=== PATIENT | female | born 1945 | race African-American/Black ===

== ENCOUNTER 2016-04-30 19:03 | Inpatient (IN) | payer OTHER ==
[~2016-04-30] VITALS: Ht 160 cm; Wt 42.4 kg
[~2016-04-30 19:03] MED LIST: AMOX1TAB10 PO; ASCO500T3 PO; ASPI81TA9 PO; CHOL10002 PO; CLIN300C86 PO; INSU100I13 SQ; INSU100I17 SQ; INSU100I27 SQ; INSU100V13 SQ; INSU300I SQ; LISI-338 PO; MULT1TAB90 PO; POTA20TA82 PO; ZINC50TA29 PO
--- NOTE | 2016-04-30 19:50 | PHYS DOC ---
Past Medical History Past Medical History: Diabetes-Type I Additional Past Medical Histor: MRSA Past Surgical History: Other Additional Past Surgical Histo: Unknown/Note scar on abd. Alcohol Use: None Drug Use: None Adult General Chief Complaint Chief Complaint: BLOOD SUGAR PROBLEM HPI HPI Patient is a 70 year old female who presents with hyperglycemia. Patient reports her glucometer was reading high today. She says that she has been compliant with her insulin. Has c/o nausea at this time. Of note, patient with multiple prior admissions over past year for DKA. Review of Systems Review of Systems Constitutional: Denies fever or chills Eyes: Denies change in visual acuity or eye pain HENT: Denies nasal congestion or sore throat Respiratory: Denies cough or shortness of breath Cardiovascular: Denies chest pain GI: Nausea. Denies abdominal pain, vomiting, bloody stools or diarrhea : Denies dysuria or hematuria Musculoskeletal: Denies back pain or joint pain Integument: Denies rash or skin lesions Neurologic: Denies headache, focal weakness or sensory changes Current Medications Current Medications Current Medications Medications (Trade) Dose Ordered Sig/Amalia Start Time Stop Time Status Last Admin Dose Admin Acetaminophen (Tylenol) 650 mg PRN Q4HRS PRN 04/30/16 21:30 05/01/16 21:29 Insulin Human Regular 150 unit/ Sodium Chloride 151.5 ml @ 0 mls/hr CONT PRN PRN 04/30/16 21:15 04/30/16 21:23 12.7 MLS/HR Ondansetron HCl (Zofran) 4 mg PRN Q8HRS PRN 04/30/16 21:30 05/01/16 21:29 Potassium Chloride (KCl Premix 10meq) 100 ml @ 100 mls/hr PRN Q1HR PRN 04/30/16 21:15 Sodium Chloride 1,000 ml @ 1,000 mls/hr Q1H 04/30/16 21:30 04/30/16 21:31 DC 04/30/16 21:47 1,000 MLS/HR Allergies Allergies Allergies Coded Allergies Type Severity Reaction Last Updated Verified I S O L A T I O N *CONTACT* Allergy Unknown 02/21/16 Yes No Known Medication Allergies Allergy Unknown 12/16/15 Yes Physical Exam Physical Exam Constitutional: Well developed, well nourished, no acute distress, non-toxic appearance HENT: Normocephalic, atraumatic, bilateral external ears normal Eyes: EOMI, conjunctiva normal, no discharge Neck: Normal range of motion, no stridor Cardiovascular: Tachycardic, regular rhythm, no murmur Lungs & Thorax: Mild scattered expiratory wheezing, Kussmaul breathing Abdomen: Bowel sounds normal, soft, non-distended, no TTP Skin: Warm, dry, no erythema, no rash Extremities: No obvious deformity, no edema Neurologic: Somnolent but arousable, MONTES to command, sensation to light touch intact throughout Current Patient Data Vital Signs Vital Signs Date Time Temp Pulse Resp B/P Pulse Ox O2 Delivery O2 Flow Rate FiO2 04/30/16 21:30 132 28 182/79 99 Room Air 04/30/16 19:33 96.9 96.9 Lab Values Laboratory Tests Test 04/30/16 19:24 04/30/16 20:30 Urine Collection Type Unknown Urine Color Yellow Urine Clarity Clear Urine pH 5.5 Urine Specific [place] 1.020 Urine Protein Negativemg/dL (NEG-TRACE) Urine Glucose (UA) >=1000mg/dL (NEG) Urine Ketones (Stick) >=80mg/dL (NEG) Urine Blood Trace (NEG) Urine Nitrite Negative (NEG) Urine Bilirubin Negative (NEG) Urine Urobilinogen Dipstick 0.2mg/dL (0.2 mg/dL) Urine Leukocyte Esterase Negative (NEG) Urine RBC Occ/HPF (0-2) Urine WBC 1-4/HPF (0-4) Urine Squamous Epithelial Cells Few/LPF Urine Bacteria 0/HPF (0-FEW) Urine Mucus Slight/LPF White Blood Count 16.2x10^3/uL (4.0-11.0) H Red Blood Count 3.91x10^6/uL (3.50-5.40) Hemoglobin 11.4g/dL (12.0-15.5) L Hematocrit 40.3% (36.0-47.0) Mean Corpuscular Volume 103fL (79-100) H Mean Corpuscular Hemoglobin 29pg (25-35) Mean Corpuscular Hemoglobin Concent 28g/dL (31-37) L Red Cell Distribution Width 17.5% (11.5-14.5) H Platelet Count 447x10^3/uL (140-400) H Neutrophils (%) (Auto) 87% (31-73) H Lymphocytes (%) (Auto) 8% (24-48) L Monocytes (%) (Auto) 4% (0-9) Eosinophils (%) (Auto) 0% (0-3) Basophils (%) (Auto) 1% (0-3) Neutrophils # (Auto) 14.1x10^3uL (1.8-7.7) H Lymphocytes # (Auto) 1.2x10^3/uL (1.0-4.8) Monocytes # (Auto) 0.7x10^3/uL (0.0-1.1) Eosinophils # (Auto) 0.0x10^3/uL (0.0-0.7) Basophils # (Auto) 0.2x10^3/uL (0.0-0.2) Segmented Neutrophils % 76% (35-66) H Band Neutrophils % 13% (0-9) H Lymphocytes % 7% (24-48) L Monocytes % 4% (0-10) Platelet Estimate Increased (ADEQUATE) Polychromasia Slight Anisocytosis Slight Valentina Cells Occ Sodium Level 138mmol/L (136-145) Potassium Level 4.8mmol/L (3.5-5.1) Chloride Level 98mmol/L (98-107) Carbon Dioxide Level < 5mmol/L (21-32) *L Anion Gap 35 (6-14) H Blood Urea Nitrogen 18mg/dL (7-20) Creatinine 1.2mg/dL (0.6-1.0) H Estimated GFR (Cockcroft-Gault) 54.1 BUN/Creatinine Ratio 15 (6-20) Glucose Level 695mg/dL (70-99) *H Calcium Level 9.2mg/dL (8.5-10.1) Magnesium Level 2.2mg/dL (1.8-2.4) Total Bilirubin 0.6mg/dL (0.2-1.0) Aspartate Amino Transferase (AST) 22U/L (15-37) Alanine Aminotransferase (ALT) 52U/L (14-59) Alkaline Phosphatase 260U/L (46-116) H Total Protein 8.3g/dL (6.4-8.2) H Albumin 3.7g/dL (3.4-5.0) Albumin/Globulin Ratio 0.8 (1.0-1.7) L Laboratory Tests 04/30/16 20:30 Laboratory Tests 04/30/16 20:30 EKG EKG EKG (my read): sinus tachycardia, rate 132, normal axis, no acute ischemic changes Radiology/Procedures Radiology/Procedures CXR (my read): Few circular opacities in R lower lung field, L lateral lung field Course & Med Decision Making Course & Med Decision Making Pertinent Labs and Imaging studies reviewed. (See chart for details) Patient is 70 year old female who presents with hyperglycemia. Concern for DKA, especially given h/o multiple prior episodes. Will check labs, EKG, CXR, UA. IV fluid bolus ordered. EKG and CXR findings as above. Labs notable for glucose 695 , bicarb <5, anion gap 35. Also has leukocytosis, although she frequently has this per chart review. Discussed results with patient. Additional fluid bolus ordered as well as maintenance rate. Insulin gtt started. Discussed with Dr. Conde , will admit to ICU under her care for further evaluation and treatment. Critical care time: I spent 35 minutes critical care time with this patient. This does not include any time spent on procedures. Dragon Disclaimer Dragon Disclaimer This electronic medical record was generated, in whole or in part, using a voice recognition dictation system. Departure Departure Impression: Primary Impression: Diabetic ketoacidosis Disposition: ADMITTED INPATIENT Admitting Physician: Rachell Conde Condition: GUARDED Referrals: NO PCP (PCP) PANCHO GARRETT MD Apr 30, 2016 19:50
[2016-04-30 19:59] LABS: BILIRUBIN,URINE NEGATIVE (NEG); GLUCOSE,URINE >=1000 mg/dL (NEG); NITRITE,URINE NEGATIVE (NEG); PH,URINE 5.5; UROBILINOGEN,URINE 0.2 mg/dL (0.2 mg/dL)
[2016-04-30 20:13] LABS: BACTERIA,URINE 0 /HPF (0-FEW); PROTEIN,URINE NEGATIVE (NEG-TRACE); RBC,URINE OCC /HPF (0-2)
[2016-04-30 20:14] LABS: SQUAMOUS EPITHELIAL CELL,UR FEW /LPF
[2016-04-30] MEDS ORDERED: IV NORMAL SALINE 1000ML BAG 1,000 ML IV SCH ×2 (20:30→21:30)
[2016-04-30 20:41] LABS: BASO # 0.2 x10^3/uL (0.0-0.2); BASO % 1 % (0-3); EOS % 0 % (0-3); HEMATOCRIT 40.3 % (36.0-47.0); HEMOGLOBIN 11.4 g/dL (12.0-15.5); LYMPH # 1.2 x10^3/uL (1.0-4.8); LYMPH % 8 % (24-48); MEAN CORPUSCULAR HEMOGLOBIN 29 pg (25-35); MEAN CORPUSCULAR HGB CONC 28 g/dL (31-37); MEAN CORPUSCULAR VOLUME 103 fL (79-100); MONO % 4 % (0-9); NEUT % 87 % (31-73); PLATELET COUNT 447 x10^3/uL (140-400); RED BLOOD COUNT 3.91 x10^6/uL (3.50-5.40); RED CELL DISTRIBUTION WIDTH 17.5 % (11.5-14.5); WHITE BLOOD COUNT 16.2 x10^3/uL (4.0-11.0)
[2016-04-30 21:03] LABS: ALBUMIN 3.7 g/dL (3.4-5.0); ALBUMIN/GLOBULIN RATIO 0.8 (1.0-1.7); ALK PHOS 260 U/L (46-116); ALT (SGPT) 52 U/L (14-59); AST (SGOT) 22 U/L (15-37); BLOOD UREA NITROGEN 18 mg/dL (7-20); BUN/CREATININE RATIO 15 (6-20); CALCIUM 9.2 mg/dL (8.5-10.1); CHLORIDE 98 mmol/L (98-107); CREATININE 1.2 mg/dL (0.6-1.0); GFR 54.1; POTASSIUM 4.8 mmol/L (3.5-5.1); SODIUM 138 mmol/L (136-145); TOTAL BILIRUBIN 0.6 mg/dL (0.2-1.0); TOTAL PROTEIN 8.3 g/dL (6.4-8.2)
[2016-04-30 21:08] LABS: GLUCOSE 695 mg/dL (70-99)
[2016-04-30 21:09] LABS: ANION GAP 35 (6-14); CARBON DIOXIDE < 5 mmol/L (21-32)
[2016-04-30] MEDS ORDERED: POTASSIUM CHLORIDE 10MEQ 100 ML IV PRN ×3 (21:15)
[2016-04-30] MEDS ORDERED: INSULIN REGULAR VIAL 150 UNIT in 0.9 % SODIUM CHLORIDE 150ML 150 ML IV PRN (21:15)
[2016-04-30 21:20] LABS: ANISOCYTOSIS SLIGHT; BURR CELLS OCC; PLT ESTIMATE INCREASED (ADEQUATE); POLYCHROMASIA SLIGHT
[2016-04-30] MEDS ORDERED: ONDANSETRON PF 4 MG/2 ML VIAL. IV PRN (21:30)
[2016-04-30] MEDS ORDERED: POTASSIUM CL 40MEQ IN 0.9%NACL 1,000 ML IV ONE (22:00)
[2016-04-30] MEDS ORDERED: hydrALAZINE 20 MG/ML VIAL. IVP ONE (22:00)
[2016-04-30 23:15] VITALS: BP 121/54
[2016-04-30 23:30] VITALS: BP 149/59
[2016-04-30 23:45] VITALS: BP 106/61
[2016-05-01] VITALS (26 sets, daily range): BP systolic 59–155; BP diastolic 31–67
[2016-05-01 00:26] LABS: PH COOX 7.05 (7.35-7.45)
[2016-05-01 00:27] LABS: BASE EXCESS COOX -25 mmol/L (-3-3); FIO2 COOX 21; HCO3 COOX 4 mmol/L (21-28); PCO2 COOX 15 mmHg (35-46); PO2 COOX 127 mmHg (65-108); SAT O2 COOX 97 % (92-99)
[2016-05-01 00:55] LABS: BLOOD UREA NITROGEN 18 mg/dL (7-20); CALCIUM 8.4 mg/dL (8.5-10.1); CHLORIDE 105 mmol/L (98-107); CREATININE 1.3 mg/dL (0.6-1.0); GFR 49.3; GLUCOSE 481 mg/dL (70-99); PHOSPHORUS 4.7 mg/dL (2.6-4.7); POTASSIUM 3.9 mmol/L (3.5-5.1); SODIUM 142 mmol/L (136-145)
[2016-05-01 00:57] LABS: ALBUMIN 3.5 g/dL (3.4-5.0); DIRECT BILIRUBIN 0.1 mg/dL (0.0-0.2); TOTAL BILIRUBIN 0.4 mg/dL (0.2-1.0); TOTAL PROTEIN 7.4 g/dL (6.4-8.2)
[2016-05-01 00:58] LABS: ANION GAP 32 (6-14)
[2016-05-01 01:03] LABS: CARBON DIOXIDE < 5 mmol/L (21-32)
[2016-05-01] MEDS ORDERED: SODIUM BICARBONATE VIAL 150 MEQ in IV STERILE WATER 1,000 ML IV ONE (01:30)
[2016-05-01] MEDS: POTASSIUM CHLORIDE 10MEQ 100 ML IV SCH ×4 (02:48→05:48)
--- NOTE | 2016-05-01 06:11 | RAD ---
PROCEDURE AP portable chest x-ray HISTORY Shortness of breath COMPARISON Chest x-ray April 30, 2016 FINDINGS Symmetric nipple shadow densities lung bases. There is increased size of the density at the right lung base which also has less distinct margins since the prior exam. Heart size normal. Calcified plaque thoracic aortic arch. Left mid lung calcified granuloma. No pneumothorax. No pleural effusions. Thoracic spine scoliosis. Bones are unremarkable. IMPRESSION Worsening with enlargement of the right lung base pulmonary opacity. Electronically signed by: Eduardo Escobedo MD (May 01, 2016 06:10:02)
--- NOTE | 2016-05-01 06:29 | EKG ---
[facility] [address] [place] [address] Test Date: 2016-04-30 Test Time: 19:25:20 Pat Name: DALTON MCLEAN Department: Room: 114 1 Gender: F [employer] Operator: : [id number] Requested By: PANCHO GARRETT Order Number: [id number] Reading MD: Cheli Pisano Measurements Intervals [place] Rate: 132 P: 80 VT: 118 QRS: 58 QRSD: 66 T: 81 QT: 282 QTc: 421 Interpretive Statements SINUS TACHYCARDIA LEFT ATRIAL ABNORMALITY RI6.01 Unconfirmed report No previous ECG available for comparison Electronically Signed On 05-05-2016 10:02:52 TILE LAYER SUPERVISOR by Cheli Pisano
[2016-05-01] MEDS: IV DEXTROSE 5 %-0.45 % NACL 1,000 ML IV SCH ×2 (07:45→18:02)
[2016-05-01] MEDS ORDERED: DEXTROSE 50% 25 GM / 50ML DISP.SYRIN. IV ONE ×2 (07:48→08:15)
--- NOTE | 2016-05-01 08:19 | RAD ---
Indication hypertension. Hyperglycemia. Protocol study. A single view of the chest was obtained and is compared to an exam 02/19/2016. There is now a well-defined 3.5 cm mass in the right lower lung field not seen previously. There is a possible additional smaller mass immediately adjacent to the larger mass. There is a well-defined 1.5 cm mass in the left hemithorax. This could represent nipple. A parenchymal mass is not excluded. A CT examination of the chest should be considered. (These findings were identified by the emergency room physician at the time of the exam). An acute parenchymal infiltrate is not seen. The pulmonary vasculature is normal. Significant pleural fluid is not present. There is no pneumothorax. IMPRESSION: Parenchymal opacities suggesting parenchymal masses, new relative to a study previously. CT examination should be considered. A definite acute finding in the chest is not seen
[2016-05-01 08:23] LABS: CALCIUM 8.9 mg/dL (8.5-10.1); CREATININE 1.2 mg/dL (0.6-1.0); GFR 54.1; MAGNESIUM 1.6 mg/dL (1.8-2.4); PHOSPHORUS 1.9 mg/dL (2.6-4.7)
[2016-05-01] MEDS: ACETAMINOPHEN 325 MG TABLET. PO PRN ×2 (08:44→18:00)
[2016-05-01] MEDS ORDERED: PIP/TAZO PER PHARMACY MC PRN (09:45)
[2016-05-01] MEDS ORDERED: VANCOMYCIN PER PHARMACY MC PRN (09:45)
[2016-05-01 09:46] LABS: BASO % 0 % (0-3); EOS % 0 % (0-3); HEMATOCRIT 28.7 % (36.0-47.0); HEMOGLOBIN 9.5 g/dL (12.0-15.5); LYMPH # 0.4 x10^3/uL (1.0-4.8); LYMPH % 17 % (24-48); MEAN CORPUSCULAR HEMOGLOBIN 29 pg (25-35); MEAN CORPUSCULAR HGB CONC 33 g/dL (31-37); MEAN CORPUSCULAR VOLUME 89 fL (79-100); MONO % 15 % (0-9); NEUT % 68 % (31-73); PLATELET COUNT 295 x10^3/uL (140-400); RED BLOOD COUNT 3.23 x10^6/uL (3.50-5.40); RED CELL DISTRIBUTION WIDTH 15.1 % (11.5-14.5); WHITE BLOOD COUNT 2.4 x10^3/uL (4.0-11.0)
[2016-05-01] MEDS ORDERED: VANCOMYCIN 1 GM in IV NORMAL SALINE 250ML 250 ML IV ONE ×2 (10:00→13:30)
[2016-05-01] MEDS ORDERED: MAGNESIUM SULFATE 2GM 50 ML IV ONE (10:00)
[2016-05-01] MEDS ORDERED: SODIUM PHOSPHATE 20 MMOL in IV DEXTROSE 5% 250 ML IV ONE (10:00)
--- NOTE | 2016-05-01 11:00 | PDOC ---
Provider Note Provider Note dictated see orders FRANCISCO ZULUAGA MD May 01, 2016 11:00
[2016-05-01] MEDS ORDERED: SODIUM BICARB ADULT 8.4% 50 MEQ/50 ML DISP.SYRIN. IV ONE (11:30)
[2016-05-01] MEDS ORDERED: CONTRAST GIVEN MC PRN (11:45)
--- NOTE | 2016-05-01 11:48 | CONS ---
DATE OF CONSULTATION: 05/01/2016 ATTENDING PHYSICIAN: Dr. Conde. REASON FOR CONSULTATION: Encephalopathy, pneumonia, altered mental status and DKA. HISTORY OF PRESENT ILLNESS: The patient is a 70-year-old female who has history of type 1 diabetes and has multiple hospitalizations on a regular basis for diabetic ketoacidosis. She was brought in to the hospital with hyperglycemia. Her glucometer was reading high. She was seen in the ER where her blood sugars were noted to be 695. The patient's bicarbonate was less than 5. She had a BUN of 18 and creatinine of 1.2. Her chest x-ray also showed a new opacity in the right lower lobe consistent with pneumonia. The patient's previous chest x-ray in March has shown no infiltrates involving the right lower lobe. Upon further questioning from the family, she has been coughing and had a fever at home. She was also noted to have a fever of 99.6 while in the hospital. The patient has been seen by Infectious Disease and CT scan of the chest and abdomen has been ordered and she is being placed on broad-spectrum antibiotic, vancomycin and Zosyn. She appears to be alert but somewhat lethargic, but she is oriented to place and person. PAST MEDICAL HISTORY: Significant for history of type 1 diabetes, history of prior respiratory failure, history of multiple admissions of diabetic ketoacidosis, and history of MRSA infection. PAST SURGICAL HISTORY: No recent surgeries. ALLERGIES: None to any medications. MEDICATIONS: Reviewed including broad-spectrum antibiotics. REVIEW OF SYSTEMS: Limited, but at least 10-point system was obtained. Pertinent positives discussed in my history of present illness. SOCIAL HISTORY: Nonsmoker. PHYSICAL EXAMINATION: VITAL SIGNS: T-max of 99, blood pressure 117/54, pulse is in the 130s. Pulse ox is 97% on 4-6 liters. HEENT: Sclerae nonicteric. NECK: Supple. LUNGS: Diminished breath sounds. CARDIOVASCULAR: Regular rate and tachycardia. ABDOMEN: Soft. EXTREMITIES: No pitting edema. LABORATORY DATA: Latest labs are reviewed. BUN 14, creatinine 1.2. Sugars are now in the 115 range. Her urine has a few WBCs. ABGs with a pH of 7.05, pCO2 of 15 and a pO2 of 127 with a bicarbonate of 4. IMPRESSION: 1. Acute encephalopathy secondary to diabetic ketoacidosis. 2. Right lower lobe pneumonia. The patient presented with a new infiltrate, fever and cough at home. 3. Severe metabolic acidosis secondary to diabetic ketoacidosis. 4. No significant history of tobacco use. 5. Mild renal insufficiency, improving with IV fluids. 6. Acute hypoxic respiratory failure secondary to pneumonia. RECOMMENDATIONS: 1. Continue with present oxygen with gradual wean keeping sats 92-94%. 2. Broad spectrum antibiotics as initiated by Infectious Disease. 3. CT chest and abdomen has been ordered by Dr. Austin. We will follow and reviewed the images once available. 4. Management of DKA per PCP. 5. P.r.n. bicarbonate. 6. Replace magnesium and phosphorus. 7. IV hydration. 8. Discussed with the patient's family, RN and RT. We will follow along with you. We will keep the patient in ICU. Critical care time 39 minutes. FRANCISCO ZULUAGA MD DR: PALAK/carmelo JOB#: [id number] / [id number]
[2016-05-01] MEDS ORDERED: PIPERACILLIN/TAZOBACTAM 2.25 GM in IV NORMAL SALINE 50ML 50 ML IV SCH (12:00)
--- NOTE | 2016-05-01 12:00 | PDOC1 ---
History and Physical Date of Admission Date of Admission 05/01/16 Identification/Chief Complaint Chief Complaint hyperglycemia Problems: Source Source: Chart review History of Present Illness History of Present Illness 70yo F, dm1, on insulin, comes here every month for hyperglycemia. pt was found DKA again this time. pt is very lethargic now, not talks to me or follow any commands. in ICU overnight with DKA protocol, bicarb drip, has fever, + 1/2 bcx. and + lung mass, likely HCAP now. Past Medical History Cardiovascular: No pertinent hx, HTN Pulmonary: No pertinent hx Hepatobiliary: No pertinent hx Psych: No pertinent hx Rheumatologic: No pertinent hx Infectious disease: No pertinent hx Renal/: No pertinent hx Endocrine: Diabetes Past Surgical History Past Surgical History: Hysterectomy Family History Family History: Hypertension Social History Smoke: No ALCOHOL: none Drugs: None Current Problem List Problem List Problems Medical Problems: (1) Diabetic ketoacidosis Status: Acute (2) DKA (diabetic ketoacidoses) Status: Acute Current Medications Current Medications Current Medications Medications (Trade) Dose Ordered Sig/Amalia Start Time Stop Time Status Last Admin Dose Admin Acetaminophen 650 mg 650 mg PRN Q4HRS PRN 04/30/16 21:30 05/01/16 21:29 05/01/16 08:44 650 MG Dextrose 25 gm STK-MED ONCE 05/01/16 07:48 05/01/16 07:49 DC Dextrose 25 gm 25 gm 1X ONCE 05/01/16 08:15 05/01/16 08:16 DC 05/01/16 07:45 25 GM Dextrose/Sodium Chloride (Iv D5% - 1/2 NS) 1,000 ml @ 100 mls/hr Q10H 05/01/16 08:23 05/01/16 07:45 250 MLS/HR Hydralazine HCl 10 mg 10 mg 1X ONCE 04/30/16 22:00 04/30/16 22:01 DC 04/30/16 22:10 10 MG Info (Do NOT chart on this entry -- for MONITORING) 1 each PRN DAILY PRN 05/01/16 11:45 05/03/16 11:44 Insulin Human Regular/Sodium Chloride (Novolin R Vial/ Iv Normal Saline 150ml) 151.5 ml @ 0 mls/hr CONT PRN PRN 04/30/16 21:15 04/30/16 21:23 12.7 MLS/HR Iohexol (Omnipaque 300 Mg/ml) 60 ml 1X ONCE 05/01/16 12:15 05/01/16 12:16 Magnesium Sulfate/ Dextrose (Magnesium Sulfate PREMIX 4GM) 100 ml @ 25 mls/hr PRN DAILY PRN 05/02/16 09:00 Ondansetron HCl (Zofran) 4 mg PRN Q8HRS PRN 04/30/16 21:30 05/01/16 21:29 05/01/16 04:57 4 MG Piperacillin Sod/ Tazobactam Sod 2.25 gm/Sodium Chloride 50 ml @ 100 mls/hr Q6HRS 05/01/16 12:00 Piperacillin Sod/ Tazobactam Sod 1 each 1 each PRN DAILY PRN 05/01/16 09:45 Potassium Chloride/Sodium Chloride (KCl 40 Meq-NS 1,000 ml Iv Soln) 1,000 ml @ 150 mls/hr 1X ONCE 04/30/16 22:00 05/01/16 04:39 DC 04/30/16 21:48 150 MLS/HR Potassium Chloride (KCl Premix 10meq) 100 ml @ 100 mls/hr Q1H 05/01/16 03:00 05/01/16 06:59 DC 05/01/16 05:48 100 MLS/HR Sodium Bicarbonate 150 meq/Sterile Water 1,150 ml @ 125 mls/hr 1X ONCE 05/01/16 01:30 05/01/16 10:41 DC 05/01/16 01:30 125 MLS/HR Sodium Bicarbonate 50 meq 1X ONCE 05/01/16 11:30 05/01/16 11:31 DC Sodium Chloride 1,000 ml @ 1,000 mls/hr Q1H 04/30/16 21:30 04/30/16 21:31 DC 04/30/16 21:47 1,000 MLS/HR Sodium Phosphate 20 mmol/Dextrose 256.6667 ml @ 64.167 m... 1X ONCE 05/01/16 10:00 05/01/16 13:59 Vancomycin HCl (Vanco Per Pharmacy) 1 each PRN DAILY PRN 05/01/16 09:45 Vancomycin HCl 1 gm/Sodium Chloride 250 ml @ 250 mls/hr 1X ONCE 05/01/16 10:00 05/01/16 10:59 DC Allergies Allergies Allergies Coded Allergies Type Severity Reaction Last Updated Verified I S O L A T I O N *CONTACT* Allergy Unknown 02/21/16 Yes No Known Medication Allergies Allergy Unknown 12/16/15 Yes ROS Review of System CONSTITUTIONAL: No fever or chills EYES: No recent changes SKIN: No rash or itching CARDIOVASCULAR: No chest pain, syncope, palpitations, or edema RESPIRATORY: No SOB or cough GASTROINTESTINAL: No nausea, vomiting or abdominal pain NEUROLOGICAL: No headaches or weakness ENDOCRINE: No cold or heat intolerance GENITOURINARY: No urgency or frequency of urination MUSCULOSKELETAL: No back pain or joint pain LYMPHATICS: No enlarged lymph nodes PSYCHIATRIC: No anxiety or depression Physical Exam Physical Exam GEN.: lethargic, not talk or follow commands HEENT: Head is normocephalic, atraumatic NECK: Supple. LUNGS: right lower mild crackles HEART: RRR, S1, S2 present. Peripheral pulses intact ABDOMEN: Soft, nontender. Positive bowel sounds. EXTREMITIES: Without any cyanosis. NEUROLOGIC: Normal speech, normal tone PSYCHIATRIC: Normal affect, normal mood. SKIN: No ulcerations Vitals Vitals Vital Signs Date Time Temp Pulse Resp B/P Pulse Ox O2 Delivery O2 Flow Rate FiO2 05/01/16 06:00 140 26 117/54 97 Simple Mask 6.0 05/01/16 04:00 99.6 99.6 Labs Labs Laboratory Tests Test 04/30/16 19:24 04/30/16 20:30 04/30/16 22:54 04/30/16 23:30 Urine Collection Type Unknown Urine Color Yellow Urine Clarity Clear Urine pH 5.5 Urine Specific [place] 1.020 Urine Protein Negativemg/dL (NEG-TRACE) Urine Glucose (UA) >=1000mg/dL (NEG) Urine Ketones (Stick) >=80mg/dL (NEG) Urine Blood Trace (NEG) Urine Nitrite Negative (NEG) Urine Bilirubin Negative (NEG) Urine Urobilinogen Dipstick 0.2mg/dL (0.2 mg/dL) Urine Leukocyte Esterase Negative (NEG) Urine RBC Occ/HPF (0-2) Urine WBC 1-4/HPF (0-4) Urine Squamous Epithelial Cells Few/LPF Urine Bacteria 0/HPF (0-FEW) Urine Mucus Slight/LPF White Blood Count 16.2x10^3/uL (4.0-11.0) Red Blood Count 3.91x10^6/uL (3.50-5.40) Hemoglobin 11.4g/dL (12.0-15.5) Hematocrit 40.3% (36.0-47.0) Mean Corpuscular Volume 103fL (79-100) Mean Corpuscular Hemoglobin 29pg (25-35) Mean Corpuscular Hemoglobin Concent 28g/dL (31-37) Red Cell Distribution Width 17.5% (11.5-14.5) Platelet Count 447x10^3/uL (140-400) Neutrophils (%) (Auto) 87% (31-73) Lymphocytes (%) (Auto) 8% (24-48) Monocytes (%) (Auto) 4% (0-9) Eosinophils (%) (Auto) 0% (0-3) Basophils (%) (Auto) 1% (0-3) Neutrophils # (Auto) 14.1x10^3uL (1.8-7.7) Lymphocytes # (Auto) 1.2x10^3/uL (1.0-4.8) Monocytes # (Auto) 0.7x10^3/uL (0.0-1.1) Eosinophils # (Auto) 0.0x10^3/uL (0.0-0.7) Basophils # (Auto) 0.2x10^3/uL (0.0-0.2) Segmented Neutrophils % 76% (35-66) Band Neutrophils % 13% (0-9) Lymphocytes % 7% (24-48) Monocytes % 4% (0-10) Platelet Estimate Increased (ADEQUATE) Polychromasia Slight Anisocytosis Slight [place] Cells Occ Sodium Level 138mmol/L (136-145) Potassium Level 4.8mmol/L (3.5-5.1) Chloride Level 98mmol/L (98-107) Carbon Dioxide Level < 5mmol/L (21-32) Anion Gap 35 (6-14) Blood Urea Nitrogen 18mg/dL (7-20) Creatinine 1.2mg/dL (0.6-1.0) Estimated GFR (Cockcroft-Gault) 54.1 BUN/Creatinine Ratio 15 (6-20) Glucose Level 695mg/dL (70-99) Calcium Level 9.2mg/dL (8.5-10.1) Magnesium Level 2.2mg/dL (1.8-2.4) Total Bilirubin 0.6mg/dL (0.2-1.0) Aspartate Amino Transf (AST/SGOT) 22U/L (15-37) Alanine Aminotransferase (ALT/SGPT) 52U/L (14-59) Alkaline Phosphatase 260U/L (46-116) Total Protein 8.3g/dL (6.4-8.2) Albumin 3.7g/dL (3.4-5.0) Albumin/Globulin Ratio 0.8 (1.0-1.7) Glucose (Fingerstick) 553mg/dL (70-99) 456mg/dL (70-99) Test 05/01/16 00:18 05/01/16 00:28 05/01/16 00:41 05/01/16 01:38 O2 Saturation 97% (92-99) Arterial Blood pH 7.05 (7.35-7.45) Arterial Blood pCO2 at Patient Temp 15mmHg (35-46) Arterial Blood pO2 at Patient Temp 127mmHg (65-108) Arterial Blood HCO3 4mmol/L (21-28) Arterial Blood Base Excess -25mmol/L (-3-3) FiO2 21 Sodium Level 142mmol/L (136-145) Potassium Level 3.9mmol/L (3.5-5.1) Chloride Level 105mmol/L (98-107) Carbon Dioxide Level < 5mmol/L (21-32) Anion Gap 32 (6-14) Blood Urea Nitrogen 18mg/dL (7-20) Creatinine 1.3mg/dL (0.6-1.0) Estimated GFR (Cockcroft-Gault) 49.3 Glucose Level 481mg/dL (70-99) Calcium Level 8.4mg/dL (8.5-10.1) Phosphorus Level 4.7mg/dL (2.6-4.7) Magnesium Level 2.0mg/dL (1.8-2.4) Total Bilirubin 0.4mg/dL (0.2-1.0) Direct Bilirubin 0.1mg/dL (0.0-0.2) Aspartate Amino Transf (AST/SGOT) 19U/L (15-37) Alanine Aminotransferase (ALT/SGPT) 47U/L (14-59) Alkaline Phosphatase 239U/L (46-116) Total Protein 7.4g/dL (6.4-8.2) Albumin 3.5g/dL (3.4-5.0) Lipase 342U/L (73-393) Glucose (Fingerstick) 372mg/dL (70-99) 354mg/dL (70-99) Test 05/01/16 02:46 05/01/16 03:47 05/01/16 04:51 05/01/16 05:47 Glucose (Fingerstick) 268mg/dL (70-99) 194mg/dL (70-99) 146mg/dL (70-99) 139mg/dL (70-99) Test 05/01/16 06:43 05/01/16 07:30 05/01/16 07:45 05/01/16 08:11 Glucose (Fingerstick) 100mg/dL (70-99) 59mg/dL (70-99) 105mg/dL (70-99) Sodium Level 136mmol/L (136-145) Potassium Level 4.0mmol/L (3.5-5.1) Chloride Level 108mmol/L (98-107) Carbon Dioxide Level 14mmol/L (21-32) Anion Gap 14 (6-14) Blood Urea Nitrogen 14mg/dL (7-20) Creatinine 1.2mg/dL (0.6-1.0) Estimated GFR (Cockcroft-Gault) 54.1 Glucose Level 90mg/dL (70-99) Calcium Level 8.9mg/dL (8.5-10.1) Phosphorus Level 1.9mg/dL (2.6-4.7) Magnesium Level 1.6mg/dL (1.8-2.4) Test 05/01/16 09:20 05/01/16 09:30 05/01/16 10:35 05/01/16 11:43 Glucose (Fingerstick) 92mg/dL (70-99) 115mg/dL (70-99) 85mg/dL (70-99) White Blood Count 2.4x10^3/uL (4.0-11.0) Red Blood Count 3.23x10^6/uL (3.50-5.40) Hemoglobin 9.5g/dL (12.0-15.5) Hematocrit 28.7% (36.0-47.0) Mean Corpuscular Volume 89fL (79-100) Mean Corpuscular Hemoglobin 29pg (25-35) Mean Corpuscular Hemoglobin Concent 33g/dL (31-37) Red Cell Distribution Width 15.1% (11.5-14.5) Platelet Count 295x10^3/uL (140-400) Neutrophils (%) (Auto) 68% (31-73) Lymphocytes (%) (Auto) 17% (24-48) Monocytes (%) (Auto) 15% (0-9) Eosinophils (%) (Auto) 0% (0-3) Basophils (%) (Auto) 0% (0-3) Neutrophils # (Auto) 1.6x10^3uL (1.8-7.7) Lymphocytes # (Auto) 0.4x10^3/uL (1.0-4.8) Monocytes # (Auto) 0.4x10^3/uL (0.0-1.1) Eosinophils # (Auto) 0.0x10^3/uL (0.0-0.7) Basophils # (Auto) 0.0x10^3/uL (0.0-0.2) Laboratory Tests Test 04/30/16 19:24 04/30/16 20:30 04/30/16 22:54 04/30/16 23:30 Urine Collection Type Unknown Urine Color Yellow Urine Clarity Clear Urine pH 5.5 Urine Specific [place] 1.020 Urine Protein Negativemg/dL (NEG-TRACE) Urine Glucose (UA) >=1000mg/dL (NEG) Urine Ketones (Stick) >=80mg/dL (NEG) Urine Blood Trace (NEG) Urine Nitrite Negative (NEG) Urine Bilirubin Negative (NEG) Urine Urobilinogen Dipstick 0.2mg/dL (0.2 mg/dL) Urine Leukocyte Esterase Negative (NEG) Urine RBC Occ/HPF (0-2) Urine WBC 1-4/HPF (0-4) Urine Squamous Epithelial Cells Few/LPF Urine Bacteria 0/HPF (0-FEW) Urine Mucus Slight/LPF White Blood Count 16.2x10^3/uL (4.0-11.0) Red Blood Count 3.91x10^6/uL (3.50-5.40) Hemoglobin 11.4g/dL (12.0-15.5) Hematocrit 40.3% (36.0-47.0) Mean Corpuscular Volume 103fL (79-100) Mean Corpuscular Hemoglobin 29pg (25-35) Mean Corpuscular Hemoglobin Concent 28g/dL (31-37) Red Cell Distribution Width 17.5% (11.5-14.5) Platelet Count 447x10^3/uL (140-400) Neutrophils (%) (Auto) 87% (31-73) Lymphocytes (%) (Auto) 8% (24-48) Monocytes (%) (Auto) 4% (0-9) Eosinophils (%) (Auto) 0% (0-3) Basophils (%) (Auto) 1% (0-3) Neutrophils # (Auto) 14.1x10^3uL (1.8-7.7) Lymphocytes # (Auto) 1.2x10^3/uL (1.0-4.8) Monocytes # (Auto) 0.7x10^3/uL (0.0-1.1) Eosinophils # (Auto) 0.0x10^3/uL (0.0-0.7) Basophils # (Auto) 0.2x10^3/uL (0.0-0.2) Segmented Neutrophils % 76% (35-66) Band Neutrophils % 13% (0-9) Lymphocytes % 7% (24-48) Monocytes % 4% (0-10) Platelet Estimate Increased (ADEQUATE) Polychromasia Slight Anisocytosis Slight [place] Cells Occ Sodium Level 138mmol/L (136-145) Potassium Level 4.8mmol/L (3.5-5.1) Chloride Level 98mmol/L (98-107) Carbon Dioxide Level < 5mmol/L (21-32) Anion Gap 35 (6-14) Blood Urea Nitrogen 18mg/dL (7-20) Creatinine 1.2mg/dL (0.6-1.0) Estimated GFR (Cockcroft-Gault) 54.1 BUN/Creatinine Ratio 15 (6-20) Glucose Level 695mg/dL (70-99) Calcium Level 9.2mg/dL (8.5-10.1) Magnesium Level 2.2mg/dL (1.8-2.4) Total Bilirubin 0.6mg/dL (0.2-1.0) Aspartate Amino Transf (AST/SGOT) 22U/L (15-37) Alanine Aminotransferase (ALT/SGPT) 52U/L (14-59) Alkaline Phosphatase 260U/L (46-116) Total Protein 8.3g/dL (6.4-8.2) Albumin 3.7g/dL (3.4-5.0) Albumin/Globulin Ratio 0.8 (1.0-1.7) Glucose (Fingerstick) 553mg/dL (70-99) 456mg/dL (70-99) Test 05/01/16 00:18 05/01/16 00:28 05/01/16 00:41 05/01/16 01:38 O2 Saturation 97% (92-99) Arterial Blood pH 7.05 (7.35-7.45) Arterial Blood pCO2 at Patient Temp 15mmHg (35-46) Arterial Blood pO2 at Patient Temp 127mmHg (65-108) Arterial Blood HCO3 4mmol/L (21-28) Arterial Blood Base Excess -25mmol/L (-3-3) FiO2 21 Sodium Level 142mmol/L (136-145) Potassium Level 3.9mmol/L (3.5-5.1) Chloride Level 105mmol/L (98-107) Carbon Dioxide Level < 5mmol/L (21-32) Anion Gap 32 (6-14) Blood Urea Nitrogen 18mg/dL (7-20) Creatinine 1.3mg/dL (0.6-1.0) Estimated GFR (Cockcroft-Gault) 49.3 Glucose Level 481mg/dL (70-99) Calcium Level 8.4mg/dL (8.5-10.1) Phosphorus Level 4.7mg/dL (2.6-4.7) Magnesium Level 2.0mg/dL (1.8-2.4) Total Bilirubin 0.4mg/dL (0.2-1.0) Direct Bilirubin 0.1mg/dL (0.0-0.2) Aspartate Amino Transf (AST/SGOT) 19U/L (15-37) Alanine Aminotransferase (ALT/SGPT) 47U/L (14-59) Alkaline Phosphatase 239U/L (46-116) Total Protein 7.4g/dL (6.4-8.2) Albumin 3.5g/dL (3.4-5.0) Lipase 342U/L (73-393) Glucose (Fingerstick) 372mg/dL (70-99) 354mg/dL (70-99) Test 05/01/16 02:46 05/01/16 03:47 05/01/16 04:51 05/01/16 05:47 Glucose (Fingerstick) 268mg/dL (70-99) 194mg/dL (70-99) 146mg/dL (70-99) 139mg/dL (70-99) Test 05/01/16 06:43 05/01/16 07:30 05/01/16 07:45 05/01/16 08:11 Glucose (Fingerstick) 100mg/dL (70-99) 59mg/dL (70-99) 105mg/dL (70-99) Sodium Level 136mmol/L (136-145) Potassium Level 4.0mmol/L (3.5-5.1) Chloride Level 108mmol/L (98-107) Carbon Dioxide Level 14mmol/L (21-32) Anion Gap 14 (6-14) Blood Urea Nitrogen 14mg/dL (7-20) Creatinine 1.2mg/dL (0.6-1.0) Estimated GFR (Cockcroft-Gault) 54.1 Glucose Level 90mg/dL (70-99) Calcium Level 8.9mg/dL (8.5-10.1) Phosphorus Level 1.9mg/dL (2.6-4.7) Magnesium Level 1.6mg/dL (1.8-2.4) Test 05/01/16 09:20 05/01/16 09:30 05/01/16 10:35 05/01/16 11:43 Glucose (Fingerstick) 92mg/dL (70-99) 115mg/dL (70-99) 85mg/dL (70-99) White Blood Count 2.4x10^3/uL (4.0-11.0) Red Blood Count 3.23x10^6/uL (3.50-5.40) Hemoglobin 9.5g/dL (12.0-15.5) Hematocrit 28.7% (36.0-47.0) Mean Corpuscular Volume 89fL (79-100) Mean Corpuscular Hemoglobin 29pg (25-35) Mean Corpuscular Hemoglobin Concent 33g/dL (31-37) Red Cell Distribution Width 15.1% (11.5-14.5) Platelet Count 295x10^3/uL (140-400) Neutrophils (%) (Auto) 68% (31-73) Lymphocytes (%) (Auto) 17% (24-48) Monocytes (%) (Auto) 15% (0-9) Eosinophils (%) (Auto) 0% (0-3) Basophils (%) (Auto) 0% (0-3) Neutrophils # (Auto) 1.6x10^3uL (1.8-7.7) Lymphocytes # (Auto) 0.4x10^3/uL (1.0-4.8) Monocytes # (Auto) 0.4x10^3/uL (0.0-1.1) Eosinophils # (Auto) 0.0x10^3/uL (0.0-0.7) Basophils # (Auto) 0.0x10^3/uL (0.0-0.2) VTE Prophylaxis Ordered VTE Prophylaxis Devices: Yes VTE Pharmacological Prophylaxi: Yes Assessment/Plan Assessment/Plan 1. uncontrolled DM2 ON insulin/possible DKA 2. AMSm Metabolic encephalopathy 2/2 1 3. metabolic acidosis 4. normocytic anemia 2/2 chronic dz likely 5. hypophosphatemia 5. hypomagnesemia 6. Pseudohyponatremia 7. mild dementia 8. FRANK, vasomotor 9. HTN 10. HCAP 11 1/2 + bacteremia 12. bl ureteral stents plan: 1. get pulm, ID consult 2. fu bcx, ucx 3. ADD chest CT w constrast 4. on d5 100cc/h, cont insulin drip now replete K, crow 5. hold bicarb for now dvt ppx npo check sputum GARRETT BURGOS MD May 01, 2016 12:00
[2016-05-01] MEDS ORDERED: ALBUTEROL SULFATE 2.5 MG/3 ML NEBU. NEB PRN (12:15)
[2016-05-01] MEDS ORDERED: IOHEXOL 300 MG/ML 75 ML VIAL IV ONE (12:15)
[2016-05-01] MEDS ORDERED: ONDANSETRON PF 4 MG/2 ML VIAL. IV PRN (12:15)
--- NOTE | 2016-05-01 12:35 | PDOC ---
Infectious Disease Note ROS ROS GEN: Denies fevers, chills, sweats HEENT: Denies blurred vision, sore throat CV: Denies chest pain RESP: Denies shortness of air, cough GI: Denies n/v/d NEURO: Denies confusion, dizziness MSK: Denies weakness, joint pain/swelling Vital Sign Vital Signs Vital Signs Date Time Temp Pulse Resp B/P Pulse Ox O2 Delivery O2 Flow Rate FiO2 05/01/16 06:00 140 26 117/54 97 Simple Mask 6.0 05/01/16 04:00 99.6 99.6 Physical Exam PHYSICAL EXAM GENERAL: NAD, Alert HEENT: PERRL, OC/OP NECK: Supple, no JVD, no LN LUNGS: Clear HEART: S1S2, no gallop, no murmur ABD: Soft, NT, no organomegaly, no rebound EXT: No edema, no cyanosis 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, 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, no focal neurologic deficit SKIN: No rash IV: ok Labs Lab Laboratory Tests Test 04/30/16 19:24 04/30/16 20:30 04/30/16 22:54 04/30/16 23:30 Urine Collection Type Unknown Urine Color Yellow Urine Clarity Clear Urine pH 5.5 Urine Specific [place] 1.020 Urine Protein Negativemg/dL (NEG-TRACE) Urine Glucose (UA) >=1000mg/dL (NEG) Urine Ketones (Stick) >=80mg/dL (NEG) Urine Blood Trace (NEG) Urine Nitrite Negative (NEG) Urine Bilirubin Negative (NEG) Urine Urobilinogen Dipstick 0.2mg/dL (0.2 mg/dL) Urine Leukocyte Esterase Negative (NEG) Urine RBC Occ/HPF (0-2) Urine WBC 1-4/HPF (0-4) Urine Squamous Epithelial Cells Few/LPF Urine Bacteria 0/HPF (0-FEW) Urine Mucus Slight/LPF White Blood Count 16.2x10^3/uL (4.0-11.0) Red Blood Count 3.91x10^6/uL (3.50-5.40) Hemoglobin 11.4g/dL (12.0-15.5) Hematocrit 40.3% (36.0-47.0) Mean Corpuscular Volume 103fL (79-100) Mean Corpuscular Hemoglobin 29pg (25-35) Mean Corpuscular Hemoglobin Concent 28g/dL (31-37) Red Cell Distribution Width 17.5% (11.5-14.5) Platelet Count 447x10^3/uL (140-400) Neutrophils (%) (Auto) 87% (31-73) Lymphocytes (%) (Auto) 8% (24-48) Monocytes (%) (Auto) 4% (0-9) Eosinophils (%) (Auto) 0% (0-3) Basophils (%) (Auto) 1% (0-3) Neutrophils # (Auto) 14.1x10^3uL (1.8-7.7) Lymphocytes # (Auto) 1.2x10^3/uL (1.0-4.8) Monocytes # (Auto) 0.7x10^3/uL (0.0-1.1) Eosinophils # (Auto) 0.0x10^3/uL (0.0-0.7) Basophils # (Auto) 0.2x10^3/uL (0.0-0.2) Segmented Neutrophils % 76% (35-66) Band Neutrophils % 13% (0-9) Lymphocytes % 7% (24-48) Monocytes % 4% (0-10) Platelet Estimate Increased (ADEQUATE) Polychromasia Slight Anisocytosis Slight [place] Cells Occ Sodium Level 138mmol/L (136-145) Potassium Level 4.8mmol/L (3.5-5.1) Chloride Level 98mmol/L (98-107) Carbon Dioxide Level < 5mmol/L (21-32) Anion Gap 35 (6-14) Blood Urea Nitrogen 18mg/dL (7-20) Creatinine 1.2mg/dL (0.6-1.0) Estimated GFR (Cockcroft-Gault) 54.1 BUN/Creatinine Ratio 15 (6-20) Glucose Level 695mg/dL (70-99) Calcium Level 9.2mg/dL (8.5-10.1) Magnesium Level 2.2mg/dL (1.8-2.4) Total Bilirubin 0.6mg/dL (0.2-1.0) Aspartate Amino Transf (AST/SGOT) 22U/L (15-37) Alanine Aminotransferase (ALT/SGPT) 52U/L (14-59) Alkaline Phosphatase 260U/L (46-116) Total Protein 8.3g/dL (6.4-8.2) Albumin 3.7g/dL (3.4-5.0) Albumin/Globulin Ratio 0.8 (1.0-1.7) Glucose (Fingerstick) 553mg/dL (70-99) 456mg/dL (70-99) Test 05/01/16 00:18 05/01/16 00:28 05/01/16 00:41 05/01/16 01:38 O2 Saturation 97% (92-99) Arterial Blood pH 7.05 (7.35-7.45) Arterial Blood pCO2 at Patient Temp 15mmHg (35-46) Arterial Blood pO2 at Patient Temp 127mmHg (65-108) Arterial Blood HCO3 4mmol/L (21-28) Arterial Blood Base Excess -25mmol/L (-3-3) FiO2 21 Sodium Level 142mmol/L (136-145) Potassium Level 3.9mmol/L (3.5-5.1) Chloride Level 105mmol/L (98-107) Carbon Dioxide Level < 5mmol/L (21-32) Anion Gap 32 (6-14) Blood Urea Nitrogen 18mg/dL (7-20) Creatinine 1.3mg/dL (0.6-1.0) Estimated GFR (Cockcroft-Gault) 49.3 Glucose Level 481mg/dL (70-99) Calcium Level 8.4mg/dL (8.5-10.1) Phosphorus Level 4.7mg/dL (2.6-4.7) Magnesium Level 2.0mg/dL (1.8-2.4) Total Bilirubin 0.4mg/dL (0.2-1.0) Direct Bilirubin 0.1mg/dL (0.0-0.2) Aspartate Amino Transf (AST/SGOT) 19U/L (15-37) Alanine Aminotransferase (ALT/SGPT) 47U/L (14-59) Alkaline Phosphatase 239U/L (46-116) Total Protein 7.4g/dL (6.4-8.2) Albumin 3.5g/dL (3.4-5.0) Lipase 342U/L (73-393) Glucose (Fingerstick) 372mg/dL (70-99) 354mg/dL (70-99) Test 05/01/16 02:46 05/01/16 03:47 05/01/16 04:51 05/01/16 05:47 Glucose (Fingerstick) 268mg/dL (70-99) 194mg/dL (70-99) 146mg/dL (70-99) 139mg/dL (70-99) Test 05/01/16 06:43 05/01/16 07:30 05/01/16 07:45 05/01/16 08:11 Glucose (Fingerstick) 100mg/dL (70-99) 59mg/dL (70-99) 105mg/dL (70-99) Sodium Level 136mmol/L (136-145) Potassium Level 4.0mmol/L (3.5-5.1) Chloride Level 108mmol/L (98-107) Carbon Dioxide Level 14mmol/L (21-32) Anion Gap 14 (6-14) Blood Urea Nitrogen 14mg/dL (7-20) Creatinine 1.2mg/dL (0.6-1.0) Estimated GFR (Cockcroft-Gault) 54.1 Glucose Level 90mg/dL (70-99) Calcium Level 8.9mg/dL (8.5-10.1) Phosphorus Level 1.9mg/dL (2.6-4.7) Magnesium Level 1.6mg/dL (1.8-2.4) Test 05/01/16 09:20 05/01/16 09:30 05/01/16 10:35 05/01/16 11:43 Glucose (Fingerstick) 92mg/dL (70-99) 115mg/dL (70-99) 85mg/dL (70-99) White Blood Count 2.4x10^3/uL (4.0-11.0) Red Blood Count 3.23x10^6/uL (3.50-5.40) Hemoglobin 9.5g/dL (12.0-15.5) Hematocrit 28.7% (36.0-47.0) Mean Corpuscular Volume 89fL (79-100) Mean Corpuscular Hemoglobin 29pg (25-35) Mean Corpuscular Hemoglobin Concent 33g/dL (31-37) Red Cell Distribution Width 15.1% (11.5-14.5) Platelet Count 295x10^3/uL (140-400) Neutrophils (%) (Auto) 68% (31-73) Lymphocytes (%) (Auto) 17% (24-48) Monocytes (%) (Auto) 15% (0-9) Eosinophils (%) (Auto) 0% (0-3) Basophils (%) (Auto) 0% (0-3) Neutrophils # (Auto) 1.6x10^3uL (1.8-7.7) Lymphocytes # (Auto) 0.4x10^3/uL (1.0-4.8) Monocytes # (Auto) 0.4x10^3/uL (0.0-1.1) Eosinophils # (Auto) 0.0x10^3/uL (0.0-0.7) Basophils # (Auto) 0.0x10^3/uL (0.0-0.2) Objective Assessment Strep sepsis - POA DKA - POA Pneumonia ? 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
[2016-05-01 14:00] LABS: OBC FLU VALID
[2016-05-01] MEDS: HEPARIN PF for SUB-Q USE 5,000 UNIT/0.5 ML VIAL. SQ SCH ×2 (14:00→21:48)
[2016-05-01] MEDS ORDERED: LIDOCAINE 1% / SOD BICARB 8.4% 20 ML VIAL. IJ ONE ×2 (14:00→15:30)
--- NOTE | 2016-05-01 14:57 | RAD ---
Indication right lung mass. Contrast imaging through the chest abdomen and pelvis was performed. IV contrast was administered. Oral contrast was not. No prior CT imaging of the chest abdomen or pelvis is available. Note is made of plain film examinations of the chest 04/30/2016 and 05/01/2016) approximately 8 hours prior to the CT examination) CT chest: Findings. The thoracic aorta appears unremarkable. Significant mediastinal or hilar adenopathy is not seen. There is a moderate right pleural effusion. There is volume loss in the right lower lobe most compatible with pneumonia. (The infiltrate appears to be considerably worse than on the plain film chest examination 04/30/2016 and marginally worse than on the study 05/01/2016). There are patchy infiltrates, also likely inflammatory in nature, in the right middle and upper lobes with additional minimal patchy infiltrate in the left lower lobe CT abdomen and pelvis: Findings. There is some diffuse soft tissue swelling suggesting a systemic process such as anasarca. The liver and spleen appear unremarkable. The gallbladder is minimally distended but otherwise unremarkable. No definite pancreatic pathology is seen. No adrenal or renal pathology is seen. An acute finding in the abdomen is not seen. There is slight dilatation of small bowel loops in the abdomen. The findings are nonspecific and may reflect mild ileus or partial mechanical small bowel obstruction. High-grade mechanical small bowel obstruction is not suggested on this exam. There is a considerable amount of stool in the rectosigmoid. Fecal impaction is not excluded. Salter catheter is noted in the urinary bladder. An acute finding in the abdomen or pelvis is not seen. Degenerative changes are noted in the lumbar spine. IMPRESSION: Findings in the chest suggest an inflammatory process such as pneumonia. These findings are most pronounced in the right lower lobe. Small to moderate right pleural effusion. Suspect anasarca. Mild dilatation of small bowel loops is nonspecific. Ileus or partial mechanical small bowel obstruction is not excluded. Rectosigmoid impaction is not excluded. PQRS Compliance Statement: One or more of the following individualized dose reduction techniques were utilized for this examination: 1. Automated exposure control 2. Adjustment of the mA and/or kV according to patient size 3. Use of iterative reconstruction technique
[2016-05-01] MEDS: PIPERACILLIN/TAZOBACTAM 3.375 GM in IV NORMAL SALINE 50ML 50 ML IV SCH ×3 (16:09→23:34)
[2016-05-01 16:41] LABS: CALCIUM 7.8 mg/dL (8.5-10.1); CREATININE 0.9 mg/dL (0.6-1.0); GFR 75.3; POTASSIUM 3.7 mmol/L (3.5-5.1)
[2016-05-01] MEDS: IPRATRPIUM/ALBUTEROL 0.5/2.5MG 3 ML NEBU. NEB SCH ×2 (17:01→19:59)
[2016-05-01] MEDS ORDERED: NOREPINEPHRINE VIAL 8 MG in IV NORMAL SALINE 250ML 250 ML IV PRN (18:15)
[2016-05-01] MEDS ORDERED: FUROSEMIDE 20 MG/2 ML VIAL IVP ONE (19:15)
[2016-05-01 20:08] LABS: HCO3 ABG 14 mmol/L (21-28); PCO2 ABG 22 mmHg (35-46); PO2 ABG 57 mmHg (65-108); SAT O2 ABG 90 % (92-99)
[2016-05-01 20:09] LABS: FIO2 ABG 50
[2016-05-01] MEDS: POTASSIUM CHLORIDE 20MEQ 50 ML IV SCH ×2 (20:29→21:30)
[2016-05-01 21:04] LABS: CALCIUM 7.9 mg/dL (8.5-10.1); CREATININE 1.4 mg/dL (0.6-1.0); GFR 45.2; POTASSIUM 3.4 mmol/L (3.5-5.1)
--- NOTE | 2016-05-01 22:20 | ACF ---
Admission Forms Criteria GENERAL ADMISSION CRITERIA (Place 'X' for any and all applicable criteria): Admission is indicated for ANY ONE of the following: [ ]I. Hemodynamic instability as indicated by ANY ONE of the following(1)(2) (3)(4)(5): [ ]a) Vital sign abnormality not readily corrected by appropriate treatment within 12 to 24 hours indicated by ANY ONE of the following: [ ]i) Hypotension [ ]ii) Symptomatic Tachycardia unresponsive to treatment (eg , analgesia, fluids, sedation as indicated) [ ]iii) Orthostatic vital sign changes unresponsive to treatment (eg, fluids) [ ]b) Vital sign abnormality that is severe indicated by ANY ONE of the following: [ ]i) Inadequate perfusion indicated by ANY ONE of the following: [ ]1) Lactic acidosis (greater than 2 mmol/L) [ ]2) New abnormal capillary refill (greater than 3 seconds) [ ]3) Other metabolic acidosis (arterial pH less than 7.35) not otherwise explained [ ]4) Reduced urine output [ ]5) Altered mental status [ ]6) Myocardial Ischemia [ ]v) Mean arterial pressure[A] less than 60 mm Hg [ ]vi) Mean arterial pressure[A] less than 70 mm Hg after 30 minutes of appropriate treatment (eg, fluid resuscitation) [ ]vii) IV inotropic or vasopressor medication required to maintain adequate blood pressure or perfusion [ ]viii) Sustained heart rate greater than 120 beats per minute in adult or child 6 years or older[B]] [ ]II. Hypertension requiring inpatient treatment as indicated by ANY ONE of the following(6)(7)(8): [ ]a) SBP greater than 220 mm Hg or DBP greater than 120 mm Hg despite treatment [ ]b) SBP greater than 140 mm Hg or DBP greater than 100 mm Hg with evidence of acute end organ damage as indicated by ANY ONE of the following: [ ]i) Encephalopathy [ ]ii) Acute renal failure as indicated by new onset of ANY ONE of the following(9)(10)(11)(12)(13): [ ]1) A 3-fold rise in serum creatinine from baseline [ ]2) Serum creatinine greater than 4 mg/dL ( 354 micromoles/L) with acute rise greater than 0.5 mg/dL (44.2 micromoles/L) [ ]3) Reduction of more than 75% in estimated glomerular filtration rate from baseline [ ]4) Estimated glomerular filtration rate less than 35 mL/min/1.73m2 (0.59 mL/sec/1.73m2) in child up to 18 years of age [ ]5) Cessation of urine output indicated by ALL of the following: [ ]A. Adequate volume status [ ]B. Inadequate urine output as indicated by ANY ONE of the following: [ ]a. Urine output less than 0.3 mL/kg/hr for 24 hours [ ]b. Anuria (urine output less than 0.1 mL/kg/hr) for 12 hours [ ]iii) Aortic dissection [ ]iv) Myocardial ischemia [ ]v) Left ventricular heart failure [ ]vi) Retinal hemorrhage [ ]vii) Other significant finding [ ]c) Hypertension in child requiring inpatient treatment as indicated by ALL of the following(14)(15)(16): [ ]i) Outpatient treatment not effective, not available, or not appropriate [ ]ii) SBP or DBP greater than 95th percentile for age [ ]iii) Evidence of acute end organ damage as indicated by ANY ONE of the following: [ ]1) Altered mental status [ ]2) Acute renal failure as indicated by new onset of ANY ONE of the following(9)(10)(11)(12)(13): [ ]A. A 3-fold rise in serum creatinine from baseline [ ]B. Serum creatinine greater than 4 mg/dL (354 micromoles/L) with acute rise greater than 0.5 mg/dL (44.2 micromoles/L) [ ]C. Reduction of more than 75% in estimated glomerular filtration rate from baseline [ ]D. Estimated glomerular filtration rate less than 35 mL/min/1.73m2 (0.59 mL/sec/1.73m2)in child up to 18 years of age [ ]E. Cessation of urine output indicated by ALL of the following: [ ]a. Adequate volume status [ ]b. Inadequate urine output as indicated by ANY ONE of the following: [ ]1) Urine output less than 0.3 mL/kg/hr for 24 hours [ ]2) Anuria (urine output less than 0.1 mL/kg/hr) for 12 hours [ ]3) Severe headache [ ]4) Visual disturbance [ ]5) Retinal hemorrhage [ ]6) Other significant finding [ ]III. Acute cardiac or peripheral ischemia as indicated by ANY ONE of the following: [ ]a) Acute coronary syndrome(17)(18) [ ]b) Acute peripheral ischemia (eg, pulseless, cool, mottled, or cyanotic extremity)(19) [ ]IV. Cardiac arrhythmias or findings of immediate concern indicated by ANY ONE of the following(20)(21): [ ]a) Heart rhythms that are inherently dangerous or unstable indicated by ANY ONE of the following(22)(23)(24): [ ]i) Resuscitated ventricular fibrillation or cardiac arrest [ ]ii) Ventricular escape rhythm [ ]iii) Sustained ventricular tachycardia (30 seconds or more of ventricular rhythm at greater than 100 beats per minute) [ ]iv) Nonsustained ventricular tachycardia and ANY ONE of the following: [ ]1) Suspected cardiac ischemia as cause or consequence of ventricular tachycardia [ ]2) In setting of acute myocarditis [ ]b) Unstable cardiac conduction defects indicated by ANY ONE of the following(24)(25)(26): [ ]i) Type II second-degree atrioventricular block [ ]ii) Third-degree atrioventricular block [ ]iii) New-onset left bundle branch block with suspected myocardial ischemia [ ]c) Any heart rhythm and ANY ONE of the following(22)(23)(27)(28)( 29): [ ] i) Continuous long-term ECG monitoring needed (eg, initiation of drug requiring monitoring for more than 24 hours) [ ] ii) Patient has automatic implanted cardioverter defibrillator that is repeatedly firing, malfunctioning, or in need of immediate adjustment of settings beyond the scope of ambulatory or observation care. [ ]d) Heart rhythms of concern due to ANY ONE of the following: [ ]i) Hypotension [ ]ii) Respiratory distress [ ]iii) Association with other significant symptoms (eg, bradycardia with syncope or ongoing dizziness, supraventricular tachycardia with chest pain) (27)(28) (30) [ ] V. Severe heart failure as indicated by ANY ONE of the following ( 31)(32): [ ]a) Respiratory distress [ ]b) Hypotension [ ]c) Anasarca (refractory to outpatient therapy) [ ]d) Cardiac arrhythmias of immediate concern [ ]e) Myocardial ischemia [ ]. Respiratory abnormalities, including ANY ONE of the following(33)(34) (35)(36): [ ]a) Respiratory rate greater than 30 breaths per minute unresponsive to treatment [A] [ ]b) New saturation of arterial oxygen less than 90% [ ]c) New partial pressure of carbon dioxide greater than 44 mm Hg ( 5.9 kPa) [ ]d) Supplemental oxygen or respiratory treatments needed that are new or not performable at other levels of care [ ]e) New-onset cyanosis [ ]f) Inability to protect airway [ ]g) Chronic lung disease with severe deterioration (not responsive to emergency and observation care treatment as appropriate) as indicated by ANY ONE of the following(34)(36 ): [ ]i) SaO2 5% below baseline in patient with chronic hypoxemia [ ]ii) New requirement for supplemental oxygen to keep SaO2 at baseline or acceptable level [ ]iii) Required supplemental oxygen performable only in acute inpatient setting [ ]iv) Severe airflow or ventilation abnormalities [ ]v) Previously mobile patient unable to walk between rooms [ ]vi Inability to eat or sleep due to dyspnea [ ]vii) Rapid rate of exacerbation onset [ ]viii) Altered mental status ]VII. Severe airflow or ventilation abnormalities (not responsive to emergency and observation care treatment as appropriate) as indicated by ANY ONE of the following(33)(34)(35)(37): [ ]a) PCO2 greater than 42 mm Hg (5.6 kPa) and pH less than 7.35 (new ) [ ]b) Documented PCO2 increased more than 5 mm Hg (0.7 kPa) from disease baseline [ ]c) Airflow measurements [B] less than 60% of previous best or predicted (eg, peak expiratory flow rate less than 300 L/minute) despite intensive emergent treatment [C] [ ]d) Required respiratory treatments that are performable only in acute inpatient setting [ ]VIII. Impending or actual respiratory arrest ( Also use Respiratory Failure GRG for severe respiratory disease and long-term mechanical ventilation patients) [ ]IX. Neurologic abnormalities, including ANY ONE of the following: [ ]a) New findings that suggest ANY ONE of the following: [ ]i) MUSIC ASSISTANT infection(38) [ ]ii) Cerebral bleeding, ischemia, or vasospasm(39)(40) [ ]iii) Increased intracranial pressure, hydrocephalus, or cerebral edema(41)(42)(43) [ ]iv) Spinal cord injury(44) [ ]b) Uncontrolled seizures(45) [ ]c) New-onset coma (eg, Андрей coma scale score less than 9) or unexplained abnormal mental status (eg, Андрей coma scale score less than 14) [D](41)(46)(47) [ ]X. New-onset severe neurologic findings requiring inpatient care; examples include(42)(48)(49): [ ]a) Papilledema [ ]b) Cerebral edema [ ]c) Mass effect on CT scan [ ]XI. Suspected acute intra-abdominal process with peritoneal signs, abdominal mass, or similar findings (50)(51)(52) [X]XII. Severe physiologic disorder remaining after emergency or observation level care (as appropriate) as indicated by ANY ONE of the following (53): [ ]a) Significant dehydration [X]b) Diabetic ketoacidosis [ ]c) Hyperglycemic hyperosmolar state (eg, osmolality greater than 320 mOsm/kg (mmol/kg) [ ]d) Hypoglycemia [ ]e) Other (new) acid-base disorder with pH less than 7.35 or greater than 7.5(54) [ ]f) Thyroid storm (55) [ ]g) Myxedema coma (55) [ ]XIII. Abdominal abnormalities with ANY ONE of the following(56)(57): [ ]a) Absent bowel sounds with complete ileus [ ]b) Signs of intestinal obstruction or peritonitis [E] [ ]c) Nausea and vomiting that cannot be controlled with outpatient or observation care [ ]XIV. Acute renal failure as indicated by new onset of ANY ONE of the following(9)(10)(11)(12)(13): [ ]a) A 3-fold rise in serum creatinine from baseline [ ]b) Serum creatinine greater than 4 mg/dL (354 micromoles/L) with acute rise greater than 0.5 mg/dL (44.2 micromoles/L) [ ]c) Reduction of more than 75% in estimated glomerular filtration rate from baseline [ ]d) Estimated glomerular filtration rate less than 35 mL/min/ 1.73m2 (0.59 mL/sec/1.73m2) in child up to 18 years of age [ ]e) Cessation of urine output indicated by ALL of the following: [ ]i) Adequate volume status [ ]ii) Inadequate urine output as indicated by ANY ONE of the following: [ ]1) Urine output less than 0.3 mL/kg/hr for 24 hours [ ]2) Anuria (urine output less than 0.1 mL/kg/hr) for 12 hours [ ]XV. Significant uremic complications as indicated by ANY ONE of the following(58)(59)(60): [ ]a) Outpatient therapy is ineffective or not feasible for ANY ONE of the following: [ ]i) Severe heart failure [ ]ii) Severehypertension [ ]iii) Pleural effusion [ ]iv) Pericarditis or pericardial effusion [ ]b) Cardiac arrhythmias of immediate concern [ ]c) Intractable nausea or vomiting [ ]d) Recurrent seizures [ ]e) Encephalopathy [ ]f) Bleeding abnormalities (eg, platelet dysfunction) with active (eg, gastrointestinal) bleeding [ ]g) Dialysis indicated before long-term access or ambulatory arrangements can be made [ ]h) Significant metabolic or electrolyte abnormalities (eg, severe acidosis or hyperkalemia) [ ]XVI. High fever or other high-risk infection situation as indicated by ANY ONE of the following(61)(62)(63)(64): [ ]a) Outpatient and observation care antimicrobial treatment unavailable, not effective, or not appropriate [ ]b) Documented bacteremia [ ]c) Temperature greater than 40.5 degrees C (104.9 degrees F) ( oral) [ ]d) Temperature greater than 39.5 degrees C (103.1 degrees F) ( oral) or less than 36 degrees C (96.8 degrees F) (rectal) that does not respond to e treatment and observation care [ ] XVII. Temperature less than 95 degrees F (35 degrees C)(rectal)(65) [ ] XVIII. Severe nutritional abnormalities as indicated by ALL of the following (66)(67): [ ]a) Inability to tolerate or establish sufficient oral or other enteral nutrition in outpatient setting [ ]b) Parenteral nutrition regimen need that must be implemented on inpatient basis [ ] XIX. Severe electrolyte abnormalities indicated by ALL of the following(68) (69)(70): [ ]a) Electrolytes and associated findings are not as expected for patient baseline or acceptable treatment effects. [ ]b) Severe abnormalities indicated by ANY ONE of the following: [ ]i) Sodium less than 130 mEq/L (mmol/L) (new) [ ]ii)Sodium less than 135 mEq/L (mmol/L) with ANY ONE of the following: [ ]1) Uncorrectable (to near normal or chronic baseline) after trial of outpatient and emergency treatment [ ]2) Altered mental status [ ]3) Seizures [ ]4) Severe medical etiology requiring inpatient management (eg, heart failure, hypovolemia) [ ]iii) Sodium greater than 155 mEq/L (mmol/L) [ ]iv) Sodium greater than 150 mEq/L (mmol/L) with ANY ONE of the following: [ ]1) Uncorrectable (to near normal or chronic baseline) with outpatient and emergency treatment [ ]2) Altered mental status [ ]3) Seizures [ ]4) Severe medical etiology (eg, hypovolemia, diabetes insipidus) [ ]v) Potassium less than 2.5 mEq/L (mmol/L) despite outpatient and emergency treatment [ ]vi) Potassium less than 3 mEq/L (mmol/L) with ANY ONE of the following: [ ]1) Weakness [ ]2) Cardiac abnormality (eg, arrhythmia, conduction disturbance) [ ]3) Cardiac ischemia [ ]4) Ileus [ ]5) Ongoing medical cause requiring inpatient management (eg, acute renal wasting or SIADH) [ ]6) Other severe symptoms [ ]vii) Potassium greater than 6.5 mEq/L (mmol/L) [ ]viii) Potassium greater than 5 mEq/L (mmol/L) with ANY ONE of the following: [ ]1) Uncorrectable (to near normal or chronic baseline) with outpatient and emergency treatment [ ]2) Severe ECG findings [F] [ ]3) Acute worsening of renal failure (creatinine greater than 2.5 mg/dL (221 micromoles/L) or significant elevation for age and size) [ ]4) Severe weakness [ ]5) Severe medical etiology (eg, hemolysis, infection, drug overdose) [ ]ix) Calcium less than 7 mg/dL (1.75 mmol/L) despite outpatient and emergency treatment (72) [ ]x) Calcium less than 8 mg/dL (2 mmol/L) with significant symptoms or findings; examples include(72): [ ]1) Altered mental status [ ]2) Muscle spasms [ ]3) Seizures [ ]4) Breathing difficulty [ ]5) Cardiac abnormality (eg, arrhythmia or conduction disturbance) [ ]xi) Calcium greater than 14 mg/dL (3.5 mmol/L)(72) [ ]xii) Calcium greater than 12 mg/dL (3 mmol/L) with ANY ONE of the following(72): [ ]1) Uncorrectable (to near normal or chronic baseline) with outpatient and emergency treatment [ ]2) Significant dehydration or hypovolemia as indicated by ALL of the following(70)(73)(74): [ ]A. Not resolved with initial treatments [ ]B. Clinically significant dehydration as indicated by ANY ONE of the following: [ ]a. Vomiting refractory to outpatient treatment (ie, precluding oral rehydration) [ ]b. Inability to drink [ ]c. Hypernatremia or other electrolyte abnormality unable to be corrected with outpatient and emergency treatment [ ]d. Failure to remain hydrated with outpatient therapy [ ]e. Reduced urine output [ ]f. Hypotension [ ]g. Serious cause for dehydration requiring acute hospitalization (eg, bowel obstruction, increased intracranial pressure, infectious cause) [ ]h. Child with ANY ONE of the following(75): [ ]1) Severe abdominal tenderness [ ]2) Adequate care not available at home [ ]3) Severe dehydration ( greater than 9% loss of body weight) [ ]4) Significant symptoms or findings; examples include: [ ]A. Altered mental status [ ]B. Cardiac abnormality (eg, arrhythmia, conduction disturbance) [ ]C. Malignant etiology requiring inpatient treatment [ ]xiii) Phosphorus less than 1 mg/dL (0.32 mmol/L) [ ]xiv) Phosphorus less than 1.5 mg/dL (0.48 mmol/L) with ANY ONE of the following: [ ]1) Patient unresponsive to outpatient and emergency treatment [ ]2) Significant symptoms or findings; examples include: [ ]A. Weakness [ ]B. Altered mental status [ ]C. Breathing difficulty [ ]D. Seizures [ ]E. Rhabdomyolysis [ ]xv) Phosphorus greater than 10 mg/dL (3.2 mmol/L) [ ]xvi) Phosphorus greater than 4.5 mg/dL (1.45 mmol/L) (new) with ANY ONE of the following: [ ]1) Severe medical etiology (eg, crush injury, acute renal failure) [ ]2) Associated hypocalcemia with significant findings; examples include: [ ]A. Neurologic symptoms [ ]B. Altered mental status [ ]C. Muscle spasms [ ]D. Seizures [ ]E. Breathing difficulty [ ]F. Cardiac abnormality (eg, arrhythmia, conduction disturbance) [ ]xvii) Magnesium less than 1 mg/dL (0.41 mmol/L) [ ]xviii) Magnesium less than 1.5 mg/dL (0.62 mmol/L) with ANY ONE of the following: [ ]1) Patient unresponsive to outpatient and emergency treatment [ ]2) Associated hypocalcemia with significant findings; examples include: [ ]A. Altered mental status [ ]B. Muscle spasms [ ]C. Seizures [ ]D. Breathing difficulty [ ]E. Cardiac abnormality (eg, arrhythmia , conduction disturbance) [ ]3) Associated hypokalemia (potassium less than 3 mEq/L (mmol/L)) with risk of arrhythmia [ ]xix) Magnesium greater than 4 mEq/L (2 mmol/L) [ ]xx) Magnesium greater than 2.5 mEq/L (1.25 mmol/L) with significant symptoms or findings; examples include: [ ]1) Weakness [ ]2) Altered mental status [ ]3) Cardiac abnormality (eg, arrhythmia, conduction disturbance) [ ]4) Breathing difficulty [ ]5) Severe medical etiology (eg, renal failure, hypovolemia) [ ]xxi) Uric acid greater than 20 mg/dL (1190 micromoles/L)(76) [ ]xxii) Uric acid greater than 8 mg/dL (476 micromoles/L) with significant symptoms or findings of tumor lysis syndrome; examples include(76): [ ]1) Creatinine greater than 1.5 times upper limit of normal [ ]2) Cardiac abnormality (eg, arrhythmia, conduction disturbance) [ ]3) Seizure [ ]XX. Acute blood loss causing significant abnormality as indicated by ANY ONE of the following(77)(78): [ ]a) Hemoglobin less than 10 g/dL (100 g/L) (not baseline) [ ]b) Hematocrit less than 30% (0.30) (not baseline) [ ]c) Repeat hematocrit decreased more than 2% (0.02) [ ]d) Uncontrolled bleeding [ ]XXI. Severe anemia indicated by ANY ONE of the following(78)(79): [ ]a) Altered mental status [ ]b) Chest pain [ ]c) Exertional dyspnea [ ]d) Syncope [ ]e) Other findings suggesting inadequate perfusion [ ]f) Treatment with transfusion or volume replacement is ineffective at resolving ANY ONE of the following [G]: [ ]i) Tachycardia for age [ ]ii) Orthostatic vital sign changes as indicated by ANY ONE of the following(80): [ ]1) Fall in SBP of 20 mm Hg or more 1 to 3 minutes after patient sits or stands from recumbent position [ ]2) Fall in DBP of 10 mm Hg or more 1 to 3 minutes after patient sits or stands from recumbent position [ ]XXII. High-risk low platelet count as indicated by ANY ONE of the following( 81)(82): [ ]a) Severe or life-threatening bleeding (eg, intracranial, major gastrointestinal, or extensive mucosal bleeding), with any reduced platelet count [ ]b) Platelet count less than 20,000/mm3 (20 x109/L) with any active bleeding [ ]c) Platelet count less than 10,000/mm3 (10 x109/L) with minor purpura or petechiae [ ]d) Platelet count less than 5000/mm3 (5 x109/L) [ ]e) Low platelet count with hemolytic anemia [ ]XXIII. Disseminated intravascular coagulation(77)(83) [ ]XXIV. Severe adverse drug or systemic toxin reaction requiring inpatient treatment; examples include(84)(85): [ ]a) Serotonin syndrome(86) [ ]b) Neuroleptic malignant syndrome(86) [ ]c) Cholinergic syndrome with severe symptoms (eg, bronchorrhea, weakness, mental status changes, seizures) [ ]d) Sympathetic syndrome with severe symptoms (eg, seizures, mental status changes, cardiac dysrhythmias) [ ]e) Anticholinergic syndrome [ ]XXV. Severe pain requiring acute inpatient management as indicated by ALL of the following (87)(88)(89): [ ]a) Continuous or frequent (eg, every 2 to 4 hours) parenteral analgesics required [H] [ ]b) Rapid improvement expected from treatment or acute intervention (eg, surgery, anesthesia procedure) [ ]XXVI.Severe behavioral health issues judged unmanageable at a lower level of care (eg, residential) in a patient who is ANY ONE of the following(91) [ ]a) Acutely suicidal [ ]b) A danger to self (eg, self-mutilating or suicidal behavior) [ ]c) A danger to others (eg, assaultive or homicidal behavior) [ ]d) Incapacitated because of grave disability (eg, inability to provide for self at lower level of care) (92) [ ]XXVII. Inpatient monitoring needed; examples include(1)(3)(87)(93)(94)(95)(96 ): [ ]a) Vital signs, neurologic signs, or vascular checks more frequently than every 4 hours [ ]b) Cardiac or respiratory monitoring beyond the scope (eg, over 24 hours) of observation care [ ]c) Pulmonary artery catheter monitoring [ ]d) Suspected compartment syndrome(97) (98) [ ]e) Cerebral bleeding, hydrocephalus, or vasospasm monitoring [ ]f) Increased intracranial pressure or cerebral edema monitoring [ ]g) monitoring [ ]XXVIII. Treatment requiring inpatient care; examples include: [ ]a) IV fluid to replace significant ongoing losses (greater than 3 L/m2 per day)(53) [ ]b) High concentration oxygen (greater than 40%)(33)(99)(100) [ ]c) Frequent respiratory therapy (more frequently than every 4 hours) to maintain airflow rates greater than 60% of baseline(33)(99)(100) [ ]d) Epidural analgesia(87) [ ]e) IV anticoagulation, vasoactive, or antiarrhythmic medication(19 )(23) [ ]f) Acute thrombolytics (generally require 24 hours of observation )(101)(102) [ ]XXIX. Emergency procedures needed; examples include: [ ]a) Emergency inpatient surgery [ ]b) Temporary pacemaker placement(103) [ ]c) Chest tube placement with active evacuation (eg, suction, drainage)(104) [ ]d) Emergent cardioversion(105) [ ]e) Emergent cardiac or vascular procedures (eg, cardiac catheterization, angioplasty) (17)(18) [ ]f) Emergent dialysis access placement and institution(10)(106) [ ]g) Emergent pericardiocentesis(107) [ ]h) Emergent plasmapheresis or leukapheresis(83) [ ]i) Emergent tracheostomy The original [employer] content created by [employer] has been revised. The portions of the content which have been revised are identified through the use of italic text or in bold, and [facility] [employer] has neither reviewed nor approved the modified material. All other unmodified content is copyright [employer]. Please see references footnoted in the original [employer] edition 2016 Admission Criteria Met?: Yes AMBIKA HAYES May 01, 2016 22:20
[2016-05-02] VITALS (25 sets, daily range): BP systolic 79–139; BP diastolic 45–69
[2016-05-02 00:33] LABS: CALCIUM 7.8 mg/dL (8.5-10.1); CREATININE 1.2 mg/dL (0.6-1.0); GFR 54.1; POTASSIUM 3.8 mmol/L (3.5-5.1)
[2016-05-02] MEDS: POTASSIUM CHLORIDE 20MEQ 50 ML IV SCH ×4 (01:54→15:58)
[2016-05-02 05:08] LABS: BASO % 0 % (0-3); EOS % 0 % (0-3); LYMPH # 0.5 x10^3/uL (1.0-4.8); LYMPH % 20 % (24-48); MEAN CORPUSCULAR HEMOGLOBIN 30 pg (25-35); MEAN CORPUSCULAR HGB CONC 33 g/dL (31-37); MEAN CORPUSCULAR VOLUME 90 fL (79-100); MONO % 3 % (0-9); NEUT % 77 % (31-73); PLATELET COUNT 284 x10^3/uL (140-400); RED CELL DISTRIBUTION WIDTH 15.5 % (11.5-14.5); WHITE BLOOD COUNT 2.5 x10^3/uL (4.0-11.0)
[2016-05-02] MEDS: PIPERACILLIN/TAZOBACTAM 3.375 GM in IV NORMAL SALINE 50ML 50 ML IV SCH ×4 (05:23→23:43)
[2016-05-02] MEDS: IV DEXTROSE 5 %-0.45 % NACL 1,000 ML IV SCH ×2 (05:28→12:25)
[2016-05-02 05:29] LABS: CALCIUM 7.8 mg/dL (8.5-10.1); CREATININE 1.4 mg/dL (0.6-1.0); GFR 45.2; POTASSIUM 5.1 mmol/L (3.5-5.1)
[2016-05-02 05:32] LABS: MAGNESIUM 1.9 mg/dL (1.8-2.4); PHOSPHORUS 3.6 mg/dL (2.6-4.7)
[2016-05-02] MEDS: HEPARIN PF for SUB-Q USE 5,000 UNIT/0.5 ML VIAL. SQ SCH ×3 (06:19→21:11)
--- NOTE | 2016-05-02 06:48 | CONS ---
DATE OF CONSULTATION: 05/01/2016 The patient was seen in ICU 14. REQUESTING PHYSICIAN: Dr. Conde. REASON FOR CONSULTATION: Fever. HISTORY OF PRESENT ILLNESS: The patient is a 70-year-old, ____ female, with a history of diabetes, who has a known right foot ulcer. Was recently treated at [facility] for sepsis. Apparently, she had been at home getting home health, although [facility]. According to chart on 20 April, had her foot debrided. She presented to [facility] Emergency Room per the chart on the with complaints of nausea and a report that her glucometer reading was too high. On arrival, white count was 16.2. Her glucose was 695, bicarb was less than 5. She was admitted to the Intensive Care Unit for DKA. She had been started on vancomycin and Zosyn. Blood cultures were obtained. Blood cultures now turned positive for Gram-positive cocci in chains and we have been consulted for fever. Currently, the patient is lying in bed. She is somewhat unresponsive, but she did follow simple commands of opening her mouth. Her family members state that she was complaining of headache prior to coming in. Chest x-ray was obtained which showed she had a right lower lobe consistent with pneumonia and a CT scan of the chest has been ordered. Currently, she appears somewhat uncomfortable. PAST MEDICAL HISTORY: Positive for diabetes with multiple episodes of DKA; history of MRSA in the past; history of noncompliance; history of recent respiratory failure. PAST SURGICAL HISTORY: No recent surgeries. ALLERGIES: No known drug allergies. REVIEW OF SYSTEMS: Again limited as she is somewhat lethargic. SOCIAL HISTORY: Negative for any tobacco use. FAMILY HISTORY: Positive for hypertension. CURRENT MEDICATIONS: Include vancomycin, Zosyn, hydralazine, Zofran, insulin, bicarb. Other meds are available and reviewed in the chart. PHYSICAL EXAMINATION: VITAL SIGNS: Current temperature is 99.6 axillary, pulse 140, respirations 26, blood pressure 117/54. She is satting 97% on simple mask, 6 liters oxygen. CONSTITUTIONAL: She is alert. Again, follows some simple commands. HEENT: Pupils are equal and reactive. Normal conjunctivae. Oral cavity: Pharynx is clear. No thrush. NECK: Supple, no JVD. LUNGS: Clear. HEART: Tachy. S1, S2. No gross murmur. ABDOMEN: Soft, nontender, nondistended, with decreased bowel sounds. EXTREMITIES: No clubbing, cyanosis, or gross edema. SKIN: Warm to touch, without signs of rash. PSYCHIATRIC: Affect was flat. NEUROLOGIC: She is somewhat lethargic. LABORATORY VALUES: White count 2.4, hemoglobin 9.5, platelets of 295, 68 segs, 17 lymphs. Creatinine of 1.2, glucose improved to 85 on fingerstick. Urinalysis showed no bacteria. RADIOLOGY: Reviewed in the history of present illness. Chest x-ray from the 6th: Worsening with enlargement of the right lung base pulmonary opacities. IMPRESSION: 1. Strep sepsis present on admission. 2. Diabetic ketoacidosis, present on admission. 3. Pneumonia with questionable mass. 4. History of abdominal mass seen on previous CT. Last CT was done on 11 of April. She has been followed by GI. 5. Fever. 6. Foot wound: Underwent debridement recently as mentioned above. The wound looks very clean. There is no sign of any infection at this time. She also has superficial wounds of her sacral area, did not show any signs of any infection. RECOMMENDATIONS: For now, we will increase her Zosyn to 3/0.375 IV q. 6 h. We will continue the vancomycin. Obtain influenza screen. A CT chest has been ordered, but given her recent abdominal mass, we will add a CT abdomen and pelvis. We will follow up on labs and cultures. This was discussed with the family. I spent 35 minutes of critical care time discussing with the family, reviewing previous records, and discussed with the nursing staff. LYNNE OROPEZA MD DR: JOSE/carmelo JOB#: [id number] / [id number]
[2016-05-02] MEDS: IPRATRPIUM/ALBUTEROL 0.5/2.5MG 3 ML NEBU. NEB SCH ×4 (07:23→19:13)
--- NOTE | 2016-05-02 07:28 | PDOC ---
Infectious Disease Note Subjective Subjective Lethargic but some response - on Bipap ROS ROS GEN: Denies fevers, chills, sweats HEENT: Denies blurred vision, sore throat CV: Denies chest pain RESP: Denies shortness of air, cough GI: Denies n/v/d NEURO: Denies confusion, dizziness MSK: Denies weakness, joint pain/swelling Vital Sign Vital Signs Vital Signs Date Time Temp Pulse Resp B/P Pulse Ox O2 Delivery O2 Flow Rate FiO2 05/02/16 06:00 129 27 94/46 100 BiPAP/CPAP 05/02/16 04:00 100.6 100.6 05/01/16 19:45 15.0 Physical Exam PHYSICAL EXAM GENERAL: NAD, Arousable HEENT: PERRL NECK: Supple, no JVD, no LN LUNGS: Clear HEART: S1S2, no gallop, no murmur ABD: Soft, NT, no organomegaly, no rebound Salter EXT: No edema, no cyanosis TENTMAKER: Alert, moves extremities SKIN: No rash IV: ok Labs Lab Laboratory Tests Test 05/01/16 07:30 05/01/16 07:45 05/01/16 08:11 05/01/16 09:20 Sodium Level 136mmol/L (136-145) Potassium Level 4.0mmol/L (3.5-5.1) Chloride Level 108mmol/L (98-107) Carbon Dioxide Level 14mmol/L (21-32) Anion Gap 14 (6-14) Blood Urea Nitrogen 14mg/dL (7-20) Creatinine 1.2mg/dL (0.6-1.0) Estimated GFR (Cockcroft-Gault) 54.1 Glucose Level 90mg/dL (70-99) Calcium Level 8.9mg/dL (8.5-10.1) Phosphorus Level 1.9mg/dL (2.6-4.7) Magnesium Level 1.6mg/dL (1.8-2.4) Glucose (Fingerstick) 59mg/dL (70-99) 105mg/dL (70-99) 92mg/dL (70-99) Test 05/01/16 09:30 05/01/16 10:35 05/01/16 11:43 05/01/16 12:58 White Blood Count 2.4x10^3/uL (4.0-11.0) Red Blood Count 3.23x10^6/uL (3.50-5.40) Hemoglobin 9.5g/dL (12.0-15.5) Hematocrit 28.7% (36.0-47.0) Mean Corpuscular Volume 89fL (79-100) Mean Corpuscular Hemoglobin 29pg (25-35) Mean Corpuscular Hemoglobin Concent 33g/dL (31-37) Red Cell Distribution Width 15.1% (11.5-14.5) Platelet Count 295x10^3/uL (140-400) Neutrophils (%) (Auto) 68% (31-73) Lymphocytes (%) (Auto) 17% (24-48) Monocytes (%) (Auto) 15% (0-9) Eosinophils (%) (Auto) 0% (0-3) Basophils (%) (Auto) 0% (0-3) Neutrophils # (Auto) 1.6x10^3uL (1.8-7.7) Lymphocytes # (Auto) 0.4x10^3/uL (1.0-4.8) Monocytes # (Auto) 0.4x10^3/uL (0.0-1.1) Eosinophils # (Auto) 0.0x10^3/uL (0.0-0.7) Basophils # (Auto) 0.0x10^3/uL (0.0-0.2) Glucose (Fingerstick) 115mg/dL (70-99) 85mg/dL (70-99) 87mg/dL (70-99) Test 05/01/16 13:20 05/01/16 14:04 05/01/16 15:07 05/01/16 16:05 Influenza Type A Antigen Negative (NEGATIVE) Influenza Type B Antigen Negative (NEGATIVE) Glucose (Fingerstick) 110mg/dL (70-99) 145mg/dL (70-99) Sodium Level 143mmol/L (136-145) Potassium Level 3.7mmol/L (3.5-5.1) Chloride Level 110mmol/L (98-107) Carbon Dioxide Level 18mmol/L (21-32) Anion Gap 15 (6-14) Blood Urea Nitrogen 13mg/dL (7-20) Creatinine 0.9mg/dL (0.6-1.0) Estimated GFR (Cockcroft-Gault) 75.3 Glucose Level 226mg/dL (70-99) Calcium Level 7.8mg/dL (8.5-10.1) Test 05/01/16 16:16 05/01/16 17:20 05/01/16 18:27 05/01/16 19:32 Glucose (Fingerstick) 191mg/dL (70-99) 192mg/dL (70-99) 77mg/dL (70-99) 164mg/dL (70-99) Test 05/01/16 19:46 05/01/16 20:15 05/01/16 20:19 05/01/16 21:26 O2 Saturation 90% (92-99) Arterial Blood pH 7.40 (7.35-7.45) Arterial Blood pCO2 at Patient Temp 22mmHg (35-46) Arterial Blood pO2 at Patient Temp 57mmHg (65-108) Arterial Blood HCO3 14mmol/L (21-28) Arterial Blood Base Excess -10mmol/L (-3-3) FiO2 50 Sodium Level 144mmol/L (136-145) Potassium Level 3.4mmol/L (3.5-5.1) Chloride Level 109mmol/L (98-107) Carbon Dioxide Level 16mmol/L (21-32) Anion Gap 19 (6-14) Blood Urea Nitrogen 14mg/dL (7-20) Creatinine 1.4mg/dL (0.6-1.0) Estimated GFR (Cockcroft-Gault) 45.2 Glucose Level 183mg/dL (70-99) Calcium Level 7.9mg/dL (8.5-10.1) Glucose (Fingerstick) 170mg/dL (70-99) 144mg/dL (70-99) Test 05/01/16 22:28 05/01/16 23:30 05/01/16 23:32 05/02/16 00:30 Glucose (Fingerstick) 117mg/dL (70-99) 116mg/dL (70-99) 81mg/dL (70-99) Sodium Level 145mmol/L (136-145) Potassium Level 3.8mmol/L (3.5-5.1) Chloride Level 111mmol/L (98-107) Carbon Dioxide Level 18mmol/L (21-32) Anion Gap 16 (6-14) Blood Urea Nitrogen 15mg/dL (7-20) Creatinine 1.2mg/dL (0.6-1.0) Estimated GFR (Cockcroft-Gault) 54.1 Glucose Level 116mg/dL (70-99) Calcium Level 7.8mg/dL (8.5-10.1) Test 05/02/16 01:37 05/02/16 02:33 05/02/16 03:37 05/02/16 04:40 Glucose (Fingerstick) 133mg/dL (70-99) 157mg/dL (70-99) 220mg/dL (70-99) White Blood Count 2.5x10^3/uL (4.0-11.0) Red Blood Count 3.00x10^6/uL (3.50-5.40) Hemoglobin 9.0g/dL (12.0-15.5) Hematocrit 27.0% (36.0-47.0) Mean Corpuscular Volume 90fL (79-100) Mean Corpuscular Hemoglobin 30pg (25-35) Mean Corpuscular Hemoglobin Concent 33g/dL (31-37) Red Cell Distribution Width 15.5% (11.5-14.5) Platelet Count 284x10^3/uL (140-400) Neutrophils (%) (Auto) 77% (31-73) Lymphocytes (%) (Auto) 20% (24-48) Monocytes (%) (Auto) 3% (0-9) Eosinophils (%) (Auto) 0% (0-3) Basophils (%) (Auto) 0% (0-3) Neutrophils # (Auto) 1.9x10^3uL (1.8-7.7) Lymphocytes # (Auto) 0.5x10^3/uL (1.0-4.8) Monocytes # (Auto) 0.1x10^3/uL (0.0-1.1) Eosinophils # (Auto) 0.0x10^3/uL (0.0-0.7) Basophils # (Auto) 0.0x10^3/uL (0.0-0.2) Sodium Level 141mmol/L (136-145) Potassium Level 5.1mmol/L (3.5-5.1) Chloride Level 111mmol/L (98-107) Carbon Dioxide Level 14mmol/L (21-32) Anion Gap 16 (6-14) Blood Urea Nitrogen 18mg/dL (7-20) Creatinine 1.4mg/dL (0.6-1.0) Estimated GFR (Cockcroft-Gault) 45.2 Glucose Level 248mg/dL (70-99) Calcium Level 7.8mg/dL (8.5-10.1) Phosphorus Level 3.6mg/dL (2.6-4.7) Magnesium Level 1.9mg/dL (1.8-2.4) Test 05/02/16 04:44 05/02/16 05:47 05/02/16 07:09 Glucose (Fingerstick) 223mg/dL (70-99) 175mg/dL (70-99) 132mg/dL (70-99) Objective Assessment Strep sepsis - POA. No on Levophed at 6. Maybe lung or bowel source given Fecal impaction on CT Resp failure on Bipap Leukopenia - ? sepsis related Fecal impaction - nursing reports + BMs overnight with strong odor DKA - POA Pneumonia right - XRAY today reviewed still some effusion. No mass on CT. Influenza - neg. H/o Abd mass - followed by GI - CT w/o contrast 05/01 - no evidence of mass Fever - persist Foot wound - clean Sacral superficial wounds MRSA + screen Plan Plan of Care Cont Zosyn D/cont Vanc given on going fever and begin Zyvox in case res Enterococcus F/u labs and cults Critically ill LYNNE OROPEZA MD May 02, 2016 07:28
[2016-05-02 08:29] LABS: HCO3 ABG 16 mmol/L (21-28); PCO2 ABG 26 mmHg (35-46); PH ABG 7.39 (7.35-7.45); PO2 ABG 70 mmHg (65-108); SAT O2 ABG 93 % (92-99)
--- NOTE | 2016-05-02 08:57 | RAD ---
Procedure: Ultrasound-guided jugular venous access at the bedside, and ultrasound and fluoroscopic guided Central line placement. Clinical Indication: Patient requiring central venous access Sedation: Local anesthesia only Antibiotics: None Fluoro Time: 0.1 minutes. Images: 1 Contrast: None Sterility: All elements of maximal sterile barrier technique including the use of a cap, mask, sterile gown, sterile gloves, large sterile sheet, appropriate hand hygiene, and 2% chlorhexidine for cutaneous antisepsis (or acceptable alternative antiseptic per current guidelines) were followed for this procedure. Consent: The procedure was explained in its entirety to the patient or the patients designated motor vehicle representative by a member of the treatment team, including a discussion of the risks, benefits and commonly accepted alternatives to the procedure, as well as the expected consequences of no therapy whatsoever. Discussion of the risks included, but was not limited to, those that are most frequent and those that are rare but possibly severe or life-threatening, as well as the possibility of unforeseen complications. Technique and Findings: Following informed consent, the patient was prepped and draped at the bedside in the ICU in usual sterile fashion. Ultrasound interrogation of the right neck revealed patency and compressibility of the targeted jugular vein. A hard copy ultrasound image was recorded as a 21-gauge micro puncture needle was used to gain access to this vein with a single stick. Attempts to advance a wire were met with resistance in the expected location of the superior vena cava despite multiple maneuvers. Consequently, low right jugular venous or brachycephalic venous obstruction was suspected. The access was abandoned and hemostasis was achieved with manual compression. The patient was then transferred to the fluoroscopy suite and was once again prepped and draped in usual sterile fashion. Ultrasound interrogation of the left neck revealed patency and compressibility of the left internal jugular vein. A Hardcopy ultrasound image was recorded as a 21-gauge micropuncture needle was used to gain access to this vein. Under fluoroscopic guidance, a wire was successfully ago she did through the heart into the IVC. The needle was exchanged for a dilator followed by a triple lumen central line which was positioned with the distal tip in the mid right atrium. All 3 lumens flushed and aspirated with ease and the catheter was sutured to the skin. Complications: No immediate Impression: 1. Failed ultrasound-guided central line placement at the bedside in the ICU via the right internal jugular vein. Low right jugular venous or brachycephalic venous stenosis or tortuosity is suspected. 2. Successful fluoroscopic and ultrasound-guided left internal jugular venous Central line placement as described
[2016-05-02] MEDS ORDERED: MAGNESIUM SULFATE 4GM 100 ML IV PRN (09:00)
[2016-05-02 09:04] LABS: BASO % 0 % (0-3); EOS % 0 % (0-3); HEMATOCRIT 27.5 % (36.0-47.0); HEMOGLOBIN 9.2 g/dL (12.0-15.5); LYMPH # 0.6 x10^3/uL (1.0-4.8); LYMPH % 16 % (24-48); MEAN CORPUSCULAR HEMOGLOBIN 30 pg (25-35); MEAN CORPUSCULAR HGB CONC 33 g/dL (31-37); MEAN CORPUSCULAR VOLUME 89 fL (79-100); MONO % 2 % (0-9); NEUT % 82 % (31-73); PLATELET COUNT 280 x10^3/uL (140-400); RED CELL DISTRIBUTION WIDTH 15.4 % (11.5-14.5); WHITE BLOOD COUNT 3.7 x10^3/uL (4.0-11.0)
[2016-05-02 09:18] LABS: ALBUMIN/GLOBULIN RATIO 0.7 (1.0-1.7); CALCIUM 7.7 mg/dL (8.5-10.1); CREATININE 1.2 mg/dL (0.6-1.0); GFR 54.1; MAGNESIUM 1.9 mg/dL (1.8-2.4); PHOSPHORUS 3.6 mg/dL (2.6-4.7); POTASSIUM 4.5 mmol/L (3.5-5.1); TOTAL BILIRUBIN 0.3 mg/dL (0.2-1.0)
--- NOTE | 2016-05-02 09:32 | RAD ---
Indication pneumonia. Follow-up. A single view of the chest was obtained and is compared to an examination one day earlier. Note is made of the CT examination one day earlier. Right pleural effusion is present somewhat larger than previously. A definite focal process in the left lung is not seen. Volume loss and parenchymal opacities in the right mid and lower lung field appear slightly worse. Heart and pulmonary vessels are normal. A left IJ catheter is noted. There is no evidence of pneumothorax. IMPRESSION: Right pleural effusion, larger. Pulmonary opacities and volume loss in the right mid and lower lung field compatible with pneumonia consistent with the CT findings yesterday. Left lung is clear
[2016-05-02 10:04] LABS: FIO2 ABG 30
[2016-05-02] MEDS ORDERED: ALBUMIN HUMAN 5% 250 ML IV ONE ×2 (10:45→13:45)
[2016-05-02] MEDS ORDERED: IV NORMAL SALINE 1000ML BAG 1,000 ML IV ONE (10:45)
--- NOTE | 2016-05-02 10:49 | PDOC ---
PULMONARY PROGRESS NOTES Subjective developed hypoxia last eventing treated with BIPAP ct with large consolidation RLLL Vitals Vital Signs Date Time Temp Pulse Resp B/P Pulse Ox O2 Delivery O2 Flow Rate FiO2 05/02/16 10:00 127 22 117/59 100 Venturi Mask 05/02/16 08:00 100.0 100.0 05/01/16 19:45 15.0 General: Alert, No acute distress Lungs: Other (coarse RLLL) Cardiovascular: S1 Abdomen: Soft, Non-tender Neuro Exam: Alert Extremities: No Edema Labs Laboratory Tests Test 04/30/16 19:24 04/30/16 20:30 04/30/16 22:54 04/30/16 23:30 Urine Collection Type Unknown Urine Color Yellow Urine Clarity Clear Urine pH 5.5 Urine Specific [place] 1.020 Urine Protein Negativemg/dL (NEG-TRACE) Urine Glucose (UA) >=1000mg/dL (NEG) Urine Ketones (Stick) >=80mg/dL (NEG) Urine Blood Trace (NEG) Urine Nitrite Negative (NEG) Urine Bilirubin Negative (NEG) Urine Urobilinogen Dipstick 0.2mg/dL (0.2 mg/dL) Urine Leukocyte Esterase Negative (NEG) Urine RBC Occ/HPF (0-2) Urine WBC 1-4/HPF (0-4) Urine Squamous Epithelial Cells Few/LPF Urine Bacteria 0/HPF (0-FEW) Urine Mucus Slight/LPF White Blood Count 16.2x10^3/uL (4.0-11.0) Red Blood Count 3.91x10^6/uL (3.50-5.40) Hemoglobin 11.4g/dL (12.0-15.5) Hematocrit 40.3% (36.0-47.0) Mean Corpuscular Volume 103fL (79-100) Mean Corpuscular Hemoglobin 29pg (25-35) Mean Corpuscular Hemoglobin Concent 28g/dL (31-37) Red Cell Distribution Width 17.5% (11.5-14.5) Platelet Count 447x10^3/uL (140-400) Neutrophils (%) (Auto) 87% (31-73) Lymphocytes (%) (Auto) 8% (24-48) Monocytes (%) (Auto) 4% (0-9) Eosinophils (%) (Auto) 0% (0-3) Basophils (%) (Auto) 1% (0-3) Neutrophils # (Auto) 14.1x10^3uL (1.8-7.7) Lymphocytes # (Auto) 1.2x10^3/uL (1.0-4.8) Monocytes # (Auto) 0.7x10^3/uL (0.0-1.1) Eosinophils # (Auto) 0.0x10^3/uL (0.0-0.7) Basophils # (Auto) 0.2x10^3/uL (0.0-0.2) Segmented Neutrophils % 76% (35-66) Band Neutrophils % 13% (0-9) Lymphocytes % 7% (24-48) Monocytes % 4% (0-10) Platelet Estimate Increased (ADEQUATE) Polychromasia Slight Anisocytosis Slight [place] Cells Occ Sodium Level 138mmol/L (136-145) Potassium Level 4.8mmol/L (3.5-5.1) Chloride Level 98mmol/L (98-107) Carbon Dioxide Level < 5mmol/L (21-32) Anion Gap 35 (6-14) Blood Urea Nitrogen 18mg/dL (7-20) Creatinine 1.2mg/dL (0.6-1.0) Estimated GFR (Cockcroft-Gault) 54.1 BUN/Creatinine Ratio 15 (6-20) Glucose Level 695mg/dL (70-99) Calcium Level 9.2mg/dL (8.5-10.1) Magnesium Level 2.2mg/dL (1.8-2.4) Total Bilirubin 0.6mg/dL (0.2-1.0) Aspartate Amino Transf (AST/SGOT) 22U/L (15-37) Alanine Aminotransferase (ALT/SGPT) 52U/L (14-59) Alkaline Phosphatase 260U/L (46-116) Total Protein 8.3g/dL (6.4-8.2) Albumin 3.7g/dL (3.4-5.0) Albumin/Globulin Ratio 0.8 (1.0-1.7) Glucose (Fingerstick) 553mg/dL (70-99) 456mg/dL (70-99) Nasal Screen MRSA (PCR) Positive (Negative) Test 05/01/16 00:18 05/01/16 00:28 05/01/16 00:41 05/01/16 01:38 O2 Saturation 97% (92-99) Arterial Blood pH 7.05 (7.35-7.45) Arterial Blood pCO2 at Patient Temp 15mmHg (35-46) Arterial Blood pO2 at Patient Temp 127mmHg (65-108) Arterial Blood HCO3 4mmol/L (21-28) Arterial Blood Base Excess -25mmol/L (-3-3) FiO2 21 Sodium Level 142mmol/L (136-145) Potassium Level 3.9mmol/L (3.5-5.1) Chloride Level 105mmol/L (98-107) Carbon Dioxide Level < 5mmol/L (21-32) Anion Gap 32 (6-14) Blood Urea Nitrogen 18mg/dL (7-20) Creatinine 1.3mg/dL (0.6-1.0) Estimated GFR (Cockcroft-Gault) 49.3 Glucose Level 481mg/dL (70-99) Hemoglobin A1c 8.8% (4.8-5.6) Calcium Level 8.4mg/dL (8.5-10.1) Phosphorus Level 4.7mg/dL (2.6-4.7) Magnesium Level 2.0mg/dL (1.8-2.4) Total Bilirubin 0.4mg/dL (0.2-1.0) Direct Bilirubin 0.1mg/dL (0.0-0.2) Aspartate Amino Transf (AST/SGOT) 19U/L (15-37) Alanine Aminotransferase (ALT/SGPT) 47U/L (14-59) Alkaline Phosphatase 239U/L (46-116) Total Protein 7.4g/dL (6.4-8.2) Albumin 3.5g/dL (3.4-5.0) Lipase 342U/L (73-393) Glucose (Fingerstick) 372mg/dL (70-99) 354mg/dL (70-99) Test 05/01/16 02:46 05/01/16 03:47 05/01/16 04:51 05/01/16 05:47 Glucose (Fingerstick) 268mg/dL (70-99) 194mg/dL (70-99) 146mg/dL (70-99) 139mg/dL (70-99) Test 05/01/16 06:43 05/01/16 07:30 05/01/16 07:45 05/01/16 08:11 Glucose (Fingerstick) 100mg/dL (70-99) 59mg/dL (70-99) 105mg/dL (70-99) Sodium Level 136mmol/L (136-145) Potassium Level 4.0mmol/L (3.5-5.1) Chloride Level 108mmol/L (98-107) Carbon Dioxide Level 14mmol/L (21-32) Anion Gap 14 (6-14) Blood Urea Nitrogen 14mg/dL (7-20) Creatinine 1.2mg/dL (0.6-1.0) Estimated GFR (Cockcroft-Gault) 54.1 Glucose Level 90mg/dL (70-99) Calcium Level 8.9mg/dL (8.5-10.1) Phosphorus Level 1.9mg/dL (2.6-4.7) Magnesium Level 1.6mg/dL (1.8-2.4) Test 05/01/16 09:20 05/01/16 09:30 05/01/16 10:35 05/01/16 11:43 Glucose (Fingerstick) 92mg/dL (70-99) 115mg/dL (70-99) 85mg/dL (70-99) White Blood Count 2.4x10^3/uL (4.0-11.0) Red Blood Count 3.23x10^6/uL (3.50-5.40) Hemoglobin 9.5g/dL (12.0-15.5) Hematocrit 28.7% (36.0-47.0) Mean Corpuscular Volume 89fL (79-100) Mean Corpuscular Hemoglobin 29pg (25-35) Mean Corpuscular Hemoglobin Concent 33g/dL (31-37) Red Cell Distribution Width 15.1% (11.5-14.5) Platelet Count 295x10^3/uL (140-400) Neutrophils (%) (Auto) 68% (31-73) Lymphocytes (%) (Auto) 17% (24-48) Monocytes (%) (Auto) 15% (0-9) Eosinophils (%) (Auto) 0% (0-3) Basophils (%) (Auto) 0% (0-3) Neutrophils # (Auto) 1.6x10^3uL (1.8-7.7) Lymphocytes # (Auto) 0.4x10^3/uL (1.0-4.8) Monocytes # (Auto) 0.4x10^3/uL (0.0-1.1) Eosinophils # (Auto) 0.0x10^3/uL (0.0-0.7) Basophils # (Auto) 0.0x10^3/uL (0.0-0.2) Test 05/01/16 12:58 05/01/16 13:20 05/01/16 14:04 05/01/16 15:07 Glucose (Fingerstick) 87mg/dL (70-99) 110mg/dL (70-99) 145mg/dL (70-99) Influenza Type A Antigen Negative (NEGATIVE) Influenza Type B Antigen Negative (NEGATIVE) Test 05/01/16 16:05 05/01/16 16:16 05/01/16 17:20 05/01/16 18:27 Sodium Level 143mmol/L (136-145) Potassium Level 3.7mmol/L (3.5-5.1) Chloride Level 110mmol/L (98-107) Carbon Dioxide Level 18mmol/L (21-32) Anion Gap 15 (6-14) Blood Urea Nitrogen 13mg/dL (7-20) Creatinine 0.9mg/dL (0.6-1.0) Estimated GFR (Cockcroft-Gault) 75.3 Glucose Level 226mg/dL (70-99) Calcium Level 7.8mg/dL (8.5-10.1) Glucose (Fingerstick) 191mg/dL (70-99) 192mg/dL (70-99) 77mg/dL (70-99) Test 05/01/16 19:32 05/01/16 19:46 05/01/16 20:15 05/01/16 20:19 Glucose (Fingerstick) 164mg/dL (70-99) 170mg/dL (70-99) O2 Saturation 90% (92-99) Arterial Blood pH 7.40 (7.35-7.45) Arterial Blood pCO2 at Patient Temp 22mmHg (35-46) Arterial Blood pO2 at Patient Temp 57mmHg (65-108) Arterial Blood HCO3 14mmol/L (21-28) Arterial Blood Base Excess -10mmol/L (-3-3) FiO2 50 Sodium Level 144mmol/L (136-145) Potassium Level 3.4mmol/L (3.5-5.1) Chloride Level 109mmol/L (98-107) Carbon Dioxide Level 16mmol/L (21-32) Anion Gap 19 (6-14) Blood Urea Nitrogen 14mg/dL (7-20) Creatinine 1.4mg/dL (0.6-1.0) Estimated GFR (Cockcroft-Gault) 45.2 Glucose Level 183mg/dL (70-99) Calcium Level 7.9mg/dL (8.5-10.1) Test 05/01/16 21:26 05/01/16 22:28 05/01/16 23:30 05/01/16 23:32 Glucose (Fingerstick) 144mg/dL (70-99) 117mg/dL (70-99) 116mg/dL (70-99) Sodium Level 145mmol/L (136-145) Potassium Level 3.8mmol/L (3.5-5.1) Chloride Level 111mmol/L (98-107) Carbon Dioxide Level 18mmol/L (21-32) Anion Gap 16 (6-14) Blood Urea Nitrogen 15mg/dL (7-20) Creatinine 1.2mg/dL (0.6-1.0) Estimated GFR (Cockcroft-Gault) 54.1 Glucose Level 116mg/dL (70-99) Calcium Level 7.8mg/dL (8.5-10.1) Test 05/02/16 00:30 05/02/16 01:37 05/02/16 02:33 05/02/16 03:37 Glucose (Fingerstick) 81mg/dL (70-99) 133mg/dL (70-99) 157mg/dL (70-99) 220mg/dL (70-99) Test 05/02/16 04:40 05/02/16 04:44 05/02/16 05:47 05/02/16 07:09 White Blood Count 2.5x10^3/uL (4.0-11.0) Red Blood Count 3.00x10^6/uL (3.50-5.40) Hemoglobin 9.0g/dL (12.0-15.5) Hematocrit 27.0% (36.0-47.0) Mean Corpuscular Volume 90fL (79-100) Mean Corpuscular Hemoglobin 30pg (25-35) Mean Corpuscular Hemoglobin Concent 33g/dL (31-37) Red Cell Distribution Width 15.5% (11.5-14.5) Platelet Count 284x10^3/uL (140-400) Neutrophils (%) (Auto) 77% (31-73) Lymphocytes (%) (Auto) 20% (24-48) Monocytes (%) (Auto) 3% (0-9) Eosinophils (%) (Auto) 0% (0-3) Basophils (%) (Auto) 0% (0-3) Neutrophils # (Auto) 1.9x10^3uL (1.8-7.7) Lymphocytes # (Auto) 0.5x10^3/uL (1.0-4.8) Monocytes # (Auto) 0.1x10^3/uL (0.0-1.1) Eosinophils # (Auto) 0.0x10^3/uL (0.0-0.7) Basophils # (Auto) 0.0x10^3/uL (0.0-0.2) Sodium Level 141mmol/L (136-145) Potassium Level 5.1mmol/L (3.5-5.1) Chloride Level 111mmol/L (98-107) Carbon Dioxide Level 14mmol/L (21-32) Anion Gap 16 (6-14) Blood Urea Nitrogen 18mg/dL (7-20) Creatinine 1.4mg/dL (0.6-1.0) Estimated GFR (Cockcroft-Gault) 45.2 Glucose Level 248mg/dL (70-99) Calcium Level 7.8mg/dL (8.5-10.1) Phosphorus Level 3.6mg/dL (2.6-4.7) Magnesium Level 1.9mg/dL (1.8-2.4) Glucose (Fingerstick) 223mg/dL (70-99) 175mg/dL (70-99) 132mg/dL (70-99) Test 05/02/16 07:45 05/02/16 08:25 05/02/16 09:25 05/02/16 10:28 White Blood Count 3.7x10^3/uL (4.0-11.0) Red Blood Count 3.10x10^6/uL (3.50-5.40) Hemoglobin 9.2g/dL (12.0-15.5) Hematocrit 27.5% (36.0-47.0) Mean Corpuscular Volume 89fL (79-100) Mean Corpuscular Hemoglobin 30pg (25-35) Mean Corpuscular Hemoglobin Concent 33g/dL (31-37) Red Cell Distribution Width 15.4% (11.5-14.5) Platelet Count 280x10^3/uL (140-400) Neutrophils (%) (Auto) 82% (31-73) Lymphocytes (%) (Auto) 16% (24-48) Monocytes (%) (Auto) 2% (0-9) Eosinophils (%) (Auto) 0% (0-3) Basophils (%) (Auto) 0% (0-3) Neutrophils # (Auto) 3.0x10^3uL (1.8-7.7) Lymphocytes # (Auto) 0.6x10^3/uL (1.0-4.8) Monocytes # (Auto) 0.1x10^3/uL (0.0-1.1) Eosinophils # (Auto) 0.0x10^3/uL (0.0-0.7) Basophils # (Auto) 0.0x10^3/uL (0.0-0.2) Sodium Level 145mmol/L (136-145) Potassium Level 4.5mmol/L (3.5-5.1) Chloride Level 112mmol/L (98-107) Carbon Dioxide Level 17mmol/L (21-32) Anion Gap 16 (6-14) Blood Urea Nitrogen 17mg/dL (7-20) Creatinine 1.2mg/dL (0.6-1.0) Estimated GFR (Cockcroft-Gault) 54.1 BUN/Creatinine Ratio 14 (6-20) Glucose Level 118mg/dL (70-99) Calcium Level 7.7mg/dL (8.5-10.1) Phosphorus Level 3.6mg/dL (2.6-4.7) Magnesium Level 1.9mg/dL (1.8-2.4) Total Bilirubin 0.3mg/dL (0.2-1.0) Aspartate Amino Transf (AST/SGOT) 40U/L (15-37) Alanine Aminotransferase (ALT/SGPT) 34U/L (14-59) Alkaline Phosphatase 140U/L (46-116) Total Protein 5.0g/dL (6.4-8.2) Albumin 2.0g/dL (3.4-5.0) Albumin/Globulin Ratio 0.7 (1.0-1.7) O2 Saturation 93% (92-99) Arterial Blood pH 7.39 (7.35-7.45) Arterial Blood pCO2 at Patient Temp 26mmHg (35-46) Arterial Blood pO2 at Patient Temp 70mmHg (65-108) Arterial Blood HCO3 16mmol/L (21-28) Arterial Blood Base Excess -8mmol/L (-3-3) FiO2 30 Glucose (Fingerstick) 101mg/dL (70-99) 86mg/dL (70-99) 120mg/dL (70-99) Laboratory Tests Test 05/01/16 11:43 05/01/16 12:58 05/01/16 13:20 05/01/16 14:04 Glucose (Fingerstick) 85mg/dL (70-99) 87mg/dL (70-99) 110mg/dL (70-99) Influenza Type A Antigen Negative (NEGATIVE) Influenza Type B Antigen Negative (NEGATIVE) Test 05/01/16 15:07 05/01/16 16:05 05/01/16 16:16 05/01/16 17:20 Glucose (Fingerstick) 145mg/dL (70-99) 191mg/dL (70-99) 192mg/dL (70-99) Sodium Level 143mmol/L (136-145) Potassium Level 3.7mmol/L (3.5-5.1) Chloride Level 110mmol/L (98-107) Carbon Dioxide Level 18mmol/L (21-32) Anion Gap 15 (6-14) Blood Urea Nitrogen 13mg/dL (7-20) Creatinine 0.9mg/dL (0.6-1.0) Estimated GFR (Cockcroft-Gault) 75.3 Glucose Level 226mg/dL (70-99) Calcium Level 7.8mg/dL (8.5-10.1) Test 05/01/16 18:27 05/01/16 19:32 05/01/16 19:46 05/01/16 20:15 Glucose (Fingerstick) 77mg/dL (70-99) 164mg/dL (70-99) O2 Saturation 90% (92-99) Arterial Blood pH 7.40 (7.35-7.45) Arterial Blood pCO2 at Patient Temp 22mmHg (35-46) Arterial Blood pO2 at Patient Temp 57mmHg (65-108) Arterial Blood HCO3 14mmol/L (21-28) Arterial Blood Base Excess -10mmol/L (-3-3) FiO2 50 Sodium Level 144mmol/L (136-145) Potassium Level 3.4mmol/L (3.5-5.1) Chloride Level 109mmol/L (98-107) Carbon Dioxide Level 16mmol/L (21-32) Anion Gap 19 (6-14) Blood Urea Nitrogen 14mg/dL (7-20) Creatinine 1.4mg/dL (0.6-1.0) Estimated GFR (Cockcroft-Gault) 45.2 Glucose Level 183mg/dL (70-99) Calcium Level 7.9mg/dL (8.5-10.1) Test 05/01/16 20:19 05/01/16 21:26 05/01/16 22:28 05/01/16 23:30 Glucose (Fingerstick) 170mg/dL (70-99) 144mg/dL (70-99) 117mg/dL (70-99) Sodium Level 145mmol/L (136-145) Potassium Level 3.8mmol/L (3.5-5.1) Chloride Level 111mmol/L (98-107) Carbon Dioxide Level 18mmol/L (21-32) Anion Gap 16 (6-14) Blood Urea Nitrogen 15mg/dL (7-20) Creatinine 1.2mg/dL (0.6-1.0) Estimated GFR (Cockcroft-Gault) 54.1 Glucose Level 116mg/dL (70-99) Calcium Level 7.8mg/dL (8.5-10.1) Test 05/01/16 23:32 05/02/16 00:30 05/02/16 01:37 05/02/16 02:33 Glucose (Fingerstick) 116mg/dL (70-99) 81mg/dL (70-99) 133mg/dL (70-99) 157mg/dL (70-99) Test 05/02/16 03:37 05/02/16 04:40 05/02/16 04:44 05/02/16 05:47 Glucose (Fingerstick) 220mg/dL (70-99) 223mg/dL (70-99) 175mg/dL (70-99) White Blood Count 2.5x10^3/uL (4.0-11.0) Red Blood Count 3.00x10^6/uL (3.50-5.40) Hemoglobin 9.0g/dL (12.0-15.5) Hematocrit 27.0% (36.0-47.0) Mean Corpuscular Volume 90fL (79-100) Mean Corpuscular Hemoglobin 30pg (25-35) Mean Corpuscular Hemoglobin Concent 33g/dL (31-37) Red Cell Distribution Width 15.5% (11.5-14.5) Platelet Count 284x10^3/uL (140-400) Neutrophils (%) (Auto) 77% (31-73) Lymphocytes (%) (Auto) 20% (24-48) Monocytes (%) (Auto) 3% (0-9) Eosinophils (%) (Auto) 0% (0-3) Basophils (%) (Auto) 0% (0-3) Neutrophils # (Auto) 1.9x10^3uL (1.8-7.7) Lymphocytes # (Auto) 0.5x10^3/uL (1.0-4.8) Monocytes # (Auto) 0.1x10^3/uL (0.0-1.1) Eosinophils # (Auto) 0.0x10^3/uL (0.0-0.7) Basophils # (Auto) 0.0x10^3/uL (0.0-0.2) Sodium Level 141mmol/L (136-145) Potassium Level 5.1mmol/L (3.5-5.1) Chloride Level 111mmol/L (98-107) Carbon Dioxide Level 14mmol/L (21-32) Anion Gap 16 (6-14) Blood Urea Nitrogen 18mg/dL (7-20) Creatinine 1.4mg/dL (0.6-1.0) Estimated GFR (Cockcroft-Gault) 45.2 Glucose Level 248mg/dL (70-99) Calcium Level 7.8mg/dL (8.5-10.1) Phosphorus Level 3.6mg/dL (2.6-4.7) Magnesium Level 1.9mg/dL (1.8-2.4) Test 05/02/16 07:09 05/02/16 07:45 05/02/16 08:25 05/02/16 09:25 Glucose (Fingerstick) 132mg/dL (70-99) 101mg/dL (70-99) 86mg/dL (70-99) White Blood Count 3.7x10^3/uL (4.0-11.0) Red Blood Count 3.10x10^6/uL (3.50-5.40) Hemoglobin 9.2g/dL (12.0-15.5) Hematocrit 27.5% (36.0-47.0) Mean Corpuscular Volume 89fL (79-100) Mean Corpuscular Hemoglobin 30pg (25-35) Mean Corpuscular Hemoglobin Concent 33g/dL (31-37) Red Cell Distribution Width 15.4% (11.5-14.5) Platelet Count 280x10^3/uL (140-400) Neutrophils (%) (Auto) 82% (31-73) Lymphocytes (%) (Auto) 16% (24-48) Monocytes (%) (Auto) 2% (0-9) Eosinophils (%) (Auto) 0% (0-3) Basophils (%) (Auto) 0% (0-3) Neutrophils # (Auto) 3.0x10^3uL (1.8-7.7) Lymphocytes # (Auto) 0.6x10^3/uL (1.0-4.8) Monocytes # (Auto) 0.1x10^3/uL (0.0-1.1) Eosinophils # (Auto) 0.0x10^3/uL (0.0-0.7) Basophils # (Auto) 0.0x10^3/uL (0.0-0.2) Sodium Level 145mmol/L (136-145) Potassium Level 4.5mmol/L (3.5-5.1) Chloride Level 112mmol/L (98-107) Carbon Dioxide Level 17mmol/L (21-32) Anion Gap 16 (6-14) Blood Urea Nitrogen 17mg/dL (7-20) Creatinine 1.2mg/dL (0.6-1.0) Estimated GFR (Cockcroft-Gault) 54.1 BUN/Creatinine Ratio 14 (6-20) Glucose Level 118mg/dL (70-99) Calcium Level 7.7mg/dL (8.5-10.1) Phosphorus Level 3.6mg/dL (2.6-4.7) Magnesium Level 1.9mg/dL (1.8-2.4) Total Bilirubin 0.3mg/dL (0.2-1.0) Aspartate Amino Transf (AST/SGOT) 40U/L (15-37) Alanine Aminotransferase (ALT/SGPT) 34U/L (14-59) Alkaline Phosphatase 140U/L (46-116) Total Protein 5.0g/dL (6.4-8.2) Albumin 2.0g/dL (3.4-5.0) Albumin/Globulin Ratio 0.7 (1.0-1.7) O2 Saturation 93% (92-99) Arterial Blood pH 7.39 (7.35-7.45) Arterial Blood pCO2 at Patient Temp 26mmHg (35-46) Arterial Blood pO2 at Patient Temp 70mmHg (65-108) Arterial Blood HCO3 16mmol/L (21-28) Arterial Blood Base Excess -8mmol/L (-3-3) FiO2 30 Test 05/02/16 10:28 Glucose (Fingerstick) 120mg/dL (70-99) Medications Active Scripts Medications Dose Route/Sig Days Date Category Potassium Chloride 20 Meq Tablet.er 40 Meq PO DAILY 7 02/22/16 Reported Amox Tr-K Clv 500-125 Mg Tab (Amoxicillin/Potassium Clav) 1 Each Tablet 1 Tab PO BID 02/11/16 Reported Zinc 50 Mg Tablet 220 Mg PO DAILY 01/31/16 Reported Ascorbic Acid 500 Mg Tablet 500 Mg PO DAILY 01/31/16 Reported Aspirin Ec (Aspirin) 81 Mg Tablet.dr 1 Tab PO DAILY 01/31/16 Reported Levemir (Insulin Detemir) 100 Unit/1 Ml Vial 8 Unit SQ HS 01/31/16 Reported Novolog Flexpen (Insulin Aspart) 100 Unit/1 Ml Insuln.pen 5 Unit SQ TIDAC 10/25/15 Reported Lisinopril 5 Mg Tablet 1 Tab PO DAILY 01/22/15 Rx Novolog Flexpen (Insulin Aspart) 100 Unit/1 Ml Insuln.pen 0 Units SQ QIDACHS 04/11/16 Rx Thera-M Tablet (Multivits,Ca,Minerals/Iron/Fa) 1 Each Tablet 1 Tab PO DAILY 04/11/16 Rx Levemir Flextouch (Insulin Detemir) 100 Unit/1 Ml Insuln.pen 10 Units SQ DAILY 04/11/16 Rx Impression . 1. Acute encephalopathy secondary to diabetic ketoacidosis. resolved 2. Right lower lobe pneumonia. ct chest with large consolidation RLL 3. Severe metabolic acidosis secondary to diabetic ketoacidosis. 4. No significant history of tobacco use. 5. Mild renal insufficiency, improving with IV fluids. 6. Acute hypoxic respiratory failure secondary to pneumonia. 7. Hypotension, sepsis, on levo Plan . 1. Continue with present oxygen with gradual wean keeping sats 92-94%. 2. Broad spectrum antibiotics as initiated by Infectious Disease. 3. CT chest reviewed 4. Management of DKA per PCP. 5. P.r.n. bicarbonate. 6. Replace magnesium and phosphorus. 7. IV hydration. 8. Discussed with RN and RT. 9. try off BIPAP, on VM 10.wean off levophed Critical care time 25 minutes. FRANCISCO ZLUUAGA MD May 02, 2016 10:49
[2016-05-02] MEDS: MULTIVITAMIN with MINERAL TABLET. PO SCH (11:00)
[2016-05-02] MEDS: ASCORBIC ACID 500 MG TABLET PO SCH (11:00)
--- NOTE | 2016-05-02 11:17 | PDOC ---
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 FECAL IMPACTION RT FOOT WOUND CHORIONIC PLAN ON ZOSYN AND ZYVOX, ID FOLLOWING DKA PROTOCOL GAP NOT CLOSED THIS AM OFF VASOPRESSORS IV HYDRATION CT CHEST REVIEWED SUPPLEMENTAL OXYGEN FOLLOW BLOOD CX ID AND PULMONOLOGY RECOMMENDATIONS. SYMPTOMATIC TREATMENT FOR CONSTIPATION REPEATED ADMISSIONS, PROGNOSIS GUARDED. , History of Present Illness History of Present Illness family at bedside weak alert no chest pain Vitals Vitals Vital Signs Date Time Temp Pulse Resp B/P Pulse Ox O2 Delivery O2 Flow Rate FiO2 05/02/16 10:00 127 22 117/59 100 Venturi Mask 05/02/16 08:00 100.0 100.0 05/01/16 19:45 15.0 Physical Exam General: Alert Heart: Normal S1, Normal S2 Lungs: Other (coarse RLLL) Abdomen: Normal bowel sounds, Soft Extremities: No clubbing Skin: Other (R HEEL WOUND) Labs LABS Laboratory Tests Test 05/01/16 11:43 05/01/16 12:58 05/01/16 13:20 05/01/16 14:04 Glucose (Fingerstick) 85mg/dL (70-99) 87mg/dL (70-99) 110mg/dL (70-99) Influenza Type A Antigen Negative (NEGATIVE) Influenza Type B Antigen Negative (NEGATIVE) Test 05/01/16 15:07 05/01/16 16:05 05/01/16 16:16 05/01/16 17:20 Glucose (Fingerstick) 145mg/dL (70-99) 191mg/dL (70-99) 192mg/dL (70-99) Sodium Level 143mmol/L (136-145) Potassium Level 3.7mmol/L (3.5-5.1) Chloride Level 110mmol/L (98-107) Carbon Dioxide Level 18mmol/L (21-32) Anion Gap 15 (6-14) Blood Urea Nitrogen 13mg/dL (7-20) Creatinine 0.9mg/dL (0.6-1.0) Estimated GFR (Cockcroft-Gault) 75.3 Glucose Level 226mg/dL (70-99) Calcium Level 7.8mg/dL (8.5-10.1) Test 05/01/16 18:27 05/01/16 19:32 05/01/16 19:46 05/01/16 20:15 Glucose (Fingerstick) 77mg/dL (70-99) 164mg/dL (70-99) O2 Saturation 90% (92-99) Arterial Blood pH 7.40 (7.35-7.45) Arterial Blood pCO2 at Patient Temp 22mmHg (35-46) Arterial Blood pO2 at Patient Temp 57mmHg (65-108) Arterial Blood HCO3 14mmol/L (21-28) Arterial Blood Base Excess -10mmol/L (-3-3) FiO2 50 Sodium Level 144mmol/L (136-145) Potassium Level 3.4mmol/L (3.5-5.1) Chloride Level 109mmol/L (98-107) Carbon Dioxide Level 16mmol/L (21-32) Anion Gap 19 (6-14) Blood Urea Nitrogen 14mg/dL (7-20) Creatinine 1.4mg/dL (0.6-1.0) Estimated GFR (Cockcroft-Gault) 45.2 Glucose Level 183mg/dL (70-99) Calcium Level 7.9mg/dL (8.5-10.1) Test 05/01/16 20:19 05/01/16 21:26 05/01/16 22:28 05/01/16 23:30 Glucose (Fingerstick) 170mg/dL (70-99) 144mg/dL (70-99) 117mg/dL (70-99) Sodium Level 145mmol/L (136-145) Potassium Level 3.8mmol/L (3.5-5.1) Chloride Level 111mmol/L (98-107) Carbon Dioxide Level 18mmol/L (21-32) Anion Gap 16 (6-14) Blood Urea Nitrogen 15mg/dL (7-20) Creatinine 1.2mg/dL (0.6-1.0) Estimated GFR (Cockcroft-Gault) 54.1 Glucose Level 116mg/dL (70-99) Calcium Level 7.8mg/dL (8.5-10.1) Test 05/01/16 23:32 05/02/16 00:30 05/02/16 01:37 05/02/16 02:33 Glucose (Fingerstick) 116mg/dL (70-99) 81mg/dL (70-99) 133mg/dL (70-99) 157mg/dL (70-99) Test 05/02/16 03:37 05/02/16 04:40 05/02/16 04:44 05/02/16 05:47 Glucose (Fingerstick) 220mg/dL (70-99) 223mg/dL (70-99) 175mg/dL (70-99) White Blood Count 2.5x10^3/uL (4.0-11.0) Red Blood Count 3.00x10^6/uL (3.50-5.40) Hemoglobin 9.0g/dL (12.0-15.5) Hematocrit 27.0% (36.0-47.0) Mean Corpuscular Volume 90fL (79-100) Mean Corpuscular Hemoglobin 30pg (25-35) Mean Corpuscular Hemoglobin Concent 33g/dL (31-37) Red Cell Distribution Width 15.5% (11.5-14.5) Platelet Count 284x10^3/uL (140-400) Neutrophils (%) (Auto) 77% (31-73) Lymphocytes (%) (Auto) 20% (24-48) Monocytes (%) (Auto) 3% (0-9) Eosinophils (%) (Auto) 0% (0-3) Basophils (%) (Auto) 0% (0-3) Neutrophils # (Auto) 1.9x10^3uL (1.8-7.7) Lymphocytes # (Auto) 0.5x10^3/uL (1.0-4.8) Monocytes # (Auto) 0.1x10^3/uL (0.0-1.1) Eosinophils # (Auto) 0.0x10^3/uL (0.0-0.7) Basophils # (Auto) 0.0x10^3/uL (0.0-0.2) Sodium Level 141mmol/L (136-145) Potassium Level 5.1mmol/L (3.5-5.1) Chloride Level 111mmol/L (98-107) Carbon Dioxide Level 14mmol/L (21-32) Anion Gap 16 (6-14) Blood Urea Nitrogen 18mg/dL (7-20) Creatinine 1.4mg/dL (0.6-1.0) Estimated GFR (Cockcroft-Gault) 45.2 Glucose Level 248mg/dL (70-99) Calcium Level 7.8mg/dL (8.5-10.1) Phosphorus Level 3.6mg/dL (2.6-4.7) Magnesium Level 1.9mg/dL (1.8-2.4) Test 05/02/16 07:09 05/02/16 07:45 05/02/16 08:25 05/02/16 09:25 Glucose (Fingerstick) 132mg/dL (70-99) 101mg/dL (70-99) 86mg/dL (70-99) White Blood Count 3.7x10^3/uL (4.0-11.0) Red Blood Count 3.10x10^6/uL (3.50-5.40) Hemoglobin 9.2g/dL (12.0-15.5) Hematocrit 27.5% (36.0-47.0) Mean Corpuscular Volume 89fL (79-100) Mean Corpuscular Hemoglobin 30pg (25-35) Mean Corpuscular Hemoglobin Concent 33g/dL (31-37) Red Cell Distribution Width 15.4% (11.5-14.5) Platelet Count 280x10^3/uL (140-400) Neutrophils (%) (Auto) 82% (31-73) Lymphocytes (%) (Auto) 16% (24-48) Monocytes (%) (Auto) 2% (0-9) Eosinophils (%) (Auto) 0% (0-3) Basophils (%) (Auto) 0% (0-3) Neutrophils # (Auto) 3.0x10^3uL (1.8-7.7) Lymphocytes # (Auto) 0.6x10^3/uL (1.0-4.8) Monocytes # (Auto) 0.1x10^3/uL (0.0-1.1) Eosinophils # (Auto) 0.0x10^3/uL (0.0-0.7) Basophils # (Auto) 0.0x10^3/uL (0.0-0.2) Sodium Level 145mmol/L (136-145) Potassium Level 4.5mmol/L (3.5-5.1) Chloride Level 112mmol/L (98-107) Carbon Dioxide Level 17mmol/L (21-32) Anion Gap 16 (6-14) Blood Urea Nitrogen 17mg/dL (7-20) Creatinine 1.2mg/dL (0.6-1.0) Estimated GFR (Cockcroft-Gault) 54.1 BUN/Creatinine Ratio 14 (6-20) Glucose Level 118mg/dL (70-99) Calcium Level 7.7mg/dL (8.5-10.1) Phosphorus Level 3.6mg/dL (2.6-4.7) Magnesium Level 1.9mg/dL (1.8-2.4) Total Bilirubin 0.3mg/dL (0.2-1.0) Aspartate Amino Transf (AST/SGOT) 40U/L (15-37) Alanine Aminotransferase (ALT/SGPT) 34U/L (14-59) Alkaline Phosphatase 140U/L (46-116) Total Protein 5.0g/dL (6.4-8.2) Albumin 2.0g/dL (3.4-5.0) Albumin/Globulin Ratio 0.7 (1.0-1.7) O2 Saturation 93% (92-99) Arterial Blood pH 7.39 (7.35-7.45) Arterial Blood pCO2 at Patient Temp 26mmHg (35-46) Arterial Blood pO2 at Patient Temp 70mmHg (65-108) Arterial Blood HCO3 16mmol/L (21-28) Arterial Blood Base Excess -8mmol/L (-3-3) FiO2 30 Test 05/02/16 10:28 Glucose (Fingerstick) 120mg/dL (70-99) Assessment and Plan Assessmemt and Plan Problems Medical Problems: (1) Diabetic ketoacidosis Status: Acute (2) DKA (diabetic ketoacidoses) Status: Acute Problems: Comment Review of Relevant I have reviewed the following items varun (where applicable) has been applied. Labs Laboratory Tests Test 04/30/16 19:24 04/30/16 20:30 04/30/16 22:54 04/30/16 23:30 Urine Collection Type Unknown Urine Color Yellow Urine Clarity Clear Urine pH 5.5 Urine Specific [place] 1.020 Urine Protein Negativemg/dL (NEG-TRACE) Urine Glucose (UA) >=1000mg/dL (NEG) Urine Ketones (Stick) >=80mg/dL (NEG) Urine Blood Trace (NEG) Urine Nitrite Negative (NEG) Urine Bilirubin Negative (NEG) Urine Urobilinogen Dipstick 0.2mg/dL (0.2 mg/dL) Urine Leukocyte Esterase Negative (NEG) Urine RBC Occ/HPF (0-2) Urine WBC 1-4/HPF (0-4) Urine Squamous Epithelial Cells Few/LPF Urine Bacteria 0/HPF (0-FEW) Urine Mucus Slight/LPF White Blood Count 16.2x10^3/uL (4.0-11.0) Red Blood Count 3.91x10^6/uL (3.50-5.40) Hemoglobin 11.4g/dL (12.0-15.5) Hematocrit 40.3% (36.0-47.0) Mean Corpuscular Volume 103fL (79-100) Mean Corpuscular Hemoglobin 29pg (25-35) Mean Corpuscular Hemoglobin Concent 28g/dL (31-37) Red Cell Distribution Width 17.5% (11.5-14.5) Platelet Count 447x10^3/uL (140-400) Neutrophils (%) (Auto) 87% (31-73) Lymphocytes (%) (Auto) 8% (24-48) Monocytes (%) (Auto) 4% (0-9) Eosinophils (%) (Auto) 0% (0-3) Basophils (%) (Auto) 1% (0-3) Neutrophils # (Auto) 14.1x10^3uL (1.8-7.7) Lymphocytes # (Auto) 1.2x10^3/uL (1.0-4.8) Monocytes # (Auto) 0.7x10^3/uL (0.0-1.1) Eosinophils # (Auto) 0.0x10^3/uL (0.0-0.7) Basophils # (Auto) 0.2x10^3/uL (0.0-0.2) Segmented Neutrophils % 76% (35-66) Band Neutrophils % 13% (0-9) Lymphocytes % 7% (24-48) Monocytes % 4% (0-10) Platelet Estimate Increased (ADEQUATE) Polychromasia Slight Anisocytosis Slight [place] Cells Occ Sodium Level 138mmol/L (136-145) Potassium Level 4.8mmol/L (3.5-5.1) Chloride Level 98mmol/L (98-107) Carbon Dioxide Level < 5mmol/L (21-32) Anion Gap 35 (6-14) Blood Urea Nitrogen 18mg/dL (7-20) Creatinine 1.2mg/dL (0.6-1.0) Estimated GFR (Cockcroft-Gault) 54.1 BUN/Creatinine Ratio 15 (6-20) Glucose Level 695mg/dL (70-99) Calcium Level 9.2mg/dL (8.5-10.1) Magnesium Level 2.2mg/dL (1.8-2.4) Total Bilirubin 0.6mg/dL (0.2-1.0) Aspartate Amino Transf (AST/SGOT) 22U/L (15-37) Alanine Aminotransferase (ALT/SGPT) 52U/L (14-59) Alkaline Phosphatase 260U/L (46-116) Total Protein 8.3g/dL (6.4-8.2) Albumin 3.7g/dL (3.4-5.0) Albumin/Globulin Ratio 0.8 (1.0-1.7) Glucose (Fingerstick) 553mg/dL (70-99) 456mg/dL (70-99) Nasal Screen MRSA (PCR) Positive (Negative) Test 05/01/16 00:18 05/01/16 00:28 05/01/16 00:41 05/01/16 01:38 O2 Saturation 97% (92-99) Arterial Blood pH 7.05 (7.35-7.45) Arterial Blood pCO2 at Patient Temp 15mmHg (35-46) Arterial Blood pO2 at Patient Temp 127mmHg (65-108) Arterial Blood HCO3 4mmol/L (21-28) Arterial Blood Base Excess -25mmol/L (-3-3) FiO2 21 Sodium Level 142mmol/L (136-145) Potassium Level 3.9mmol/L (3.5-5.1) Chloride Level 105mmol/L (98-107) Carbon Dioxide Level < 5mmol/L (21-32) Anion Gap 32 (6-14) Blood Urea Nitrogen 18mg/dL (7-20) Creatinine 1.3mg/dL (0.6-1.0) Estimated GFR (Cockcroft-Gault) 49.3 Glucose Level 481mg/dL (70-99) Hemoglobin A1c 8.8% (4.8-5.6) Calcium Level 8.4mg/dL (8.5-10.1) Phosphorus Level 4.7mg/dL (2.6-4.7) Magnesium Level 2.0mg/dL (1.8-2.4) Total Bilirubin 0.4mg/dL (0.2-1.0) Direct Bilirubin 0.1mg/dL (0.0-0.2) Aspartate Amino Transf (AST/SGOT) 19U/L (15-37) Alanine Aminotransferase (ALT/SGPT) 47U/L (14-59) Alkaline Phosphatase 239U/L (46-116) Total Protein 7.4g/dL (6.4-8.2) Albumin 3.5g/dL (3.4-5.0) Lipase 342U/L (73-393) Glucose (Fingerstick) 372mg/dL (70-99) 354mg/dL (70-99) Test 05/01/16 02:46 05/01/16 03:47 05/01/16 04:51 05/01/16 05:47 Glucose (Fingerstick) 268mg/dL (70-99) 194mg/dL (70-99) 146mg/dL (70-99) 139mg/dL (70-99) Test 05/01/16 06:43 05/01/16 07:30 05/01/16 07:45 05/01/16 08:11 Glucose (Fingerstick) 100mg/dL (70-99) 59mg/dL (70-99) 105mg/dL (70-99) Sodium Level 136mmol/L (136-145) Potassium Level 4.0mmol/L (3.5-5.1) Chloride Level 108mmol/L (98-107) Carbon Dioxide Level 14mmol/L (21-32) Anion Gap 14 (6-14) Blood Urea Nitrogen 14mg/dL (7-20) Creatinine 1.2mg/dL (0.6-1.0) Estimated GFR (Cockcroft-Gault) 54.1 Glucose Level 90mg/dL (70-99) Calcium Level 8.9mg/dL (8.5-10.1) Phosphorus Level 1.9mg/dL (2.6-4.7) Magnesium Level 1.6mg/dL (1.8-2.4) Test 05/01/16 09:20 05/01/16 09:30 05/01/16 10:35 05/01/16 11:43 Glucose (Fingerstick) 92mg/dL (70-99) 115mg/dL (70-99) 85mg/dL (70-99) White Blood Count 2.4x10^3/uL (4.0-11.0) Red Blood Count 3.23x10^6/uL (3.50-5.40) Hemoglobin 9.5g/dL (12.0-15.5) Hematocrit 28.7% (36.0-47.0) Mean Corpuscular Volume 89fL (79-100) Mean Corpuscular Hemoglobin 29pg (25-35) Mean Corpuscular Hemoglobin Concent 33g/dL (31-37) Red Cell Distribution Width 15.1% (11.5-14.5) Platelet Count 295x10^3/uL (140-400) Neutrophils (%) (Auto) 68% (31-73) Lymphocytes (%) (Auto) 17% (24-48) Monocytes (%) (Auto) 15% (0-9) Eosinophils (%) (Auto) 0% (0-3) Basophils (%) (Auto) 0% (0-3) Neutrophils # (Auto) 1.6x10^3uL (1.8-7.7) Lymphocytes # (Auto) 0.4x10^3/uL (1.0-4.8) Monocytes # (Auto) 0.4x10^3/uL (0.0-1.1) Eosinophils # (Auto) 0.0x10^3/uL (0.0-0.7) Basophils # (Auto) 0.0x10^3/uL (0.0-0.2) Test 05/01/16 12:58 05/01/16 13:20 05/01/16 14:04 05/01/16 15:07 Glucose (Fingerstick) 87mg/dL (70-99) 110mg/dL (70-99) 145mg/dL (70-99) Influenza Type A Antigen Negative (NEGATIVE) Influenza Type B Antigen Negative (NEGATIVE) Test 05/01/16 16:05 05/01/16 16:16 05/01/16 17:20 05/01/16 18:27 Sodium Level 143mmol/L (136-145) Potassium Level 3.7mmol/L (3.5-5.1) Chloride Level 110mmol/L (98-107) Carbon Dioxide Level 18mmol/L (21-32) Anion Gap 15 (6-14) Blood Urea Nitrogen 13mg/dL (7-20) Creatinine 0.9mg/dL (0.6-1.0) Estimated GFR (Cockcroft-Gault) 75.3 Glucose Level 226mg/dL (70-99) Calcium Level 7.8mg/dL (8.5-10.1) Glucose (Fingerstick) 191mg/dL (70-99) 192mg/dL (70-99) 77mg/dL (70-99) Test 05/01/16 19:32 05/01/16 19:46 05/01/16 20:15 05/01/16 20:19 Glucose (Fingerstick) 164mg/dL (70-99) 170mg/dL (70-99) O2 Saturation 90% (92-99) Arterial Blood pH 7.40 (7.35-7.45) Arterial Blood pCO2 at Patient Temp 22mmHg (35-46) Arterial Blood pO2 at Patient Temp 57mmHg (65-108) Arterial Blood HCO3 14mmol/L (21-28) Arterial Blood Base Excess -10mmol/L (-3-3) FiO2 50 Sodium Level 144mmol/L (136-145) Potassium Level 3.4mmol/L (3.5-5.1) Chloride Level 109mmol/L (98-107) Carbon Dioxide Level 16mmol/L (21-32) Anion Gap 19 (6-14) Blood Urea Nitrogen 14mg/dL (7-20) Creatinine 1.4mg/dL (0.6-1.0) Estimated GFR (Cockcroft-Gault) 45.2 Glucose Level 183mg/dL (70-99) Calcium Level 7.9mg/dL (8.5-10.1) Test 05/01/16 21:26 05/01/16 22:28 05/01/16 23:30 05/01/16 23:32 Glucose (Fingerstick) 144mg/dL (70-99) 117mg/dL (70-99) 116mg/dL (70-99) Sodium Level 145mmol/L (136-145) Potassium Level 3.8mmol/L (3.5-5.1) Chloride Level 111mmol/L (98-107) Carbon Dioxide Level 18mmol/L (21-32) Anion Gap 16 (6-14) Blood Urea Nitrogen 15mg/dL (7-20) Creatinine 1.2mg/dL (0.6-1.0) Estimated GFR (Cockcroft-Gault) 54.1 Glucose Level 116mg/dL (70-99) Calcium Level 7.8mg/dL (8.5-10.1) Test 05/02/16 00:30 05/02/16 01:37 05/02/16 02:33 05/02/16 03:37 Glucose (Fingerstick) 81mg/dL (70-99) 133mg/dL (70-99) 157mg/dL (70-99) 220mg/dL (70-99) Test 05/02/16 04:40 05/02/16 04:44 05/02/16 05:47 05/02/16 07:09 White Blood Count 2.5x10^3/uL (4.0-11.0) Red Blood Count 3.00x10^6/uL (3.50-5.40) Hemoglobin 9.0g/dL (12.0-15.5) Hematocrit 27.0% (36.0-47.0) Mean Corpuscular Volume 90fL (79-100) Mean Corpuscular Hemoglobin 30pg (25-35) Mean Corpuscular Hemoglobin Concent 33g/dL (31-37) Red Cell Distribution Width 15.5% (11.5-14.5) Platelet Count 284x10^3/uL (140-400) Neutrophils (%) (Auto) 77% (31-73) Lymphocytes (%) (Auto) 20% (24-48) Monocytes (%) (Auto) 3% (0-9) Eosinophils (%) (Auto) 0% (0-3) Basophils (%) (Auto) 0% (0-3) Neutrophils # (Auto) 1.9x10^3uL (1.8-7.7) Lymphocytes # (Auto) 0.5x10^3/uL (1.0-4.8) Monocytes # (Auto) 0.1x10^3/uL (0.0-1.1) Eosinophils # (Auto) 0.0x10^3/uL (0.0-0.7) Basophils # (Auto) 0.0x10^3/uL (0.0-0.2) Sodium Level 141mmol/L (136-145) Potassium Level 5.1mmol/L (3.5-5.1) Chloride Level 111mmol/L (98-107) Carbon Dioxide Level 14mmol/L (21-32) Anion Gap 16 (6-14) Blood Urea Nitrogen 18mg/dL (7-20) Creatinine 1.4mg/dL (0.6-1.0) Estimated GFR (Cockcroft-Gault) 45.2 Glucose Level 248mg/dL (70-99) Calcium Level 7.8mg/dL (8.5-10.1) Phosphorus Level 3.6mg/dL (2.6-4.7) Magnesium Level 1.9mg/dL (1.8-2.4) Glucose (Fingerstick) 223mg/dL (70-99) 175mg/dL (70-99) 132mg/dL (70-99) Test 05/02/16 07:45 05/02/16 08:25 05/02/16 09:25 05/02/16 10:28 White Blood Count 3.7x10^3/uL (4.0-11.0) Red Blood Count 3.10x10^6/uL (3.50-5.40) Hemoglobin 9.2g/dL (12.0-15.5) Hematocrit 27.5% (36.0-47.0) Mean Corpuscular Volume 89fL (79-100) Mean Corpuscular Hemoglobin 30pg (25-35) Mean Corpuscular Hemoglobin Concent 33g/dL (31-37) Red Cell Distribution Width 15.4% (11.5-14.5) Platelet Count 280x10^3/uL (140-400) Neutrophils (%) (Auto) 82% (31-73) Lymphocytes (%) (Auto) 16% (24-48) Monocytes (%) (Auto) 2% (0-9) Eosinophils (%) (Auto) 0% (0-3) Basophils (%) (Auto) 0% (0-3) Neutrophils # (Auto) 3.0x10^3uL (1.8-7.7) Lymphocytes # (Auto) 0.6x10^3/uL (1.0-4.8) Monocytes # (Auto) 0.1x10^3/uL (0.0-1.1) Eosinophils # (Auto) 0.0x10^3/uL (0.0-0.7) Basophils # (Auto) 0.0x10^3/uL (0.0-0.2) Sodium Level 145mmol/L (136-145) Potassium Level 4.5mmol/L (3.5-5.1) Chloride Level 112mmol/L (98-107) Carbon Dioxide Level 17mmol/L (21-32) Anion Gap 16 (6-14) Blood Urea Nitrogen 17mg/dL (7-20) Creatinine 1.2mg/dL (0.6-1.0) Estimated GFR (Cockcroft-Gault) 54.1 BUN/Creatinine Ratio 14 (6-20) Glucose Level 118mg/dL (70-99) Calcium Level 7.7mg/dL (8.5-10.1) Phosphorus Level 3.6mg/dL (2.6-4.7) Magnesium Level 1.9mg/dL (1.8-2.4) Total Bilirubin 0.3mg/dL (0.2-1.0) Aspartate Amino Transf (AST/SGOT) 40U/L (15-37) Alanine Aminotransferase (ALT/SGPT) 34U/L (14-59) Alkaline Phosphatase 140U/L (46-116) Total Protein 5.0g/dL (6.4-8.2) Albumin 2.0g/dL (3.4-5.0) Albumin/Globulin Ratio 0.7 (1.0-1.7) O2 Saturation 93% (92-99) Arterial Blood pH 7.39 (7.35-7.45) Arterial Blood pCO2 at Patient Temp 26mmHg (35-46) Arterial Blood pO2 at Patient Temp 70mmHg (65-108) Arterial Blood HCO3 16mmol/L (21-28) Arterial Blood Base Excess -8mmol/L (-3-3) FiO2 30 Glucose (Fingerstick) 101mg/dL (70-99) 86mg/dL (70-99) 120mg/dL (70-99) Laboratory Tests Test 05/01/16 11:43 05/01/16 12:58 05/01/16 13:20 05/01/16 14:04 Glucose (Fingerstick) 85mg/dL (70-99) 87mg/dL (70-99) 110mg/dL (70-99) Influenza Type A Antigen Negative (NEGATIVE) Influenza Type B Antigen Negative (NEGATIVE) Test 05/01/16 15:07 05/01/16 16:05 05/01/16 16:16 05/01/16 17:20 Glucose (Fingerstick) 145mg/dL (70-99) 191mg/dL (70-99) 192mg/dL (70-99) Sodium Level 143mmol/L (136-145) Potassium Level 3.7mmol/L (3.5-5.1) Chloride Level 110mmol/L (98-107) Carbon Dioxide Level 18mmol/L (21-32) Anion Gap 15 (6-14) Blood Urea Nitrogen 13mg/dL (7-20) Creatinine 0.9mg/dL (0.6-1.0) Estimated GFR (Cockcroft-Gault) 75.3 Glucose Level 226mg/dL (70-99) Calcium Level 7.8mg/dL (8.5-10.1) Test 05/01/16 18:27 05/01/16 19:32 05/01/16 19:46 05/01/16 20:15 Glucose (Fingerstick) 77mg/dL (70-99) 164mg/dL (70-99) O2 Saturation 90% (92-99) Arterial Blood pH 7.40 (7.35-7.45) Arterial Blood pCO2 at Patient Temp 22mmHg (35-46) Arterial Blood pO2 at Patient Temp 57mmHg (65-108) Arterial Blood HCO3 14mmol/L (21-28) Arterial Blood Base Excess -10mmol/L (-3-3) FiO2 50 Sodium Level 144mmol/L (136-145) Potassium Level 3.4mmol/L (3.5-5.1) Chloride Level 109mmol/L (98-107) Carbon Dioxide Level 16mmol/L (21-32) Anion Gap 19 (6-14) Blood Urea Nitrogen 14mg/dL (7-20) Creatinine 1.4mg/dL (0.6-1.0) Estimated GFR (Cockcroft-Gault) 45.2 Glucose Level 183mg/dL (70-99) Calcium Level 7.9mg/dL (8.5-10.1) Test 05/01/16 20:19 05/01/16 21:26 05/01/16 22:28 05/01/16 23:30 Glucose (Fingerstick) 170mg/dL (70-99) 144mg/dL (70-99) 117mg/dL (70-99) Sodium Level 145mmol/L (136-145) Potassium Level 3.8mmol/L (3.5-5.1) Chloride Level 111mmol/L (98-107) Carbon Dioxide Level 18mmol/L (21-32) Anion Gap 16 (6-14) Blood Urea Nitrogen 15mg/dL (7-20) Creatinine 1.2mg/dL (0.6-1.0) Estimated GFR (Cockcroft-Gault) 54.1 Glucose Level 116mg/dL (70-99) Calcium Level 7.8mg/dL (8.5-10.1) Test 05/01/16 23:32 05/02/16 00:30 05/02/16 01:37 05/02/16 02:33 Glucose (Fingerstick) 116mg/dL (70-99) 81mg/dL (70-99) 133mg/dL (70-99) 157mg/dL (70-99) Test 05/02/16 03:37 05/02/16 04:40 05/02/16 04:44 05/02/16 05:47 Glucose (Fingerstick) 220mg/dL (70-99) 223mg/dL (70-99) 175mg/dL (70-99) White Blood Count 2.5x10^3/uL (4.0-11.0) Red Blood Count 3.00x10^6/uL (3.50-5.40) Hemoglobin 9.0g/dL (12.0-15.5) Hematocrit 27.0% (36.0-47.0) Mean Corpuscular Volume 90fL (79-100) Mean Corpuscular Hemoglobin 30pg (25-35) Mean Corpuscular Hemoglobin Concent 33g/dL (31-37) Red Cell Distribution Width 15.5% (11.5-14.5) Platelet Count 284x10^3/uL (140-400) Neutrophils (%) (Auto) 77% (31-73) Lymphocytes (%) (Auto) 20% (24-48) Monocytes (%) (Auto) 3% (0-9) Eosinophils (%) (Auto) 0% (0-3) Basophils (%) (Auto) 0% (0-3) Neutrophils # (Auto) 1.9x10^3uL (1.8-7.7) Lymphocytes # (Auto) 0.5x10^3/uL (1.0-4.8) Monocytes # (Auto) 0.1x10^3/uL (0.0-1.1) Eosinophils # (Auto) 0.0x10^3/uL (0.0-0.7) Basophils # (Auto) 0.0x10^3/uL (0.0-0.2) Sodium Level 141mmol/L (136-145) Potassium Level 5.1mmol/L (3.5-5.1) Chloride Level 111mmol/L (98-107) Carbon Dioxide Level 14mmol/L (21-32) Anion Gap 16 (6-14) Blood Urea Nitrogen 18mg/dL (7-20) Creatinine 1.4mg/dL (0.6-1.0) Estimated GFR (Cockcroft-Gault) 45.2 Glucose Level 248mg/dL (70-99) Calcium Level 7.8mg/dL (8.5-10.1) Phosphorus Level 3.6mg/dL (2.6-4.7) Magnesium Level 1.9mg/dL (1.8-2.4) Test 05/02/16 07:09 05/02/16 07:45 05/02/16 08:25 05/02/16 09:25 Glucose (Fingerstick) 132mg/dL (70-99) 101mg/dL (70-99) 86mg/dL (70-99) White Blood Count 3.7x10^3/uL (4.0-11.0) Red Blood Count 3.10x10^6/uL (3.50-5.40) Hemoglobin 9.2g/dL (12.0-15.5) Hematocrit 27.5% (36.0-47.0) Mean Corpuscular Volume 89fL (79-100) Mean Corpuscular Hemoglobin 30pg (25-35) Mean Corpuscular Hemoglobin Concent 33g/dL (31-37) Red Cell Distribution Width 15.4% (11.5-14.5) Platelet Count 280x10^3/uL (140-400) Neutrophils (%) (Auto) 82% (31-73) Lymphocytes (%) (Auto) 16% (24-48) Monocytes (%) (Auto) 2% (0-9) Eosinophils (%) (Auto) 0% (0-3) Basophils (%) (Auto) 0% (0-3) Neutrophils # (Auto) 3.0x10^3uL (1.8-7.7) Lymphocytes # (Auto) 0.6x10^3/uL (1.0-4.8) Monocytes # (Auto) 0.1x10^3/uL (0.0-1.1) Eosinophils # (Auto) 0.0x10^3/uL (0.0-0.7) Basophils # (Auto) 0.0x10^3/uL (0.0-0.2) Sodium Level 145mmol/L (136-145) Potassium Level 4.5mmol/L (3.5-5.1) Chloride Level 112mmol/L (98-107) Carbon Dioxide Level 17mmol/L (21-32) Anion Gap 16 (6-14) Blood Urea Nitrogen 17mg/dL (7-20) Creatinine 1.2mg/dL (0.6-1.0) Estimated GFR (Cockcroft-Gault) 54.1 BUN/Creatinine Ratio 14 (6-20) Glucose Level 118mg/dL (70-99) Calcium Level 7.7mg/dL (8.5-10.1) Phosphorus Level 3.6mg/dL (2.6-4.7) Magnesium Level 1.9mg/dL (1.8-2.4) Total Bilirubin 0.3mg/dL (0.2-1.0) Aspartate Amino Transf (AST/SGOT) 40U/L (15-37) Alanine Aminotransferase (ALT/SGPT) 34U/L (14-59) Alkaline Phosphatase 140U/L (46-116) Total Protein 5.0g/dL (6.4-8.2) Albumin 2.0g/dL (3.4-5.0) Albumin/Globulin Ratio 0.7 (1.0-1.7) O2 Saturation 93% (92-99) Arterial Blood pH 7.39 (7.35-7.45) Arterial Blood pCO2 at Patient Temp 26mmHg (35-46) Arterial Blood pO2 at Patient Temp 70mmHg (65-108) Arterial Blood HCO3 16mmol/L (21-28) Arterial Blood Base Excess -8mmol/L (-3-3) FiO2 30 Test 05/02/16 10:28 Glucose (Fingerstick) 120mg/dL (70-99) Microbiology 05/01/16 Blood Culture - Preliminary, Resulted 05/01/16 Blood Culture Result 1 ([facility]) - Preliminary, Resulted Medications Current Medications Sodium Chloride 1,000 ml @ 1,000 mls/hr Q1H IV Last administered on 04/30/16 20:30; Start 04/30/16 at 20:30; Stop 04/30/16 at 21:29; Status DC Sodium Chloride 1,000 ml @ 1,000 mls/hr Q1H IV Last administered on 04/30/16 21:47; Start 04/30/16 at 21:30; Stop 04/30/16 at 21:31; Status DC Insulin Human Regular 150 unit/ Sodium Chloride 151.5 ml @ 0 mls/hr CONT PRN PRN IV PER PROTOCOL Last administered on 04/30/16 21:23; Start 04/30/16 at 21:15 Potassium Chloride 100 ml @ 100 mls/hr PRN Q1HR PRN IV SEE COMMENTS; Start 04/30/16 at 21:15 Potassium Chloride 100 ml @ 100 mls/hr PRN Q1HR PRN IV SEE COMMENTS; Start 04/30/16 at 21:15 Potassium Chloride (KCl Premix 10meq) 100 ml @ 100 mls/hr PRN Q1HR PRN IV SEE COMMENTS; Start 04/30/16 at 21:15 Ondansetron HCl (Zofran) 4 mg PRN Q8HRS PRN IV NAUSEA/VOMITING Last administered on 05/01/16 04:57; Start 04/30/16 at 21:30; Stop 05/01/16 at 21:29; Status DC Acetaminophen 650 mg 650 mg PRN Q4HRS PRN PO FEVER Last administered on 18:00; Start 04/30/16 at 21:30; Stop 05/01/16 at 21:29; Status DC Potassium Chloride/Sodium Chloride (KCl 40 Meq-NS 1,000 ml Iv Soln) 1,000 ml @ 150 mls/hr 1X ONCE IV Last administered on 04/30/16 21:48; Start 04/30/16 at 22 :00; Stop 05/01/16 at 04:39; Status DC Hydralazine HCl 10 mg 10 mg 1X ONCE IVP Last administered on 04/30/16 22:10; Start 04/30/16 at 22:00; Stop 04/30/16 at 22:01; Status DC Sodium Bicarbonate 150 meq/Sterile Water 1,150 ml @ 125 mls/hr 1X ONCE IV Last administered on 05/01/16 01:30; Start 05/01/16 at 01:30; Stop 05/01/16 at 10: 41; Status DC Potassium Chloride (KCl Premix 10meq) 100 ml @ 100 mls/hr Q1H IV Last administered on 05/01/16 05:48; Start 05/01/16 at 03:00; Stop 05/01/16 at 06:59; Status DC Dextrose 25 gm STK-MED ONCE IV ; Start 05/01/16 at 07:48; Stop 05/01/16 at 07:49; Status DC Dextrose 25 gm 25 gm 1X ONCE IV Last administered on 05/01/16 07:45; Start 05/01/16 at 08:15; Stop 05/01/16 at 08:16; Status DC Dextrose/Sodium Chloride (Iv D5% - 1/2 NS) 1,000 ml @ 100 mls/hr Q10H IV Last administered on 05/02/16 05:28; Start 05/01/16 at 08:23 Vancomycin HCl (Vanco Per Pharmacy) 1 each PRN DAILY PRN MC SEE COMMENTS Last administered on 05/01/16 16:21; Start 05/01/16 at 09:45; Stop 05/02/16 at 07:27; Status DC Piperacillin Sod/ Tazobactam Sod 1 each 1 each PRN DAILY PRN MC SEE COMMENTS; Start 05/01/16 at 09:45; Stop 05/01/16 at 12:21; Status DC Vancomycin HCl 1 gm/Sodium Chloride 250 ml @ 250 mls/hr 1X ONCE IV ; Start 05/01/16 at 10:00; Stop 05/01/16 at 10:59; Status DC Piperacillin Sod/ Tazobactam Sod 2.25 gm/Sodium Chloride 50 ml @ 100 mls/hr Q6HRS IV ; Start 05/01/16 at 12:00; Stop 05/01/16 at 12:21; Status DC Sodium Phosphate 20 mmol/Dextrose 256.6667 ml @ 64.167 m... 1X ONCE IV Last administered on 05/01/16 16:09; Start 05/01/16 at 10:00; Stop 05/01/16 at 13:59; Status DC Magnesium Sulfate/ Dextrose 50 ml @ 25 mls/hr 1X ONCE IV Last administered on 05/01/16 13:09; Start 05/01/16 at 10:00; Stop 05/01/16 at 11:59; Status DC Magnesium Sulfate/ Dextrose (Magnesium Sulfate PREMIX 4GM) 100 ml @ 25 mls/hr PRN DAILY PRN IV Mag level <1.9 and UO>30ml/hr; Start 05/02/16 at 09:00 Sodium Bicarbonate 50 meq 1X ONCE IV Last administered on 05/01/16 13:07; Start 05/01/16 at 11:30; Stop 05/01/16 at 11:31; Status DC Iohexol (Omnipaque 300 Mg/ml) 60 ml 1X ONCE IV Last administered on 05/01/16 12:15; Start 05/01/16 at 12:15; Stop 05/01/16 at 12:16; Status DC Info (Do NOT chart on this entry -- for MONITORING) 1 each PRN DAILY PRN MC SEE COMMENTS; Start 05/01/16 at 11:45; Stop 05/03/16 at 11:44 Acetaminophen (Tylenol) 650 mg PRN Q6HRS PRN PO MILD PAIN / TEMP; Start at 12:15 Ondansetron HCl (Zofran) 4 mg PRN Q6HRS PRN IV NAUSEA/VOMITING; Start 05/01/16 at 12:15 Albuterol/ Ipratropium (Duoneb) 3 ml RTQID NEB Last administered on 05/02/16 07 :23; Start 05/01/16 at 16:00 Albuterol Sulfate (Ventolin Neb Soln) 2.5 mg PRN Q4HRS PRN NEB SHORTNESS OF BREATH; Start 05/01/16 at 12:15 Heparin Sodium (Porcine) 5000 unit 5,000 unit Q8HRS SQ Last administered on 05/02 06:19; Start 05/01/16 at 14:00 Piperacillin Sod/ Tazobactam Sod 3.375 gm/Sodium Chloride 50 ml @ 100 mls/hr Q6HRS IV Last administered on 05/02/16 05:23; Start 05/01/16 at 12:00 Vancomycin HCl 1 gm/Sodium Chloride 250 ml @ 250 mls/hr 1X ONCE IV Last administered on 05/01/16 16:09; Start 05/01/16 at 13:30; Stop 05/01/16 at 14:29; Status DC Heparin Sodium/ Sodium Chloride 500 ml @ As Directed STK-MED ONCE .ROUTE ; Start 05/01/16 at 13:09; Stop 05/01/16 at 13:10; Status DC Lidocaine/Sodium Bicarbonate (Buffered Lidocaine 1%) 3 ml 1X ONCE IJ Last administered on 05/01/16 14:00; Start 05/01/16 at 14:00; Stop 05/01/16 at 14:01; Status DC Heparin Sodium/ Sodium Chloride 60 unit 1X ONCE IV Last administered on 14:00; Start 05/01/16 at 14:00; Stop 05/01/16 at 14:01; Status DC Lidocaine/Sodium Bicarbonate (Buffered Lidocaine 1%) 20 ml 1X ONCE IJ Last administered on 05/01/16 15:30; Start 05/01/16 at 15:30; Stop 05/01/16 at 15:31; Status DC Heparin Sodium/ Sodium Chloride 1000 unit 1,000 unit 1X ONCE IART Last administered on 05/01/16 15:30; Start 05/01/16 at 15:30; Stop 05/01/16 at 15:31; Status DC Vancomycin HCl/ Sodium Chloride (Iv Sodium Chloride 0.9% 250ml) 250 ml @ 250 mls/hr Q24H IV ; Start 05/02/16 at 17:00; Stop 05/02/16 at 17:00; Status DC Vancomycin HCl 1 each 1 each 1X ONCE MC ; Start 05/03/16 at 16:30; Stop 05/03/16 at 16:31; Status Cancel Norepinephrine Bitartrate/Sodium Chloride (Levophed Vial/ Iv Sodium Chloride 0.9 % 250ml) 258 ml @ 0 mls/hr CONT PRN IV SEE I/O RECORD Last administered on 23:19; Start 05/01/16 at 18:15 Furosemide 20 mg 20 mg 1X ONCE IVP Last administered on 05/01/16 18:47; Start 05/01/16 at 19:15; Stop 05/01/16 at 19:16; Status DC Potassium Chloride 50 ml @ 50 mls/hr Q1H IV Last administered on 05/01/16 21:30 ; Start 05/01/16 at 21:00; Stop 05/01/16 at 22:59; Status DC Potassium Chloride 50 ml @ 50 mls/hr Q1H IV Last administered on 05/02/16 02:56 ; Start 05/02/16 at 02:00; Stop 05/02/16 at 03:59; Status DC Linezolid (Zyvox Premix) 300 ml @ 300 mls/hr Q12HR IV Last administered on 05/02 09:14; Start 05/02/16 at 09:00 Multivitamins/ Calcium (Thera M Plus) 1 tab DAILY PO ; Start 05/02/16 at 11:00 Ascorbic Acid 500 mg 500 mg DAILY PO ; Start 05/02/16 at 11:00 Albumin Human 250 ml @ 62.5 mls/hr 1X ONCE IV Last administered on 05/02/16 11:07; Start 05/02/16 at 10:45; Stop 05/02/16 at 14:44 Albumin Human 250 ml @ 62.5 mls/hr 1X ONCE IV ; Start 05/02/16 at 13:45; Stop 05/02/16 at 17:44 Sodium Chloride (Iv Sodium Chloride 0.9% 1000ml Bag) 1,000 ml @ 999 mls/hr 1X ONCE IV Last administered on 05/02/16 11:01; Start 05/02/16 at 10:45; Stop at 11:45 Active Scripts Active Lisinopril 5 Mg Tablet 1 Tab PO DAILY Novolog Flexpen (Insulin Aspart) 100 Unit/1 Ml Insuln.pen 0 Units SQ QIDACHS Thera-M Tablet (Multivits,Ca,Minerals/Iron/Fa) 1 Each Tablet 1 Tab PO DAILY Levemir Flextouch (Insulin Detemir) 100 Unit/1 Ml Insuln.pen 10 Units SQ DAILY Reported Potassium Chloride 20 Meq Tablet.er 40 Meq PO DAILY 7 Days Amox Tr-K Clv 500-125 Mg Tab (Amoxicillin/Potassium Clav) 1 Each Tablet 1 Tab PO BID Zinc 50 Mg Tablet 220 Mg PO DAILY Ascorbic Acid 500 Mg Tablet 500 Mg PO DAILY Aspirin Ec (Aspirin) 81 Mg Tablet.dr 1 Tab PO DAILY Levemir (Insulin Detemir) 100 Unit/1 Ml Vial 8 Unit SQ HS Novolog Flexpen (Insulin Aspart) 100 Unit/1 Ml Insuln.pen 5 Unit SQ TIDAC Vitals/I & O Vital Sign - Last 24 Hours 05/01/16 05/01/16 05/01/16 05/01/16 12:00 12:00 12:30 13:00 Temp 98.5 98.5 Pulse 128 120 Resp 26 25 B/P 129/51 106/51 Pulse Ox 99 99 O2 Delivery Nasal Cannula Nasal Cannula Nasal Cannula O2 Flow Rate 2.0 2.0 2.0 05/01/16 05/01/16 05/01/16 05/01/16 14:00 15:00 16:00 16:00 Temp 99.2 99.2 Pulse 124 126 128 Resp 25 30 32 B/P 107/49 110/46 106/48 Pulse Ox 95 93 91 O2 Delivery Nasal Cannula Nasal Cannula Nasal Cannula Nasal Cannula O2 Flow Rate 2.0 2.0 2.0 2.0 05/01/16 05/01/16 05/01/16 05/01/16 16:52 17:00 18:00 18:30 Temp 99.8 99.8 Pulse 128 128 130 Resp 33 33 33 B/P 109/46 59/31 115/54 Pulse Ox 94 93 95 88 O2 Delivery Nasal Cannula Nasal Cannula Venturi Mask Venturi Mask O2 Flow Rate 4.0 6.0 05/01/16 05/01/16 05/01/16 05/01/16 19:30 19:45 20:00 20:00 Temp 100.1 100.1 Pulse 136 Resp 33 B/P 107/54 Pulse Ox 99 99 100 O2 Delivery Venturi Mask Venturi Mask BiPAP/CPAP O2 Flow Rate 15.0 15.0 05/01/16 05/01/16 05/01/16 05/01/16 21:00 21:45 22:00 23:00 Pulse 136 138 136 Resp 33 36 33 B/P 95/47 110/49 84/50 Pulse Ox 96 100 99 98 O2 Delivery BiPAP/CPAP BiPAP/CPAP BiPAP/CPAP 05/01/16 05/01/16 05/01/16 05/02/16 23:20 23:35 23:52 00:02 Temp 100.1 100.1 Pulse 135 137 Resp 33 32 B/P 98/50 90/49 Pulse Ox 98 100 93 O2 Delivery BiPAP/CPAP Bi-pap BiPAP/CPAP 05/02/16 05/02/16 05/02/16 05/02/16 01:00 01:20 01:40 01:40 Pulse 134 132 130 Resp 30 34 32 B/P 79/45 81/45 90/47 Pulse Ox 94 93 97 92 O2 Delivery BiPAP/CPAP BiPAP/CPAP BiPAP/CPAP 05/02/16 05/02/16 05/02/16 05/02/16 03:00 04:00 04:00 04:39 Temp 100.6 100.6 Pulse 135 132 Resp 38 26 B/P 99/45 116/51 Pulse Ox 97 99 100 O2 Delivery BiPAP/CPAP BiPAP/CPAP Bi-pap 05/02/16 05/02/16 05/02/16 2/7/17 05:14 06:00 07:00 07:23 Pulse 127 129 101 Resp 24 27 25 B/P 91/49 94/46 104/55 Pulse Ox 100 100 100 98 O2 Delivery BiPAP/CPAP BiPAP/CPAP BiPAP/CPAP BiPAP/CPAP 05/02/16 05/02/16 05/02/16 05/02/16 08:00 08:00 09:00 09:32 Temp 100.0 100.0 Pulse 133 124 Resp 25 20 B/P 124/54 101/56 Pulse Ox 100 100 100 O2 Delivery BiPAP/CPAP Bi-pap BiPAP/CPAP Venturi Mask 05/02/16 10:00 Pulse 127 Resp 22 B/P 117/59 Pulse Ox 100 O2 Delivery Venturi Mask Intake and Output 05/01/16 05/01/16 05/02/16 15:00 23:00 07:00 Intake Total 60 ml 200 ml 2492 ml Output Total 650 ml 1150 ml 315 ml Balance -590 ml -950 ml 2177 ml CARO VILLAFANA MD May 02, 2016 11:17
[2016-05-02 13:02] LABS: BASO % 0 % (0-3); EOS % 0 % (0-3); HEMATOCRIT 26.6 % (36.0-47.0); HEMOGLOBIN 8.6 g/dL (12.0-15.5); LYMPH # 0.6 x10^3/uL (1.0-4.8); LYMPH % 11 % (24-48); MEAN CORPUSCULAR HEMOGLOBIN 29 pg (25-35); MEAN CORPUSCULAR HGB CONC 33 g/dL (31-37); MEAN CORPUSCULAR VOLUME 89 fL (79-100); MONO % 1 % (0-9); NEUT % 87 % (31-73); PLATELET COUNT 246 x10^3/uL (140-400); RED BLOOD COUNT 2.97 x10^6/uL (3.50-5.40); RED CELL DISTRIBUTION WIDTH 15.7 % (11.5-14.5); WHITE BLOOD COUNT 5.9 x10^3/uL (4.0-11.0)
[2016-05-02 13:20] LABS: ALBUMIN/GLOBULIN RATIO 0.8 (1.0-1.7); CALCIUM 7.4 mg/dL (8.5-10.1); CREATININE 0.8 mg/dL (0.6-1.0); GFR 86.3; MAGNESIUM 1.8 mg/dL (1.8-2.4); PHOSPHORUS 3.5 mg/dL (2.6-4.7); POTASSIUM 4.2 mmol/L (3.5-5.1); TOTAL BILIRUBIN 0.3 mg/dL (0.2-1.0); TOTAL PROTEIN 4.6 g/dL (6.4-8.2)
[2016-05-02] MEDS ORDERED: MAGNESIUM SULFATE 4GM 100 ML IV ONE (13:45)
[2016-05-02] MEDS: LISINOPRIL 5 MG TABLET. PO SCH (15:00)
[2016-05-02] MEDS: ASPIRIN ENTERIC COATED 81 MG TABLET.DR. PO SCH (15:17)
[2016-05-02] MEDS ORDERED: INSULIN ASPART 300 UNITS/3 ML INSULN.PEN SQ SCH (16:30)
[2016-05-02] MEDS: INSULIN ASPART 300 UNITS/3 ML INSULN.PEN SQ SCH ×2 (16:41)
[2016-05-02] MEDS ORDERED: VANCOMYCIN 750 MG in IV NORMAL SALINE 250ML 250 ML IV SCH (17:00)
[2016-05-02] MEDS: IV NORMAL SALINE 1000ML BAG 1,000 ML IV SCH (18:13)
[2016-05-02 18:19] LABS: ANISOCYTOSIS SLIGHT; HYPOCHROMIA SLIGHT; NUCLEATED RBC 1; PLT ESTIMATE ADEQUATE (ADEQUATE); POLYCHROMASIA SLIGHT; TEAR DROP CELLS OCC; TOXIC GRANULATION SLIGHT; TOXIC VACUOLATION SLIGHT
[2016-05-02] MEDS: INSULIN DETEMIR 300 UNITS/3 ML INSULN.PEN. SQ SCH (21:12)
[2016-05-03] VITALS (18 sets, daily range): BP systolic 98–128; BP diastolic 46–87
[2016-05-03] MEDS: IV NORMAL SALINE 1000ML BAG 1,000 ML IV SCH ×3 (05:31→18:39)
[2016-05-03] MEDS: PIPERACILLIN/TAZOBACTAM 3.375 GM in IV NORMAL SALINE 50ML 50 ML IV SCH ×4 (05:31→23:03)
[2016-05-03] MEDS: HEPARIN PF for SUB-Q USE 5,000 UNIT/0.5 ML VIAL. SQ SCH ×3 (05:33→21:10)
[2016-05-03 05:55] LABS: BASO % 0 % (0-3); EOS % 0 % (0-3); HEMATOCRIT 25.1 % (36.0-47.0); HEMOGLOBIN 8.2 g/dL (12.0-15.5); LYMPH # 0.6 x10^3/uL (1.0-4.8); LYMPH % 5 % (24-48); MEAN CORPUSCULAR HEMOGLOBIN 29 pg (25-35); MEAN CORPUSCULAR HGB CONC 33 g/dL (31-37); MEAN CORPUSCULAR VOLUME 89 fL (79-100); MONO % 1 % (0-9); NEUT % 94 % (31-73); PLATELET COUNT 228 x10^3/uL (140-400); RED BLOOD COUNT 2.82 x10^6/uL (3.50-5.40); RED CELL DISTRIBUTION WIDTH 15.9 % (11.5-14.5)
[2016-05-03 06:14] LABS: CALCIUM 8.2 mg/dL (8.5-10.1); CREATININE 0.8 mg/dL (0.6-1.0); GFR 86.3; POTASSIUM 3.8 mmol/L (3.5-5.1)
[2016-05-03] MEDS: DEXTROSE 50% 25 GM / 50ML DISP.SYRIN. IV PRN ×2 (06:23→13:17)
--- NOTE | 2016-05-03 07:18 | PDOC ---
Infectious Disease Note Subjective Subjective Some better. Less lethargic ROS ROS States ok but not answering any other questions Vital Sign Vital Signs Vital Signs Date Time Temp Pulse Resp B/P Pulse Ox O2 Delivery O2 Flow Rate FiO2 05/03/16 06:00 128 18 105/54 99 Room Air 05/03/16 04:00 98.6 98.6 05/02/16 15:00 2.0 Physical Exam PHYSICAL EXAM GENERAL: NAD, Arousable HEENT: PERRL NECK: Supple, no JVD, no LN LUNGS: Clear HEART: S1S2, no gallop, no murmur ABD: Soft, NT, no organomegaly, no rebound Salter EXT: No edema, no cyanosis WELD FITTER: Alert, moves extremities SKIN: No rash IV: ok Labs Lab Laboratory Tests Test 05/02/16 07:45 05/02/16 08:25 05/02/16 09:25 05/02/16 10:28 White Blood Count 3.7x10^3/uL (4.0-11.0) Red Blood Count 3.10x10^6/uL (3.50-5.40) Hemoglobin 9.2g/dL (12.0-15.5) Hematocrit 27.5% (36.0-47.0) Mean Corpuscular Volume 89fL (79-100) Mean Corpuscular Hemoglobin 30pg (25-35) Mean Corpuscular Hemoglobin Concent 33g/dL (31-37) Red Cell Distribution Width 15.4% (11.5-14.5) Platelet Count 280x10^3/uL (140-400) Neutrophils (%) (Auto) 82% (31-73) Lymphocytes (%) (Auto) 16% (24-48) Monocytes (%) (Auto) 2% (0-9) Eosinophils (%) (Auto) 0% (0-3) Basophils (%) (Auto) 0% (0-3) Neutrophils # (Auto) 3.0x10^3uL (1.8-7.7) Lymphocytes # (Auto) 0.6x10^3/uL (1.0-4.8) Monocytes # (Auto) 0.1x10^3/uL (0.0-1.1) Eosinophils # (Auto) 0.0x10^3/uL (0.0-0.7) Basophils # (Auto) 0.0x10^3/uL (0.0-0.2) Sodium Level 145mmol/L (136-145) Potassium Level 4.5mmol/L (3.5-5.1) Chloride Level 112mmol/L (98-107) Carbon Dioxide Level 17mmol/L (21-32) Anion Gap 16 (6-14) Blood Urea Nitrogen 17mg/dL (7-20) Creatinine 1.2mg/dL (0.6-1.0) Estimated GFR (Cockcroft-Gault) 54.1 BUN/Creatinine Ratio 14 (6-20) Glucose Level 118mg/dL (70-99) Calcium Level 7.7mg/dL (8.5-10.1) Phosphorus Level 3.6mg/dL (2.6-4.7) Magnesium Level 1.9mg/dL (1.8-2.4) Total Bilirubin 0.3mg/dL (0.2-1.0) Aspartate Amino Transf (AST/SGOT) 40U/L (15-37) Alanine Aminotransferase (ALT/SGPT) 34U/L (14-59) Alkaline Phosphatase 140U/L (46-116) Total Protein 5.0g/dL (6.4-8.2) Albumin 2.0g/dL (3.4-5.0) Albumin/Globulin Ratio 0.7 (1.0-1.7) O2 Saturation 93% (92-99) Arterial Blood pH 7.39 (7.35-7.45) Arterial Blood pCO2 at Patient Temp 26mmHg (35-46) Arterial Blood pO2 at Patient Temp 70mmHg (65-108) Arterial Blood HCO3 16mmol/L (21-28) Arterial Blood Base Excess -8mmol/L (-3-3) FiO2 30 Glucose (Fingerstick) 101mg/dL (70-99) 86mg/dL (70-99) 120mg/dL (70-99) Test 05/02/16 11:28 05/02/16 12:19 05/02/16 12:30 05/02/16 13:31 Glucose (Fingerstick) 122mg/dL (70-99) 169mg/dL (70-99) 115mg/dL (70-99) White Blood Count 5.9x10^3/uL (4.0-11.0) Red Blood Count 2.97x10^6/uL (3.50-5.40) Hemoglobin 8.6g/dL (12.0-15.5) Hematocrit 26.6% (36.0-47.0) Mean Corpuscular Volume 89fL (79-100) Mean Corpuscular Hemoglobin 29pg (25-35) Mean Corpuscular Hemoglobin Concent 33g/dL (31-37) Red Cell Distribution Width 15.7% (11.5-14.5) Platelet Count 246x10^3/uL (140-400) Neutrophils (%) (Auto) 87% (31-73) Lymphocytes (%) (Auto) 11% (24-48) Monocytes (%) (Auto) 1% (0-9) Eosinophils (%) (Auto) 0% (0-3) Basophils (%) (Auto) 0% (0-3) Neutrophils # (Auto) 5.2x10^3uL (1.8-7.7) Lymphocytes # (Auto) 0.6x10^3/uL (1.0-4.8) Monocytes # (Auto) 0.1x10^3/uL (0.0-1.1) Eosinophils # (Auto) 0.0x10^3/uL (0.0-0.7) Basophils # (Auto) 0.0x10^3/uL (0.0-0.2) Segmented Neutrophils % 39% (35-66) Band Neutrophils % 41% (0-9) Lymphocytes % 10% (24-48) Metamyelocytes % 7% (0-0) Myelocytes % 3% (0-0) Nucleated Red Blood Cells 1 Toxic Granulation Slight Toxic Vacuolation Slight Platelet Estimate Adequate (ADEQUATE) Polychromasia Slight Hypochromasia Slight Anisocytosis Slight Tear Drop Cells Occ Sodium Level 142mmol/L (136-145) Potassium Level 4.2mmol/L (3.5-5.1) Chloride Level 113mmol/L (98-107) Carbon Dioxide Level 20mmol/L (21-32) Anion Gap 9 (6-14) Blood Urea Nitrogen 16mg/dL (7-20) Creatinine 0.8mg/dL (0.6-1.0) Estimated GFR (Cockcroft-Gault) 86.3 BUN/Creatinine Ratio 20 (6-20) Glucose Level 182mg/dL (70-99) Calcium Level 7.4mg/dL (8.5-10.1) Phosphorus Level 3.5mg/dL (2.6-4.7) Magnesium Level 1.8mg/dL (1.8-2.4) Total Bilirubin 0.3mg/dL (0.2-1.0) Aspartate Amino Transf (AST/SGOT) 42U/L (15-37) Alanine Aminotransferase (ALT/SGPT) 28U/L (14-59) Alkaline Phosphatase 127U/L (46-116) Total Protein 4.6g/dL (6.4-8.2) Albumin 2.0g/dL (3.4-5.0) Albumin/Globulin Ratio 0.8 (1.0-1.7) Test 05/02/16 14:50 05/02/16 16:39 05/02/16 21:07 05/03/16 05:40 Glucose (Fingerstick) 166mg/dL (70-99) 121mg/dL (70-99) 232mg/dL (70-99) White Blood Count 12.0x10^3/uL (4.0-11.0) Red Blood Count 2.82x10^6/uL (3.50-5.40) Hemoglobin 8.2g/dL (12.0-15.5) Hematocrit 25.1% (36.0-47.0) Mean Corpuscular Volume 89fL (79-100) Mean Corpuscular Hemoglobin 29pg (25-35) Mean Corpuscular Hemoglobin Concent 33g/dL (31-37) Red Cell Distribution Width 15.9% (11.5-14.5) Platelet Count 228x10^3/uL (140-400) Neutrophils (%) (Auto) 94% (31-73) Lymphocytes (%) (Auto) 5% (24-48) Monocytes (%) (Auto) 1% (0-9) Eosinophils (%) (Auto) 0% (0-3) Basophils (%) (Auto) 0% (0-3) Neutrophils # (Auto) 11.3x10^3uL (1.8-7.7) Lymphocytes # (Auto) 0.6x10^3/uL (1.0-4.8) Monocytes # (Auto) 0.1x10^3/uL (0.0-1.1) Eosinophils # (Auto) 0.0x10^3/uL (0.0-0.7) Basophils # (Auto) 0.0x10^3/uL (0.0-0.2) Sodium Level 145mmol/L (136-145) Potassium Level 3.8mmol/L (3.5-5.1) Chloride Level 115mmol/L (98-107) Carbon Dioxide Level 22mmol/L (21-32) Anion Gap 8 (6-14) Blood Urea Nitrogen 12mg/dL (7-20) Creatinine 0.8mg/dL (0.6-1.0) Estimated GFR (Cockcroft-Gault) 86.3 Glucose Level 45mg/dL (70-99) Calcium Level 8.2mg/dL (8.5-10.1) Test 05/03/16 06:30 Glucose (Fingerstick) 95mg/dL (70-99) Objective Assessment Strep pneumonia sepsis - POA. Now off Levophed Resp failure - better Leukocytosis - likely leukomoid reaction from sepsis Fecal impaction - improving DKA - POA Pneumonia right - XRAY today reviewed still some effusion. No mass on CT. Influenza - neg. H/o Abd mass - followed by GI - CT w/o contrast 05/01 - no evidence of mass Fever - persist Foot wound - clean Sacral superficial wounds MRSA + screen Plan Plan of Care Cont Zosyn - narrow therapy soon Cont Zyvox for now and f/u sensitivities F/u labs and cults Critically ill LYNNE OROPEZA MD May 03, 2016 07:18
[2016-05-03] MEDS: INSULIN ASPART 300 UNITS/3 ML INSULN.PEN SQ SCH ×6 (07:30→16:56)
[2016-05-03] MEDS: LISINOPRIL 5 MG TABLET. PO SCH (07:52)
[2016-05-03] MEDS: INSULIN DETEMIR 300 UNITS/3 ML INSULN.PEN. SQ SCH ×2 (07:52→21:09)
[2016-05-03] MEDS: ASCORBIC ACID 500 MG TABLET PO SCH (08:02)
[2016-05-03] MEDS: ASPIRIN ENTERIC COATED 81 MG TABLET.DR. PO SCH (08:02)
[2016-05-03] MEDS: MULTIVITAMIN with MINERAL TABLET. PO SCH (08:02)
[2016-05-03] MEDS: POTASSIUM CHLORIDE 20 MEQ TABLET.ER. PO SCH (08:02)
[2016-05-03 08:04] LABS: PLT ESTIMATE ADEQUATE (ADEQUATE)
[2016-05-03] MEDS: IPRATRPIUM/ALBUTEROL 0.5/2.5MG 3 ML NEBU. NEB SCH ×4 (08:18→20:00)
--- NOTE | 2016-05-03 11:07 | PDOC ---
PULMONARY PROGRESS NOTES Subjective much better on RA Vitals Vital Signs Date Time Temp Pulse Resp B/P Pulse Ox O2 Delivery O2 Flow Rate FiO2 05/03/16 10:00 115 15 102/52 100 Room Air 05/03/16 07:00 100.3 100.3 05/02/16 15:00 2.0 General: Alert, No acute distress Lungs: Other (improved RLL) Cardiovascular: S1 Abdomen: Soft, Non-tender Neuro Exam: Alert Extremities: No Edema Labs Laboratory Tests Test 05/01/16 11:43 05/01/16 12:58 05/01/16 13:20 05/01/16 14:04 Glucose (Fingerstick) 85mg/dL (70-99) 87mg/dL (70-99) 110mg/dL (70-99) Influenza Type A Antigen Negative (NEGATIVE) Influenza Type B Antigen Negative (NEGATIVE) Test 05/01/16 15:07 05/01/16 16:05 05/01/16 16:16 05/01/16 17:20 Glucose (Fingerstick) 145mg/dL (70-99) 191mg/dL (70-99) 192mg/dL (70-99) Sodium Level 143mmol/L (136-145) Potassium Level 3.7mmol/L (3.5-5.1) Chloride Level 110mmol/L (98-107) Carbon Dioxide Level 18mmol/L (21-32) Anion Gap 15 (6-14) Blood Urea Nitrogen 13mg/dL (7-20) Creatinine 0.9mg/dL (0.6-1.0) Estimated GFR (Cockcroft-Gault) 75.3 Glucose Level 226mg/dL (70-99) Calcium Level 7.8mg/dL (8.5-10.1) Test 05/01/16 18:27 05/01/16 19:32 05/01/16 19:46 05/01/16 20:15 Glucose (Fingerstick) 77mg/dL (70-99) 164mg/dL (70-99) O2 Saturation 90% (92-99) Arterial Blood pH 7.40 (7.35-7.45) Arterial Blood pCO2 at Patient Temp 22mmHg (35-46) Arterial Blood pO2 at Patient Temp 57mmHg (65-108) Arterial Blood HCO3 14mmol/L (21-28) Arterial Blood Base Excess -10mmol/L (-3-3) FiO2 50 Sodium Level 144mmol/L (136-145) Potassium Level 3.4mmol/L (3.5-5.1) Chloride Level 109mmol/L (98-107) Carbon Dioxide Level 16mmol/L (21-32) Anion Gap 19 (6-14) Blood Urea Nitrogen 14mg/dL (7-20) Creatinine 1.4mg/dL (0.6-1.0) Estimated GFR (Cockcroft-Gault) 45.2 Glucose Level 183mg/dL (70-99) Calcium Level 7.9mg/dL (8.5-10.1) Test 05/01/16 20:19 05/01/16 21:26 05/01/16 22:28 05/01/16 23:30 Glucose (Fingerstick) 170mg/dL (70-99) 144mg/dL (70-99) 117mg/dL (70-99) Sodium Level 145mmol/L (136-145) Potassium Level 3.8mmol/L (3.5-5.1) Chloride Level 111mmol/L (98-107) Carbon Dioxide Level 18mmol/L (21-32) Anion Gap 16 (6-14) Blood Urea Nitrogen 15mg/dL (7-20) Creatinine 1.2mg/dL (0.6-1.0) Estimated GFR (Cockcroft-Gault) 54.1 Glucose Level 116mg/dL (70-99) Calcium Level 7.8mg/dL (8.5-10.1) Test 05/01/16 23:32 05/02/16 00:30 05/02/16 01:37 05/02/16 02:33 Glucose (Fingerstick) 116mg/dL (70-99) 81mg/dL (70-99) 133mg/dL (70-99) 157mg/dL (70-99) Test 05/02/16 03:37 05/02/16 04:40 05/02/16 04:44 05/02/16 05:47 Glucose (Fingerstick) 220mg/dL (70-99) 223mg/dL (70-99) 175mg/dL (70-99) White Blood Count 2.5x10^3/uL (4.0-11.0) Red Blood Count 3.00x10^6/uL (3.50-5.40) Hemoglobin 9.0g/dL (12.0-15.5) Hematocrit 27.0% (36.0-47.0) Mean Corpuscular Volume 90fL (79-100) Mean Corpuscular Hemoglobin 30pg (25-35) Mean Corpuscular Hemoglobin Concent 33g/dL (31-37) Red Cell Distribution Width 15.5% (11.5-14.5) Platelet Count 284x10^3/uL (140-400) Neutrophils (%) (Auto) 77% (31-73) Lymphocytes (%) (Auto) 20% (24-48) Monocytes (%) (Auto) 3% (0-9) Eosinophils (%) (Auto) 0% (0-3) Basophils (%) (Auto) 0% (0-3) Neutrophils # (Auto) 1.9x10^3uL (1.8-7.7) Lymphocytes # (Auto) 0.5x10^3/uL (1.0-4.8) Monocytes # (Auto) 0.1x10^3/uL (0.0-1.1) Eosinophils # (Auto) 0.0x10^3/uL (0.0-0.7) Basophils # (Auto) 0.0x10^3/uL (0.0-0.2) Sodium Level 141mmol/L (136-145) Potassium Level 5.1mmol/L (3.5-5.1) Chloride Level 111mmol/L (98-107) Carbon Dioxide Level 14mmol/L (21-32) Anion Gap 16 (6-14) Blood Urea Nitrogen 18mg/dL (7-20) Creatinine 1.4mg/dL (0.6-1.0) Estimated GFR (Cockcroft-Gault) 45.2 Glucose Level 248mg/dL (70-99) Calcium Level 7.8mg/dL (8.5-10.1) Phosphorus Level 3.6mg/dL (2.6-4.7) Magnesium Level 1.9mg/dL (1.8-2.4) Test 05/02/16 07:09 05/02/16 07:45 05/02/16 08:25 05/02/16 09:25 Glucose (Fingerstick) 132mg/dL (70-99) 101mg/dL (70-99) 86mg/dL (70-99) White Blood Count 3.7x10^3/uL (4.0-11.0) Red Blood Count 3.10x10^6/uL (3.50-5.40) Hemoglobin 9.2g/dL (12.0-15.5) Hematocrit 27.5% (36.0-47.0) Mean Corpuscular Volume 89fL (79-100) Mean Corpuscular Hemoglobin 30pg (25-35) Mean Corpuscular Hemoglobin Concent 33g/dL (31-37) Red Cell Distribution Width 15.4% (11.5-14.5) Platelet Count 280x10^3/uL (140-400) Neutrophils (%) (Auto) 82% (31-73) Lymphocytes (%) (Auto) 16% (24-48) Monocytes (%) (Auto) 2% (0-9) Eosinophils (%) (Auto) 0% (0-3) Basophils (%) (Auto) 0% (0-3) Neutrophils # (Auto) 3.0x10^3uL (1.8-7.7) Lymphocytes # (Auto) 0.6x10^3/uL (1.0-4.8) Monocytes # (Auto) 0.1x10^3/uL (0.0-1.1) Eosinophils # (Auto) 0.0x10^3/uL (0.0-0.7) Basophils # (Auto) 0.0x10^3/uL (0.0-0.2) Sodium Level 145mmol/L (136-145) Potassium Level 4.5mmol/L (3.5-5.1) Chloride Level 112mmol/L (98-107) Carbon Dioxide Level 17mmol/L (21-32) Anion Gap 16 (6-14) Blood Urea Nitrogen 17mg/dL (7-20) Creatinine 1.2mg/dL (0.6-1.0) Estimated GFR (Cockcroft-Gault) 54.1 BUN/Creatinine Ratio 14 (6-20) Glucose Level 118mg/dL (70-99) Calcium Level 7.7mg/dL (8.5-10.1) Phosphorus Level 3.6mg/dL (2.6-4.7) Magnesium Level 1.9mg/dL (1.8-2.4) Total Bilirubin 0.3mg/dL (0.2-1.0) Aspartate Amino Transf (AST/SGOT) 40U/L (15-37) Alanine Aminotransferase (ALT/SGPT) 34U/L (14-59) Alkaline Phosphatase 140U/L (46-116) Total Protein 5.0g/dL (6.4-8.2) Albumin 2.0g/dL (3.4-5.0) Albumin/Globulin Ratio 0.7 (1.0-1.7) O2 Saturation 93% (92-99) Arterial Blood pH 7.39 (7.35-7.45) Arterial Blood pCO2 at Patient Temp 26mmHg (35-46) Arterial Blood pO2 at Patient Temp 70mmHg (65-108) Arterial Blood HCO3 16mmol/L (21-28) Arterial Blood Base Excess -8mmol/L (-3-3) FiO2 30 Test 05/02/16 10:28 05/02/16 11:28 05/02/16 12:19 05/02/16 12:30 Glucose (Fingerstick) 120mg/dL (70-99) 122mg/dL (70-99) 169mg/dL (70-99) White Blood Count 5.9x10^3/uL (4.0-11.0) Red Blood Count 2.97x10^6/uL (3.50-5.40) Hemoglobin 8.6g/dL (12.0-15.5) Hematocrit 26.6% (36.0-47.0) Mean Corpuscular Volume 89fL (79-100) Mean Corpuscular Hemoglobin 29pg (25-35) Mean Corpuscular Hemoglobin Concent 33g/dL (31-37) Red Cell Distribution Width 15.7% (11.5-14.5) Platelet Count 246x10^3/uL (140-400) Neutrophils (%) (Auto) 87% (31-73) Lymphocytes (%) (Auto) 11% (24-48) Monocytes (%) (Auto) 1% (0-9) Eosinophils (%) (Auto) 0% (0-3) Basophils (%) (Auto) 0% (0-3) Neutrophils # (Auto) 5.2x10^3uL (1.8-7.7) Lymphocytes # (Auto) 0.6x10^3/uL (1.0-4.8) Monocytes # (Auto) 0.1x10^3/uL (0.0-1.1) Eosinophils # (Auto) 0.0x10^3/uL (0.0-0.7) Basophils # (Auto) 0.0x10^3/uL (0.0-0.2) Segmented Neutrophils % 39% (35-66) Band Neutrophils % 41% (0-9) Lymphocytes % 10% (24-48) Metamyelocytes % 7% (0-0) Myelocytes % 3% (0-0) Nucleated Red Blood Cells 1 Toxic Granulation Slight Toxic Vacuolation Slight Platelet Estimate Adequate (ADEQUATE) Polychromasia Slight Hypochromasia Slight Anisocytosis Slight Tear Drop Cells Occ Sodium Level 142mmol/L (136-145) Potassium Level 4.2mmol/L (3.5-5.1) Chloride Level 113mmol/L (98-107) Carbon Dioxide Level 20mmol/L (21-32) Anion Gap 9 (6-14) Blood Urea Nitrogen 16mg/dL (7-20) Creatinine 0.8mg/dL (0.6-1.0) Estimated GFR (Cockcroft-Gault) 86.3 BUN/Creatinine Ratio 20 (6-20) Glucose Level 182mg/dL (70-99) Calcium Level 7.4mg/dL (8.5-10.1) Phosphorus Level 3.5mg/dL (2.6-4.7) Magnesium Level 1.8mg/dL (1.8-2.4) Total Bilirubin 0.3mg/dL (0.2-1.0) Aspartate Amino Transf (AST/SGOT) 42U/L (15-37) Alanine Aminotransferase (ALT/SGPT) 28U/L (14-59) Alkaline Phosphatase 127U/L (46-116) Total Protein 4.6g/dL (6.4-8.2) Albumin 2.0g/dL (3.4-5.0) Albumin/Globulin Ratio 0.8 (1.0-1.7) Test 05/02/16 13:31 05/02/16 14:50 05/02/16 16:39 05/02/16 21:07 Glucose (Fingerstick) 115mg/dL (70-99) 166mg/dL (70-99) 121mg/dL (70-99) 232mg/dL (70-99) Test 05/03/16 05:40 05/03/16 06:30 05/03/16 07:24 05/03/16 09:55 White Blood Count 12.0x10^3/uL (4.0-11.0) Red Blood Count 2.82x10^6/uL (3.50-5.40) Hemoglobin 8.2g/dL (12.0-15.5) Hematocrit 25.1% (36.0-47.0) Mean Corpuscular Volume 89fL (79-100) Mean Corpuscular Hemoglobin 29pg (25-35) Mean Corpuscular Hemoglobin Concent 33g/dL (31-37) Red Cell Distribution Width 15.9% (11.5-14.5) Platelet Count 228x10^3/uL (140-400) Neutrophils (%) (Auto) 94% (31-73) Lymphocytes (%) (Auto) 5% (24-48) Monocytes (%) (Auto) 1% (0-9) Eosinophils (%) (Auto) 0% (0-3) Basophils (%) (Auto) 0% (0-3) Neutrophils # (Auto) 11.3x10^3uL (1.8-7.7) Lymphocytes # (Auto) 0.6x10^3/uL (1.0-4.8) Monocytes # (Auto) 0.1x10^3/uL (0.0-1.1) Eosinophils # (Auto) 0.0x10^3/uL (0.0-0.7) Basophils # (Auto) 0.0x10^3/uL (0.0-0.2) Segmented Neutrophils % 66% (35-66) Band Neutrophils % 15% (0-9) Lymphocytes % 12% (24-48) Monocytes % 7% (0-10) Platelet Estimate Adequate (ADEQUATE) Sodium Level 145mmol/L (136-145) Potassium Level 3.8mmol/L (3.5-5.1) Chloride Level 115mmol/L (98-107) Carbon Dioxide Level 22mmol/L (21-32) Anion Gap 8 (6-14) Blood Urea Nitrogen 12mg/dL (7-20) Creatinine 0.8mg/dL (0.6-1.0) Estimated GFR (Cockcroft-Gault) 86.3 Glucose Level 45mg/dL (70-99) Calcium Level 8.2mg/dL (8.5-10.1) Glucose (Fingerstick) 95mg/dL (70-99) 71mg/dL (70-99) 88mg/dL (70-99) Laboratory Tests Test 05/02/16 11:28 05/02/16 12:19 05/02/16 12:30 05/02/16 13:31 Glucose (Fingerstick) 122mg/dL (70-99) 169mg/dL (70-99) 115mg/dL (70-99) White Blood Count 5.9x10^3/uL (4.0-11.0) Red Blood Count 2.97x10^6/uL (3.50-5.40) Hemoglobin 8.6g/dL (12.0-15.5) Hematocrit 26.6% (36.0-47.0) Mean Corpuscular Volume 89fL (79-100) Mean Corpuscular Hemoglobin 29pg (25-35) Mean Corpuscular Hemoglobin Concent 33g/dL (31-37) Red Cell Distribution Width 15.7% (11.5-14.5) Platelet Count 246x10^3/uL (140-400) Neutrophils (%) (Auto) 87% (31-73) Lymphocytes (%) (Auto) 11% (24-48) Monocytes (%) (Auto) 1% (0-9) Eosinophils (%) (Auto) 0% (0-3) Basophils (%) (Auto) 0% (0-3) Neutrophils # (Auto) 5.2x10^3uL (1.8-7.7) Lymphocytes # (Auto) 0.6x10^3/uL (1.0-4.8) Monocytes # (Auto) 0.1x10^3/uL (0.0-1.1) Eosinophils # (Auto) 0.0x10^3/uL (0.0-0.7) Basophils # (Auto) 0.0x10^3/uL (0.0-0.2) Segmented Neutrophils % 39% (35-66) Band Neutrophils % 41% (0-9) Lymphocytes % 10% (24-48) Metamyelocytes % 7% (0-0) Myelocytes % 3% (0-0) Nucleated Red Blood Cells 1 Toxic Granulation Slight Toxic Vacuolation Slight Platelet Estimate Adequate (ADEQUATE) Polychromasia Slight Hypochromasia Slight Anisocytosis Slight Tear Drop Cells Occ Sodium Level 142mmol/L (136-145) Potassium Level 4.2mmol/L (3.5-5.1) Chloride Level 113mmol/L (98-107) Carbon Dioxide Level 20mmol/L (21-32) Anion Gap 9 (6-14) Blood Urea Nitrogen 16mg/dL (7-20) Creatinine 0.8mg/dL (0.6-1.0) Estimated GFR (Cockcroft-Gault) 86.3 BUN/Creatinine Ratio 20 (6-20) Glucose Level 182mg/dL (70-99) Calcium Level 7.4mg/dL (8.5-10.1) Phosphorus Level 3.5mg/dL (2.6-4.7) Magnesium Level 1.8mg/dL (1.8-2.4) Total Bilirubin 0.3mg/dL (0.2-1.0) Aspartate Amino Transf (AST/SGOT) 42U/L (15-37) Alanine Aminotransferase (ALT/SGPT) 28U/L (14-59) Alkaline Phosphatase 127U/L (46-116) Total Protein 4.6g/dL (6.4-8.2) Albumin 2.0g/dL (3.4-5.0) Albumin/Globulin Ratio 0.8 (1.0-1.7) Test 05/02/16 14:50 05/02/16 16:39 05/02/16 21:07 05/03/16 05:40 Glucose (Fingerstick) 166mg/dL (70-99) 121mg/dL (70-99) 232mg/dL (70-99) White Blood Count 12.0x10^3/uL (4.0-11.0) Red Blood Count 2.82x10^6/uL (3.50-5.40) Hemoglobin 8.2g/dL (12.0-15.5) Hematocrit 25.1% (36.0-47.0) Mean Corpuscular Volume 89fL (79-100) Mean Corpuscular Hemoglobin 29pg (25-35) Mean Corpuscular Hemoglobin Concent 33g/dL (31-37) Red Cell Distribution Width 15.9% (11.5-14.5) Platelet Count 228x10^3/uL (140-400) Neutrophils (%) (Auto) 94% (31-73) Lymphocytes (%) (Auto) 5% (24-48) Monocytes (%) (Auto) 1% (0-9) Eosinophils (%) (Auto) 0% (0-3) Basophils (%) (Auto) 0% (0-3) Neutrophils # (Auto) 11.3x10^3uL (1.8-7.7) Lymphocytes # (Auto) 0.6x10^3/uL (1.0-4.8) Monocytes # (Auto) 0.1x10^3/uL (0.0-1.1) Eosinophils # (Auto) 0.0x10^3/uL (0.0-0.7) Basophils # (Auto) 0.0x10^3/uL (0.0-0.2) Segmented Neutrophils % 66% (35-66) Band Neutrophils % 15% (0-9) Lymphocytes % 12% (24-48) Monocytes % 7% (0-10) Platelet Estimate Adequate (ADEQUATE) Sodium Level 145mmol/L (136-145) Potassium Level 3.8mmol/L (3.5-5.1) Chloride Level 115mmol/L (98-107) Carbon Dioxide Level 22mmol/L (21-32) Anion Gap 8 (6-14) Blood Urea Nitrogen 12mg/dL (7-20) Creatinine 0.8mg/dL (0.6-1.0) Estimated GFR (Cockcroft-Gault) 86.3 Glucose Level 45mg/dL (70-99) Calcium Level 8.2mg/dL (8.5-10.1) Test 05/03/16 06:30 05/03/16 07:24 05/03/16 09:55 Glucose (Fingerstick) 95mg/dL (70-99) 71mg/dL (70-99) 88mg/dL (70-99) Medications Active Scripts Medications Dose Route/Sig Days Date Category Potassium Chloride 20 Meq Tablet.er 40 Meq PO DAILY 7 02/22/16 Reported Amox Tr-K Clv 500-125 Mg Tab (Amoxicillin/Potassium Clav) 1 Each Tablet 1 Tab PO BID 02/11/16 Reported Zinc 50 Mg Tablet 220 Mg PO DAILY 01/31/16 Reported Ascorbic Acid 500 Mg Tablet 500 Mg PO DAILY 01/31/16 Reported Aspirin Ec (Aspirin) 81 Mg Tablet.dr 1 Tab PO DAILY 01/31/16 Reported Levemir (Insulin Detemir) 100 Unit/1 Ml Vial 8 Unit SQ HS 01/31/16 Reported Novolog Flexpen (Insulin Aspart) 100 Unit/1 Ml Insuln.pen 5 Unit SQ TIDAC 10/25/15 Reported Lisinopril 5 Mg Tablet 1 Tab PO DAILY 01/22/15 Rx Novolog Flexpen (Insulin Aspart) 100 Unit/1 Ml Insuln.pen 0 Units SQ QIDACHS 04/11/16 Rx Thera-M Tablet (Multivits,Ca,Minerals/Iron/Fa) 1 Each Tablet 1 Tab PO DAILY 04/11/16 Rx Levemir Flextouch (Insulin Detemir) 100 Unit/1 Ml Insuln.pen 10 Units SQ DAILY 04/11/16 Rx Impression . 1. Acute encephalopathy secondary to diabetic ketoacidosis. resolved 2. Right lower lobe pneumonia. ct chest with large consolidation RLL 3. Severe metabolic acidosis secondary to diabetic ketoacidosis. 4. No significant history of tobacco use. 5. Mild renal insufficiency, improving with IV fluids. 6. Acute hypoxic respiratory failure secondary to pneumonia. 7. Hypotension, sepsis, improved Plan . 1. prn oxygen ,keeping sats 92-94%. 2. Broad spectrum antibiotics as initiated by Infectious Disease. 3. CT chest reviewed 4. Management of DKA per PCP. 5. P.r.n. bicarbonate. 6. Replace magnesium and phosphorus.as needed 8. Discussed with RN and RT. ok with transfer to [facility] FRANCISCO ZULUAGA MD May 03, 2016 11:06
--- NOTE | 2016-05-03 12:03 | PDOC ---
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 FECAL IMPACTION RT FOOT WOUND CHORIONIC PLAN ON ZOSYN AND ZYVOX, ID FOLLOWING DKA PROTOCOL DECREASE INSULIN DOSE OFF VASOPRESSORS IV HYDRATION SUPPLEMENTAL OXYGEN FOLLOW BLOOD CX ID AND PULMONOLOGY RECOMMENDATIONS. ENCOURAGE ORAL INTAKE SYMPTOMATIC TREATMENT FOR CONSTIPATION REPEATED ADMISSIONS, PROGNOSIS GUARDED. , History of Present Illness History of Present Illness No fever no chills no chest pain getting better. Vitals Vitals Vital Signs Date Time Temp Pulse Resp B/P Pulse Ox O2 Delivery O2 Flow Rate FiO2 05/03/16 10:00 115 15 102/52 100 Room Air 05/03/16 07:00 100.3 100.3 05/02/16 15:00 2.0 Physical Exam General: Alert Heart: Normal S1, Normal S2 Lungs: Other (improved RLL) Abdomen: Normal bowel sounds, Soft Extremities: No clubbing Skin: Other (R HEEL WOUND) Labs LABS Laboratory Tests Test 05/02/16 12:19 05/02/16 12:30 05/02/16 13:31 05/02/16 14:50 Glucose (Fingerstick) 169mg/dL (70-99) 115mg/dL (70-99) 166mg/dL (70-99) White Blood Count 5.9x10^3/uL (4.0-11.0) Red Blood Count 2.97x10^6/uL (3.50-5.40) Hemoglobin 8.6g/dL (12.0-15.5) Hematocrit 26.6% (36.0-47.0) Mean Corpuscular Volume 89fL (79-100) Mean Corpuscular Hemoglobin 29pg (25-35) Mean Corpuscular Hemoglobin Concent 33g/dL (31-37) Red Cell Distribution Width 15.7% (11.5-14.5) Platelet Count 246x10^3/uL (140-400) Neutrophils (%) (Auto) 87% (31-73) Lymphocytes (%) (Auto) 11% (24-48) Monocytes (%) (Auto) 1% (0-9) Eosinophils (%) (Auto) 0% (0-3) Basophils (%) (Auto) 0% (0-3) Neutrophils # (Auto) 5.2x10^3uL (1.8-7.7) Lymphocytes # (Auto) 0.6x10^3/uL (1.0-4.8) Monocytes # (Auto) 0.1x10^3/uL (0.0-1.1) Eosinophils # (Auto) 0.0x10^3/uL (0.0-0.7) Basophils # (Auto) 0.0x10^3/uL (0.0-0.2) Segmented Neutrophils % 39% (35-66) Band Neutrophils % 41% (0-9) Lymphocytes % 10% (24-48) Metamyelocytes % 7% (0-0) Myelocytes % 3% (0-0) Nucleated Red Blood Cells 1 Toxic Granulation Slight Toxic Vacuolation Slight Platelet Estimate Adequate (ADEQUATE) Polychromasia Slight Hypochromasia Slight Anisocytosis Slight Tear Drop Cells Occ Sodium Level 142mmol/L (136-145) Potassium Level 4.2mmol/L (3.5-5.1) Chloride Level 113mmol/L (98-107) Carbon Dioxide Level 20mmol/L (21-32) Anion Gap 9 (6-14) Blood Urea Nitrogen 16mg/dL (7-20) Creatinine 0.8mg/dL (0.6-1.0) Estimated GFR (Cockcroft-Gault) 86.3 BUN/Creatinine Ratio 20 (6-20) Glucose Level 182mg/dL (70-99) Calcium Level 7.4mg/dL (8.5-10.1) Phosphorus Level 3.5mg/dL (2.6-4.7) Magnesium Level 1.8mg/dL (1.8-2.4) Total Bilirubin 0.3mg/dL (0.2-1.0) Aspartate Amino Transf (AST/SGOT) 42U/L (15-37) Alanine Aminotransferase (ALT/SGPT) 28U/L (14-59) Alkaline Phosphatase 127U/L (46-116) Total Protein 4.6g/dL (6.4-8.2) Albumin 2.0g/dL (3.4-5.0) Albumin/Globulin Ratio 0.8 (1.0-1.7) Test 05/02/16 16:39 05/02/16 21:07 2/8/17 05:40 05/03/16 06:30 Glucose (Fingerstick) 121mg/dL (70-99) 232mg/dL (70-99) 95mg/dL (70-99) White Blood Count 12.0x10^3/uL (4.0-11.0) Red Blood Count 2.82x10^6/uL (3.50-5.40) Hemoglobin 8.2g/dL (12.0-15.5) Hematocrit 25.1% (36.0-47.0) Mean Corpuscular Volume 89fL (79-100) Mean Corpuscular Hemoglobin 29pg (25-35) Mean Corpuscular Hemoglobin Concent 33g/dL (31-37) Red Cell Distribution Width 15.9% (11.5-14.5) Platelet Count 228x10^3/uL (140-400) Neutrophils (%) (Auto) 94% (31-73) Lymphocytes (%) (Auto) 5% (24-48) Monocytes (%) (Auto) 1% (0-9) Eosinophils (%) (Auto) 0% (0-3) Basophils (%) (Auto) 0% (0-3) Neutrophils # (Auto) 11.3x10^3uL (1.8-7.7) Lymphocytes # (Auto) 0.6x10^3/uL (1.0-4.8) Monocytes # (Auto) 0.1x10^3/uL (0.0-1.1) Eosinophils # (Auto) 0.0x10^3/uL (0.0-0.7) Basophils # (Auto) 0.0x10^3/uL (0.0-0.2) Segmented Neutrophils % 66% (35-66) Band Neutrophils % 15% (0-9) Lymphocytes % 12% (24-48) Monocytes % 7% (0-10) Platelet Estimate Adequate (ADEQUATE) Sodium Level 145mmol/L (136-145) Potassium Level 3.8mmol/L (3.5-5.1) Chloride Level 115mmol/L (98-107) Carbon Dioxide Level 22mmol/L (21-32) Anion Gap 8 (6-14) Blood Urea Nitrogen 12mg/dL (7-20) Creatinine 0.8mg/dL (0.6-1.0) Estimated GFR (Cockcroft-Gault) 86.3 Glucose Level 45mg/dL (70-99) Calcium Level 8.2mg/dL (8.5-10.1) Test 05/03/16 07:24 05/03/16 09:55 Glucose (Fingerstick) 71mg/dL (70-99) 88mg/dL (70-99) Assessment and Plan Assessmemt and Plan Problems Medical Problems: (1) Diabetic ketoacidosis Status: Acute (2) DKA (diabetic ketoacidoses) Status: Acute Problems: Comment Review of Relevant I have reviewed the following items varun (where applicable) has been applied. Labs Laboratory Tests Test 05/01/16 12:58 05/01/16 13:20 05/01/16 14:04 05/01/16 15:07 Glucose (Fingerstick) 87mg/dL (70-99) 110mg/dL (70-99) 145mg/dL (70-99) Influenza Type A Antigen Negative (NEGATIVE) Influenza Type B Antigen Negative (NEGATIVE) Test 05/01/16 16:05 05/01/16 16:16 05/01/16 17:20 05/01/16 18:27 Sodium Level 143mmol/L (136-145) Potassium Level 3.7mmol/L (3.5-5.1) Chloride Level 110mmol/L (98-107) Carbon Dioxide Level 18mmol/L (21-32) Anion Gap 15 (6-14) Blood Urea Nitrogen 13mg/dL (7-20) Creatinine 0.9mg/dL (0.6-1.0) Estimated GFR (Cockcroft-Gault) 75.3 Glucose Level 226mg/dL (70-99) Calcium Level 7.8mg/dL (8.5-10.1) Glucose (Fingerstick) 191mg/dL (70-99) 192mg/dL (70-99) 77mg/dL (70-99) Test 05/01/16 19:32 05/01/16 19:46 05/01/16 20:15 05/01/16 20:19 Glucose (Fingerstick) 164mg/dL (70-99) 170mg/dL (70-99) O2 Saturation 90% (92-99) Arterial Blood pH 7.40 (7.35-7.45) Arterial Blood pCO2 at Patient Temp 22mmHg (35-46) Arterial Blood pO2 at Patient Temp 57mmHg (65-108) Arterial Blood HCO3 14mmol/L (21-28) Arterial Blood Base Excess -10mmol/L (-3-3) FiO2 50 Sodium Level 144mmol/L (136-145) Potassium Level 3.4mmol/L (3.5-5.1) Chloride Level 109mmol/L (98-107) Carbon Dioxide Level 16mmol/L (21-32) Anion Gap 19 (6-14) Blood Urea Nitrogen 14mg/dL (7-20) Creatinine 1.4mg/dL (0.6-1.0) Estimated GFR (Cockcroft-Gault) 45.2 Glucose Level 183mg/dL (70-99) Calcium Level 7.9mg/dL (8.5-10.1) Test 05/01/16 21:26 05/01/16 22:28 05/01/16 23:30 05/01/16 23:32 Glucose (Fingerstick) 144mg/dL (70-99) 117mg/dL (70-99) 116mg/dL (70-99) Sodium Level 145mmol/L (136-145) Potassium Level 3.8mmol/L (3.5-5.1) Chloride Level 111mmol/L (98-107) Carbon Dioxide Level 18mmol/L (21-32) Anion Gap 16 (6-14) Blood Urea Nitrogen 15mg/dL (7-20) Creatinine 1.2mg/dL (0.6-1.0) Estimated GFR (Cockcroft-Gault) 54.1 Glucose Level 116mg/dL (70-99) Calcium Level 7.8mg/dL (8.5-10.1) Test 05/02/16 00:30 05/02/16 01:37 05/02/16 02:33 05/02/16 03:37 Glucose (Fingerstick) 81mg/dL (70-99) 133mg/dL (70-99) 157mg/dL (70-99) 220mg/dL (70-99) Test 05/02/16 04:40 05/02/16 04:44 05/02/16 05:47 05/02/16 07:09 White Blood Count 2.5x10^3/uL (4.0-11.0) Red Blood Count 3.00x10^6/uL (3.50-5.40) Hemoglobin 9.0g/dL (12.0-15.5) Hematocrit 27.0% (36.0-47.0) Mean Corpuscular Volume 90fL (79-100) Mean Corpuscular Hemoglobin 30pg (25-35) Mean Corpuscular Hemoglobin Concent 33g/dL (31-37) Red Cell Distribution Width 15.5% (11.5-14.5) Platelet Count 284x10^3/uL (140-400) Neutrophils (%) (Auto) 77% (31-73) Lymphocytes (%) (Auto) 20% (24-48) Monocytes (%) (Auto) 3% (0-9) Eosinophils (%) (Auto) 0% (0-3) Basophils (%) (Auto) 0% (0-3) Neutrophils # (Auto) 1.9x10^3uL (1.8-7.7) Lymphocytes # (Auto) 0.5x10^3/uL (1.0-4.8) Monocytes # (Auto) 0.1x10^3/uL (0.0-1.1) Eosinophils # (Auto) 0.0x10^3/uL (0.0-0.7) Basophils # (Auto) 0.0x10^3/uL (0.0-0.2) Sodium Level 141mmol/L (136-145) Potassium Level 5.1mmol/L (3.5-5.1) Chloride Level 111mmol/L (98-107) Carbon Dioxide Level 14mmol/L (21-32) Anion Gap 16 (6-14) Blood Urea Nitrogen 18mg/dL (7-20) Creatinine 1.4mg/dL (0.6-1.0) Estimated GFR (Cockcroft-Gault) 45.2 Glucose Level 248mg/dL (70-99) Calcium Level 7.8mg/dL (8.5-10.1) Phosphorus Level 3.6mg/dL (2.6-4.7) Magnesium Level 1.9mg/dL (1.8-2.4) Glucose (Fingerstick) 223mg/dL (70-99) 175mg/dL (70-99) 132mg/dL (70-99) Test 05/02/16 07:45 05/02/16 08:25 05/02/16 09:25 05/02/16 10:28 White Blood Count 3.7x10^3/uL (4.0-11.0) Red Blood Count 3.10x10^6/uL (3.50-5.40) Hemoglobin 9.2g/dL (12.0-15.5) Hematocrit 27.5% (36.0-47.0) Mean Corpuscular Volume 89fL (79-100) Mean Corpuscular Hemoglobin 30pg (25-35) Mean Corpuscular Hemoglobin Concent 33g/dL (31-37) Red Cell Distribution Width 15.4% (11.5-14.5) Platelet Count 280x10^3/uL (140-400) Neutrophils (%) (Auto) 82% (31-73) Lymphocytes (%) (Auto) 16% (24-48) Monocytes (%) (Auto) 2% (0-9) Eosinophils (%) (Auto) 0% (0-3) Basophils (%) (Auto) 0% (0-3) Neutrophils # (Auto) 3.0x10^3uL (1.8-7.7) Lymphocytes # (Auto) 0.6x10^3/uL (1.0-4.8) Monocytes # (Auto) 0.1x10^3/uL (0.0-1.1) Eosinophils # (Auto) 0.0x10^3/uL (0.0-0.7) Basophils # (Auto) 0.0x10^3/uL (0.0-0.2) Sodium Level 145mmol/L (136-145) Potassium Level 4.5mmol/L (3.5-5.1) Chloride Level 112mmol/L (98-107) Carbon Dioxide Level 17mmol/L (21-32) Anion Gap 16 (6-14) Blood Urea Nitrogen 17mg/dL (7-20) Creatinine 1.2mg/dL (0.6-1.0) Estimated GFR (Cockcroft-Gault) 54.1 BUN/Creatinine Ratio 14 (6-20) Glucose Level 118mg/dL (70-99) Calcium Level 7.7mg/dL (8.5-10.1) Phosphorus Level 3.6mg/dL (2.6-4.7) Magnesium Level 1.9mg/dL (1.8-2.4) Total Bilirubin 0.3mg/dL (0.2-1.0) Aspartate Amino Transf (AST/SGOT) 40U/L (15-37) Alanine Aminotransferase (ALT/SGPT) 34U/L (14-59) Alkaline Phosphatase 140U/L (46-116) Total Protein 5.0g/dL (6.4-8.2) Albumin 2.0g/dL (3.4-5.0) Albumin/Globulin Ratio 0.7 (1.0-1.7) O2 Saturation 93% (92-99) Arterial Blood pH 7.39 (7.35-7.45) Arterial Blood pCO2 at Patient Temp 26mmHg (35-46) Arterial Blood pO2 at Patient Temp 70mmHg (65-108) Arterial Blood HCO3 16mmol/L (21-28) Arterial Blood Base Excess -8mmol/L (-3-3) FiO2 30 Glucose (Fingerstick) 101mg/dL (70-99) 86mg/dL (70-99) 120mg/dL (70-99) Test 05/02/16 11:28 05/02/16 12:19 05/02/16 12:30 05/02/16 13:31 Glucose (Fingerstick) 122mg/dL (70-99) 169mg/dL (70-99) 115mg/dL (70-99) White Blood Count 5.9x10^3/uL (4.0-11.0) Red Blood Count 2.97x10^6/uL (3.50-5.40) Hemoglobin 8.6g/dL (12.0-15.5) Hematocrit 26.6% (36.0-47.0) Mean Corpuscular Volume 89fL (79-100) Mean Corpuscular Hemoglobin 29pg (25-35) Mean Corpuscular Hemoglobin Concent 33g/dL (31-37) Red Cell Distribution Width 15.7% (11.5-14.5) Platelet Count 246x10^3/uL (140-400) Neutrophils (%) (Auto) 87% (31-73) Lymphocytes (%) (Auto) 11% (24-48) Monocytes (%) (Auto) 1% (0-9) Eosinophils (%) (Auto) 0% (0-3) Basophils (%) (Auto) 0% (0-3) Neutrophils # (Auto) 5.2x10^3uL (1.8-7.7) Lymphocytes # (Auto) 0.6x10^3/uL (1.0-4.8) Monocytes # (Auto) 0.1x10^3/uL (0.0-1.1) Eosinophils # (Auto) 0.0x10^3/uL (0.0-0.7) Basophils # (Auto) 0.0x10^3/uL (0.0-0.2) Segmented Neutrophils % 39% (35-66) Band Neutrophils % 41% (0-9) Lymphocytes % 10% (24-48) Metamyelocytes % 7% (0-0) Myelocytes % 3% (0-0) Nucleated Red Blood Cells 1 Toxic Granulation Slight Toxic Vacuolation Slight Platelet Estimate Adequate (ADEQUATE) Polychromasia Slight Hypochromasia Slight Anisocytosis Slight Tear Drop Cells Occ Sodium Level 142mmol/L (136-145) Potassium Level 4.2mmol/L (3.5-5.1) Chloride Level 113mmol/L (98-107) Carbon Dioxide Level 20mmol/L (21-32) Anion Gap 9 (6-14) Blood Urea Nitrogen 16mg/dL (7-20) Creatinine 0.8mg/dL (0.6-1.0) Estimated GFR (Cockcroft-Gault) 86.3 BUN/Creatinine Ratio 20 (6-20) Glucose Level 182mg/dL (70-99) Calcium Level 7.4mg/dL (8.5-10.1) Phosphorus Level 3.5mg/dL (2.6-4.7) Magnesium Level 1.8mg/dL (1.8-2.4) Total Bilirubin 0.3mg/dL (0.2-1.0) Aspartate Amino Transf (AST/SGOT) 42U/L (15-37) Alanine Aminotransferase (ALT/SGPT) 28U/L (14-59) Alkaline Phosphatase 127U/L (46-116) Total Protein 4.6g/dL (6.4-8.2) Albumin 2.0g/dL (3.4-5.0) Albumin/Globulin Ratio 0.8 (1.0-1.7) Test 05/02/16 14:50 05/02/16 16:39 05/02/16 21:07 05/03/16 05:40 Glucose (Fingerstick) 166mg/dL (70-99) 121mg/dL (70-99) 232mg/dL (70-99) White Blood Count 12.0x10^3/uL (4.0-11.0) Red Blood Count 2.82x10^6/uL (3.50-5.40) Hemoglobin 8.2g/dL (12.0-15.5) Hematocrit 25.1% (36.0-47.0) Mean Corpuscular Volume 89fL (79-100) Mean Corpuscular Hemoglobin 29pg (25-35) Mean Corpuscular Hemoglobin Concent 33g/dL (31-37) Red Cell Distribution Width 15.9% (11.5-14.5) Platelet Count 228x10^3/uL (140-400) Neutrophils (%) (Auto) 94% (31-73) Lymphocytes (%) (Auto) 5% (24-48) Monocytes (%) (Auto) 1% (0-9) Eosinophils (%) (Auto) 0% (0-3) Basophils (%) (Auto) 0% (0-3) Neutrophils # (Auto) 11.3x10^3uL (1.8-7.7) Lymphocytes # (Auto) 0.6x10^3/uL (1.0-4.8) Monocytes # (Auto) 0.1x10^3/uL (0.0-1.1) Eosinophils # (Auto) 0.0x10^3/uL (0.0-0.7) Basophils # (Auto) 0.0x10^3/uL (0.0-0.2) Segmented Neutrophils % 66% (35-66) Band Neutrophils % 15% (0-9) Lymphocytes % 12% (24-48) Monocytes % 7% (0-10) Platelet Estimate Adequate (ADEQUATE) Sodium Level 145mmol/L (136-145) Potassium Level 3.8mmol/L (3.5-5.1) Chloride Level 115mmol/L (98-107) Carbon Dioxide Level 22mmol/L (21-32) Anion Gap 8 (6-14) Blood Urea Nitrogen 12mg/dL (7-20) Creatinine 0.8mg/dL (0.6-1.0) Estimated GFR (Cockcroft-Gault) 86.3 Glucose Level 45mg/dL (70-99) Calcium Level 8.2mg/dL (8.5-10.1) Test 05/03/16 06:30 05/03/16 07:24 05/03/16 09:55 Glucose (Fingerstick) 95mg/dL (70-99) 71mg/dL (70-99) 88mg/dL (70-99) Laboratory Tests Test 05/02/16 12:19 05/02/16 12:30 05/02/16 13:31 05/02/16 14:50 Glucose (Fingerstick) 169mg/dL (70-99) 115mg/dL (70-99) 166mg/dL (70-99) White Blood Count 5.9x10^3/uL (4.0-11.0) Red Blood Count 2.97x10^6/uL (3.50-5.40) Hemoglobin 8.6g/dL (12.0-15.5) Hematocrit 26.6% (36.0-47.0) Mean Corpuscular Volume 89fL (79-100) Mean Corpuscular Hemoglobin 29pg (25-35) Mean Corpuscular Hemoglobin Concent 33g/dL (31-37) Red Cell Distribution Width 15.7% (11.5-14.5) Platelet Count 246x10^3/uL (140-400) Neutrophils (%) (Auto) 87% (31-73) Lymphocytes (%) (Auto) 11% (24-48) Monocytes (%) (Auto) 1% (0-9) Eosinophils (%) (Auto) 0% (0-3) Basophils (%) (Auto) 0% (0-3) Neutrophils # (Auto) 5.2x10^3uL (1.8-7.7) Lymphocytes # (Auto) 0.6x10^3/uL (1.0-4.8) Monocytes # (Auto) 0.1x10^3/uL (0.0-1.1) Eosinophils # (Auto) 0.0x10^3/uL (0.0-0.7) Basophils # (Auto) 0.0x10^3/uL (0.0-0.2) Segmented Neutrophils % 39% (35-66) Band Neutrophils % 41% (0-9) Lymphocytes % 10% (24-48) Metamyelocytes % 7% (0-0) Myelocytes % 3% (0-0) Nucleated Red Blood Cells 1 Toxic Granulation Slight Toxic Vacuolation Slight Platelet Estimate Adequate (ADEQUATE) Polychromasia Slight Hypochromasia Slight Anisocytosis Slight Tear Drop Cells Occ Sodium Level 142mmol/L (136-145) Potassium Level 4.2mmol/L (3.5-5.1) Chloride Level 113mmol/L (98-107) Carbon Dioxide Level 20mmol/L (21-32) Anion Gap 9 (6-14) Blood Urea Nitrogen 16mg/dL (7-20) Creatinine 0.8mg/dL (0.6-1.0) Estimated GFR (Cockcroft-Gault) 86.3 BUN/Creatinine Ratio 20 (6-20) Glucose Level 182mg/dL (70-99) Calcium Level 7.4mg/dL (8.5-10.1) Phosphorus Level 3.5mg/dL (2.6-4.7) Magnesium Level 1.8mg/dL (1.8-2.4) Total Bilirubin 0.3mg/dL (0.2-1.0) Aspartate Amino Transf (AST/SGOT) 42U/L (15-37) Alanine Aminotransferase (ALT/SGPT) 28U/L (14-59) Alkaline Phosphatase 127U/L (46-116) Total Protein 4.6g/dL (6.4-8.2) Albumin 2.0g/dL (3.4-5.0) Albumin/Globulin Ratio 0.8 (1.0-1.7) Test 05/02/16 16:39 05/02/16 21:07 05/03/16 05:40 05/03/16 06:30 Glucose (Fingerstick) 121mg/dL (70-99) 232mg/dL (70-99) 95mg/dL (70-99) White Blood Count 12.0x10^3/uL (4.0-11.0) Red Blood Count 2.82x10^6/uL (3.50-5.40) Hemoglobin 8.2g/dL (12.0-15.5) Hematocrit 25.1% (36.0-47.0) Mean Corpuscular Volume 89fL (79-100) Mean Corpuscular Hemoglobin 29pg (25-35) Mean Corpuscular Hemoglobin Concent 33g/dL (31-37) Red Cell Distribution Width 15.9% (11.5-14.5) Platelet Count 228x10^3/uL (140-400) Neutrophils (%) (Auto) 94% (31-73) Lymphocytes (%) (Auto) 5% (24-48) Monocytes (%) (Auto) 1% (0-9) Eosinophils (%) (Auto) 0% (0-3) Basophils (%) (Auto) 0% (0-3) Neutrophils # (Auto) 11.3x10^3uL (1.8-7.7) Lymphocytes # (Auto) 0.6x10^3/uL (1.0-4.8) Monocytes # (Auto) 0.1x10^3/uL (0.0-1.1) Eosinophils # (Auto) 0.0x10^3/uL (0.0-0.7) Basophils # (Auto) 0.0x10^3/uL (0.0-0.2) Segmented Neutrophils % 66% (35-66) Band Neutrophils % 15% (0-9) Lymphocytes % 12% (24-48) Monocytes % 7% (0-10) Platelet Estimate Adequate (ADEQUATE) Sodium Level 145mmol/L (136-145) Potassium Level 3.8mmol/L (3.5-5.1) Chloride Level 115mmol/L (98-107) Carbon Dioxide Level 22mmol/L (21-32) Anion Gap 8 (6-14) Blood Urea Nitrogen 12mg/dL (7-20) Creatinine 0.8mg/dL (0.6-1.0) Estimated GFR (Cockcroft-Gault) 86.3 Glucose Level 45mg/dL (70-99) Calcium Level 8.2mg/dL (8.5-10.1) Test 05/03/16 07:24 05/03/16 09:55 Glucose (Fingerstick) 71mg/dL (70-99) 88mg/dL (70-99) Microbiology 05/01/16 Blood Culture - Final, Complete 05/01/16 Blood Culture Result 1 (CASEY) - Final, Complete 05/01/16 Antimicrobic Susceptibility - Final, Complete 05/01/16 Urine Culture - Preliminary, Resulted 05/01/16 Urine Culture Result 1 (CASEY) - Preliminary, Resulted Medications Current Medications Sodium Chloride 1,000 ml @ 1,000 mls/hr Q1H IV Last administered on 04/30/16 20:30; Start 04/30/16 at 20:30; Stop 04/30/16 at 21:29; Status DC Sodium Chloride 1,000 ml @ 1,000 mls/hr Q1H IV Last administered on 04/30/16 21:47; Start 04/30/16 at 21:30; Stop 04/30/16 at 21:31; Status DC Insulin Human Regular 150 unit/ Sodium Chloride 151.5 ml @ 0 mls/hr CONT PRN PRN IV PER PROTOCOL Last administered on 04/30/16 21:23; Start 04/30/16 at 21:15 Potassium Chloride 100 ml @ 100 mls/hr PRN Q1HR PRN IV SEE COMMENTS; Start 04/30/16 at 21:15 Potassium Chloride 100 ml @ 100 mls/hr PRN Q1HR PRN IV SEE COMMENTS; Start 04/30/16 at 21:15 Potassium Chloride (KCl Premix 10meq) 100 ml @ 100 mls/hr PRN Q1HR PRN IV SEE COMMENTS; Start 04/30/16 at 21:15 Ondansetron HCl (Zofran) 4 mg PRN Q8HRS PRN IV NAUSEA/VOMITING Last administered on 05/01/16 04:57; Start 04/30/16 at 21:30; Stop 05/01/16 at 21:29; Status DC Acetaminophen 650 mg 650 mg PRN Q4HRS PRN PO FEVER Last administered on 18:00; Start 04/30/16 at 21:30; Stop 05/01/16 at 21:29; Status DC Potassium Chloride/Sodium Chloride (KCl 40 Meq-NS 1,000 ml Iv Soln) 1,000 ml @ 150 mls/hr 1X ONCE IV Last administered on 04/30/16 21:48; Start 04/30/16 at 22 :00; Stop 05/01/16 at 04:39; Status DC Hydralazine HCl 10 mg 10 mg 1X ONCE IVP Last administered on 04/30/16 22:10; Start 04/30/16 at 22:00; Stop 04/30/16 at 22:01; Status DC Sodium Bicarbonate 150 meq/Sterile Water 1,150 ml @ 125 mls/hr 1X ONCE IV Last administered on 05/01/16 01:30; Start 05/01/16 at 01:30; Stop 05/01/16 at 10: 41; Status DC Potassium Chloride (KCl Premix 10meq) 100 ml @ 100 mls/hr Q1H IV Last administered on 05/01/16 05:48; Start 05/01/16 at 03:00; Stop 05/01/16 at 06:59; Status DC Dextrose 25 gm STK-MED ONCE IV ; Start 05/01/16 at 07:48; Stop 05/01/16 at 07:49; Status DC Dextrose 25 gm 25 gm 1X ONCE IV Last administered on 05/01/16 07:45; Start 05/01/16 at 08:15; Stop 05/01/16 at 08:16; Status DC Dextrose/Sodium Chloride (Iv D5% - 1/2 NS) 1,000 ml @ 100 mls/hr Q10H IV Last administered on 05/02/16 12:25; Start 05/01/16 at 08:23; Stop 05/02/16 at 18:03; Status DC Vancomycin HCl (Vanco Per Pharmacy) 1 each PRN DAILY PRN MC SEE COMMENTS Last administered on 05/01/16 16:21; Start 05/01/16 at 09:45; Stop 05/02/16 at 07:27; Status DC Piperacillin Sod/ Tazobactam Sod 1 each 1 each PRN DAILY PRN MC SEE COMMENTS; Start 05/01/16 at 09:45; Stop 05/01/16 at 12:21; Status DC Vancomycin HCl 1 gm/Sodium Chloride 250 ml @ 250 mls/hr 1X ONCE IV ; Start 05/01/16 at 10:00; Stop 05/01/16 at 10:59; Status DC Piperacillin Sod/ Tazobactam Sod 2.25 gm/Sodium Chloride 50 ml @ 100 mls/hr Q6HRS IV ; Start 05/01/16 at 12:00; Stop 05/01/16 at 12:21; Status DC Sodium Phosphate 20 mmol/Dextrose 256.6667 ml @ 64.167 m... 1X ONCE IV Last administered on 05/01/16 16:09; Start 05/01/16 at 10:00; Stop 05/01/16 at 13:59; Status DC Magnesium Sulfate/ Dextrose 50 ml @ 25 mls/hr 1X ONCE IV Last administered on 05/01/16 13:09; Start 05/01/16 at 10:00; Stop 05/01/16 at 11:59; Status DC Magnesium Sulfate/ Dextrose (Magnesium Sulfate PREMIX 4GM) 100 ml @ 25 mls/hr PRN DAILY PRN IV Mag level <1.9 and UO>30ml/hr; Start 05/02/16 at 09:00 Sodium Bicarbonate 50 meq 1X ONCE IV Last administered on 05/01/16 13:07; Start 05/01/16 at 11:30; Stop 05/01/16 at 11:31; Status DC Iohexol (Omnipaque 300 Mg/ml) 60 ml 1X ONCE IV Last administered on 05/01/16 12:15; Start 05/01/16 at 12:15; Stop 05/01/16 at 12:16; Status DC Info (Do NOT chart on this entry -- for MONITORING) 1 each PRN DAILY PRN MC SEE COMMENTS; Start 05/01/16 at 11:45; Stop 05/03/16 at 11:44; Status DC Acetaminophen (Tylenol) 650 mg PRN Q6HRS PRN PO MILD PAIN / TEMP; Start at 12:15 Ondansetron HCl (Zofran) 4 mg PRN Q6HRS PRN IV NAUSEA/VOMITING; Start 05/01/16 at 12:15 Albuterol/ Ipratropium (Duoneb) 3 ml RTQID NEB Last administered on 05/03/16 08 :18; Start 05/01/16 at 16:00 Albuterol Sulfate (Ventolin Neb Soln) 2.5 mg PRN Q4HRS PRN NEB SHORTNESS OF BREATH; Start 05/01/16 at 12:15 Heparin Sodium (Porcine) 5000 unit 5,000 unit Q8HRS SQ Last administered on 05/03 05:33; Start 05/01/16 at 14:00 Piperacillin Sod/ Tazobactam Sod 3.375 gm/Sodium Chloride 50 ml @ 100 mls/hr Q6HRS IV Last administered on 05/03/16 05:31; Start 05/01/16 at 12:00 Vancomycin HCl 1 gm/Sodium Chloride 250 ml @ 250 mls/hr 1X ONCE IV Last administered on 05/01/16 16:09; Start 05/01/16 at 13:30; Stop 05/01/16 at 14:29; Status DC Heparin Sodium/ Sodium Chloride 500 ml @ As Directed STK-MED ONCE .ROUTE ; Start 05/01/16 at 13:09; Stop 05/01/16 at 13:10; Status DC Lidocaine/Sodium Bicarbonate (Buffered Lidocaine 1%) 3 ml 1X ONCE IJ Last administered on 05/01/16 14:00; Start 05/01/16 at 14:00; Stop 05/01/16 at 14:01; Status DC Heparin Sodium/ Sodium Chloride 60 unit 1X ONCE IV Last administered on 14:00; Start 05/01/16 at 14:00; Stop 05/01/16 at 14:01; Status DC Lidocaine/Sodium Bicarbonate (Buffered Lidocaine 1%) 20 ml 1X ONCE IJ Last administered on 05/01/16 15:30; Start 05/01/16 at 15:30; Stop 05/01/16 at 15:31; Status DC Heparin Sodium/ Sodium Chloride 1000 unit 1,000 unit 1X ONCE IART Last administered on 05/01/16 15:30; Start 05/01/16 at 15:30; Stop 05/01/16 at 15:31; Status DC Vancomycin HCl/ Sodium Chloride (Iv Sodium Chloride 0.9% 250ml) 250 ml @ 250 mls/hr Q24H IV ; Start 05/02/16 at 17:00; Stop 05/02/16 at 17:00; Status DC Vancomycin HCl 1 each 1 each 1X ONCE MC ; Start 05/03/16 at 16:30; Stop 05/03/16 at 16:31; Status Cancel Norepinephrine Bitartrate/Sodium Chloride (Levophed Vial/ Iv Sodium Chloride 0.9 % 250ml) 258 ml @ 0 mls/hr CONT PRN IV SEE I/O RECORD Last administered on 23:19; Start 05/01/16 at 18:15 Furosemide 20 mg 20 mg 1X ONCE IVP Last administered on 05/01/16 18:47; Start 05/01/16 at 19:15; Stop 05/01/16 at 19:16; Status DC Potassium Chloride 50 ml @ 50 mls/hr Q1H IV Last administered on 05/01/16 21:30 ; Start 05/01/16 at 21:00; Stop 05/01/16 at 22:59; Status DC Potassium Chloride 50 ml @ 50 mls/hr Q1H IV Last administered on 05/02/16 02:56 ; Start 05/02/16 at 02:00; Stop 05/02/16 at 03:59; Status DC Linezolid (Zyvox Premix) 300 ml @ 300 mls/hr Q12HR IV Last administered on 05/03 08:02; Start 05/02/16 at 09:00 Multivitamins/ Calcium (Thera M Plus) 1 tab DAILY PO Last administered on 08:02; Start 05/02/16 at 11:00 Ascorbic Acid 500 mg 500 mg DAILY PO Last administered on 05/03/16 08:02; Start 05/02/16 at 11:00 Albumin Human 250 ml @ 62.5 mls/hr 1X ONCE IV Last administered on 05/02/16 11:07; Start 05/02/16 at 10:45; Stop 05/02/16 at 14:47; Status DC Albumin Human 250 ml @ 62.5 mls/hr 1X ONCE IV Last administered on 05/02/16 13:34; Start 05/02/16 at 13:45; Stop 05/02/16 at 17:44; Status DC Sodium Chloride 1,000 ml @ 999 mls/hr 1X ONCE IV Last administered on 11:01; Start 05/02/16 at 10:45; Stop 05/02/16 at 11:45; Status DC Potassium Chloride 50 ml @ 50 mls/hr Q1H IV Last administered on 05/02/16 15:58 ; Start 05/02/16 at 13:45; Stop 05/02/16 at 15:44; Status DC Magnesium Sulfate/ Dextrose (Magnesium Sulfate PREMIX 4GM) 100 ml @ 25 mls/hr 1X ONCE IV Last administered on 05/02/16 15:15; Start 05/02/16 at 13:45; Stop 05/02/16 at 17:44; Status DC Aspirin (Ecotrin) 81 mg DAILY PO Last administered on 05/03/16 08:02; Start 05/02/16 at 15:00 Insulin Aspart (Novolog) QIDACHS SQ ; Start 05/02/16 at 16:30; Stop 05/02/16 at 16:30; Status DC Insulin Aspart (Novolog) 5 units TIDAC SQ Last administered on 05/02/16 16:41; Start 05/02/16 at 16:30 Insulin Detemir (Levemir) 10 units DAILY SQ ; Start 05/03/16 at 09:00 Lisinopril (Prinivil) 5 mg DAILY PO ; Start 05/02/16 at 15:00 Insulin Detemir (Levemir) 8 units QHS SQ Last administered on 05/02/16 21:12; Start 05/02/16 at 21:00 Potassium Chloride (Klor-Con) 40 meq DAILYWBKFT PO Last administered on 08:02; Start 05/03/16 at 08:00 Insulin Aspart (Novolog) 0-7 UNITS TIDWMEALS SQ ; Start 05/02/16 at 17:00 Dextrose 12.5 gm 12.5 gm PRN Q15MIN PRN IV SEE COMMENTS Last administered on 06:23; Start 05/02/16 at 15:45 Sodium Chloride (Iv Sodium Chloride 0.9% 1000ml Bag) 1,000 ml @ 100 mls/hr Q10H IV Last administered on 05/03/16 05:31; Start 05/02/16 at 18:00 Active Scripts Active Novolog Flexpen (Insulin Aspart) 100 Unit/1 Ml Insuln.pen 0 Units SQ QIDACHS Thera-M Tablet (Multivits,Ca,Minerals/Iron/Fa) 1 Each Tablet 1 Tab PO DAILY Levemir Flextouch (Insulin Detemir) 100 Unit/1 Ml Insuln.pen 10 Units SQ DAILY Lisinopril 5 Mg Tablet 1 Tab PO DAILY Reported Potassium Chloride 20 Meq Tablet.er 40 Meq PO DAILY 7 Days Amox Tr-K Clv 500-125 Mg Tab (Amoxicillin/Potassium Clav) 1 Each Tablet 1 Tab PO BID Zinc 50 Mg Tablet 220 Mg PO DAILY Ascorbic Acid 500 Mg Tablet 500 Mg PO DAILY Aspirin Ec (Aspirin) 81 Mg Tablet.dr 1 Tab PO DAILY Levemir (Insulin Detemir) 100 Unit/1 Ml Vial 8 Unit SQ HS Novolog Flexpen (Insulin Aspart) 100 Unit/1 Ml Insuln.pen 5 Unit SQ TIDAC Vitals/I & O Vital Sign - Last 24 Hours 05/02/16 05/02/16 05/02/16 05/02/16 12:54 13:00 14:00 15:00 Pulse 134 120 120 Resp 33 25 25 B/P 117/64 123/51 136/50 Pulse Ox 100 97 100 100 O2 Delivery Nasal Cannula Room Air Nasal Cannula Nasal Cannula O2 Flow Rate 2.0 2.0 2.0 2.0 05/02/16 05/02/16 05/02/16 05/02/16 16:00 16:00 17:00 18:00 Temp 98.6 98.6 Pulse 122 126 125 Resp 20 25 28 B/P 111/52 120/55 122/69 Pulse Ox 100 100 100 O2 Delivery Room Air Room Air Room Air Nasal Cannula 05/02/16 05/02/16 05/02/16 05/02/16 19:00 19:13 19:54 20:00 Temp 98.4 98.4 Pulse 132 130 Resp 32 25 B/P 107/58 120/47 Pulse Ox 100 96 100 O2 Delivery Room Air Room Air Room Air Room Air 05/02/16 05/02/16 05/02/16 05/02/16 21:00 22:00 23:00 23:53 Pulse 129 130 124 Resp 24 22 22 B/P 114/51 121/55 126/57 Pulse Ox 100 100 100 O2 Delivery Room Air Room Air Room Air Room Air 05/03/16 05/03/16 05/03/16 05/03/16 00:00 01:00 02:00 03:00 Temp 98.5 98.5 Pulse 126 126 124 123 Resp 18 20 21 16 B/P 114/58 123/61 118/58 126/62 Pulse Ox 100 100 100 100 O2 Delivery Room Air Room Air Room Air Room Air 05/03/16 05/03/16 05/03/16 05/03/16 04:00 04:00 05:00 06:00 Temp 98.6 98.6 Pulse 124 124 128 Resp 15 17 18 B/P 118/60 111/54 105/54 Pulse Ox 99 99 99 O2 Delivery Room Air Room Air Room Air Room Air 05/03/16 05/03/16 05/03/16 05/03/16 07:00 08:00 08:00 08:19 Temp 100.3 100.3 Pulse 128 127 Resp 13 21 B/P 127/57 122/53 Pulse Ox 99 99 100 O2 Delivery Room Air Room Air Room Air Room Air 05/03/16 05/03/16 09:00 10:00 Pulse 124 115 Resp 25 15 B/P 125/46 102/52 Pulse Ox 98 100 O2 Delivery Room Air Room Air Intake and Output 05/02/16 05/02/16 05/03/16 15:00 23:00 07:00 Intake Total 100 ml 2934.4 ml 1172 ml Output Total 620 ml 680 ml 570 ml Balance -520 ml 2254.4 ml 602 ml CARO VILLAFANA MD May 03, 2016 12:03
[2016-05-03] MEDS: ACETAMINOPHEN 325 MG TABLET. PO PRN (17:08)
[2016-05-04] MEDS: ACETAMINOPHEN 325 MG TABLET. PO PRN (03:05)
[2016-05-04 03:06] VITALS: BP 158/77
[2016-05-04] MEDS: IV NORMAL SALINE 1000ML BAG 1,000 ML IV SCH ×2 (05:06→17:39)
[2016-05-04] MEDS: PIPERACILLIN/TAZOBACTAM 3.375 GM in IV NORMAL SALINE 50ML 50 ML IV SCH (05:06)
[2016-05-04] MEDS: HEPARIN PF for SUB-Q USE 5,000 UNIT/0.5 ML VIAL. SQ SCH ×3 (05:08→22:38)
[2016-05-04 07:00] VITALS: BP 167/87
[2016-05-04] MEDS: INSULIN ASPART 300 UNITS/3 ML INSULN.PEN SQ SCH ×6 (07:30→17:00)
[2016-05-04] MEDS: ASCORBIC ACID 500 MG TABLET PO SCH (08:42)
[2016-05-04] MEDS: ASPIRIN ENTERIC COATED 81 MG TABLET.DR. PO SCH (08:43)
[2016-05-04] MEDS: MULTIVITAMIN with MINERAL TABLET. PO SCH (08:43)
[2016-05-04] MEDS: POTASSIUM CHLORIDE 20 MEQ TABLET.ER. PO SCH (08:43)
[2016-05-04] MEDS: LISINOPRIL 5 MG TABLET. PO SCH (08:44)
[2016-05-04] MEDS: INSULIN DETEMIR 300 UNITS/3 ML INSULN.PEN. SQ SCH ×2 (08:56→20:25)
[2016-05-04] MEDS: IPRATRPIUM/ALBUTEROL 0.5/2.5MG 3 ML NEBU. NEB SCH ×4 (09:11→20:07)
--- NOTE | 2016-05-04 09:52 | RAD ---
Indication follow-up pneumonia. Single view of the chest was obtained and is compared to a study 2 days previously. Infiltrate in the right midlung and lower lobe, compatible with pneumonia, persists and appears slightly worse. Right pleural effusion is present and is stable to slightly larger. Heart and pulmonary vessels are within normal limits. A focal process in the left lung is not seen. Left IJ catheter is noted. IMPRESSION: Slight interval worsening in the appearance of the chest
--- NOTE | 2016-05-04 09:53 | PDOC ---
PROGRESS NOTES Chief Complaint Chief Complaint cc: DKA DKA POA, Sepsis POA, strep pneumo bacteremia acute hypoxic resp failure is improved, out of ICU to floor metabolic acidosis imroved weakness, acq encephlalopathy, acute RLL PNEUMONIA. constipation RT foot wound , History of Present Illness History of Present Illness multi buttock ulcers, present on admit, 3 stage 2 on zosyn, zyvox dietary consult hypoglycemic yester encourage PO Inake poor PO intake, boost glucose control, underweight no chills no chest pain getting better. Vitals Vitals Vital Signs Date Time Temp Pulse Resp B/P Pulse Ox O2 Delivery O2 Flow Rate FiO2 05/04/16 09:12 100 Room Air 05/04/16 08:44 167/87 05/04/16 07:00 98.2 110 22 98.2 Physical Exam General: Alert Heart: Normal S1, Normal S2 Lungs: Other (improved RLL) Abdomen: Normal bowel sounds, Soft Extremities: No clubbing Skin: Other (R HEEL WOUND) Labs LABS Laboratory Tests Test 05/03/16 09:55 05/03/16 13:07 05/03/16 13:08 05/03/16 14:00 Glucose (Fingerstick) 88mg/dL (70-99) 31mg/dL (70-99) 26mg/dL (70-99) Glucose Level 129mg/dL (70-99) Test 05/03/16 16:50 05/03/16 18:24 05/03/16 20:15 05/04/16 07:37 Glucose (Fingerstick) 73mg/dL (70-99) 69mg/dL (70-99) 119mg/dL (70-99) 246mg/dL (70-99) Assessment and Plan Assessmemt and Plan Problems Medical Problems: (1) Diabetic ketoacidosis Status: Acute (2) DKA (diabetic ketoacidoses) Status: Acute Problems: Comment Review of Relevant I have reviewed the following items varun (where applicable) has been applied. Labs Laboratory Tests Test 05/02/16 10:28 05/02/16 11:28 05/02/16 12:19 05/02/16 12:30 Glucose (Fingerstick) 120mg/dL (70-99) 122mg/dL (70-99) 169mg/dL (70-99) White Blood Count 5.9x10^3/uL (4.0-11.0) Red Blood Count 2.97x10^6/uL (3.50-5.40) Hemoglobin 8.6g/dL (12.0-15.5) Hematocrit 26.6% (36.0-47.0) Mean Corpuscular Volume 89fL (79-100) Mean Corpuscular Hemoglobin 29pg (25-35) Mean Corpuscular Hemoglobin Concent 33g/dL (31-37) Red Cell Distribution Width 15.7% (11.5-14.5) Platelet Count 246x10^3/uL (140-400) Neutrophils (%) (Auto) 87% (31-73) Lymphocytes (%) (Auto) 11% (24-48) Monocytes (%) (Auto) 1% (0-9) Eosinophils (%) (Auto) 0% (0-3) Basophils (%) (Auto) 0% (0-3) Neutrophils # (Auto) 5.2x10^3uL (1.8-7.7) Lymphocytes # (Auto) 0.6x10^3/uL (1.0-4.8) Monocytes # (Auto) 0.1x10^3/uL (0.0-1.1) Eosinophils # (Auto) 0.0x10^3/uL (0.0-0.7) Basophils # (Auto) 0.0x10^3/uL (0.0-0.2) Segmented Neutrophils % 39% (35-66) Band Neutrophils % 41% (0-9) Lymphocytes % 10% (24-48) Metamyelocytes % 7% (0-0) Myelocytes % 3% (0-0) Nucleated Red Blood Cells 1 Toxic Granulation Slight Toxic Vacuolation Slight Platelet Estimate Adequate (ADEQUATE) Polychromasia Slight Hypochromasia Slight Anisocytosis Slight Tear Drop Cells Occ Sodium Level 142mmol/L (136-145) Potassium Level 4.2mmol/L (3.5-5.1) Chloride Level 113mmol/L (98-107) Carbon Dioxide Level 20mmol/L (21-32) Anion Gap 9 (6-14) Blood Urea Nitrogen 16mg/dL (7-20) Creatinine 0.8mg/dL (0.6-1.0) Estimated GFR (Cockcroft-Gault) 86.3 BUN/Creatinine Ratio 20 (6-20) Glucose Level 182mg/dL (70-99) Calcium Level 7.4mg/dL (8.5-10.1) Phosphorus Level 3.5mg/dL (2.6-4.7) Magnesium Level 1.8mg/dL (1.8-2.4) Total Bilirubin 0.3mg/dL (0.2-1.0) Aspartate Amino Transf (AST/SGOT) 42U/L (15-37) Alanine Aminotransferase (ALT/SGPT) 28U/L (14-59) Alkaline Phosphatase 127U/L (46-116) Total Protein 4.6g/dL (6.4-8.2) Albumin 2.0g/dL (3.4-5.0) Albumin/Globulin Ratio 0.8 (1.0-1.7) Test 05/02/16 13:31 05/02/16 14:50 05/02/16 16:39 05/02/16 21:07 Glucose (Fingerstick) 115mg/dL (70-99) 166mg/dL (70-99) 121mg/dL (70-99) 232mg/dL (70-99) Test 05/03/16 05:40 05/03/16 06:30 05/03/16 07:24 05/03/16 09:55 White Blood Count 12.0x10^3/uL (4.0-11.0) Red Blood Count 2.82x10^6/uL (3.50-5.40) Hemoglobin 8.2g/dL (12.0-15.5) Hematocrit 25.1% (36.0-47.0) Mean Corpuscular Volume 89fL (79-100) Mean Corpuscular Hemoglobin 29pg (25-35) Mean Corpuscular Hemoglobin Concent 33g/dL (31-37) Red Cell Distribution Width 15.9% (11.5-14.5) Platelet Count 228x10^3/uL (140-400) Neutrophils (%) (Auto) 94% (31-73) Lymphocytes (%) (Auto) 5% (24-48) Monocytes (%) (Auto) 1% (0-9) Eosinophils (%) (Auto) 0% (0-3) Basophils (%) (Auto) 0% (0-3) Neutrophils # (Auto) 11.3x10^3uL (1.8-7.7) Lymphocytes # (Auto) 0.6x10^3/uL (1.0-4.8) Monocytes # (Auto) 0.1x10^3/uL (0.0-1.1) Eosinophils # (Auto) 0.0x10^3/uL (0.0-0.7) Basophils # (Auto) 0.0x10^3/uL (0.0-0.2) Segmented Neutrophils % 66% (35-66) Band Neutrophils % 15% (0-9) Lymphocytes % 12% (24-48) Monocytes % 7% (0-10) Platelet Estimate Adequate (ADEQUATE) Sodium Level 145mmol/L (136-145) Potassium Level 3.8mmol/L (3.5-5.1) Chloride Level 115mmol/L (98-107) Carbon Dioxide Level 22mmol/L (21-32) Anion Gap 8 (6-14) Blood Urea Nitrogen 12mg/dL (7-20) Creatinine 0.8mg/dL (0.6-1.0) Estimated GFR (Cockcroft-Gault) 86.3 Glucose Level 45mg/dL (70-99) Calcium Level 8.2mg/dL (8.5-10.1) Glucose (Fingerstick) 95mg/dL (70-99) 71mg/dL (70-99) 88mg/dL (70-99) Test 05/03/16 13:07 05/03/16 13:08 05/03/16 14:00 05/03/16 16:50 Glucose (Fingerstick) 31mg/dL (70-99) 26mg/dL (70-99) 73mg/dL (70-99) Glucose Level 129mg/dL (70-99) Test 05/03/16 18:24 05/03/16 20:15 05/04/16 07:37 Glucose (Fingerstick) 69mg/dL (70-99) 119mg/dL (70-99) 246mg/dL (70-99) Laboratory Tests Test 05/03/16 09:55 05/03/16 13:07 05/03/16 13:08 05/03/16 14:00 Glucose (Fingerstick) 88mg/dL (70-99) 31mg/dL (70-99) 26mg/dL (70-99) Glucose Level 129mg/dL (70-99) Test 05/03/16 16:50 05/03/16 18:24 05/03/16 20:15 05/04/16 07:37 Glucose (Fingerstick) 73mg/dL (70-99) 69mg/dL (70-99) 119mg/dL (70-99) 246mg/dL (70-99) Microbiology 05/01/16 Blood Culture - Final, Complete 05/01/16 Blood Culture Result 1 (CASEY) - Final, Complete 05/01/16 Antimicrobic Susceptibility - Final, Complete 05/01/16 Urine Culture - Final, Complete 05/01/16 Urine Culture Result 1 (CASEY) - Final, Complete Medications Current Medications Sodium Chloride 1,000 ml @ 1,000 mls/hr Q1H IV Last administered on 04/30/16 20:30; Start 04/30/16 at 20:30; Stop 04/30/16 at 21:29; Status DC Sodium Chloride 1,000 ml @ 1,000 mls/hr Q1H IV Last administered on 04/30/16 21:47; Start 04/30/16 at 21:30; Stop 04/30/16 at 21:31; Status DC Insulin Human Regular 150 unit/ Sodium Chloride 151.5 ml @ 0 mls/hr CONT PRN PRN IV PER PROTOCOL Last administered on 04/30/16 21:23; Start 04/30/16 at 21:15 Potassium Chloride 100 ml @ 100 mls/hr PRN Q1HR PRN IV SEE COMMENTS; Start 04/30/16 at 21:15 Potassium Chloride 100 ml @ 100 mls/hr PRN Q1HR PRN IV SEE COMMENTS; Start 04/30/16 at 21:15 Potassium Chloride (KCl Premix 10meq) 100 ml @ 100 mls/hr PRN Q1HR PRN IV SEE COMMENTS; Start 04/30/16 at 21:15 Ondansetron HCl (Zofran) 4 mg PRN Q8HRS PRN IV NAUSEA/VOMITING Last administered on 05/01/16 04:57; Start 04/30/16 at 21:30; Stop 05/01/16 at 21:29; Status DC Acetaminophen 650 mg 650 mg PRN Q4HRS PRN PO FEVER Last administered on 18:00; Start 04/30/16 at 21:30; Stop 05/01/16 at 21:29; Status DC Potassium Chloride/Sodium Chloride (KCl 40 Meq-NS 1,000 ml Iv Soln) 1,000 ml @ 150 mls/hr 1X ONCE IV Last administered on 04/30/16 21:48; Start 04/30/16 at 22 :00; Stop 05/01/16 at 04:39; Status DC Hydralazine HCl 10 mg 10 mg 1X ONCE IVP Last administered on 04/30/16 22:10; Start 04/30/16 at 22:00; Stop 04/30/16 at 22:01; Status DC Sodium Bicarbonate 150 meq/Sterile Water 1,150 ml @ 125 mls/hr 1X ONCE IV Last administered on 05/01/16 01:30; Start 05/01/16 at 01:30; Stop 05/01/16 at 10: 41; Status DC Potassium Chloride (KCl Premix 10meq) 100 ml @ 100 mls/hr Q1H IV Last administered on 05/01/16 05:48; Start 05/01/16 at 03:00; Stop 05/01/16 at 06:59; Status DC Dextrose 25 gm STK-MED ONCE IV ; Start 05/01/16 at 07:48; Stop 05/01/16 at 07:49; Status DC Dextrose 25 gm 25 gm 1X ONCE IV Last administered on 05/01/16 07:45; Start 05/01/16 at 08:15; Stop 05/01/16 at 08:16; Status DC Dextrose/Sodium Chloride (Iv D5% - 1/2 NS) 1,000 ml @ 100 mls/hr Q10H IV Last administered on 05/02/16 12:25; Start 05/01/16 at 08:23; Stop 05/02/16 at 18:03; Status DC Vancomycin HCl (Vanco Per Pharmacy) 1 each PRN DAILY PRN MC SEE COMMENTS Last administered on 05/01/16 16:21; Start 05/01/16 at 09:45; Stop 05/02/16 at 07:27; Status DC Piperacillin Sod/ Tazobactam Sod 1 each 1 each PRN DAILY PRN MC SEE COMMENTS; Start 05/01/16 at 09:45; Stop 05/01/16 at 12:21; Status DC Vancomycin HCl 1 gm/Sodium Chloride 250 ml @ 250 mls/hr 1X ONCE IV ; Start 05/01/16 at 10:00; Stop 05/01/16 at 10:59; Status DC Piperacillin Sod/ Tazobactam Sod 2.25 gm/Sodium Chloride 50 ml @ 100 mls/hr Q6HRS IV ; Start 05/01/16 at 12:00; Stop 05/01/16 at 12:21; Status DC Sodium Phosphate 20 mmol/Dextrose 256.6667 ml @ 64.167 m... 1X ONCE IV Last administered on 05/01/16 16:09; Start 05/01/16 at 10:00; Stop 05/01/16 at 13:59; Status DC Magnesium Sulfate/ Dextrose 50 ml @ 25 mls/hr 1X ONCE IV Last administered on 05/01/16 13:09; Start 05/01/16 at 10:00; Stop 05/01/16 at 11:59; Status DC Magnesium Sulfate/ Dextrose (Magnesium Sulfate PREMIX 4GM) 100 ml @ 25 mls/hr PRN DAILY PRN IV Mag level <1.9 and UO>30ml/hr; Start 05/02/16 at 09:00 Sodium Bicarbonate 50 meq 1X ONCE IV Last administered on 05/01/16 13:07; Start 05/01/16 at 11:30; Stop 05/01/16 at 11:31; Status DC Iohexol (Omnipaque 300 Mg/ml) 60 ml 1X ONCE IV Last administered on 05/01/16 12:15; Start 05/01/16 at 12:15; Stop 05/01/16 at 12:16; Status DC Info (Do NOT chart on this entry -- for MONITORING) 1 each PRN DAILY PRN MC SEE COMMENTS; Start 05/01/16 at 11:45; Stop 05/03/16 at 11:44; Status DC Acetaminophen (Tylenol) 650 mg PRN Q6HRS PRN PO MILD PAIN / TEMP Last administered on 05/04/16 03:05; Start 05/01/16 at 12:15 Ondansetron HCl (Zofran) 4 mg PRN Q6HRS PRN IV NAUSEA/VOMITING; Start 05/01/16 at 12:15 Albuterol/ Ipratropium (Duoneb) 3 ml RTQID NEB Last administered on 05/04/16 09 :11; Start 05/01/16 at 16:00 Albuterol Sulfate (Ventolin Neb Soln) 2.5 mg PRN Q4HRS PRN NEB SHORTNESS OF BREATH; Start 05/01/16 at 12:15 Heparin Sodium (Porcine) 5000 unit 5,000 unit Q8HRS SQ Last administered on 05/04 05:08; Start 05/01/16 at 14:00 Piperacillin Sod/ Tazobactam Sod 3.375 gm/Sodium Chloride 50 ml @ 100 mls/hr Q6HRS IV Last administered on 05/04/16 05:06; Start 05/01/16 at 12:00 Vancomycin HCl 1 gm/Sodium Chloride 250 ml @ 250 mls/hr 1X ONCE IV Last administered on 05/01/16 16:09; Start 05/01/16 at 13:30; Stop 05/01/16 at 14:29; Status DC Heparin Sodium/ Sodium Chloride 500 ml @ As Directed STK-MED ONCE .ROUTE ; Start 05/01/16 at 13:09; Stop 05/01/16 at 13:10; Status DC Lidocaine/Sodium Bicarbonate (Buffered Lidocaine 1%) 3 ml 1X ONCE IJ Last administered on 05/01/16 14:00; Start 05/01/16 at 14:00; Stop 05/01/16 at 14:01; Status DC Heparin Sodium/ Sodium Chloride 60 unit 1X ONCE IV Last administered on 14:00; Start 05/01/16 at 14:00; Stop 05/01/16 at 14:01; Status DC Lidocaine/Sodium Bicarbonate (Buffered Lidocaine 1%) 20 ml 1X ONCE IJ Last administered on 05/01/16 15:30; Start 05/01/16 at 15:30; Stop 05/01/16 at 15:31; Status DC Heparin Sodium/ Sodium Chloride 1000 unit 1,000 unit 1X ONCE IART Last administered on 05/01/16 15:30; Start 05/01/16 at 15:30; Stop 05/01/16 at 15:31; Status DC Vancomycin HCl/ Sodium Chloride (Iv Sodium Chloride 0.9% 250ml) 250 ml @ 250 mls/hr Q24H IV ; Start 05/02/16 at 17:00; Stop 05/02/16 at 17:00; Status DC Vancomycin HCl 1 each 1 each 1X ONCE MC ; Start 05/03/16 at 16:30; Stop 05/03/16 at 16:31; Status Cancel Norepinephrine Bitartrate/Sodium Chloride (Levophed Vial/ Iv Sodium Chloride 0.9 % 250ml) 258 ml @ 0 mls/hr CONT PRN IV SEE I/O RECORD Last administered on 23:19; Start 05/01/16 at 18:15 Furosemide 20 mg 20 mg 1X ONCE IVP Last administered on 05/01/16 18:47; Start 05/01/16 at 19:15; Stop 05/01/16 at 19:16; Status DC Potassium Chloride 50 ml @ 50 mls/hr Q1H IV Last administered on 05/01/16 21:30 ; Start 05/01/16 at 21:00; Stop 05/01/16 at 22:59; Status DC Potassium Chloride 50 ml @ 50 mls/hr Q1H IV Last administered on 05/02/16 02:56 ; Start 05/02/16 at 02:00; Stop 05/02/16 at 03:59; Status DC Linezolid (Zyvox Premix) 300 ml @ 300 mls/hr Q12HR IV Last administered on 05/04 08:43; Start 05/02/16 at 09:00 Multivitamins/ Calcium (Thera M Plus) 1 tab DAILY PO Last administered on 08:43; Start 05/02/16 at 11:00 Ascorbic Acid 500 mg 500 mg DAILY PO Last administered on 05/04/16 08:42; Start 05/02/16 at 11:00 Albumin Human 250 ml @ 62.5 mls/hr 1X ONCE IV Last administered on 05/02/16 11:07; Start 05/02/16 at 10:45; Stop 05/02/16 at 14:47; Status DC Albumin Human 250 ml @ 62.5 mls/hr 1X ONCE IV Last administered on 05/02/16 13:34; Start 05/02/16 at 13:45; Stop 05/02/16 at 17:44; Status DC Sodium Chloride 1,000 ml @ 999 mls/hr 1X ONCE IV Last administered on 11:01; Start 05/02/16 at 10:45; Stop 05/02/16 at 11:45; Status DC Potassium Chloride 50 ml @ 50 mls/hr Q1H IV Last administered on 05/02/16 15:58 ; Start 05/02/16 at 13:45; Stop 05/02/16 at 15:44; Status DC Magnesium Sulfate/ Dextrose (Magnesium Sulfate PREMIX 4GM) 100 ml @ 25 mls/hr 1X ONCE IV Last administered on 05/02/16 15:15; Start 05/02/16 at 13:45; Stop 05/02/16 at 17:44; Status DC Aspirin (Ecotrin) 81 mg DAILY PO Last administered on 05/04/16 08:43; Start 05/02/16 at 15:00 Insulin Aspart (Novolog) QIDACHS SQ ; Start 05/02/16 at 16:30; Stop 05/02/16 at 16:30; Status DC Insulin Aspart (Novolog) 5 units TIDAC SQ Last administered on 05/02/16 16:41; Start 05/02/16 at 16:30 Insulin Detemir (Levemir) 10 units DAILY SQ Last administered on 05/04/16 08:56 ; Start 05/03/16 at 09:00 Lisinopril (Prinivil) 5 mg DAILY PO Last administered on 05/04/16 08:44; Start 05/02/16 at 15:00 Insulin Detemir (Levemir) 8 units QHS SQ Last administered on 05/03/16 21:09; Start 05/02/16 at 21:00 Potassium Chloride (Klor-Con) 40 meq DAILYWBKFT PO Last administered on 08:43; Start 05/03/16 at 08:00 Insulin Aspart (Novolog) 0-7 UNITS TIDWMEALS SQ Last administered on 05/04/16 08:56; Start 05/02/16 at 17:00 Dextrose 12.5 gm 12.5 gm PRN Q15MIN PRN IV SEE COMMENTS Last administered on 13:17; Start 05/02/16 at 15:45 Sodium Chloride (Iv Sodium Chloride 0.9% 1000ml Bag) 1,000 ml @ 100 mls/hr Q10H IV Last administered on 05/04/16 05:06; Start 05/02/16 at 18:00 Active Scripts Active Novolog Flexpen (Insulin Aspart) 100 Unit/1 Ml Insuln.pen 0 Units SQ QIDACHS Thera-M Tablet (Multivits,Ca,Minerals/Iron/Fa) 1 Each Tablet 1 Tab PO DAILY Levemir Flextouch (Insulin Detemir) 100 Unit/1 Ml Insuln.pen 10 Units SQ DAILY Lisinopril 5 Mg Tablet 1 Tab PO DAILY Reported Potassium Chloride 20 Meq Tablet.er 40 Meq PO DAILY 7 Days Amox Tr-K Clv 500-125 Mg Tab (Amoxicillin/Potassium Clav) 1 Each Tablet 1 Tab PO BID Zinc 50 Mg Tablet 220 Mg PO DAILY Ascorbic Acid 500 Mg Tablet 500 Mg PO DAILY Aspirin Ec (Aspirin) 81 Mg Tablet.dr 1 Tab PO DAILY Levemir (Insulin Detemir) 100 Unit/1 Ml Vial 8 Unit SQ HS Novolog Flexpen (Insulin Aspart) 100 Unit/1 Ml Insuln.pen 5 Unit SQ TIDAC Vitals/I & O Vital Sign - Last 24 Hours 05/03/16 05/03/16 05/03/16 05/03/16 10:00 11:00 12:00 12:00 Temp 98.6 98.6 Pulse 115 110 108 Resp 15 17 14 B/P 102/52 112/58 110/49 Pulse Ox 100 100 100 O2 Delivery Room Air Room Air Room Air Room Air 05/03/16 05/03/16 05/03/16 05/03/16 12:33 13:00 14:00 15:00 Pulse 115 111 112 Resp 23 20 18 B/P 115/59 118/87 98/62 Pulse Ox 94 98 100 O2 Delivery Room Air Room Air Room Air Room Air 05/03/16 05/03/16 05/03/16 05/03/16 15:58 16:00 16:48 19:00 O2 Delivery Room Air Room Air Room Air Room Air 05/03/16 05/03/16 05/03/16 05/04/16 19:00 20:34 23:00 03:06 Temp 98.1 98.8 100.8 98.1 98.8 100.8 Pulse 107 106 112 Resp 18 18 18 B/P 99/55 128/66 158/77 Pulse Ox 98 99 97 O2 Delivery Room Air Room Air Room Air Room Air 05/04/16 05/04/16 05/04/16 07:00 08:44 09:12 Temp 98.2 98.2 Pulse 110 Resp 22 B/P 167/87 167/87 Pulse Ox 95 100 O2 Delivery Room Air Room Air Intake and Output 05/03/16 05/03/16 05/04/16 15:00 23:00 07:00 Intake Total 200 ml 300 ml 1270 ml Output Total 400 ml 300 ml 450 ml Balance -200 ml 0 ml 820 ml NIRAV DIAZ MD May 04, 2016 09:53
[2016-05-04 11:00] VITALS: BP 119/69
--- NOTE | 2016-05-04 11:11 | PDOC ---
PULMONARY PROGRESS NOTES Subjective much better on RA Vitals Vital Signs Date Time Temp Pulse Resp B/P Pulse Ox O2 Delivery O2 Flow Rate FiO2 05/04/16 09:12 100 Room Air 05/04/16 08:44 167/87 05/04/16 07:00 98.2 110 22 98.2 General: Alert, No acute distress Lungs: Other (improved RLL) Cardiovascular: S1 Abdomen: Soft, Non-tender Neuro Exam: Alert Extremities: No Edema Labs Laboratory Tests Test 05/02/16 11:28 05/02/16 12:19 05/02/16 12:30 05/02/16 13:31 Glucose (Fingerstick) 122mg/dL (70-99) 169mg/dL (70-99) 115mg/dL (70-99) White Blood Count 5.9x10^3/uL (4.0-11.0) Red Blood Count 2.97x10^6/uL (3.50-5.40) Hemoglobin 8.6g/dL (12.0-15.5) Hematocrit 26.6% (36.0-47.0) Mean Corpuscular Volume 89fL (79-100) Mean Corpuscular Hemoglobin 29pg (25-35) Mean Corpuscular Hemoglobin Concent 33g/dL (31-37) Red Cell Distribution Width 15.7% (11.5-14.5) Platelet Count 246x10^3/uL (140-400) Neutrophils (%) (Auto) 87% (31-73) Lymphocytes (%) (Auto) 11% (24-48) Monocytes (%) (Auto) 1% (0-9) Eosinophils (%) (Auto) 0% (0-3) Basophils (%) (Auto) 0% (0-3) Neutrophils # (Auto) 5.2x10^3uL (1.8-7.7) Lymphocytes # (Auto) 0.6x10^3/uL (1.0-4.8) Monocytes # (Auto) 0.1x10^3/uL (0.0-1.1) Eosinophils # (Auto) 0.0x10^3/uL (0.0-0.7) Basophils # (Auto) 0.0x10^3/uL (0.0-0.2) Segmented Neutrophils % 39% (35-66) Band Neutrophils % 41% (0-9) Lymphocytes % 10% (24-48) Metamyelocytes % 7% (0-0) Myelocytes % 3% (0-0) Nucleated Red Blood Cells 1 Toxic Granulation Slight Toxic Vacuolation Slight Platelet Estimate Adequate (ADEQUATE) Polychromasia Slight Hypochromasia Slight Anisocytosis Slight Tear Drop Cells Occ Sodium Level 142mmol/L (136-145) Potassium Level 4.2mmol/L (3.5-5.1) Chloride Level 113mmol/L (98-107) Carbon Dioxide Level 20mmol/L (21-32) Anion Gap 9 (6-14) Blood Urea Nitrogen 16mg/dL (7-20) Creatinine 0.8mg/dL (0.6-1.0) Estimated GFR (Cockcroft-Gault) 86.3 BUN/Creatinine Ratio 20 (6-20) Glucose Level 182mg/dL (70-99) Calcium Level 7.4mg/dL (8.5-10.1) Phosphorus Level 3.5mg/dL (2.6-4.7) Magnesium Level 1.8mg/dL (1.8-2.4) Total Bilirubin 0.3mg/dL (0.2-1.0) Aspartate Amino Transf (AST/SGOT) 42U/L (15-37) Alanine Aminotransferase (ALT/SGPT) 28U/L (14-59) Alkaline Phosphatase 127U/L (46-116) Total Protein 4.6g/dL (6.4-8.2) Albumin 2.0g/dL (3.4-5.0) Albumin/Globulin Ratio 0.8 (1.0-1.7) Test 05/02/16 14:50 05/02/16 16:39 05/02/16 21:07 05/03/16 05:40 Glucose (Fingerstick) 166mg/dL (70-99) 121mg/dL (70-99) 232mg/dL (70-99) White Blood Count 12.0x10^3/uL (4.0-11.0) Red Blood Count 2.82x10^6/uL (3.50-5.40) Hemoglobin 8.2g/dL (12.0-15.5) Hematocrit 25.1% (36.0-47.0) Mean Corpuscular Volume 89fL (79-100) Mean Corpuscular Hemoglobin 29pg (25-35) Mean Corpuscular Hemoglobin Concent 33g/dL (31-37) Red Cell Distribution Width 15.9% (11.5-14.5) Platelet Count 228x10^3/uL (140-400) Neutrophils (%) (Auto) 94% (31-73) Lymphocytes (%) (Auto) 5% (24-48) Monocytes (%) (Auto) 1% (0-9) Eosinophils (%) (Auto) 0% (0-3) Basophils (%) (Auto) 0% (0-3) Neutrophils # (Auto) 11.3x10^3uL (1.8-7.7) Lymphocytes # (Auto) 0.6x10^3/uL (1.0-4.8) Monocytes # (Auto) 0.1x10^3/uL (0.0-1.1) Eosinophils # (Auto) 0.0x10^3/uL (0.0-0.7) Basophils # (Auto) 0.0x10^3/uL (0.0-0.2) Segmented Neutrophils % 66% (35-66) Band Neutrophils % 15% (0-9) Lymphocytes % 12% (24-48) Monocytes % 7% (0-10) Platelet Estimate Adequate (ADEQUATE) Sodium Level 145mmol/L (136-145) Potassium Level 3.8mmol/L (3.5-5.1) Chloride Level 115mmol/L (98-107) Carbon Dioxide Level 22mmol/L (21-32) Anion Gap 8 (6-14) Blood Urea Nitrogen 12mg/dL (7-20) Creatinine 0.8mg/dL (0.6-1.0) Estimated GFR (Cockcroft-Gault) 86.3 Glucose Level 45mg/dL (70-99) Calcium Level 8.2mg/dL (8.5-10.1) Test 05/03/16 06:30 05/03/16 07:24 05/03/16 09:55 05/03/16 13:07 Glucose (Fingerstick) 95mg/dL (70-99) 71mg/dL (70-99) 88mg/dL (70-99) 31mg/dL (70-99) Test 05/03/16 13:08 05/03/16 14:00 05/03/16 16:50 05/03/16 18:24 Glucose (Fingerstick) 26mg/dL (70-99) 73mg/dL (70-99) 69mg/dL (70-99) Glucose Level 129mg/dL (70-99) Test 05/03/16 20:15 05/04/16 07:37 Glucose (Fingerstick) 119mg/dL (70-99) 246mg/dL (70-99) Laboratory Tests Test 05/03/16 13:07 05/03/16 13:08 05/03/16 14:00 05/03/16 16:50 Glucose (Fingerstick) 31mg/dL (70-99) 26mg/dL (70-99) 73mg/dL (70-99) Glucose Level 129mg/dL (70-99) Test 05/03/16 18:24 05/03/16 20:15 05/04/16 07:37 Glucose (Fingerstick) 69mg/dL (70-99) 119mg/dL (70-99) 246mg/dL (70-99) Medications Active Scripts Medications Dose Route/Sig Days Date Category Potassium Chloride 20 Meq Tablet.er 40 Meq PO DAILY 7 02/22/16 Reported Amox Tr-K Clv 500-125 Mg Tab (Amoxicillin/Potassium Clav) 1 Each Tablet 1 Tab PO BID 02/11/16 Reported Zinc 50 Mg Tablet 220 Mg PO DAILY 01/31/16 Reported Ascorbic Acid 500 Mg Tablet 500 Mg PO DAILY 01/31/16 Reported Aspirin Ec (Aspirin) 81 Mg Tablet.dr 1 Tab PO DAILY 01/31/16 Reported Levemir (Insulin Detemir) 100 Unit/1 Ml Vial 8 Unit SQ HS 01/31/16 Reported Novolog Flexpen (Insulin Aspart) 100 Unit/1 Ml Insuln.pen 5 Unit SQ TIDAC 10/25/15 Reported Lisinopril 5 Mg Tablet 1 Tab PO DAILY 01/22/15 Rx Novolog Flexpen (Insulin Aspart) 100 Unit/1 Ml Insuln.pen 0 Units SQ QIDACHS 04/11/16 Rx Thera-M Tablet (Multivits,Ca,Minerals/Iron/Fa) 1 Each Tablet 1 Tab PO DAILY 04/11/16 Rx Levemir Flextouch (Insulin Detemir) 100 Unit/1 Ml Insuln.pen 10 Units SQ DAILY 04/11/16 Rx Impression . 1. Acute encephalopathy secondary to diabetic ketoacidosis. resolved 2. Right lower lobe pneumonia. ct chest with large consolidation RLL 3. Severe metabolic acidosis secondary to diabetic ketoacidosis. 4. No significant history of tobacco use. 5. Mild renal insufficiency, improving with IV fluids. 6. Acute hypoxic respiratory failure secondary to pneumonia. 7. Hypotension, sepsis, improved Plan . 1. prn oxygen ,keeping sats 92-94%. 2. Broad spectrum antibiotics as initiated by Infectious Disease. 3. CT chest reviewed 4. Management of DKA per PCP. 5. P.r.n. bicarbonate. 6. Replace magnesium and phosphorus.as needed 8. Discussed with RN 9. repeat cxr today FRANCISCO ZULUAGA MD May 04, 2016 11:11
--- NOTE | 2016-05-04 11:55 | PDOC ---
Infectious Disease Note Subjective Subjective Better. Ambulated earlier and ate some ROS ROS GEN: Denies fevers, chills, sweats HEENT: Denies blurred vision, sore throat CV: Denies chest pain RESP: Denies shortness of air, cough GI: Denies n/v/d NEURO: Denies confusion, dizziness MSK: Denies weakness, joint pain/swelling Vital Sign Vital Signs Vital Signs Date Time Temp Pulse Resp B/P Pulse Ox O2 Delivery O2 Flow Rate FiO2 05/04/16 11:00 98.5 101 22 119/69 99 Room Air 98.5 Physical Exam PHYSICAL EXAM GENERAL: NAD, Alert. In chair HEENT: PERRL, OC/OP -clear NECK: Supple, no JVD, no LN LUNGS: Clear HEART: S1S2, no gallop, no murmur ABD: Soft, NT, no organomegaly, no rebound EXT: No edema, no cyanosis [employer]: Alert, 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, no focal neurologic deficit SKIN: No rash IV: ok Labs Lab Laboratory Tests Test 05/03/16 13:07 05/03/16 13:08 05/03/16 14:00 05/03/16 16:50 Glucose (Fingerstick) 31mg/dL (70-99) 26mg/dL (70-99) 73mg/dL (70-99) Glucose Level 129mg/dL (70-99) Test 05/03/16 18:24 05/03/16 20:15 05/04/16 07:37 05/04/16 11:19 Glucose (Fingerstick) 69mg/dL (70-99) 119mg/dL (70-99) 246mg/dL (70-99) 225mg/dL (70-99) Objective Assessment Strep pneumonia sepsis - POA. 05/01 Resp failure - better Leukocytosis - likely leukomoid reaction from sepsis Fecal impaction - improving DKA - POA Pneumonia right - XRAY today reviewed still some effusion. No mass on CT. Influenza - neg. H/o Abd mass - followed by GI - CT w/o contrast 05/01 - no evidence of mass Fever - persist Foot wound - clean Sacral superficial wounds MRSA + screen Plan Plan of Care D/cont Zosyn - Discont Zyvox for now and f/u sensitivities Begin Rocephin F/u labs and cults LYNNE OROPEZA MD May 04, 2016 11:55
[2016-05-04] MEDS: CEFTRIAXONE SODIUM 1 GM in IV NORMAL SALINE 50ML 50 ML IV SCH (12:06)
[2016-05-04] MEDS: DEXTROSE 50% 25 GM / 50ML DISP.SYRIN. IV PRN ×5 (17:01→22:41)
[2016-05-04 19:00] VITALS: BP 118/65
[2016-05-04 23:00] VITALS: BP 137/55
[2016-05-05 03:00] VITALS: BP 149/75
[2016-05-05] MEDS: IV NORMAL SALINE 1000ML BAG 1,000 ML IV SCH ×2 (03:33→14:03)
[2016-05-05] MEDS: HEPARIN PF for SUB-Q USE 5,000 UNIT/0.5 ML VIAL. SQ SCH ×3 (06:16→21:34)
[2016-05-05] MEDS: INSULIN ASPART 300 UNITS/3 ML INSULN.PEN SQ SCH ×7 (07:30→17:31)
[2016-05-05 08:05] VITALS: BP 145/72
[2016-05-05] MEDS: POTASSIUM CHLORIDE 20 MEQ TABLET.ER. PO SCH (08:29)
[2016-05-05] MEDS: ASPIRIN ENTERIC COATED 81 MG TABLET.DR. PO SCH (08:30)
[2016-05-05] MEDS: LISINOPRIL 5 MG TABLET. PO SCH (08:33)
[2016-05-05] MEDS: MULTIVITAMIN with MINERAL TABLET. PO SCH (08:34)
[2016-05-05] MEDS: ASCORBIC ACID 500 MG TABLET PO SCH (08:34)
[2016-05-05] MEDS: INSULIN DETEMIR 300 UNITS/3 ML INSULN.PEN. SQ SCH ×2 (08:35→21:37)
[2016-05-05 08:44] LABS: BASO # 0.1 x10^3/uL (0.0-0.2); BASO % 0 % (0-3); EOS % 0 % (0-3); HEMATOCRIT 32.2 % (36.0-47.0); LYMPH # 1.2 x10^3/uL (1.0-4.8); LYMPH % 7 % (24-48); MEAN CORPUSCULAR HEMOGLOBIN 29 pg (25-35); MEAN CORPUSCULAR HGB CONC 31 g/dL (31-37); MEAN CORPUSCULAR VOLUME 92 fL (79-100); MONO % 2 % (0-9); NEUT % 91 % (31-73); PLATELET COUNT 169 x10^3/uL (140-400); RED BLOOD COUNT 3.49 x10^6/uL (3.50-5.40); RED CELL DISTRIBUTION WIDTH 16.6 % (11.5-14.5); WHITE BLOOD COUNT 18.7 x10^3/uL (4.0-11.0)
[2016-05-05] MEDS: IPRATRPIUM/ALBUTEROL 0.5/2.5MG 3 ML NEBU. NEB SCH ×4 (09:28→20:39)
--- NOTE | 2016-05-05 10:56 | PDOC ---
PROGRESS NOTES Chief Complaint Chief Complaint cc: DKA DKA POA, now brittle DM1 control Sepsis POA, strep pneumo bacteremia acute hypoxic resp failure is improved, out of ICU to floor metabolic acidosis imroved weakness, acq encephlalopathy, acute RLL PNEUMONIA. constipation RT foot wound , History of Present Illness History of Present Illness HYPOglycemia again last night, LEVEMIR held this AM, sugars now better range multi buttock ulcers, present on admit, stage 2 on rocephin encourage PO Inake poor PO intake, boost glucose control, underweight no chills no chest pain getting better. Vitals Vitals Vital Signs Date Time Temp Pulse Resp B/P Pulse Ox O2 Delivery O2 Flow Rate FiO2 05/05/16 09:28 98 Room Air 05/05/16 08:33 101 145/72 05/05/16 08:05 97.7 22 97.7 Physical Exam General: Alert, Oriented X3, Cooperative, No acute distress Heart: Normal S1, Normal S2, No murmurs Lungs: Clear, Other (improved RLL) Abdomen: Normal bowel sounds, Soft Extremities: No clubbing, No edema Skin: Other (R HEEL WOUND) Labs LABS Laboratory Tests Test 05/04/16 11:19 05/04/16 16:54 05/04/16 17:18 05/04/16 19:24 Glucose (Fingerstick) 225mg/dL (70-99) 25mg/dL (70-99) 86mg/dL (70-99) 29mg/dL (70-99) Test 05/04/16 19:52 05/04/16 22:26 05/04/16 22:59 05/04/16 23:57 Glucose (Fingerstick) 102mg/dL (70-99) 27mg/dL (70-99) 100mg/dL (70-99) 79mg/dL (70-99) Test 05/05/16 01:52 05/05/16 02:00 05/05/16 04:24 05/05/16 07:43 Glucose (Fingerstick) 114mg/dL (70-99) 123mg/dL (70-99) 129mg/dL (70-99) 185mg/dL (70-99) Test 05/05/16 08:25 White Blood Count 18.7x10^3/uL (4.0-11.0) Red Blood Count 3.49x10^6/uL (3.50-5.40) Hemoglobin 10.0g/dL (12.0-15.5) Hematocrit 32.2% (36.0-47.0) Mean Corpuscular Volume 92fL (79-100) Mean Corpuscular Hemoglobin 29pg (25-35) Mean Corpuscular Hemoglobin Concent 31g/dL (31-37) Red Cell Distribution Width 16.6% (11.5-14.5) Platelet Count 169x10^3/uL (140-400) Neutrophils (%) (Auto) 91% (31-73) Lymphocytes (%) (Auto) 7% (24-48) Monocytes (%) (Auto) 2% (0-9) Eosinophils (%) (Auto) 0% (0-3) Basophils (%) (Auto) 0% (0-3) Neutrophils # (Auto) 17.0x10^3uL (1.8-7.7) Lymphocytes # (Auto) 1.2x10^3/uL (1.0-4.8) Monocytes # (Auto) 0.3x10^3/uL (0.0-1.1) Eosinophils # (Auto) 0.1x10^3/uL (0.0-0.7) Basophils # (Auto) 0.1x10^3/uL (0.0-0.2) Review of Systems Review of Systems more energy today but still lethargic weakness no n.v.d Assessment and Plan Assessmemt and Plan Problems Medical Problems: (1) Diabetic ketoacidosis Status: Acute (2) DKA (diabetic ketoacidoses) Status: Acute Problems: Comment Review of Relevant I have reviewed the following items varun (where applicable) has been applied. Labs Laboratory Tests Test 05/03/16 13:07 05/03/16 13:08 05/03/16 14:00 05/03/16 16:50 Glucose (Fingerstick) 31mg/dL (70-99) 26mg/dL (70-99) 73mg/dL (70-99) Glucose Level 129mg/dL (70-99) Test 05/03/16 18:24 05/03/16 20:15 05/04/16 07:37 05/04/16 11:19 Glucose (Fingerstick) 69mg/dL (70-99) 119mg/dL (70-99) 246mg/dL (70-99) 225mg/dL (70-99) Test 05/04/16 16:54 05/04/16 17:18 05/04/16 19:24 05/04/16 19:52 Glucose (Fingerstick) 25mg/dL (70-99) 86mg/dL (70-99) 29mg/dL (70-99) 102mg/dL (70-99) Test 05/04/16 22:26 05/04/16 22:59 05/04/16 23:57 05/05/16 01:52 Glucose (Fingerstick) 27mg/dL (70-99) 100mg/dL (70-99) 79mg/dL (70-99) 114mg/dL (70-99) Test 05/05/16 02:00 05/05/16 04:24 05/05/16 07:43 05/05/16 08:25 Glucose (Fingerstick) 123mg/dL (70-99) 129mg/dL (70-99) 185mg/dL (70-99) White Blood Count 18.7x10^3/uL (4.0-11.0) Red Blood Count 3.49x10^6/uL (3.50-5.40) Hemoglobin 10.0g/dL (12.0-15.5) Hematocrit 32.2% (36.0-47.0) Mean Corpuscular Volume 92fL (79-100) Mean Corpuscular Hemoglobin 29pg (25-35) Mean Corpuscular Hemoglobin Concent 31g/dL (31-37) Red Cell Distribution Width 16.6% (11.5-14.5) Platelet Count 169x10^3/uL (140-400) Neutrophils (%) (Auto) 91% (31-73) Lymphocytes (%) (Auto) 7% (24-48) Monocytes (%) (Auto) 2% (0-9) Eosinophils (%) (Auto) 0% (0-3) Basophils (%) (Auto) 0% (0-3) Neutrophils # (Auto) 17.0x10^3uL (1.8-7.7) Lymphocytes # (Auto) 1.2x10^3/uL (1.0-4.8) Monocytes # (Auto) 0.3x10^3/uL (0.0-1.1) Eosinophils # (Auto) 0.1x10^3/uL (0.0-0.7) Basophils # (Auto) 0.1x10^3/uL (0.0-0.2) Laboratory Tests Test 05/04/16 11:19 05/04/16 16:54 05/04/16 17:18 05/04/16 19:24 Glucose (Fingerstick) 225mg/dL (70-99) 25mg/dL (70-99) 86mg/dL (70-99) 29mg/dL (70-99) Test 05/04/16 19:52 05/04/16 22:26 05/04/16 22:59 05/04/16 23:57 Glucose (Fingerstick) 102mg/dL (70-99) 27mg/dL (70-99) 100mg/dL (70-99) 79mg/dL (70-99) Test 05/05/16 01:52 05/05/16 02:00 05/05/16 04:24 05/05/16 07:43 Glucose (Fingerstick) 114mg/dL (70-99) 123mg/dL (70-99) 129mg/dL (70-99) 185mg/dL (70-99) Test 05/05/16 08:25 White Blood Count 18.7x10^3/uL (4.0-11.0) Red Blood Count 3.49x10^6/uL (3.50-5.40) Hemoglobin 10.0g/dL (12.0-15.5) Hematocrit 32.2% (36.0-47.0) Mean Corpuscular Volume 92fL (79-100) Mean Corpuscular Hemoglobin 29pg (25-35) Mean Corpuscular Hemoglobin Concent 31g/dL (31-37) Red Cell Distribution Width 16.6% (11.5-14.5) Platelet Count 169x10^3/uL (140-400) Neutrophils (%) (Auto) 91% (31-73) Lymphocytes (%) (Auto) 7% (24-48) Monocytes (%) (Auto) 2% (0-9) Eosinophils (%) (Auto) 0% (0-3) Basophils (%) (Auto) 0% (0-3) Neutrophils # (Auto) 17.0x10^3uL (1.8-7.7) Lymphocytes # (Auto) 1.2x10^3/uL (1.0-4.8) Monocytes # (Auto) 0.3x10^3/uL (0.0-1.1) Eosinophils # (Auto) 0.1x10^3/uL (0.0-0.7) Basophils # (Auto) 0.1x10^3/uL (0.0-0.2) Microbiology 05/01/16 Blood Culture - Final, Complete 05/01/16 Blood Culture Result 1 (CASEY) - Final, Complete 05/01/16 Antimicrobic Susceptibility - Final, Complete 05/01/16 Urine Culture - Final, Complete 05/01/16 Urine Culture Result 1 (CASEY) - Final, Complete Medications Current Medications Sodium Chloride 1,000 ml @ 1,000 mls/hr Q1H IV Last administered on 04/30/16 20:30; Start 04/30/16 at 20:30; Stop 04/30/16 at 21:29; Status DC Sodium Chloride 1,000 ml @ 1,000 mls/hr Q1H IV Last administered on 04/30/16 21:47; Start 04/30/16 at 21:30; Stop 04/30/16 at 21:31; Status DC Insulin Human Regular 150 unit/ Sodium Chloride 151.5 ml @ 0 mls/hr CONT PRN PRN IV PER PROTOCOL Last administered on 04/30/16 21:23; Start 04/30/16 at 21:15 ; Stop 05/04/16 at 13:41; Status DC Potassium Chloride 100 ml @ 100 mls/hr PRN Q1HR PRN IV SEE COMMENTS; Start 04/30/16 at 21:15 Potassium Chloride 100 ml @ 100 mls/hr PRN Q1HR PRN IV SEE COMMENTS; Start 04/30/16 at 21:15 Potassium Chloride (KCl Premix 10meq) 100 ml @ 100 mls/hr PRN Q1HR PRN IV SEE COMMENTS; Start 04/30/16 at 21:15 Ondansetron HCl (Zofran) 4 mg PRN Q8HRS PRN IV NAUSEA/VOMITING Last administered on 05/01/16 04:57; Start 04/30/16 at 21:30; Stop 05/01/16 at 21:29; Status DC Acetaminophen 650 mg 650 mg PRN Q4HRS PRN PO FEVER Last administered on 18:00; Start 04/30/16 at 21:30; Stop 05/01/16 at 21:29; Status DC Potassium Chloride/Sodium Chloride (KCl 40 Meq-NS 1,000 ml Iv Soln) 1,000 ml @ 150 mls/hr 1X ONCE IV Last administered on 04/30/16 21:48; Start 04/30/16 at 22 :00; Stop 05/01/16 at 04:39; Status DC Hydralazine HCl 10 mg 10 mg 1X ONCE IVP Last administered on 04/30/16 22:10; Start 04/30/16 at 22:00; Stop 04/30/16 at 22:01; Status DC Sodium Bicarbonate 150 meq/Sterile Water 1,150 ml @ 125 mls/hr 1X ONCE IV Last administered on 05/01/16 01:30; Start 05/01/16 at 01:30; Stop 05/01/16 at 10: 41; Status DC Potassium Chloride (KCl Premix 10meq) 100 ml @ 100 mls/hr Q1H IV Last administered on 05/01/16 05:48; Start 05/01/16 at 03:00; Stop 05/01/16 at 06:59; Status DC Dextrose 25 gm STK-MED ONCE IV ; Start 05/01/16 at 07:48; Stop 05/01/16 at 07:49; Status DC Dextrose 25 gm 25 gm 1X ONCE IV Last administered on 05/01/16 07:45; Start 05/01/16 at 08:15; Stop 05/01/16 at 08:16; Status DC Dextrose/Sodium Chloride (Iv D5% - 1/2 NS) 1,000 ml @ 100 mls/hr Q10H IV Last administered on 05/02/16 12:25; Start 05/01/16 at 08:23; Stop 05/02/16 at 18:03; Status DC Vancomycin HCl (Vanco Per Pharmacy) 1 each PRN DAILY PRN MC SEE COMMENTS Last administered on 05/01/16 16:21; Start 05/01/16 at 09:45; Stop 05/02/16 at 07:27; Status DC Piperacillin Sod/ Tazobactam Sod 1 each 1 each PRN DAILY PRN MC SEE COMMENTS; Start 05/01/16 at 09:45; Stop 05/01/16 at 12:21; Status DC Vancomycin HCl 1 gm/Sodium Chloride 250 ml @ 250 mls/hr 1X ONCE IV ; Start 05/01/16 at 10:00; Stop 05/01/16 at 10:59; Status DC Piperacillin Sod/ Tazobactam Sod 2.25 gm/Sodium Chloride 50 ml @ 100 mls/hr Q6HRS IV ; Start 05/01/16 at 12:00; Stop 05/01/16 at 12:21; Status DC Sodium Phosphate 20 mmol/Dextrose 256.6667 ml @ 64.167 m... 1X ONCE IV Last administered on 05/01/16 16:09; Start 05/01/16 at 10:00; Stop 05/01/16 at 13:59; Status DC Magnesium Sulfate/ Dextrose 50 ml @ 25 mls/hr 1X ONCE IV Last administered on 05/01/16 13:09; Start 05/01/16 at 10:00; Stop 05/01/16 at 11:59; Status DC Magnesium Sulfate/ Dextrose (Magnesium Sulfate PREMIX 4GM) 100 ml @ 25 mls/hr PRN DAILY PRN IV Mag level <1.9 and UO>30ml/hr; Start 05/02/16 at 09:00 Sodium Bicarbonate 50 meq 1X ONCE IV Last administered on 05/01/16 13:07; Start 05/01/16 at 11:30; Stop 05/01/16 at 11:31; Status DC Iohexol (Omnipaque 300 Mg/ml) 60 ml 1X ONCE IV Last administered on 05/01/16 12:15; Start 05/01/16 at 12:15; Stop 05/01/16 at 12:16; Status DC Info (Do NOT chart on this entry -- for MONITORING) 1 each PRN DAILY PRN MC SEE COMMENTS; Start 05/01/16 at 11:45; Stop 05/03/16 at 11:44; Status DC Acetaminophen (Tylenol) 650 mg PRN Q6HRS PRN PO MILD PAIN / TEMP Last administered on 05/04/16 03:05; Start 05/01/16 at 12:15 Ondansetron HCl (Zofran) 4 mg PRN Q6HRS PRN IV NAUSEA/VOMITING; Start 05/01/16 at 12:15 Albuterol/ Ipratropium (Duoneb) 3 ml RTQID NEB Last administered on 05/05/16 09:28; Start 05/01/16 at 16:00 Albuterol Sulfate (Ventolin Neb Soln) 2.5 mg PRN Q4HRS PRN NEB SHORTNESS OF BREATH; Start 05/01/16 at 12:15 Heparin Sodium (Porcine) 5000 unit 5,000 unit Q8HRS SQ Last administered on 06:16; Start 05/01/16 at 14:00 Piperacillin Sod/ Tazobactam Sod 3.375 gm/Sodium Chloride 50 ml @ 100 mls/hr Q6HRS IV Last administered on 05/04/16 05:06; Start 05/01/16 at 12:00; Stop 05/04 at 11:55; Status DC Vancomycin HCl 1 gm/Sodium Chloride 250 ml @ 250 mls/hr 1X ONCE IV Last administered on 05/01/16 16:09; Start 05/01/16 at 13:30; Stop 05/01/16 at 14:29; Status DC Heparin Sodium/ Sodium Chloride 500 ml @ As Directed STK-MED ONCE .ROUTE ; Start 05/01/16 at 13:09; Stop 05/01/16 at 13:10; Status DC Lidocaine/Sodium Bicarbonate (Buffered Lidocaine 1%) 3 ml 1X ONCE IJ Last administered on 05/01/16 14:00; Start 05/01/16 at 14:00; Stop 05/01/16 at 14:01; Status DC Heparin Sodium/ Sodium Chloride 60 unit 1X ONCE IV Last administered on 14:00; Start 05/01/16 at 14:00; Stop 05/01/16 at 14:01; Status DC Lidocaine/Sodium Bicarbonate (Buffered Lidocaine 1%) 20 ml 1X ONCE IJ Last administered on 05/01/16 15:30; Start 05/01/16 at 15:30; Stop 05/01/16 at 15:31; Status DC Heparin Sodium/ Sodium Chloride 1000 unit 1,000 unit 1X ONCE IART Last administered on 05/01/16 15:30; Start 05/01/16 at 15:30; Stop 05/01/16 at 15:31; Status DC Vancomycin HCl/ Sodium Chloride (Iv Sodium Chloride 0.9% 250ml) 250 ml @ 250 mls/hr Q24H IV ; Start 05/02/16 at 17:00; Stop 05/02/16 at 17:00; Status DC Vancomycin HCl 1 each 1 each 1X ONCE MC ; Start 05/03/16 at 16:30; Stop 05/03/16 at 16:31; Status Cancel Norepinephrine Bitartrate/Sodium Chloride (Levophed Vial/ Iv Sodium Chloride 0.9 % 250ml) 258 ml @ 0 mls/hr CONT PRN IV SEE I/O RECORD Last administered on 23:19; Start 05/01/16 at 18:15; Stop 05/04/16 at 13:41; Status DC Furosemide 20 mg 20 mg 1X ONCE IVP Last administered on 05/01/16 18:47; Start 05/01/16 at 19:15; Stop 05/01/16 at 19:16; Status DC Potassium Chloride 50 ml @ 50 mls/hr Q1H IV Last administered on 05/01/16 21:30 ; Start 05/01/16 at 21:00; Stop 05/01/16 at 22:59; Status DC Potassium Chloride 50 ml @ 50 mls/hr Q1H IV Last administered on 05/02/16 02:56 ; Start 05/02/16 at 02:00; Stop 05/02/16 at 03:59; Status DC Linezolid (Zyvox Premix) 300 ml @ 300 mls/hr Q12HR IV Last administered on 05/04 08:43; Start 05/02/16 at 09:00; Stop 05/04/16 at 11:55; Status DC Multivitamins/ Calcium (Thera M Plus) 1 tab DAILY PO Last administered on 08:34; Start 05/02/16 at 11:00 Ascorbic Acid 500 mg 500 mg DAILY PO Last administered on 05/05/16 08:34; Start 05/02/16 at 11:00 Albumin Human 250 ml @ 62.5 mls/hr 1X ONCE IV Last administered on 05/02/16 11:07; Start 05/02/16 at 10:45; Stop 05/02/16 at 14:47; Status DC Albumin Human 250 ml @ 62.5 mls/hr 1X ONCE IV Last administered on 05/02/16 13:34; Start 05/02/16 at 13:45; Stop 05/02/16 at 17:44; Status DC Sodium Chloride 1,000 ml @ 999 mls/hr 1X ONCE IV Last administered on 11:01; Start 05/02/16 at 10:45; Stop 05/02/16 at 11:45; Status DC Potassium Chloride 50 ml @ 50 mls/hr Q1H IV Last administered on 05/02/16 15:58 ; Start 05/02/16 at 13:45; Stop 05/02/16 at 15:44; Status DC Magnesium Sulfate/ Dextrose (Magnesium Sulfate PREMIX 4GM) 100 ml @ 25 mls/hr 1X ONCE IV Last administered on 05/02/16 15:15; Start 05/02/16 at 13:45; Stop 05/02/16 at 17:44; Status DC Aspirin (Ecotrin) 81 mg DAILY PO Last administered on 05/05/16 08:30; Start at 15:00 Insulin Aspart (Novolog) QIDACHS SQ ; Start 05/02/16 at 16:30; Stop 05/02/16 at 16:30; Status DC Insulin Aspart (Novolog) 5 units TIDAC SQ Last administered on 05/04/16 12:11; Start 05/02/16 at 16:30 Insulin Detemir (Levemir) 10 units DAILY SQ Last administered on 05/04/16 08:56 ; Start 05/03/16 at 09:00 Lisinopril (Prinivil) 5 mg DAILY PO Last administered on 05/05/16 08:33; Start 05/02/16 at 15:00 Insulin Detemir (Levemir) 8 units QHS SQ Last administered on 05/03/16 21:09; Start 05/02/16 at 21:00 Potassium Chloride (Klor-Con) 40 meq [id number] PO Last administered on 08:29; Start 05/03/16 at 08:00 Insulin Aspart (Novolog) 0-7 UNITS TIDWMEALS SQ Last administered on 05/04/16 12:12; Start 05/02/16 at 17:00 Dextrose 12.5 gm 12.5 gm PRN Q15MIN PRN IV SEE COMMENTS Last administered on 22:41; Start 05/02/16 at 15:45 Sodium Chloride 1,000 ml @ 100 mls/hr Q10H IV Last administered on 05/05/16 03:33; Start 05/02/16 at 18:00 Ceftriaxone Sodium/Sodium Chloride (Rocephin/Iv Sodium Chloride 0.9% 50ml) 50 ml @ 100 mls/hr Q24H IV Last administered on 05/04/16 12:06; Start 05/04/16 at 13:00 Active Scripts Active Novolog Flexpen (Insulin Aspart) 100 Unit/1 Ml Insuln.pen 0 Units SQ QIDACHS Thera-M Tablet (Multivits,Ca,Minerals/Iron/Fa) 1 Each Tablet 1 Tab PO DAILY Levemir Flextouch (Insulin Detemir) 100 Unit/1 Ml Insuln.pen 10 Units SQ DAILY Lisinopril 5 Mg Tablet 1 Tab PO DAILY Reported Potassium Chloride 20 Meq Tablet.er 40 Meq PO DAILY 7 Days Amox Tr-K Clv 500-125 Mg Tab (Amoxicillin/Potassium Clav) 1 Each Tablet 1 Tab PO BID Zinc 50 Mg Tablet 220 Mg PO DAILY Ascorbic Acid 500 Mg Tablet 500 Mg PO DAILY Aspirin Ec (Aspirin) 81 Mg Tablet. 1 Tab PO DAILY Levemir (Insulin Detemir) 100 Unit/1 Ml Vial 8 Unit SQ HS Novolog Flexpen (Insulin Aspart) 100 Unit/1 Ml Insuln.pen 5 Unit SQ TIDAC Vitals/I & O Vital Sign - Last 24 Hours 05/04/16 05/04/16 05/04/16 05/04/16 11:00 12:18 16:37 19:00 Temp 98.5 98.1 98.5 98.1 Pulse 101 101 Resp 22 17 B/P 119/69 118/65 Pulse Ox 99 100 98 O2 Delivery Room Air Room Air Room Air Room Air 05/04/16 05/04/16 05/04/16 05/05/16 20:00 20:09 23:00 03:00 Temp 97.3 97.5 97.3 97.5 Pulse 111 110 Resp 21 19 B/P 137/55 149/75 Pulse Ox 99 99 100 O2 Delivery Room Air Room Air Room Air Room Air 05/05/16 05/05/16 05/05/16 05/05/16 08:05 08:30 08:33 09:28 Temp 97.7 97.7 Pulse 101 101 Resp 22 B/P 145/72 145/72 Pulse Ox 100 98 O2 Delivery Room Air Room Air Room Air Intake and Output 05/04/16 05/04/16 05/05/16 15:00 23:00 07:00 Intake Total 350 ml 380 ml 1120 ml Output Total 1050 ml 950 ml Balance 350 ml -670 ml 170 ml NIRAV DIAZ MD May 05, 2016 10:56
[2016-05-05 11:12] VITALS: BP 130/68
[2016-05-05 11:15] LABS: ALBUMIN/GLOBULIN RATIO 0.6 (1.0-1.7); CALCIUM 8.3 mg/dL (8.5-10.1); CREATININE 0.7 mg/dL (0.6-1.0); GFR 100.7; POTASSIUM 4.7 mmol/L (3.5-5.1); TOTAL BILIRUBIN 0.5 mg/dL (0.2-1.0); TOTAL PROTEIN 5.3 g/dL (6.4-8.2)
--- NOTE | 2016-05-05 12:35 | PDOC ---
Infectious Disease Note Subjective Subjective Better. Ambulated earlier and ate some but not much per nursing ROS ROS GEN: Denies fevers, chills, sweats HEENT: Denies blurred vision, sore throat CV: Denies chest pain RESP: Denies shortness of air, cough GI: Denies n/v/d NEURO: Denies confusion, dizziness MSK: Denies weakness, joint pain/swelling Vital Sign Vital Signs Vital Signs Date Time Temp Pulse Resp B/P Pulse Ox O2 Delivery O2 Flow Rate FiO2 05/05/16 11:12 99.3 108 20 130/68 97 Room Air 99.3 Physical Exam PHYSICAL EXAM GENERAL: NAD, Alert, coop HEENT: PERRL, OC/OP -clear NECK: Supple, no JVD, no LN LUNGS: Clear HEART: S1S2, no gallop, no murmur ABD: Soft, NT, no organomegaly, no rebound EXT: trace edema, no cyanosis SITE SPECIALIST: Alert, 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, no focal neurologic deficit SKIN: No rash IV: Left IJ clean Labs Lab Laboratory Tests Test 05/04/16 16:54 05/04/16 17:18 05/04/16 19:24 05/04/16 19:52 Glucose (Fingerstick) 25mg/dL (70-99) 86mg/dL (70-99) 29mg/dL (70-99) 102mg/dL (70-99) Test 05/04/16 22:26 05/04/16 22:59 05/04/16 23:57 05/05/16 01:52 Glucose (Fingerstick) 27mg/dL (70-99) 100mg/dL (70-99) 79mg/dL (70-99) 114mg/dL (70-99) Test 05/05/16 02:00 05/05/16 04:24 05/05/16 07:43 05/05/16 08:25 Glucose (Fingerstick) 123mg/dL (70-99) 129mg/dL (70-99) 185mg/dL (70-99) White Blood Count 18.7x10^3/uL (4.0-11.0) Red Blood Count 3.49x10^6/uL (3.50-5.40) Hemoglobin 10.0g/dL (12.0-15.5) Hematocrit 32.2% (36.0-47.0) Mean Corpuscular Volume 92fL (79-100) Mean Corpuscular Hemoglobin 29pg (25-35) Mean Corpuscular Hemoglobin Concent 31g/dL (31-37) Red Cell Distribution Width 16.6% (11.5-14.5) Platelet Count 169x10^3/uL (140-400) Neutrophils (%) (Auto) 91% (31-73) Lymphocytes (%) (Auto) 7% (24-48) Monocytes (%) (Auto) 2% (0-9) Eosinophils (%) (Auto) 0% (0-3) Basophils (%) (Auto) 0% (0-3) Neutrophils # (Auto) 17.0x10^3uL (1.8-7.7) Lymphocytes # (Auto) 1.2x10^3/uL (1.0-4.8) Monocytes # (Auto) 0.3x10^3/uL (0.0-1.1) Eosinophils # (Auto) 0.1x10^3/uL (0.0-0.7) Basophils # (Auto) 0.1x10^3/uL (0.0-0.2) Test 05/05/16 10:00 05/05/16 10:54 Sodium Level 140mmol/L (136-145) Potassium Level 4.7mmol/L (3.5-5.1) Chloride Level 110mmol/L (98-107) Carbon Dioxide Level 19mmol/L (21-32) Anion Gap 11 (6-14) Blood Urea Nitrogen 6mg/dL (7-20) Creatinine 0.7mg/dL (0.6-1.0) Estimated GFR (Cockcroft-Gault) 100.7 BUN/Creatinine Ratio 9 (6-20) Glucose Level 317mg/dL (70-99) Calcium Level 8.3mg/dL (8.5-10.1) Total Bilirubin 0.5mg/dL (0.2-1.0) Aspartate Amino Transf (AST/SGOT) 135U/L (15-37) Alanine Aminotransferase (ALT/SGPT) 94U/L (14-59) Alkaline Phosphatase 244U/L (46-116) Total Protein 5.3g/dL (6.4-8.2) Albumin 2.0g/dL (3.4-5.0) Albumin/Globulin Ratio 0.6 (1.0-1.7) Glucose (Fingerstick) 279mg/dL (70-99) Objective Assessment Strep pneumonia sepsis - POA. 2/6 Resp failure - better Leukocytosis - likely leukomoid reaction from sepsis but still increasing Fecal impaction - improving DKA - POA Pneumonia right - No mass on CT. Influenza - neg. H/o Abd mass - followed by GI - CT w/o contrast /6 - no evidence of mass Fever - persist Foot wound - clean Sacral superficial wounds MRSA + screen Plan Plan of Care Chest XRAy Cont Rocephin F/u labs and cults D/w LYNNE Leo MD May 05, 2016 12:35
--- NOTE | 2016-05-05 13:53 | RAD ---
Indication effusion. PA and lateral views of the chest were obtained and are compared to an examination one day earlier. Pulmonary infiltrates persist but are clearly improved. Some right pleural fluid persists but also is improved. Left IJ catheter is noted. A new finding is not seen. IMPRESSION: Interval improvement in the appearance of the chest
[2016-05-05] MEDS: CEFTRIAXONE SODIUM 1 GM in IV NORMAL SALINE 50ML 50 ML IV SCH (14:02)
[2016-05-05 14:56] VITALS: BP 135/68
--- NOTE | 2016-05-05 15:23 | PDOC ---
PULMONARY PROGRESS NOTES Subjective much better on RA Vitals Vital Signs Date Time Temp Pulse Resp B/P Pulse Ox O2 Delivery O2 Flow Rate FiO2 05/05/16 14:56 99.9 107 20 135/68 98 Room Air 99.9 General: Alert, No acute distress Lungs: Clear, Other (improved RLL) Cardiovascular: S1 Abdomen: Soft, Non-tender Neuro Exam: Alert Extremities: No Edema Labs Laboratory Tests Test 05/03/16 16:50 05/03/16 18:24 05/03/16 20:15 05/04/16 07:37 Glucose (Fingerstick) 73mg/dL (70-99) 69mg/dL (70-99) 119mg/dL (70-99) 246mg/dL (70-99) Test 05/04/16 11:19 05/04/16 16:54 05/04/16 17:18 05/04/16 19:24 Glucose (Fingerstick) 225mg/dL (70-99) 25mg/dL (70-99) 86mg/dL (70-99) 29mg/dL (70-99) Test 05/04/16 19:52 05/04/16 22:26 05/04/16 22:59 05/04/16 23:57 Glucose (Fingerstick) 102mg/dL (70-99) 27mg/dL (70-99) 100mg/dL (70-99) 79mg/dL (70-99) Test 05/05/16 01:52 05/05/16 02:00 05/05/16 04:24 05/05/16 07:43 Glucose (Fingerstick) 114mg/dL (70-99) 123mg/dL (70-99) 129mg/dL (70-99) 185mg/dL (70-99) Test 05/05/16 08:25 05/05/16 10:00 05/05/16 10:54 05/05/16 14:59 White Blood Count 18.7x10^3/uL (4.0-11.0) Red Blood Count 3.49x10^6/uL (3.50-5.40) Hemoglobin 10.0g/dL (12.0-15.5) Hematocrit 32.2% (36.0-47.0) Mean Corpuscular Volume 92fL (79-100) Mean Corpuscular Hemoglobin 29pg (25-35) Mean Corpuscular Hemoglobin Concent 31g/dL (31-37) Red Cell Distribution Width 16.6% (11.5-14.5) Platelet Count 169x10^3/uL (140-400) Neutrophils (%) (Auto) 91% (31-73) Lymphocytes (%) (Auto) 7% (24-48) Monocytes (%) (Auto) 2% (0-9) Eosinophils (%) (Auto) 0% (0-3) Basophils (%) (Auto) 0% (0-3) Neutrophils # (Auto) 17.0x10^3uL (1.8-7.7) Lymphocytes # (Auto) 1.2x10^3/uL (1.0-4.8) Monocytes # (Auto) 0.3x10^3/uL (0.0-1.1) Eosinophils # (Auto) 0.1x10^3/uL (0.0-0.7) Basophils # (Auto) 0.1x10^3/uL (0.0-0.2) Sodium Level 140mmol/L (136-145) Potassium Level 4.7mmol/L (3.5-5.1) Chloride Level 110mmol/L (98-107) Carbon Dioxide Level 19mmol/L (21-32) Anion Gap 11 (6-14) Blood Urea Nitrogen 6mg/dL (7-20) Creatinine 0.7mg/dL (0.6-1.0) Estimated GFR (Cockcroft-Gault) 100.7 BUN/Creatinine Ratio 9 (6-20) Glucose Level 317mg/dL (70-99) Calcium Level 8.3mg/dL (8.5-10.1) Total Bilirubin 0.5mg/dL (0.2-1.0) Aspartate Amino Transf (AST/SGOT) 135U/L (15-37) Alanine Aminotransferase (ALT/SGPT) 94U/L (14-59) Alkaline Phosphatase 244U/L (46-116) Total Protein 5.3g/dL (6.4-8.2) Albumin 2.0g/dL (3.4-5.0) Albumin/Globulin Ratio 0.6 (1.0-1.7) Glucose (Fingerstick) 279mg/dL (70-99) 301mg/dL (70-99) Laboratory Tests Test 05/04/16 16:54 05/04/16 17:18 05/04/16 19:24 05/04/16 19:52 Glucose (Fingerstick) 25mg/dL (70-99) 86mg/dL (70-99) 29mg/dL (70-99) 102mg/dL (70-99) Test 05/04/16 22:26 05/04/16 22:59 05/04/16 23:57 05/05/16 01:52 Glucose (Fingerstick) 27mg/dL (70-99) 100mg/dL (70-99) 79mg/dL (70-99) 114mg/dL (70-99) Test 05/05/16 02:00 05/05/16 04:24 05/05/16 07:43 05/05/16 08:25 Glucose (Fingerstick) 123mg/dL (70-99) 129mg/dL (70-99) 185mg/dL (70-99) White Blood Count 18.7x10^3/uL (4.0-11.0) Red Blood Count 3.49x10^6/uL (3.50-5.40) Hemoglobin 10.0g/dL (12.0-15.5) Hematocrit 32.2% (36.0-47.0) Mean Corpuscular Volume 92fL (79-100) Mean Corpuscular Hemoglobin 29pg (25-35) Mean Corpuscular Hemoglobin Concent 31g/dL (31-37) Red Cell Distribution Width 16.6% (11.5-14.5) Platelet Count 169x10^3/uL (140-400) Neutrophils (%) (Auto) 91% (31-73) Lymphocytes (%) (Auto) 7% (24-48) Monocytes (%) (Auto) 2% (0-9) Eosinophils (%) (Auto) 0% (0-3) Basophils (%) (Auto) 0% (0-3) Neutrophils # (Auto) 17.0x10^3uL (1.8-7.7) Lymphocytes # (Auto) 1.2x10^3/uL (1.0-4.8) Monocytes # (Auto) 0.3x10^3/uL (0.0-1.1) Eosinophils # (Auto) 0.1x10^3/uL (0.0-0.7) Basophils # (Auto) 0.1x10^3/uL (0.0-0.2) Test 05/05/16 10:00 05/05/16 10:54 05/05/16 14:59 Sodium Level 140mmol/L (136-145) Potassium Level 4.7mmol/L (3.5-5.1) Chloride Level 110mmol/L (98-107) Carbon Dioxide Level 19mmol/L (21-32) Anion Gap 11 (6-14) Blood Urea Nitrogen 6mg/dL (7-20) Creatinine 0.7mg/dL (0.6-1.0) Estimated GFR (Cockcroft-Gault) 100.7 BUN/Creatinine Ratio 9 (6-20) Glucose Level 317mg/dL (70-99) Calcium Level 8.3mg/dL (8.5-10.1) Total Bilirubin 0.5mg/dL (0.2-1.0) Aspartate Amino Transf (AST/SGOT) 135U/L (15-37) Alanine Aminotransferase (ALT/SGPT) 94U/L (14-59) Alkaline Phosphatase 244U/L (46-116) Total Protein 5.3g/dL (6.4-8.2) Albumin 2.0g/dL (3.4-5.0) Albumin/Globulin Ratio 0.6 (1.0-1.7) Glucose (Fingerstick) 279mg/dL (70-99) 301mg/dL (70-99) Medications Active Scripts Medications Dose Route/Sig Days Date Category Potassium Chloride 20 Meq Tablet.er 40 Meq PO DAILY 7 02/22/16 Reported Amox Tr-K Clv 500-125 Mg Tab (Amoxicillin/Potassium Clav) 1 Each Tablet 1 Tab PO BID 02/11/16 Reported Zinc 50 Mg Tablet 220 Mg PO DAILY 01/31/16 Reported Ascorbic Acid 500 Mg Tablet 500 Mg PO DAILY 01/31/16 Reported Aspirin Ec (Aspirin) 81 Mg Tablet.dr 1 Tab PO DAILY 01/31/16 Reported Levemir (Insulin Detemir) 100 Unit/1 Ml Vial 8 Unit SQ HS 01/31/16 Reported Novolog Flexpen (Insulin Aspart) 100 Unit/1 Ml Insuln.pen 5 Unit SQ TIDAC 10/25/15 Reported Lisinopril 5 Mg Tablet 1 Tab PO DAILY 01/22/15 Rx Novolog Flexpen (Insulin Aspart) 100 Unit/1 Ml Insuln.pen 0 Units SQ QIDACHS 04/11/16 Rx Thera-M Tablet (Multivits,Ca,Minerals/Iron/Fa) 1 Each Tablet 1 Tab PO DAILY 04/11/16 Rx Levemir Flextouch (Insulin Detemir) 100 Unit/1 Ml Insuln.pen 10 Units SQ DAILY 04/11/16 Rx Impression . 1. Acute encephalopathy secondary to diabetic ketoacidosis. resolved 2. Right lower lobe pneumonia. ct chest with large consolidation RLL/ cxr 05/05 improving 3. Severe metabolic acidosis secondary to diabetic ketoacidosis. 4. No significant history of tobacco use. 5. Mild renal insufficiency, improving with IV fluids. 6. Acute hypoxic respiratory failure secondary to pneumonia. 7. Hypotension, sepsis, resolved Plan . 1. prn oxygen ,keeping sats 92-94%. 2. antibiotics per Infectious Disease. 3. CT chest reviewed 4. Management of DKA/ DM per PCP. 5.. repeat cxr with improving infiltrates RLL 6. D/C PLANS PER PCP FRANCISCO ZULUAGA MD May 05, 2016 15:23
[2016-05-05 19:00] VITALS: BP 136/61
[2016-05-05 23:00] VITALS: BP 136/68
[2016-05-06] VITALS (7 sets, daily range): BP systolic 101–140; BP diastolic 50–62
[2016-05-06] MEDS: IV NORMAL SALINE 1000ML BAG 1,000 ML IV SCH ×3 (00:44→23:30)
[2016-05-06] MEDS: DEXTROSE 50% 25 GM / 50ML DISP.SYRIN. IV PRN ×2 (04:30→06:15)
[2016-05-06] MEDS: HEPARIN PF for SUB-Q USE 5,000 UNIT/0.5 ML VIAL. SQ SCH ×3 (06:19→22:38)
[2016-05-06] MEDS: INSULIN ASPART 300 UNITS/3 ML INSULN.PEN SQ SCH ×7 (07:30→22:37)
[2016-05-06] MEDS: IPRATRPIUM/ALBUTEROL 0.5/2.5MG 3 ML NEBU. NEB SCH ×4 (08:12→19:44)
[2016-05-06] MEDS: POTASSIUM CHLORIDE 20 MEQ TABLET.ER. PO SCH (08:16)
[2016-05-06] MEDS: ASPIRIN ENTERIC COATED 81 MG TABLET.DR. PO SCH (08:18)
[2016-05-06] MEDS: LISINOPRIL 5 MG TABLET. PO SCH (08:19)
[2016-05-06] MEDS: ASCORBIC ACID 500 MG TABLET PO SCH (08:20)
[2016-05-06] MEDS: MULTIVITAMIN with MINERAL TABLET. PO SCH (08:20)
--- NOTE | 2016-05-06 08:51 | PDOC ---
PULMONARY PROGRESS NOTES Subjective much better, no sob, cough on RA Vitals Vital Signs Date Time Temp Pulse Resp B/P Pulse Ox O2 Delivery O2 Flow Rate FiO2 05/06/16 08:19 91 121/72 05/06/16 08:13 Room Air 05/06/16 03:00 98.8 16 100 98.8 05/05/16 20:00 2.0 Comments ros as mentioned as above other sys otherwise neg General: Alert, No acute distress Lungs: Other (improved RLL) Cardiovascular: S1, S2 Abdomen: Soft, Non-tender Neuro Exam: Alert, Oriented Extremities: No Edema Skin: Dry Labs Laboratory Tests Test 05/04/16 11:19 05/04/16 16:54 05/04/16 17:18 05/04/16 19:24 Glucose (Fingerstick) 225mg/dL (70-99) 25mg/dL (70-99) 86mg/dL (70-99) 29mg/dL (70-99) Test 05/04/16 19:52 05/04/16 22:26 05/04/16 22:59 05/04/16 23:57 Glucose (Fingerstick) 102mg/dL (70-99) 27mg/dL (70-99) 100mg/dL (70-99) 79mg/dL (70-99) Test 05/05/16 01:52 05/05/16 02:00 05/05/16 04:24 05/05/16 07:43 Glucose (Fingerstick) 114mg/dL (70-99) 123mg/dL (70-99) 129mg/dL (70-99) 185mg/dL (70-99) Test 05/05/16 08:25 05/05/16 10:00 05/05/16 10:54 05/05/16 14:59 White Blood Count 18.7x10^3/uL (4.0-11.0) Red Blood Count 3.49x10^6/uL (3.50-5.40) Hemoglobin 10.0g/dL (12.0-15.5) Hematocrit 32.2% (36.0-47.0) Mean Corpuscular Volume 92fL (79-100) Mean Corpuscular Hemoglobin 29pg (25-35) Mean Corpuscular Hemoglobin Concent 31g/dL (31-37) Red Cell Distribution Width 16.6% (11.5-14.5) Platelet Count 169x10^3/uL (140-400) Neutrophils (%) (Auto) 91% (31-73) Lymphocytes (%) (Auto) 7% (24-48) Monocytes (%) (Auto) 2% (0-9) Eosinophils (%) (Auto) 0% (0-3) Basophils (%) (Auto) 0% (0-3) Neutrophils # (Auto) 17.0x10^3uL (1.8-7.7) Lymphocytes # (Auto) 1.2x10^3/uL (1.0-4.8) Monocytes # (Auto) 0.3x10^3/uL (0.0-1.1) Eosinophils # (Auto) 0.1x10^3/uL (0.0-0.7) Basophils # (Auto) 0.1x10^3/uL (0.0-0.2) Sodium Level 140mmol/L (136-145) Potassium Level 4.7mmol/L (3.5-5.1) Chloride Level 110mmol/L (98-107) Carbon Dioxide Level 19mmol/L (21-32) Anion Gap 11 (6-14) Blood Urea Nitrogen 6mg/dL (7-20) Creatinine 0.7mg/dL (0.6-1.0) Estimated GFR (Cockcroft-Gault) 100.7 BUN/Creatinine Ratio 9 (6-20) Glucose Level 317mg/dL (70-99) Calcium Level 8.3mg/dL (8.5-10.1) Total Bilirubin 0.5mg/dL (0.2-1.0) Aspartate Amino Transf (AST/SGOT) 135U/L (15-37) Alanine Aminotransferase (ALT/SGPT) 94U/L (14-59) Alkaline Phosphatase 244U/L (46-116) Total Protein 5.3g/dL (6.4-8.2) Albumin 2.0g/dL (3.4-5.0) Albumin/Globulin Ratio 0.6 (1.0-1.7) Glucose (Fingerstick) 279mg/dL (70-99) 301mg/dL (70-99) Test 05/05/16 16:41 05/05/16 20:23 05/06/16 00:51 05/06/16 04:28 Glucose (Fingerstick) 295mg/dL (70-99) 256mg/dL (70-99) 85mg/dL (70-99) 140mg/dL (70-99) Test 05/06/16 05:22 05/06/16 06:10 05/06/16 06:32 05/06/16 07:58 Glucose (Fingerstick) 62mg/dL (70-99) 58mg/dL (70-99) 103mg/dL (70-99) 87mg/dL (70-99) Laboratory Tests Test 05/05/16 10:00 05/05/16 10:54 05/05/16 14:59 05/05/16 16:41 Sodium Level 140mmol/L (136-145) Potassium Level 4.7mmol/L (3.5-5.1) Chloride Level 110mmol/L (98-107) Carbon Dioxide Level 19mmol/L (21-32) Anion Gap 11 (6-14) Blood Urea Nitrogen 6mg/dL (7-20) Creatinine 0.7mg/dL (0.6-1.0) Estimated GFR (Cockcroft-Gault) 100.7 BUN/Creatinine Ratio 9 (6-20) Glucose Level 317mg/dL (70-99) Calcium Level 8.3mg/dL (8.5-10.1) Total Bilirubin 0.5mg/dL (0.2-1.0) Aspartate Amino Transf (AST/SGOT) 135U/L (15-37) Alanine Aminotransferase (ALT/SGPT) 94U/L (14-59) Alkaline Phosphatase 244U/L (46-116) Total Protein 5.3g/dL (6.4-8.2) Albumin 2.0g/dL (3.4-5.0) Albumin/Globulin Ratio 0.6 (1.0-1.7) Glucose (Fingerstick) 279mg/dL (70-99) 301mg/dL (70-99) 295mg/dL (70-99) Test 05/05/16 20:23 05/06/16 00:51 05/06/16 04:28 05/06/16 05:22 Glucose (Fingerstick) 256mg/dL (70-99) 85mg/dL (70-99) 140mg/dL (70-99) 62mg/dL (70-99) Test 05/06/16 06:10 05/06/16 06:32 05/06/16 07:58 Glucose (Fingerstick) 58mg/dL (70-99) 103mg/dL (70-99) 87mg/dL (70-99) Medications Active Scripts Medications Dose Route/Sig Days Date Category Potassium Chloride 20 Meq Tablet.er 40 Meq PO DAILY 7 02/22/16 Reported Amox Tr-K Clv 500-125 Mg Tab (Amoxicillin/Potassium Clav) 1 Each Tablet 1 Tab PO BID 02/11/16 Reported Zinc 50 Mg Tablet 220 Mg PO DAILY 01/31/16 Reported Ascorbic Acid 500 Mg Tablet 500 Mg PO DAILY 01/31/16 Reported Aspirin Ec (Aspirin) 81 Mg Tablet.dr 1 Tab PO DAILY 01/31/16 Reported Levemir (Insulin Detemir) 100 Unit/1 Ml Vial 8 Unit SQ HS 01/31/16 Reported Novolog Flexpen (Insulin Aspart) 100 Unit/1 Ml Insuln.pen 5 Unit SQ TIDAC 10/25/15 Reported Lisinopril 5 Mg Tablet 1 Tab PO DAILY 01/22/15 Rx Novolog Flexpen (Insulin Aspart) 100 Unit/1 Ml Insuln.pen 0 Units SQ QIDACHS 04/11/16 Rx Thera-M Tablet (Multivits,Ca,Minerals/Iron/Fa) 1 Each Tablet 1 Tab PO DAILY 04/11/16 Rx Levemir Flextouch (Insulin Detemir) 100 Unit/1 Ml Insuln.pen 10 Units SQ DAILY 04/11/16 Rx Comments Interval improvement in the appearance of the chest Impression . 1. Acute encephalopathy secondary to diabetic ketoacidosis. resolved 2. Right lower lobe pneumonia. ct chest with large consolidation RLL/ cxr 05/05 improving 3. Severe metabolic acidosis secondary to diabetic ketoacidosis. 4. No significant history of tobacco use. 5. Mild renal insufficiency, improving with IV fluids. 6. Acute hypoxic respiratory failure secondary to pneumonia. 7. Hypotension, sepsis, resolved Plan . 1. 02 titration, keeping sats 92-94%. 2. antibiotics per Infectious Disease. 3. CT chest reviewed 4. Management of DKA/ DM per PCP. 5.. repeat cxr with improving infiltrates RLL 6. will sign off but available for any help MERON GOODWIN MD May 06, 2016 08:51
[2016-05-06 09:00] LABS: BASO % 0 % (0-3); EOS % 0 % (0-3); HEMATOCRIT 28.9 % (36.0-47.0); HEMOGLOBIN 9.4 g/dL (12.0-15.5); LYMPH # 1.6 x10^3/uL (1.0-4.8); LYMPH % 7 % (24-48); MEAN CORPUSCULAR HEMOGLOBIN 29 pg (25-35); MEAN CORPUSCULAR HGB CONC 32 g/dL (31-37); MEAN CORPUSCULAR VOLUME 88 fL (79-100); MONO % 5 % (0-9); NEUT % 88 % (31-73); PLATELET COUNT 173 x10^3/uL (140-400); RED BLOOD COUNT 3.28 x10^6/uL (3.50-5.40); RED CELL DISTRIBUTION WIDTH 16.1 % (11.5-14.5); WHITE BLOOD COUNT 24.2 x10^3/uL (4.0-11.0)
[2016-05-06 10:31] LABS: NEG OBC FOB NEG; POS OBC FOB POS
--- NOTE | 2016-05-06 11:44 | PDOC ---
PROGRESS NOTES Chief Complaint Chief Complaint 1. DKA POA, now brittle DM1 control 2. Sepsis POA, strep pneumo bacteremia 3. Acute hypoxic resp failure is improved, out of ICU to floor 4. Metabolic acidosis imroved 5. Weakness, acq 6. encephlalopathy, acute 7. RLL PNEUMONIA. 8. Constipation 9. RT foot wound , History of Present Illness History of Present Illness Pt resting laying down in bed when seen this AM. Pt still having difficulty glycemic control. Pt has complaint cough and overall generalized weakness and fatigue. Pt still having poor PO intake. No chills or chest pain. Pt was noted by RN to have bloody stool this AM. All questions and concerns addressed and answered. Vitals Vitals Vital Signs Date Time Temp Pulse Resp B/P Pulse Ox O2 Delivery O2 Flow Rate FiO2 05/06/16 08:19 91 121/72 05/06/16 08:13 Room Air 05/06/16 03:00 98.8 16 100 98.8 05/05/16 20:00 2.0 Physical Exam General: Alert, Oriented X3, Cooperative, No acute distress Heart: Regular rate, Normal S1, Normal S2, No murmurs Lungs: Clear, Other (improved RLL) Abdomen: Normal bowel sounds, Soft Extremities: No clubbing, No cyanosis, No edema Skin: No rashes, No breakdown, Other (R HEEL WOUND) Labs LABS Laboratory Tests Test 05/05/16 14:59 05/05/16 16:41 05/05/16 20:23 05/06/16 00:51 Glucose (Fingerstick) 301mg/dL (70-99) 295mg/dL (70-99) 256mg/dL (70-99) 85mg/dL (70-99) Test 05/06/16 04:28 05/06/16 05:22 05/06/16 06:10 05/06/16 06:32 Glucose (Fingerstick) 140mg/dL (70-99) 62mg/dL (70-99) 58mg/dL (70-99) 103mg/dL (70-99) Test 05/06/16 07:58 05/06/16 08:40 05/06/16 09:08 05/06/16 09:29 Glucose (Fingerstick) 87mg/dL (70-99) 116mg/dL (70-99) White Blood Count 24.2x10^3/uL (4.0-11.0) Red Blood Count 3.28x10^6/uL (3.50-5.40) Hemoglobin 9.4g/dL (12.0-15.5) Hematocrit 28.9% (36.0-47.0) Mean Corpuscular Volume 88fL (79-100) Mean Corpuscular Hemoglobin 29pg (25-35) Mean Corpuscular Hemoglobin Concent 32g/dL (31-37) Red Cell Distribution Width 16.1% (11.5-14.5) Platelet Count 173x10^3/uL (140-400) Neutrophils (%) (Auto) 88% (31-73) Lymphocytes (%) (Auto) 7% (24-48) Monocytes (%) (Auto) 5% (0-9) Eosinophils (%) (Auto) 0% (0-3) Basophils (%) (Auto) 0% (0-3) Neutrophils # (Auto) 21.2x10^3uL (1.8-7.7) Lymphocytes # (Auto) 1.6x10^3/uL (1.0-4.8) Monocytes # (Auto) 1.3x10^3/uL (0.0-1.1) Eosinophils # (Auto) 0.0x10^3/uL (0.0-0.7) Basophils # (Auto) 0.0x10^3/uL (0.0-0.2) Stool Occult Blood Negative (NEG) Review of Systems Review of Systems Patient complaint of fatigue Patient complaint of hunger Assessment and Plan Assessmemt and Plan Problems Medical Problems: (1) Diabetic ketoacidosis Status: Acute (2) DKA (diabetic ketoacidoses) Status: Acute Assessment: 1. DKA POA, now brittle DM1 control 2. Sepsis POA, strep pneumo bacteremia 3. Acute hypoxic resp failure is improved, out of ICU to floor 4. Metabolic acidosis imroved 5. Weakness, acq 6. encephlalopathy, acute 7. RLL PNEUMONIA. 8. Constipation 9. RT foot wound Plan: Continue to monitor the patient per floor protocol Stool sent for analysis Daily labs, PTOT Daily glucose Continue current medical management Appreciate all subspecialty input and evaluation BISI RN Problems: Comment Review of Relevant I have reviewed the following items varun (where applicable) has been applied. Labs Laboratory Tests Test 05/04/16 16:54 05/04/16 17:18 05/04/16 19:24 05/04/16 19:52 Glucose (Fingerstick) 25mg/dL (70-99) 86mg/dL (70-99) 29mg/dL (70-99) 102mg/dL (70-99) Test 05/04/16 22:26 05/04/16 22:59 05/04/16 23:57 05/05/16 01:52 Glucose (Fingerstick) 27mg/dL (70-99) 100mg/dL (70-99) 79mg/dL (70-99) 114mg/dL (70-99) Test 05/05/16 02:00 05/05/16 04:24 05/05/16 07:43 05/05/16 08:25 Glucose (Fingerstick) 123mg/dL (70-99) 129mg/dL (70-99) 185mg/dL (70-99) White Blood Count 18.7x10^3/uL (4.0-11.0) Red Blood Count 3.49x10^6/uL (3.50-5.40) Hemoglobin 10.0g/dL (12.0-15.5) Hematocrit 32.2% (36.0-47.0) Mean Corpuscular Volume 92fL (79-100) Mean Corpuscular Hemoglobin 29pg (25-35) Mean Corpuscular Hemoglobin Concent 31g/dL (31-37) Red Cell Distribution Width 16.6% (11.5-14.5) Platelet Count 169x10^3/uL (140-400) Neutrophils (%) (Auto) 91% (31-73) Lymphocytes (%) (Auto) 7% (24-48) Monocytes (%) (Auto) 2% (0-9) Eosinophils (%) (Auto) 0% (0-3) Basophils (%) (Auto) 0% (0-3) Neutrophils # (Auto) 17.0x10^3uL (1.8-7.7) Lymphocytes # (Auto) 1.2x10^3/uL (1.0-4.8) Monocytes # (Auto) 0.3x10^3/uL (0.0-1.1) Eosinophils # (Auto) 0.1x10^3/uL (0.0-0.7) Basophils # (Auto) 0.1x10^3/uL (0.0-0.2) Test 05/05/16 10:00 05/05/16 10:54 05/05/16 14:59 05/05/16 16:41 Sodium Level 140mmol/L (136-145) Potassium Level 4.7mmol/L (3.5-5.1) Chloride Level 110mmol/L (98-107) Carbon Dioxide Level 19mmol/L (21-32) Anion Gap 11 (6-14) Blood Urea Nitrogen 6mg/dL (7-20) Creatinine 0.7mg/dL (0.6-1.0) Estimated GFR (Cockcroft-Gault) 100.7 BUN/Creatinine Ratio 9 (6-20) Glucose Level 317mg/dL (70-99) Calcium Level 8.3mg/dL (8.5-10.1) Total Bilirubin 0.5mg/dL (0.2-1.0) Aspartate Amino Transf (AST/SGOT) 135U/L (15-37) Alanine Aminotransferase (ALT/SGPT) 94U/L (14-59) Alkaline Phosphatase 244U/L (46-116) Total Protein 5.3g/dL (6.4-8.2) Albumin 2.0g/dL (3.4-5.0) Albumin/Globulin Ratio 0.6 (1.0-1.7) Glucose (Fingerstick) 279mg/dL (70-99) 301mg/dL (70-99) 295mg/dL (70-99) Test 05/05/16 20:23 05/06/16 00:51 05/06/16 04:28 05/06/16 05:22 Glucose (Fingerstick) 256mg/dL (70-99) 85mg/dL (70-99) 140mg/dL (70-99) 62mg/dL (70-99) Test 05/06/16 06:10 05/06/16 06:32 05/06/16 07:58 05/06/16 08:40 Glucose (Fingerstick) 58mg/dL (70-99) 103mg/dL (70-99) 87mg/dL (70-99) White Blood Count 24.2x10^3/uL (4.0-11.0) Red Blood Count 3.28x10^6/uL (3.50-5.40) Hemoglobin 9.4g/dL (12.0-15.5) Hematocrit 28.9% (36.0-47.0) Mean Corpuscular Volume 88fL (79-100) Mean Corpuscular Hemoglobin 29pg (25-35) Mean Corpuscular Hemoglobin Concent 32g/dL (31-37) Red Cell Distribution Width 16.1% (11.5-14.5) Platelet Count 173x10^3/uL (140-400) Neutrophils (%) (Auto) 88% (31-73) Lymphocytes (%) (Auto) 7% (24-48) Monocytes (%) (Auto) 5% (0-9) Eosinophils (%) (Auto) 0% (0-3) Basophils (%) (Auto) 0% (0-3) Neutrophils # (Auto) 21.2x10^3uL (1.8-7.7) Lymphocytes # (Auto) 1.6x10^3/uL (1.0-4.8) Monocytes # (Auto) 1.3x10^3/uL (0.0-1.1) Eosinophils # (Auto) 0.0x10^3/uL (0.0-0.7) Basophils # (Auto) 0.0x10^3/uL (0.0-0.2) Test 05/06/16 09:08 05/06/16 09:29 Glucose (Fingerstick) 116mg/dL (70-99) Stool Occult Blood Negative (NEG) Laboratory Tests Test 05/05/16 14:59 05/05/16 16:41 05/05/16 20:23 05/06/16 00:51 Glucose (Fingerstick) 301mg/dL (70-99) 295mg/dL (70-99) 256mg/dL (70-99) 85mg/dL (70-99) Test 05/06/16 04:28 05/06/16 05:22 05/06/16 06:10 05/06/16 06:32 Glucose (Fingerstick) 140mg/dL (70-99) 62mg/dL (70-99) 58mg/dL (70-99) 103mg/dL (70-99) Test 05/06/16 07:58 05/06/16 08:40 05/06/16 09:08 05/06/16 09:29 Glucose (Fingerstick) 87mg/dL (70-99) 116mg/dL (70-99) White Blood Count 24.2x10^3/uL (4.0-11.0) Red Blood Count 3.28x10^6/uL (3.50-5.40) Hemoglobin 9.4g/dL (12.0-15.5) Hematocrit 28.9% (36.0-47.0) Mean Corpuscular Volume 88fL (79-100) Mean Corpuscular Hemoglobin 29pg (25-35) Mean Corpuscular Hemoglobin Concent 32g/dL (31-37) Red Cell Distribution Width 16.1% (11.5-14.5) Platelet Count 173x10^3/uL (140-400) Neutrophils (%) (Auto) 88% (31-73) Lymphocytes (%) (Auto) 7% (24-48) Monocytes (%) (Auto) 5% (0-9) Eosinophils (%) (Auto) 0% (0-3) Basophils (%) (Auto) 0% (0-3) Neutrophils # (Auto) 21.2x10^3uL (1.8-7.7) Lymphocytes # (Auto) 1.6x10^3/uL (1.0-4.8) Monocytes # (Auto) 1.3x10^3/uL (0.0-1.1) Eosinophils # (Auto) 0.0x10^3/uL (0.0-0.7) Basophils # (Auto) 0.0x10^3/uL (0.0-0.2) Stool Occult Blood Negative (NEG) Microbiology 05/01/16 Blood Culture - Final, Complete 05/01/16 Blood Culture Result 1 (CASEY) - Final, Complete 05/01/16 Antimicrobic Susceptibility - Final, Complete 05/01/16 Urine Culture - Final, Complete 05/01/16 Urine Culture Result 1 (CASEY) - Final, Complete Medications Current Medications Sodium Chloride 1,000 ml @ 1,000 mls/hr Q1H IV Last administered on 04/30/16 20:30; Start 04/30/16 at 20:30; Stop 04/30/16 at 21:29; Status DC Sodium Chloride 1,000 ml @ 1,000 mls/hr Q1H IV Last administered on 04/30/16 21:47; Start 04/30/16 at 21:30; Stop 04/30/16 at 21:31; Status DC Insulin Human Regular 150 unit/ Sodium Chloride 151.5 ml @ 0 mls/hr CONT PRN PRN IV PER PROTOCOL Last administered on 04/30/16 21:23; Start 04/30/16 at 21:15 ; Stop 05/04/16 at 13:41; Status DC Potassium Chloride 100 ml @ 100 mls/hr PRN Q1HR PRN IV SEE COMMENTS; Start 04/30/16 at 21:15 Potassium Chloride 100 ml @ 100 mls/hr PRN Q1HR PRN IV SEE COMMENTS; Start 04/30/16 at 21:15 Potassium Chloride (KCl Premix 10meq) 100 ml @ 100 mls/hr PRN Q1HR PRN IV SEE COMMENTS; Start 04/30/16 at 21:15 Ondansetron HCl (Zofran) 4 mg PRN Q8HRS PRN IV NAUSEA/VOMITING Last administered on 05/01/16 04:57; Start 04/30/16 at 21:30; Stop 05/01/16 at 21:29; Status DC Acetaminophen 650 mg 650 mg PRN Q4HRS PRN PO FEVER Last administered on 18:00; Start 04/30/16 at 21:30; Stop 05/01/16 at 21:29; Status DC Potassium Chloride/Sodium Chloride (KCl 40 Meq-NS 1,000 ml Iv Soln) 1,000 ml @ 150 mls/hr 1X ONCE IV Last administered on 04/30/16 21:48; Start 04/30/16 at 22 :00; Stop 05/01/16 at 04:39; Status DC Hydralazine HCl 10 mg 10 mg 1X ONCE IVP Last administered on 04/30/16 22:10; Start 04/30/16 at 22:00; Stop 04/30/16 at 22:01; Status DC Sodium Bicarbonate 150 meq/Sterile Water 1,150 ml @ 125 mls/hr 1X ONCE IV Last administered on 05/01/16 01:30; Start 05/01/16 at 01:30; Stop 05/01/16 at 10: 41; Status DC Potassium Chloride (KCl Premix 10meq) 100 ml @ 100 mls/hr Q1H IV Last administered on 05/01/16 05:48; Start 05/01/16 at 03:00; Stop 05/01/16 at 06:59; Status DC Dextrose 25 gm STK-MED ONCE IV ; Start 05/01/16 at 07:48; Stop 05/01/16 at 07:49; Status DC Dextrose 25 gm 25 gm 1X ONCE IV Last administered on 05/01/16 07:45; Start 05/01/16 at 08:15; Stop 05/01/16 at 08:16; Status DC Dextrose/Sodium Chloride (Iv D5% - 1/2 NS) 1,000 ml @ 100 mls/hr Q10H IV Last administered on 05/02/16 12:25; Start 05/01/16 at 08:23; Stop 05/02/16 at 18:03; Status DC Vancomycin HCl (Vanco Per Pharmacy) 1 each PRN DAILY PRN MC SEE COMMENTS Last administered on 05/01/16 16:21; Start 05/01/16 at 09:45; Stop 05/02/16 at 07:27; Status DC Piperacillin Sod/ Tazobactam Sod 1 each 1 each PRN DAILY PRN MC SEE COMMENTS; Start 05/01/16 at 09:45; Stop 05/01/16 at 12:21; Status DC Vancomycin HCl 1 gm/Sodium Chloride 250 ml @ 250 mls/hr 1X ONCE IV ; Start 05/01/16 at 10:00; Stop 05/01/16 at 10:59; Status DC Piperacillin Sod/ Tazobactam Sod 2.25 gm/Sodium Chloride 50 ml @ 100 mls/hr Q6HRS IV ; Start 05/01/16 at 12:00; Stop 05/01/16 at 12:21; Status DC Sodium Phosphate 20 mmol/Dextrose 256.6667 ml @ 64.167 m... 1X ONCE IV Last administered on 05/01/16 16:09; Start 05/01/16 at 10:00; Stop 05/01/16 at 13:59; Status DC Magnesium Sulfate/ Dextrose 50 ml @ 25 mls/hr 1X ONCE IV Last administered on 05/01/16 13:09; Start 05/01/16 at 10:00; Stop 05/01/16 at 11:59; Status DC Magnesium Sulfate/ Dextrose (Magnesium Sulfate PREMIX 4GM) 100 ml @ 25 mls/hr PRN DAILY PRN IV Mag level <1.9 and UO>30ml/hr; Start 05/02/16 at 09:00 Sodium Bicarbonate 50 meq 1X ONCE IV Last administered on 05/01/16 13:07; Start 05/01/16 at 11:30; Stop 05/01/16 at 11:31; Status DC Iohexol (Omnipaque 300 Mg/ml) 60 ml 1X ONCE IV Last administered on 05/01/16 12:15; Start 05/01/16 at 12:15; Stop 05/01/16 at 12:16; Status DC Info (Do NOT chart on this entry -- for MONITORING) 1 each PRN DAILY PRN MC SEE COMMENTS; Start 05/01/16 at 11:45; Stop 05/03/16 at 11:44; Status DC Acetaminophen (Tylenol) 650 mg PRN Q6HRS PRN PO MILD PAIN / TEMP Last administered on 05/04/16 03:05; Start 05/01/16 at 12:15 Ondansetron HCl (Zofran) 4 mg PRN Q6HRS PRN IV NAUSEA/VOMITING; Start 05/01/16 at 12:15 Albuterol/ Ipratropium (Duoneb) 3 ml RTQID NEB Last administered on 05/06/16 08:12; Start 05/01/16 at 16:00 Albuterol Sulfate (Ventolin Neb Soln) 2.5 mg PRN Q4HRS PRN NEB SHORTNESS OF BREATH; Start 05/01/16 at 12:15 Heparin Sodium (Porcine) 5000 unit 5,000 unit Q8HRS SQ Last administered on 06:19; Start 05/01/16 at 14:00 Piperacillin Sod/ Tazobactam Sod 3.375 gm/Sodium Chloride 50 ml @ 100 mls/hr Q6HRS IV Last administered on 05/04/16 05:06; Start 05/01/16 at 12:00; Stop 05/04 at 11:55; Status DC Vancomycin HCl 1 gm/Sodium Chloride 250 ml @ 250 mls/hr 1X ONCE IV Last administered on 05/01/16 16:09; Start 05/01/16 at 13:30; Stop 05/01/16 at 14:29; Status DC Heparin Sodium/ Sodium Chloride 500 ml @ As Directed STK-MED ONCE .ROUTE ; Start 05/01/16 at 13:09; Stop 05/01/16 at 13:10; Status DC Lidocaine/Sodium Bicarbonate (Buffered Lidocaine 1%) 3 ml 1X ONCE IJ Last administered on 05/01/16 14:00; Start 05/01/16 at 14:00; Stop 05/01/16 at 14:01; Status DC Heparin Sodium/ Sodium Chloride 60 unit 1X ONCE IV Last administered on 14:00; Start 05/01/16 at 14:00; Stop 05/01/16 at 14:01; Status DC Lidocaine/Sodium Bicarbonate (Buffered Lidocaine 1%) 20 ml 1X ONCE IJ Last administered on 05/01/16 15:30; Start 05/01/16 at 15:30; Stop 05/01/16 at 15:31; Status DC Heparin Sodium/ Sodium Chloride 1000 unit 1,000 unit 1X ONCE IART Last administered on 05/01/16 15:30; Start 05/01/16 at 15:30; Stop 05/01/16 at 15:31; Status DC Vancomycin HCl/ Sodium Chloride (Iv Sodium Chloride 0.9% 250ml) 250 ml @ 250 mls/hr Q24H IV ; Start 05/02/16 at 17:00; Stop 05/02/16 at 17:00; Status DC Vancomycin HCl 1 each 1 each 1X ONCE MC ; Start 05/03/16 at 16:30; Stop 05/03/16 at 16:31; Status Cancel Norepinephrine Bitartrate/Sodium Chloride (Levophed Vial/ Iv Sodium Chloride 0.9 % 250ml) 258 ml @ 0 mls/hr CONT PRN IV SEE I/O RECORD Last administered on 23:19; Start 05/01/16 at 18:15; Stop 05/04/16 at 13:41; Status DC Furosemide 20 mg 20 mg 1X ONCE IVP Last administered on 05/01/16 18:47; Start 05/01/16 at 19:15; Stop 05/01/16 at 19:16; Status DC Potassium Chloride 50 ml @ 50 mls/hr Q1H IV Last administered on 05/01/16 21:30 ; Start 05/01/16 at 21:00; Stop 05/01/16 at 22:59; Status DC Potassium Chloride 50 ml @ 50 mls/hr Q1H IV Last administered on 05/02/16 02:56 ; Start 05/02/16 at 02:00; Stop 05/02/16 at 03:59; Status DC Linezolid (Zyvox Premix) 300 ml @ 300 mls/hr Q12HR IV Last administered on 05/04 08:43; Start 05/02/16 at 09:00; Stop 05/04/16 at 11:55; Status DC Multivitamins/ Calcium (Thera M Plus) 1 tab DAILY PO Last administered on 08:20; Start 05/02/16 at 11:00 Ascorbic Acid 500 mg 500 mg DAILY PO Last administered on 05/06/16 08:20; Start 05/02/16 at 11:00 Albumin Human 250 ml @ 62.5 mls/hr 1X ONCE IV Last administered on 05/02/16 11:07; Start 05/02/16 at 10:45; Stop 05/02/16 at 14:47; Status DC Albumin Human 250 ml @ 62.5 mls/hr 1X ONCE IV Last administered on 05/02/16 13:34; Start 05/02/16 at 13:45; Stop 05/02/16 at 17:44; Status DC Sodium Chloride 1,000 ml @ 999 mls/hr 1X ONCE IV Last administered on 11:01; Start 05/02/16 at 10:45; Stop 05/02/16 at 11:45; Status DC Potassium Chloride 50 ml @ 50 mls/hr Q1H IV Last administered on 05/02/16 15:58 ; Start 05/02/16 at 13:45; Stop 05/02/16 at 15:44; Status DC Magnesium Sulfate/ Dextrose (Magnesium Sulfate PREMIX 4GM) 100 ml @ 25 mls/hr 1X ONCE IV Last administered on 05/02/16 15:15; Start 05/02/16 at 13:45; Stop 05/02/16 at 17:44; Status DC Aspirin (Ecotrin) 81 mg DAILY PO Last administered on 05/06/16 08:18; Start at 15:00 Insulin Aspart (Novolog) QIDACHS SQ ; Start 05/02/16 at 16:30; Stop 05/02/16 at 16:30; Status DC Insulin Aspart (Novolog) 5 units TIDAC SQ Last administered on 05/05/16 17:31 ; Start 05/02/16 at 16:30 Insulin Detemir (Levemir) 10 units DAILY SQ Last administered on 05/04/16 08:56 ; Start 05/03/16 at 09:00; Stop 05/05/16 at 10:54; Status DC Lisinopril (Prinivil) 5 mg DAILY PO Last administered on 05/06/16 08:19; Start 05/02/16 at 15:00 Insulin Detemir (Levemir) 8 units QHS SQ Last administered on 05/05/16 21:37; Start 05/02/16 at 21:00 Potassium Chloride (Klor-Con) 40 meq DAILYWBKFT PO Last administered on 08:16; Start 05/03/16 at 08:00 Insulin Aspart (Novolog) 0-7 UNITS TIDWMEALS SQ Last administered on 05/05/16 17:30; Start 05/02/16 at 17:00 Dextrose 12.5 gm 12.5 gm PRN Q15MIN PRN IV SEE COMMENTS Last administered on 06:15; Start 05/02/16 at 15:45 Sodium Chloride 1,000 ml @ 100 mls/hr Q10H IV Last administered on 05/06/16 11:02; Start 05/02/16 at 18:00 Ceftriaxone Sodium/Sodium Chloride (Rocephin/Iv Sodium Chloride 0.9% 50ml) 50 ml @ 100 mls/hr Q24H IV Last administered on 05/05/16 14:02; Start 05/04/16 at 13:00 Active Scripts Active Novolog Flexpen (Insulin Aspart) 100 Unit/1 Ml Insuln.pen 0 Units SQ QIDACHS Thera-M Tablet (Multivits,Ca,Minerals/Iron/Fa) 1 Each Tablet 1 Tab PO DAILY Levemir Flextouch (Insulin Detemir) 100 Unit/1 Ml Insuln.pen 10 Units SQ DAILY Lisinopril 5 Mg Tablet 1 Tab PO DAILY Reported Potassium Chloride 20 Meq Tablet.er 40 Meq PO DAILY 7 Days Amox Tr-K Clv 500-125 Mg Tab (Amoxicillin/Potassium Clav) 1 Each Tablet 1 Tab PO BID Zinc 50 Mg Tablet 220 Mg PO DAILY Ascorbic Acid 500 Mg Tablet 500 Mg PO DAILY Aspirin Ec (Aspirin) 81 Mg Tablet.dr 1 Tab PO DAILY Levemir (Insulin Detemir) 100 Unit/1 Ml Vial 8 Unit SQ HS Novolog Flexpen (Insulin Aspart) 100 Unit/1 Ml Insuln.pen 5 Unit SQ TIDAC Vitals/I & O Vital Sign - Last 24 Hours 05/05/16 05/05/16 05/05/16 05/05/16 12:39 14:56 16:44 19:00 Temp 99.9 98.7 99.9 98.7 Pulse 107 118 Resp 20 16 B/P 135/68 136/61 Pulse Ox 99 98 89 O2 Delivery Room Air Room Air Room Air Room Air 05/05/16 05/05/16 05/05/16 05/06/16 20:00 20:40 23:00 03:00 Temp 98.8 98.8 98.8 98.8 Pulse 106 91 Resp 16 16 B/P 136/68 138/59 Pulse Ox 98 100 O2 Delivery Room Air Room Air Room Air Room Air O2 Flow Rate 2.0 05/06/16 05/06/16 08:13 08:19 Pulse 91 B/P 121/72 O2 Delivery Room Air Intake and Output 05/05/16 05/05/16 05/06/16 15:00 23:00 07:00 Intake Total 360 ml 200 ml 1400 ml Output Total 1000 ml 1550 ml Balance 360 ml -800 ml -150 ml LISA MONTANEZ III DO May 06, 2016 11:44
--- NOTE | 2016-05-06 13:46 | PDOC ---
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 wounds [facility]. clean Labs Lab Laboratory Tests Test 05/05/16 14:59 05/05/16 16:41 05/05/16 20:23 05/06/16 00:51 Glucose (Fingerstick) 301mg/dL (70-99) 295mg/dL (70-99) 256mg/dL (70-99) 85mg/dL (70-99) Test 05/06/16 04:28 05/06/16 05:22 05/06/16 06:10 05/06/16 06:32 Glucose (Fingerstick) 140mg/dL (70-99) 62mg/dL (70-99) 58mg/dL (70-99) 103mg/dL (70-99) Test 05/06/16 07:58 05/06/16 08:40 05/06/16 09:08 05/06/16 09:29 Glucose (Fingerstick) 87mg/dL (70-99) 116mg/dL (70-99) White Blood Count 24.2x10^3/uL (4.0-11.0) Red Blood Count 3.28x10^6/uL (3.50-5.40) Hemoglobin 9.4g/dL (12.0-15.5) Hematocrit 28.9% (36.0-47.0) Mean Corpuscular Volume 88fL (79-100) Mean Corpuscular Hemoglobin 29pg (25-35) Mean Corpuscular Hemoglobin Concent 32g/dL (31-37) Red Cell Distribution Width 16.1% (11.5-14.5) Platelet Count 173x10^3/uL (140-400) Neutrophils (%) (Auto) 88% (31-73) Lymphocytes (%) (Auto) 7% (24-48) Monocytes (%) (Auto) 5% (0-9) Eosinophils (%) (Auto) 0% (0-3) Basophils (%) (Auto) 0% (0-3) Neutrophils # (Auto) 21.2x10^3uL (1.8-7.7) Lymphocytes # (Auto) 1.6x10^3/uL (1.0-4.8) Monocytes # (Auto) 1.3x10^3/uL (0.0-1.1) Eosinophils # (Auto) 0.0x10^3/uL (0.0-0.7) Basophils # (Auto) 0.0x10^3/uL (0.0-0.2) Stool Occult Blood Negative (NEG) Micro BLD CULT RESULT 1 Final Comment Streptococcus pneumoniae Recovered from pediatric bottle only. ANTIMICROBIAL SUSCEPTIBILITY Final Comment S = Susceptible; I = Intermediate; R = Resistant P = Positive; N = Negative MICS are expressed in micrograms per mL Antibiotic RSLT#1 RSLT#2 RSLT#3 RSLT#4 Ceftriaxone (meningitis) S Ceftriaxone (non-meningitis) S Erythromycin S Levofloxacin S Meropenem S Penicillin IV (meningitis) S Penicillin IV (non-mening) S Trimethoprim/Sulfa I Vancomycin S Objective Assessment Strep pneumonia sepsis - POA. 2/6 Resp failure - better Leukocytosis, trending up Fecal impaction - improving DKA - POA Pneumonia right - No mass on CT. Influenza - neg. H/o Abd mass - followed by GI - CT w/o contrast 2/6 - no evidence of mass Fever , better Foot wound - clean Sacral superficial wounds MRSA + screen Plan Plan of Care Rocephin Monitor WBC F/u am labs and cults Attending Co-Sign The patient was seen and interviewed as well as examined at the bedside. The chart was reviewed. The case was discussed. Agree with the plan of care. culture,, CHAIM Jerome APRN May 06, 2016 13:45 DRAKE HODGES MD May 06, 2016 15:07
[2016-05-06] MEDS: CEFTRIAXONE SODIUM 1 GM in IV NORMAL SALINE 50ML 50 ML IV SCH (14:55)
[2016-05-06] MEDS: ACETAMINOPHEN 325 MG TABLET. PO PRN (15:58)
[2016-05-06] MEDS: VANCOMYCIN PER PHARMACY MC PRN (16:31)
[2016-05-06] MEDS ORDERED: VANCOMYCIN 1 GM in IV NORMAL SALINE 250ML 250 ML IV ONE (17:00)
[2016-05-07 03:00] VITALS: BP 146/72
[2016-05-07] MEDS: HEPARIN PF for SUB-Q USE 5,000 UNIT/0.5 ML VIAL. SQ SCH ×3 (06:27→22:00)
[2016-05-07 06:28] LABS: BASO % 0 % (0-3); EOS % 0 % (0-3); HEMATOCRIT 24.5 % (36.0-47.0); HEMOGLOBIN 7.9 g/dL (12.0-15.5); LYMPH # 1.3 x10^3/uL (1.0-4.8); LYMPH % 7 % (24-48); MEAN CORPUSCULAR HEMOGLOBIN 28 pg (25-35); MEAN CORPUSCULAR HGB CONC 32 g/dL (31-37); MEAN CORPUSCULAR VOLUME 88 fL (79-100); MONO % 6 % (0-9); NEUT % 87 % (31-73); PLATELET COUNT 164 x10^3/uL (140-400); RED BLOOD COUNT 2.77 x10^6/uL (3.50-5.40); RED CELL DISTRIBUTION WIDTH 15.9 % (11.5-14.5); WHITE BLOOD COUNT 19.3 x10^3/uL (4.0-11.0)
[2016-05-07 06:55] LABS: CREATININE 0.6 mg/dL (0.6-1.0); GFR 120.3; POTASSIUM 4.2 mmol/L (3.5-5.1)
[2016-05-07 07:00] VITALS: BP 151/74
[2016-05-07] MEDS: IPRATRPIUM/ALBUTEROL 0.5/2.5MG 3 ML NEBU. NEB SCH ×4 (07:32→19:31)
[2016-05-07] MEDS: POTASSIUM CHLORIDE 20 MEQ TABLET.ER. PO SCH (08:42)
[2016-05-07] MEDS: ASPIRIN ENTERIC COATED 81 MG TABLET.DR. PO SCH (08:43)
[2016-05-07] MEDS: MULTIVITAMIN with MINERAL TABLET. PO SCH (08:44)
[2016-05-07] MEDS: LISINOPRIL 5 MG TABLET. PO SCH (08:44)
[2016-05-07] MEDS: ASCORBIC ACID 500 MG TABLET PO SCH (08:45)
[2016-05-07] MEDS: INSULIN ASPART 300 UNITS/3 ML INSULN.PEN SQ SCH ×5 (08:48→16:55)
[2016-05-07] MEDS: IV NORMAL SALINE 1000ML BAG 1,000 ML IV SCH ×2 (08:58→17:37)
[2016-05-07 11:00] VITALS: BP 146/68
--- NOTE | 2016-05-07 12:05 | PDOC ---
Infectious Disease Note Subjective Subjective Feeling alright Denies pain spiked fever Tmax 102.2 yesterday, none so far today ROS ROS GEN: Denies fevers, chills, sweats CV: Denies chest pain RESP: Denies shortness of air, cough GI: Denies n/v/d Vital Sign Vital Signs Vital Signs Date Time Temp Pulse Resp B/P Pulse Ox O2 Delivery O2 Flow Rate FiO2 05/07/16 11:43 100 Room Air 05/07/16 08:44 109 151/74 05/07/16 07:00 98.3 16 98.3 Physical Exam PHYSICAL EXAM GENERAL: Propped up in bed, NAD HENT: Oral cavity clear LUNGS: Clear HEART: S1S2, no gallop, no murmur ABD: Soft, NT EXT: No edema, no cyanosis DIRECTOR OF EXHIBIT DEVELOPMENT: Alert, coop SKIN: No rash. wounds LIJ. clean Labs Lab Laboratory Tests Test 05/06/16 15:37 05/06/16 16:36 05/06/16 21:02 05/07/16 03:03 Glucose (Fingerstick) 310mg/dL (70-99) 340mg/dL (70-99) 282mg/dL (70-99) 331mg/dL (70-99) Test 05/07/16 06:00 05/07/16 07:51 05/07/16 11:41 White Blood Count 19.3x10^3/uL (4.0-11.0) Red Blood Count 2.77x10^6/uL (3.50-5.40) Hemoglobin 7.9g/dL (12.0-15.5) Hematocrit 24.5% (36.0-47.0) Mean Corpuscular Volume 88fL (79-100) Mean Corpuscular Hemoglobin 28pg (25-35) Mean Corpuscular Hemoglobin Concent 32g/dL (31-37) Red Cell Distribution Width 15.9% (11.5-14.5) Platelet Count 164x10^3/uL (140-400) Neutrophils (%) (Auto) 87% (31-73) Lymphocytes (%) (Auto) 7% (24-48) Monocytes (%) (Auto) 6% (0-9) Eosinophils (%) (Auto) 0% (0-3) Basophils (%) (Auto) 0% (0-3) Neutrophils # (Auto) 16.9x10^3uL (1.8-7.7) Lymphocytes # (Auto) 1.3x10^3/uL (1.0-4.8) Monocytes # (Auto) 1.1x10^3/uL (0.0-1.1) Eosinophils # (Auto) 0.0x10^3/uL (0.0-0.7) Basophils # (Auto) 0.0x10^3/uL (0.0-0.2) Sodium Level 141mmol/L (136-145) Potassium Level 4.2mmol/L (3.5-5.1) Chloride Level 109mmol/L (98-107) Carbon Dioxide Level 20mmol/L (21-32) Anion Gap 12 (6-14) Blood Urea Nitrogen 9mg/dL (7-20) Creatinine 0.6mg/dL (0.6-1.0) Estimated GFR (Cockcroft-Gault) 120.3 Glucose Level 365mg/dL (70-99) Calcium Level 8.0mg/dL (8.5-10.1) Glucose (Fingerstick) 313mg/dL (70-99) 292mg/dL (70-99) Micro BLD CULT RESULT 1 Final Comment Streptococcus pneumoniae Recovered from pediatric bottle only. ANTIMICROBIAL SUSCEPTIBILITY Final Comment S = Susceptible; I = Intermediate; R = Resistant P = Positive; N = Negative MICS are expressed in micrograms per mL Antibiotic RSLT#1 RSLT#2 RSLT#3 RSLT#4 Ceftriaxone (meningitis) S Ceftriaxone (non-meningitis) S Erythromycin S Levofloxacin S Meropenem S Penicillin IV (meningitis) S Penicillin IV (non-mening) S Trimethoprim/Sulfa I Vancomycin S Objective Assessment Fever Strep pneumonia sepsis - POA. 2/6 Resp failure - better Leukocytosis, some better Fecal impaction - improving DKA - POA Pneumonia right - No mass on CT. Influenza - neg. H/o Abd mass - followed by GI - CT w/o contrast 2/6 - no evidence of mass Foot wound - clean Sacral superficial wounds MRSA + screen Plan Plan of Care Vanc and Rocephin Monitor WBC, Cr and temp F/u am labs and cults Attending Co-Sign The patient was seen and interviewed as well as examined at the bedside. The chart was reviewed. The case was discussed. Agree with the plan of care. CHAIM MCKEON APRN May 07, 2016 12:05 DRAKE HODGES MD May 07, 2016 13:38
[2016-05-07] MEDS: CEFTRIAXONE SODIUM 1 GM in IV NORMAL SALINE 50ML 50 ML IV SCH (12:27)
[2016-05-07 15:00] VITALS: BP 130/58
--- NOTE | 2016-05-07 15:19 | PDOC ---
PROGRESS NOTES Chief Complaint Chief Complaint 1. DKA POA, now brittle DM1 control 2. Sepsis POA, strep pneumo bacteremia 3. Acute hypoxic resp failure is improved, out of ICU to floor 4. Metabolic acidosis imroved 5. Weakness, acq 6. encephlalopathy, acute 7. RLL PNEUMONIA. 8. Constipation 9. RT foot wound , History of Present Illness History of Present Illness Pt resting laying down in bed when seen this AM. Pt still having difficulty glycemic control. Pt has complaint cough and overall generalized weakness and fatigue, but states that she is feeling a little better. Pt still has a moderate leukocytosis as noted in CBC. Pt still having poor PO intake. No chills or chest pain. All questions and concerns addressed and answered. Vitals Vitals Vital Signs Date Time Temp Pulse Resp B/P Pulse Ox O2 Delivery O2 Flow Rate FiO2 05/07/16 11:43 100 Room Air 05/07/16 11:00 98.3 96 18 146/68 98.3 Physical Exam General: Alert, Oriented X3, Cooperative, No acute distress Heart: Regular rate, Normal S1, Normal S2, No murmurs Lungs: Other (improved RLL) Abdomen: Normal bowel sounds, Soft Extremities: No clubbing, No cyanosis, No edema Skin: No rashes, No breakdown, Other (R HEEL WOUND) Labs LABS Laboratory Tests Test 05/06/16 15:37 05/06/16 16:36 05/06/16 21:02 05/07/16 03:03 Glucose (Fingerstick) 310mg/dL (70-99) 340mg/dL (70-99) 282mg/dL (70-99) 331mg/dL (70-99) Test 05/07/16 06:00 05/07/16 07:51 05/07/16 11:41 White Blood Count 19.3x10^3/uL (4.0-11.0) Red Blood Count 2.77x10^6/uL (3.50-5.40) Hemoglobin 7.9g/dL (12.0-15.5) Hematocrit 24.5% (36.0-47.0) Mean Corpuscular Volume 88fL (79-100) Mean Corpuscular Hemoglobin 28pg (25-35) Mean Corpuscular Hemoglobin Concent 32g/dL (31-37) Red Cell Distribution Width 15.9% (11.5-14.5) Platelet Count 164x10^3/uL (140-400) Neutrophils (%) (Auto) 87% (31-73) Lymphocytes (%) (Auto) 7% (24-48) Monocytes (%) (Auto) 6% (0-9) Eosinophils (%) (Auto) 0% (0-3) Basophils (%) (Auto) 0% (0-3) Neutrophils # (Auto) 16.9x10^3uL (1.8-7.7) Lymphocytes # (Auto) 1.3x10^3/uL (1.0-4.8) Monocytes # (Auto) 1.1x10^3/uL (0.0-1.1) Eosinophils # (Auto) 0.0x10^3/uL (0.0-0.7) Basophils # (Auto) 0.0x10^3/uL (0.0-0.2) Sodium Level 141mmol/L (136-145) Potassium Level 4.2mmol/L (3.5-5.1) Chloride Level 109mmol/L (98-107) Carbon Dioxide Level 20mmol/L (21-32) Anion Gap 12 (6-14) Blood Urea Nitrogen 9mg/dL (7-20) Creatinine 0.6mg/dL (0.6-1.0) Estimated GFR (Cockcroft-Gault) 120.3 Glucose Level 365mg/dL (70-99) Calcium Level 8.0mg/dL (8.5-10.1) Glucose (Fingerstick) 313mg/dL (70-99) 292mg/dL (70-99) Review of Systems Review of Systems patient complaint of hunger Patient complaint of fatigue Assessment and Plan Assessmemt and Plan Problems Medical Problems: (1) Diabetic ketoacidosis Status: Acute (2) DKA (diabetic ketoacidoses) Status: Acute Assessment: 1. DKA POA, now brittle DM1 control 2. Sepsis POA, strep pneumo bacteremia 3. Acute hypoxic resp failure is improved, out of ICU to floor 4. Metabolic acidosis imroved 5. Weakness, acq 6. encephlalopathy, acute 7. RLL PNEUMONIA. 8. Constipation 9. RT foot wound Plan: Continue to monitor the patient per floor protocol Daily labs- CBC, BMP, BUN, and Cr Daily PTOT Continue to monitor daily glucose Daily glycemic control Continue home meds Appreciate all subspecialty input and recommendations BISI RN Problems: Comment Review of Relevant I have reviewed the following items varun (where applicable) has been applied. Labs Laboratory Tests Test 05/05/16 16:41 05/05/16 20:23 05/06/16 00:51 05/06/16 04:28 Glucose (Fingerstick) 295mg/dL (70-99) 256mg/dL (70-99) 85mg/dL (70-99) 140mg/dL (70-99) Test 05/06/16 05:22 05/06/16 06:10 05/06/16 06:32 05/06/16 07:58 Glucose (Fingerstick) 62mg/dL (70-99) 58mg/dL (70-99) 103mg/dL (70-99) 87mg/dL (70-99) Test 05/06/16 08:40 05/06/16 09:08 05/06/16 09:29 05/06/16 15:37 White Blood Count 24.2x10^3/uL (4.0-11.0) Red Blood Count 3.28x10^6/uL (3.50-5.40) Hemoglobin 9.4g/dL (12.0-15.5) Hematocrit 28.9% (36.0-47.0) Mean Corpuscular Volume 88fL (79-100) Mean Corpuscular Hemoglobin 29pg (25-35) Mean Corpuscular Hemoglobin Concent 32g/dL (31-37) Red Cell Distribution Width 16.1% (11.5-14.5) Platelet Count 173x10^3/uL (140-400) Neutrophils (%) (Auto) 88% (31-73) Lymphocytes (%) (Auto) 7% (24-48) Monocytes (%) (Auto) 5% (0-9) Eosinophils (%) (Auto) 0% (0-3) Basophils (%) (Auto) 0% (0-3) Neutrophils # (Auto) 21.2x10^3uL (1.8-7.7) Lymphocytes # (Auto) 1.6x10^3/uL (1.0-4.8) Monocytes # (Auto) 1.3x10^3/uL (0.0-1.1) Eosinophils # (Auto) 0.0x10^3/uL (0.0-0.7) Basophils # (Auto) 0.0x10^3/uL (0.0-0.2) Glucose (Fingerstick) 116mg/dL (70-99) 310mg/dL (70-99) Stool Occult Blood Negative (NEG) Test 05/06/16 16:36 05/06/16 21:02 05/07/16 03:03 05/07/16 06:00 Glucose (Fingerstick) 340mg/dL (70-99) 282mg/dL (70-99) 331mg/dL (70-99) White Blood Count 19.3x10^3/uL (4.0-11.0) Red Blood Count 2.77x10^6/uL (3.50-5.40) Hemoglobin 7.9g/dL (12.0-15.5) Hematocrit 24.5% (36.0-47.0) Mean Corpuscular Volume 88fL (79-100) Mean Corpuscular Hemoglobin 28pg (25-35) Mean Corpuscular Hemoglobin Concent 32g/dL (31-37) Red Cell Distribution Width 15.9% (11.5-14.5) Platelet Count 164x10^3/uL (140-400) Neutrophils (%) (Auto) 87% (31-73) Lymphocytes (%) (Auto) 7% (24-48) Monocytes (%) (Auto) 6% (0-9) Eosinophils (%) (Auto) 0% (0-3) Basophils (%) (Auto) 0% (0-3) Neutrophils # (Auto) 16.9x10^3uL (1.8-7.7) Lymphocytes # (Auto) 1.3x10^3/uL (1.0-4.8) Monocytes # (Auto) 1.1x10^3/uL (0.0-1.1) Eosinophils # (Auto) 0.0x10^3/uL (0.0-0.7) Basophils # (Auto) 0.0x10^3/uL (0.0-0.2) Sodium Level 141mmol/L (136-145) Potassium Level 4.2mmol/L (3.5-5.1) Chloride Level 109mmol/L (98-107) Carbon Dioxide Level 20mmol/L (21-32) Anion Gap 12 (6-14) Blood Urea Nitrogen 9mg/dL (7-20) Creatinine 0.6mg/dL (0.6-1.0) Estimated GFR (Cockcroft-Gault) 120.3 Glucose Level 365mg/dL (70-99) Calcium Level 8.0mg/dL (8.5-10.1) Test 05/07/16 07:51 05/07/16 11:41 Glucose (Fingerstick) 313mg/dL (70-99) 292mg/dL (70-99) Laboratory Tests Test 05/06/16 15:37 05/06/16 16:36 05/06/16 21:02 05/07/16 03:03 Glucose (Fingerstick) 310mg/dL (70-99) 340mg/dL (70-99) 282mg/dL (70-99) 331mg/dL (70-99) Test 05/07/16 06:00 05/07/16 07:51 05/07/16 11:41 White Blood Count 19.3x10^3/uL (4.0-11.0) Red Blood Count 2.77x10^6/uL (3.50-5.40) Hemoglobin 7.9g/dL (12.0-15.5) Hematocrit 24.5% (36.0-47.0) Mean Corpuscular Volume 88fL (79-100) Mean Corpuscular Hemoglobin 28pg (25-35) Mean Corpuscular Hemoglobin Concent 32g/dL (31-37) Red Cell Distribution Width 15.9% (11.5-14.5) Platelet Count 164x10^3/uL (140-400) Neutrophils (%) (Auto) 87% (31-73) Lymphocytes (%) (Auto) 7% (24-48) Monocytes (%) (Auto) 6% (0-9) Eosinophils (%) (Auto) 0% (0-3) Basophils (%) (Auto) 0% (0-3) Neutrophils # (Auto) 16.9x10^3uL (1.8-7.7) Lymphocytes # (Auto) 1.3x10^3/uL (1.0-4.8) Monocytes # (Auto) 1.1x10^3/uL (0.0-1.1) Eosinophils # (Auto) 0.0x10^3/uL (0.0-0.7) Basophils # (Auto) 0.0x10^3/uL (0.0-0.2) Sodium Level 141mmol/L (136-145) Potassium Level 4.2mmol/L (3.5-5.1) Chloride Level 109mmol/L (98-107) Carbon Dioxide Level 20mmol/L (21-32) Anion Gap 12 (6-14) Blood Urea Nitrogen 9mg/dL (7-20) Creatinine 0.6mg/dL (0.6-1.0) Estimated GFR (Cockcroft-Gault) 120.3 Glucose Level 365mg/dL (70-99) Calcium Level 8.0mg/dL (8.5-10.1) Glucose (Fingerstick) 313mg/dL (70-99) 292mg/dL (70-99) Microbiology 05/01/16 Blood Culture - Final, Complete 05/01/16 Blood Culture Result 1 (CASEY) - Final, Complete 05/01/16 Antimicrobic Susceptibility - Final, Complete 05/01/16 Urine Culture - Final, Complete 05/01/16 Urine Culture Result 1 (CASEY) - Final, Complete Medications Current Medications Sodium Chloride 1,000 ml @ 1,000 mls/hr Q1H IV Last administered on 04/30/16 20:30; Start 04/30/16 at 20:30; Stop 04/30/16 at 21:29; Status DC Sodium Chloride 1,000 ml @ 1,000 mls/hr Q1H IV Last administered on 04/30/16 21:47; Start 04/30/16 at 21:30; Stop 04/30/16 at 21:31; Status DC Insulin Human Regular 150 unit/ Sodium Chloride 151.5 ml @ 0 mls/hr CONT PRN PRN IV PER PROTOCOL Last administered on 04/30/16 21:23; Start 04/30/16 at 21:15 ; Stop 05/04/16 at 13:41; Status DC Potassium Chloride 100 ml @ 100 mls/hr PRN Q1HR PRN IV SEE COMMENTS; Start 04/30/16 at 21:15 Potassium Chloride 100 ml @ 100 mls/hr PRN Q1HR PRN IV SEE COMMENTS; Start 04/30/16 at 21:15 Potassium Chloride (KCl Premix 10meq) 100 ml @ 100 mls/hr PRN Q1HR PRN IV SEE COMMENTS; Start 04/30/16 at 21:15 Ondansetron HCl (Zofran) 4 mg PRN Q8HRS PRN IV NAUSEA/VOMITING Last administered on 05/01/16 04:57; Start 04/30/16 at 21:30; Stop 05/01/16 at 21:29; Status DC Acetaminophen 650 mg 650 mg PRN Q4HRS PRN PO FEVER Last administered on 18:00; Start 04/30/16 at 21:30; Stop 05/01/16 at 21:29; Status DC Potassium Chloride/Sodium Chloride (KCl 40 Meq-NS 1,000 ml Iv Soln) 1,000 ml @ 150 mls/hr 1X ONCE IV Last administered on 04/30/16 21:48; Start 04/30/16 at 22 :00; Stop 05/01/16 at 04:39; Status DC Hydralazine HCl 10 mg 10 mg 1X ONCE IVP Last administered on 04/30/16 22:10; Start 04/30/16 at 22:00; Stop 04/30/16 at 22:01; Status DC Sodium Bicarbonate 150 meq/Sterile Water 1,150 ml @ 125 mls/hr 1X ONCE IV Last administered on 05/01/16 01:30; Start 05/01/16 at 01:30; Stop 05/01/16 at 10: 41; Status DC Potassium Chloride (KCl Premix 10meq) 100 ml @ 100 mls/hr Q1H IV Last administered on 05/01/16 05:48; Start 05/01/16 at 03:00; Stop 05/01/16 at 06:59; Status DC Dextrose 25 gm STK-MED ONCE IV ; Start 05/01/16 at 07:48; Stop 05/01/16 at 07:49; Status DC Dextrose 25 gm 25 gm 1X ONCE IV Last administered on 05/01/16 07:45; Start 05/01/16 at 08:15; Stop 05/01/16 at 08:16; Status DC Dextrose/Sodium Chloride (Iv D5% - 1/2 NS) 1,000 ml @ 100 mls/hr Q10H IV Last administered on 05/02/16 12:25; Start 05/01/16 at 08:23; Stop 05/02/16 at 18:03; Status DC Vancomycin HCl (Vanco Per Pharmacy) 1 each PRN DAILY PRN MC SEE COMMENTS Last administered on 05/01/16 16:21; Start 05/01/16 at 09:45; Stop 05/02/16 at 07:27; Status DC Piperacillin Sod/ Tazobactam Sod 1 each 1 each PRN DAILY PRN MC SEE COMMENTS; Start 05/01/16 at 09:45; Stop 05/01/16 at 12:21; Status DC Vancomycin HCl 1 gm/Sodium Chloride 250 ml @ 250 mls/hr 1X ONCE IV ; Start 05/01/16 at 10:00; Stop 05/01/16 at 10:59; Status DC Piperacillin Sod/ Tazobactam Sod 2.25 gm/Sodium Chloride 50 ml @ 100 mls/hr Q6HRS IV ; Start 05/01/16 at 12:00; Stop 05/01/16 at 12:21; Status DC Sodium Phosphate 20 mmol/Dextrose 256.6667 ml @ 64.167 m... 1X ONCE IV Last administered on 05/01/16 16:09; Start 05/01/16 at 10:00; Stop 05/01/16 at 13:59; Status DC Magnesium Sulfate/ Dextrose 50 ml @ 25 mls/hr 1X ONCE IV Last administered on 05/01/16 13:09; Start 05/01/16 at 10:00; Stop 05/01/16 at 11:59; Status DC Magnesium Sulfate/ Dextrose (Magnesium Sulfate PREMIX 4GM) 100 ml @ 25 mls/hr PRN DAILY PRN IV Mag level <1.9 and UO>30ml/hr; Start 05/02/16 at 09:00 Sodium Bicarbonate 50 meq 1X ONCE IV Last administered on 05/01/16 13:07; Start 05/01/16 at 11:30; Stop 05/01/16 at 11:31; Status DC Iohexol (Omnipaque 300 Mg/ml) 60 ml 1X ONCE IV Last administered on 05/01/16 12:15; Start 05/01/16 at 12:15; Stop 05/01/16 at 12:16; Status DC Info (Do NOT chart on this entry -- for MONITORING) 1 each PRN DAILY PRN MC SEE COMMENTS; Start 05/01/16 at 11:45; Stop 05/03/16 at 11:44; Status DC Acetaminophen (Tylenol) 650 mg PRN Q6HRS PRN PO MILD PAIN / TEMP Last administered on 05/06/16 15:58; Start 05/01/16 at 12:15 Ondansetron HCl (Zofran) 4 mg PRN Q6HRS PRN IV NAUSEA/VOMITING; Start 05/01/16 at 12:15 Albuterol/ Ipratropium (Duoneb) 3 ml RTQID NEB Last administered on 05/07/16 11:43; Start 05/01/16 at 16:00 Albuterol Sulfate (Ventolin Neb Soln) 2.5 mg PRN Q4HRS PRN NEB SHORTNESS OF BREATH; Start 05/01/16 at 12:15 Heparin Sodium (Porcine) 5000 unit 5,000 unit Q8HRS SQ Last administered on 06:27; Start 05/01/16 at 14:00 Piperacillin Sod/ Tazobactam Sod 3.375 gm/Sodium Chloride 50 ml @ 100 mls/hr Q6HRS IV Last administered on 05/04/16 05:06; Start 05/01/16 at 12:00; Stop 05/04 at 11:55; Status DC Vancomycin HCl 1 gm/Sodium Chloride 250 ml @ 250 mls/hr 1X ONCE IV Last administered on 05/01/16 16:09; Start 05/01/16 at 13:30; Stop 05/01/16 at 14:29; Status DC Heparin Sodium/ Sodium Chloride 500 ml @ As Directed STK-MED ONCE .ROUTE ; Start 05/01/16 at 13:09; Stop 05/01/16 at 13:10; Status DC Lidocaine/Sodium Bicarbonate (Buffered Lidocaine 1%) 3 ml 1X ONCE IJ Last administered on 05/01/16 14:00; Start 05/01/16 at 14:00; Stop 05/01/16 at 14:01; Status DC Heparin Sodium/ Sodium Chloride 60 unit 1X ONCE IV Last administered on 14:00; Start 05/01/16 at 14:00; Stop 05/01/16 at 14:01; Status DC Lidocaine/Sodium Bicarbonate (Buffered Lidocaine 1%) 20 ml 1X ONCE IJ Last administered on 05/01/16 15:30; Start 05/01/16 at 15:30; Stop 05/01/16 at 15:31; Status DC Heparin Sodium/ Sodium Chloride 1000 unit 1,000 unit 1X ONCE IART Last administered on 05/01/16 15:30; Start 05/01/16 at 15:30; Stop 05/01/16 at 15:31; Status DC Vancomycin HCl/ Sodium Chloride (Iv Sodium Chloride 0.9% 250ml) 250 ml @ 250 mls/hr Q24H IV ; Start 05/02/16 at 17:00; Stop 05/02/16 at 17:00; Status DC Vancomycin HCl 1 each 1 each 1X ONCE MC ; Start 05/03/16 at 16:30; Stop 05/03/16 at 16:31; Status Cancel Norepinephrine Bitartrate/Sodium Chloride (Levophed Vial/ Iv Sodium Chloride 0.9 % 250ml) 258 ml @ 0 mls/hr CONT PRN IV SEE I/O RECORD Last administered on 23:19; Start 05/01/16 at 18:15; Stop 05/04/16 at 13:41; Status DC Furosemide 20 mg 20 mg 1X ONCE IVP Last administered on 05/01/16 18:47; Start 05/01/16 at 19:15; Stop 05/01/16 at 19:16; Status DC Potassium Chloride 50 ml @ 50 mls/hr Q1H IV Last administered on 05/01/16 21:30 ; Start 05/01/16 at 21:00; Stop 05/01/16 at 22:59; Status DC Potassium Chloride 50 ml @ 50 mls/hr Q1H IV Last administered on 05/02/16 02:56 ; Start 05/02/16 at 02:00; Stop 05/02/16 at 03:59; Status DC Linezolid (Zyvox Premix) 300 ml @ 300 mls/hr Q12HR IV Last administered on 05/04 08:43; Start 05/02/16 at 09:00; Stop 05/04/16 at 11:55; Status DC Multivitamins/ Calcium (Thera M Plus) 1 tab DAILY PO Last administered on 08:44; Start 05/02/16 at 11:00 Ascorbic Acid 500 mg 500 mg DAILY PO Last administered on 05/07/16 08:45; Start 05/02/16 at 11:00 Albumin Human 250 ml @ 62.5 mls/hr 1X ONCE IV Last administered on 05/02/16 11:07; Start 05/02/16 at 10:45; Stop 05/02/16 at 14:47; Status DC Albumin Human 250 ml @ 62.5 mls/hr 1X ONCE IV Last administered on 05/02/16 13:34; Start 05/02/16 at 13:45; Stop 05/02/16 at 17:44; Status DC Sodium Chloride 1,000 ml @ 999 mls/hr 1X ONCE IV Last administered on 11:01; Start 05/02/16 at 10:45; Stop 05/02/16 at 11:45; Status DC Potassium Chloride 50 ml @ 50 mls/hr Q1H IV Last administered on 05/02/16 15:58 ; Start 05/02/16 at 13:45; Stop 05/02/16 at 15:44; Status DC Magnesium Sulfate/ Dextrose (Magnesium Sulfate PREMIX 4GM) 100 ml @ 25 mls/hr 1X ONCE IV Last administered on 05/02/16 15:15; Start 05/02/16 at 13:45; Stop 05/02/16 at 17:44; Status DC Aspirin (Ecotrin) 81 mg DAILY PO Last administered on 05/07/16 08:43; Start at 15:00 Insulin Aspart (Novolog) QIDACHS SQ ; Start 05/02/16 at 16:30; Stop 05/02/16 at 16:30; Status DC Insulin Aspart (Novolog) 5 units TIDAC SQ Last administered on 05/07/16 12:34 ; Start 05/02/16 at 16:30 Insulin Detemir (Levemir) 10 units DAILY SQ Last administered on 05/04/16 08:56 ; Start 05/03/16 at 09:00; Stop 05/05/16 at 10:54; Status DC Lisinopril (Prinivil) 5 mg DAILY PO Last administered on 05/07/16 08:44; Start 05/02/16 at 15:00 Insulin Detemir (Levemir) 8 units QHS SQ Last administered on 05/05/16 21:37; Start 05/02/16 at 21:00; Stop 05/06/16 at 12:32; Status DC Potassium Chloride (Klor-Con) 40 meq DAILYWBKFT PO Last administered on 08:42; Start 05/03/16 at 08:00 Insulin Aspart (Novolog) 0-7 UNITS TIDWMEALS SQ Last administered on 05/07/16 12:34; Start 05/02/16 at 17:00 Dextrose 12.5 gm 12.5 gm PRN Q15MIN PRN IV SEE COMMENTS Last administered on 06:15; Start 05/02/16 at 15:45 Sodium Chloride 1,000 ml @ 100 mls/hr Q10H IV Last administered on 05/07/16 08:58; Start 05/02/16 at 18:00 Ceftriaxone Sodium/Sodium Chloride (Rocephin/Iv Sodium Chloride 0.9% 50ml) 50 ml @ 100 mls/hr Q24H IV Last administered on 05/07/16 12:27; Start 05/04/16 at 13:00 Vancomycin HCl 1 each 1 each PRN DAILY PRN MC SEE COMMENTS Last administered on 05/06/16 16:31; Start 05/06/16 at 16:30 Vancomycin HCl 1 gm/Sodium Chloride 250 ml @ 250 mls/hr 1X ONCE IV Last administered on 05/06/16 18:13; Start 05/06/16 at 17:00; Stop 05/06/16 at 17:59 ; Status DC Vancomycin HCl/ Sodium Chloride (Iv Sodium Chloride 0.9% 250ml) 250 ml @ 250 mls/hr Q24H IV ; Start 05/07/16 at 17:00 Vancomycin HCl 1 each 1X ONCE MC ; Start 05/08/16 at 16:30; Stop 05/08/16 at 16 :31 Active Scripts Active Novolog Flexpen (Insulin Aspart) 100 Unit/1 Ml Insuln.pen 0 Units SQ QIDACHS Thera-M Tablet (Multivits,Ca,Minerals/Iron/Fa) 1 Each Tablet 1 Tab PO DAILY Levemir Flextouch (Insulin Detemir) 100 Unit/1 Ml Insuln.pen 10 Units SQ DAILY Lisinopril 5 Mg Tablet 1 Tab PO DAILY Reported Potassium Chloride 20 Meq Tablet.er 40 Meq PO DAILY 7 Days Amox Tr-K Clv 500-125 Mg Tab (Amoxicillin/Potassium Clav) 1 Each Tablet 1 Tab PO BID Zinc 50 Mg Tablet 220 Mg PO DAILY Ascorbic Acid 500 Mg Tablet 500 Mg PO DAILY Aspirin Ec (Aspirin) 81 Mg Tablet.dr 1 Tab PO DAILY Levemir (Insulin Detemir) 100 Unit/1 Ml Vial 8 Unit SQ HS Novolog Flexpen (Insulin Aspart) 100 Unit/1 Ml Insuln.pen 5 Unit SQ TIDAC Vitals/I & O Vital Sign - Last 24 Hours 05/06/16 05/06/16 05/06/16 05/06/16 15:45 17:24 19:00 19:43 Temp 102.2 101.1 102.2 101.1 Pulse 109 115 Resp 22 20 B/P 136/50 140/62 Pulse Ox 22 100 98 O2 Delivery Room Air Room Air Room Air Room Air 05/06/16 05/06/16 05/07/16 05/07/16 20:00 23:00 03:00 07:00 Temp 98.8 98.5 98.3 98.8 98.5 98.3 Pulse 103 101 109 Resp 20 20 16 B/P 116/61 146/72 151/74 Pulse Ox 98 99 100 O2 Delivery Room Air Room Air Room Air Room Air 05/07/16 05/07/16 05/07/16 05/07/16 07:33 08:44 11:00 11:43 Temp 98.3 98.3 Pulse 109 96 Resp 18 B/P 151/74 146/68 Pulse Ox 100 100 O2 Delivery Room Air Room Air Room Air Intake and Output 05/06/16 05/06/16 05/07/16 15:00 23:00 07:00 Intake Total 120 ml Output Total 1200 ml 1900 ml Balance -1080 ml -1900 ml LISA MNOTANEZ III DO May 07, 2016 15:19
[2016-05-07] MEDS: VANCOMYCIN 750 MG in IV NORMAL SALINE 250ML 250 ML IV SCH (16:23)
[2016-05-07 19:00] VITALS: BP 135/48
[2016-05-07 23:00] VITALS: BP 155/55
[2016-05-07] MEDS: ACETAMINOPHEN 325 MG TABLET. PO PRN (23:53)
[2016-05-08 03:00] VITALS: BP 158/69
[2016-05-08] MEDS: IV NORMAL SALINE 1000ML BAG 1,000 ML IV SCH ×2 (04:00→13:19)
[2016-05-08] MEDS: HEPARIN PF for SUB-Q USE 5,000 UNIT/0.5 ML VIAL. SQ SCH ×3 (06:00→21:13)
[2016-05-08 07:20] VITALS: BP 124/61
[2016-05-08 07:25] LABS: BASO % 0 % (0-3); EOS % 0 % (0-3); HEMATOCRIT 23.2 % (36.0-47.0); HEMOGLOBIN 7.4 g/dL (12.0-15.5); LYMPH # 1.5 x10^3/uL (1.0-4.8); LYMPH % 10 % (24-48); MEAN CORPUSCULAR HEMOGLOBIN 29 pg (25-35); MEAN CORPUSCULAR HGB CONC 32 g/dL (31-37); MEAN CORPUSCULAR VOLUME 91 fL (79-100); MONO % 6 % (0-9); NEUT % 84 % (31-73); PLATELET COUNT 179 x10^3/uL (140-400); RED BLOOD COUNT 2.55 x10^6/uL (3.50-5.40); RED CELL DISTRIBUTION WIDTH 15.9 % (11.5-14.5); WHITE BLOOD COUNT 15.3 x10^3/uL (4.0-11.0)
[2016-05-08 07:30] LABS: CALCIUM 8.2 mg/dL (8.5-10.1); CREATININE 0.7 mg/dL (0.6-1.0); GFR 100.7; POTASSIUM 4.3 mmol/L (3.5-5.1)
[2016-05-08] MEDS: IPRATRPIUM/ALBUTEROL 0.5/2.5MG 3 ML NEBU. NEB SCH ×4 (07:57→18:24)
[2016-05-08] MEDS: MULTIVITAMIN with MINERAL TABLET. PO SCH (09:00)
[2016-05-08] MEDS: ASCORBIC ACID 500 MG TABLET PO SCH (09:37)
[2016-05-08] MEDS: POTASSIUM CHLORIDE 20 MEQ TABLET.ER. PO SCH (09:37)
[2016-05-08] MEDS: LISINOPRIL 5 MG TABLET. PO SCH (09:38)
[2016-05-08] MEDS: ASPIRIN ENTERIC COATED 81 MG TABLET.DR. PO SCH (09:38)
[2016-05-08] MEDS: INSULIN ASPART 300 UNITS/3 ML INSULN.PEN SQ SCH ×7 (09:45→17:45)
[2016-05-08 10:15] VITALS: BP 171/83
--- NOTE | 2016-05-08 10:35 | PDOC ---
Infectious Disease Note Subjective Subjective Feeling alright Denies pain spiked fever Tmax 102.2 yesterday, none so far today ROS ROS GEN: Denies fevers, chills, sweats HEENT: Denies blurred vision, sore throat CV: Denies chest pain RESP: Denies shortness of air, cough GI: Denies n/v/d NEURO: Denies confusion, dizziness MSK: Denies weakness, joint pain/swelling Vital Sign Vital Signs Vital Signs Date Time Temp Pulse Resp B/P Pulse Ox O2 Delivery O2 Flow Rate FiO2 05/08/16 09:38 105 124/61 05/08/16 07:58 100 Room Air 05/08/16 07:20 98.8 20 98.8 Physical Exam PHYSICAL EXAM GENERAL: NAD, Alert HEENT: PERRL, OC/OP NECK: Supple, no JVD, no LN LUNGS: Clear HEART: S1S2, no gallop, no murmur ABD: Soft, NT, no organomegaly, no rebound EXT: No edema, no cyanosis 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, 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, no focal neurologic deficit SKIN: No rash IV: ok Labs Lab Laboratory Tests Test 05/07/16 11:41 05/07/16 15:12 05/07/16 16:53 05/07/16 20:50 Glucose (Fingerstick) 292mg/dL (70-99) 171mg/dL (70-99) 134mg/dL (70-99) 215mg/dL (70-99) Test 05/08/16 07:05 05/08/16 07:22 White Blood Count 15.3x10^3/uL (4.0-11.0) Red Blood Count 2.55x10^6/uL (3.50-5.40) Hemoglobin 7.4g/dL (12.0-15.5) Hematocrit 23.2% (36.0-47.0) Mean Corpuscular Volume 91fL (79-100) Mean Corpuscular Hemoglobin 29pg (25-35) Mean Corpuscular Hemoglobin Concent 32g/dL (31-37) Red Cell Distribution Width 15.9% (11.5-14.5) Platelet Count 179x10^3/uL (140-400) Neutrophils (%) (Auto) 84% (31-73) Lymphocytes (%) (Auto) 10% (24-48) Monocytes (%) (Auto) 6% (0-9) Eosinophils (%) (Auto) 0% (0-3) Basophils (%) (Auto) 0% (0-3) Neutrophils # (Auto) 12.8x10^3uL (1.8-7.7) Lymphocytes # (Auto) 1.5x10^3/uL (1.0-4.8) Monocytes # (Auto) 0.9x10^3/uL (0.0-1.1) Eosinophils # (Auto) 0.0x10^3/uL (0.0-0.7) Basophils # (Auto) 0.0x10^3/uL (0.0-0.2) Sodium Level 143mmol/L (136-145) Potassium Level 4.3mmol/L (3.5-5.1) Chloride Level 109mmol/L (98-107) Carbon Dioxide Level 16mmol/L (21-32) Anion Gap 18 (6-14) Blood Urea Nitrogen 9mg/dL (7-20) Creatinine 0.7mg/dL (0.6-1.0) Estimated GFR (Cockcroft-Gault) 100.7 Glucose Level 433mg/dL (70-99) Calcium Level 8.2mg/dL (8.5-10.1) Glucose (Fingerstick) 402mg/dL (70-99) Objective Assessment Fever improved Strep pneumonia sepsis - POA. 2/6 Resp failure - better Leukocytosis, some better Fecal impaction - improving DKA - POA Pneumonia right - No mass on CT. Influenza - neg. H/o Abd mass - followed by GI - CT w/o contrast 2/6 - no evidence of mass Foot wound - clean Sacral superficial wounds MRSA + screen Plan Plan of Care po levaquin d/c cv line new bc 03/29 likely contaminant, though ID pending DRAKE HODGES MD May 08, 2016 10:35
[2016-05-08 11:05] LABS: NEG OBC FOB NEG; POS OBC FOB POS
[2016-05-08] MEDS: CEFTRIAXONE SODIUM 1 GM in IV NORMAL SALINE 50ML 50 ML IV SCH (12:28)
--- NOTE | 2016-05-08 12:43 | PDOC ---
PROGRESS NOTES Chief Complaint Chief Complaint DKA Sepsis ASSESSMENT AND PLAN: 1. DKA: resolved. now brittle diabetic control 2. Acute hypoxic resp failure: resolved. 3. Sepsis: resolved. 4. Strep pneumo bacteremia: on zyvox 5. RLL PNA: improving 6. Acute encephalopathy: resolved. 7. Weakness: related to frequent hospitalizations, ICU admits. needs PT 8. Constipation: bowel regimen 9. [place]: 2/ IVF. stop; monitor closely. increase activity. 10. Prophylaxis: heparin Dispo: home soon , History of Present Illness History of Present Illness Vitals Vitals Vital Signs Date Time Temp Pulse Resp B/P Pulse Ox O2 Delivery O2 Flow Rate FiO2 05/08/16 12:36 Room Air 05/08/16 10:15 98.2 113 20 171/83 100 98.2 Physical Exam General: Alert, Oriented X3, Cooperative, No acute distress Heart: Regular rate, No murmurs Lungs: Clear, Other (improved RLL) Abdomen: Normal bowel sounds, Soft Extremities: No clubbing, No cyanosis, No edema Skin: No rashes, No breakdown, Other (R HEEL WOUND) Labs LABS Laboratory Tests Test 05/07/16 15:12 05/07/16 16:53 05/07/16 20:50 05/08/16 07:05 Glucose (Fingerstick) 171mg/dL (70-99) 134mg/dL (70-99) 215mg/dL (70-99) White Blood Count 15.3x10^3/uL (4.0-11.0) Red Blood Count 2.55x10^6/uL (3.50-5.40) Hemoglobin 7.4g/dL (12.0-15.5) Hematocrit 23.2% (36.0-47.0) Mean Corpuscular Volume 91fL (79-100) Mean Corpuscular Hemoglobin 29pg (25-35) Mean Corpuscular Hemoglobin Concent 32g/dL (31-37) Red Cell Distribution Width 15.9% (11.5-14.5) Platelet Count 179x10^3/uL (140-400) Neutrophils (%) (Auto) 84% (31-73) Lymphocytes (%) (Auto) 10% (24-48) Monocytes (%) (Auto) 6% (0-9) Eosinophils (%) (Auto) 0% (0-3) Basophils (%) (Auto) 0% (0-3) Neutrophils # (Auto) 12.8x10^3uL (1.8-7.7) Lymphocytes # (Auto) 1.5x10^3/uL (1.0-4.8) Monocytes # (Auto) 0.9x10^3/uL (0.0-1.1) Eosinophils # (Auto) 0.0x10^3/uL (0.0-0.7) Basophils # (Auto) 0.0x10^3/uL (0.0-0.2) Sodium Level 143mmol/L (136-145) Potassium Level 4.3mmol/L (3.5-5.1) Chloride Level 109mmol/L (98-107) Carbon Dioxide Level 16mmol/L (21-32) Anion Gap 18 (6-14) Blood Urea Nitrogen 9mg/dL (7-20) Creatinine 0.7mg/dL (0.6-1.0) Estimated GFR (Cockcroft-Gault) 100.7 Glucose Level 433mg/dL (70-99) Calcium Level 8.2mg/dL (8.5-10.1) Test 05/08/16 07:22 05/08/16 11:35 Glucose (Fingerstick) 402mg/dL (70-99) 335mg/dL (70-99) Review of Systems Review of Systems unhappy about still being the hospital. family visiting Comment Review of Relevant AUGUSTUS WANG MD May 08, 2016 12:43
[2016-05-08 15:10] VITALS: BP 152/63
[2016-05-08] MEDS: VANCOMYCIN PER PHARMACY MC PRN (17:35)
[2016-05-08] MEDS: VANCOMYCIN 750 MG in IV NORMAL SALINE 250ML 250 ML IV SCH (17:36)
[2016-05-08 19:00] VITALS: BP 132/57
--- NOTE | 2016-05-08 20:18 | PDOC ---
PULMONARY PROGRESS NOTES Subjective NOT MORE SOA Vitals Vital Signs Date Time Temp Pulse Resp B/P Pulse Ox O2 Delivery O2 Flow Rate FiO2 05/08/16 18:25 99 Room Air 05/08/16 15:10 98.6 98 20 152/63 98.6 Comments ros as mentioned as above other sys otherwise neg General: Alert, No acute distress Lungs: Clear Cardiovascular: S1, S2 Abdomen: Soft, Non-tender Neuro Exam: Alert, Oriented Extremities: No Edema Skin: Dry Labs Laboratory Tests Test 05/06/16 21:02 05/07/16 03:03 05/07/16 06:00 05/07/16 07:51 Glucose (Fingerstick) 282mg/dL (70-99) 331mg/dL (70-99) 313mg/dL (70-99) White Blood Count 19.3x10^3/uL (4.0-11.0) Red Blood Count 2.77x10^6/uL (3.50-5.40) Hemoglobin 7.9g/dL (12.0-15.5) Hematocrit 24.5% (36.0-47.0) Mean Corpuscular Volume 88fL (79-100) Mean Corpuscular Hemoglobin 28pg (25-35) Mean Corpuscular Hemoglobin Concent 32g/dL (31-37) Red Cell Distribution Width 15.9% (11.5-14.5) Platelet Count 164x10^3/uL (140-400) Neutrophils (%) (Auto) 87% (31-73) Lymphocytes (%) (Auto) 7% (24-48) Monocytes (%) (Auto) 6% (0-9) Eosinophils (%) (Auto) 0% (0-3) Basophils (%) (Auto) 0% (0-3) Neutrophils # (Auto) 16.9x10^3uL (1.8-7.7) Lymphocytes # (Auto) 1.3x10^3/uL (1.0-4.8) Monocytes # (Auto) 1.1x10^3/uL (0.0-1.1) Eosinophils # (Auto) 0.0x10^3/uL (0.0-0.7) Basophils # (Auto) 0.0x10^3/uL (0.0-0.2) Stool Occult Blood Negative (NEG) Sodium Level 141mmol/L (136-145) Potassium Level 4.2mmol/L (3.5-5.1) Chloride Level 109mmol/L (98-107) Carbon Dioxide Level 20mmol/L (21-32) Anion Gap 12 (6-14) Blood Urea Nitrogen 9mg/dL (7-20) Creatinine 0.6mg/dL (0.6-1.0) Estimated GFR (Cockcroft-Gault) 120.3 Glucose Level 365mg/dL (70-99) Calcium Level 8.0mg/dL (8.5-10.1) Test 05/07/16 11:41 05/07/16 15:12 05/07/16 16:53 05/07/16 20:50 Glucose (Fingerstick) 292mg/dL (70-99) 171mg/dL (70-99) 134mg/dL (70-99) 215mg/dL (70-99) Test 05/08/16 07:05 05/08/16 07:22 05/08/16 11:35 05/08/16 16:19 White Blood Count 15.3x10^3/uL (4.0-11.0) Red Blood Count 2.55x10^6/uL (3.50-5.40) Hemoglobin 7.4g/dL (12.0-15.5) Hematocrit 23.2% (36.0-47.0) Mean Corpuscular Volume 91fL (79-100) Mean Corpuscular Hemoglobin 29pg (25-35) Mean Corpuscular Hemoglobin Concent 32g/dL (31-37) Red Cell Distribution Width 15.9% (11.5-14.5) Platelet Count 179x10^3/uL (140-400) Neutrophils (%) (Auto) 84% (31-73) Lymphocytes (%) (Auto) 10% (24-48) Monocytes (%) (Auto) 6% (0-9) Eosinophils (%) (Auto) 0% (0-3) Basophils (%) (Auto) 0% (0-3) Neutrophils # (Auto) 12.8x10^3uL (1.8-7.7) Lymphocytes # (Auto) 1.5x10^3/uL (1.0-4.8) Monocytes # (Auto) 0.9x10^3/uL (0.0-1.1) Eosinophils # (Auto) 0.0x10^3/uL (0.0-0.7) Basophils # (Auto) 0.0x10^3/uL (0.0-0.2) Sodium Level 143mmol/L (136-145) Potassium Level 4.3mmol/L (3.5-5.1) Chloride Level 109mmol/L (98-107) Carbon Dioxide Level 16mmol/L (21-32) Anion Gap 18 (6-14) Blood Urea Nitrogen 9mg/dL (7-20) Creatinine 0.7mg/dL (0.6-1.0) Estimated GFR (Cockcroft-Gault) 100.7 Glucose Level 433mg/dL (70-99) Calcium Level 8.2mg/dL (8.5-10.1) Glucose (Fingerstick) 402mg/dL (70-99) 335mg/dL (70-99) 186mg/dL (70-99) Laboratory Tests Test 05/07/16 20:50 05/08/16 07:05 05/08/16 07:22 05/08/16 11:35 Glucose (Fingerstick) 215mg/dL (70-99) 402mg/dL (70-99) 335mg/dL (70-99) White Blood Count 15.3x10^3/uL (4.0-11.0) Red Blood Count 2.55x10^6/uL (3.50-5.40) Hemoglobin 7.4g/dL (12.0-15.5) Hematocrit 23.2% (36.0-47.0) Mean Corpuscular Volume 91fL (79-100) Mean Corpuscular Hemoglobin 29pg (25-35) Mean Corpuscular Hemoglobin Concent 32g/dL (31-37) Red Cell Distribution Width 15.9% (11.5-14.5) Platelet Count 179x10^3/uL (140-400) Neutrophils (%) (Auto) 84% (31-73) Lymphocytes (%) (Auto) 10% (24-48) Monocytes (%) (Auto) 6% (0-9) Eosinophils (%) (Auto) 0% (0-3) Basophils (%) (Auto) 0% (0-3) Neutrophils # (Auto) 12.8x10^3uL (1.8-7.7) Lymphocytes # (Auto) 1.5x10^3/uL (1.0-4.8) Monocytes # (Auto) 0.9x10^3/uL (0.0-1.1) Eosinophils # (Auto) 0.0x10^3/uL (0.0-0.7) Basophils # (Auto) 0.0x10^3/uL (0.0-0.2) Sodium Level 143mmol/L (136-145) Potassium Level 4.3mmol/L (3.5-5.1) Chloride Level 109mmol/L (98-107) Carbon Dioxide Level 16mmol/L (21-32) Anion Gap 18 (6-14) Blood Urea Nitrogen 9mg/dL (7-20) Creatinine 0.7mg/dL (0.6-1.0) Estimated GFR (Cockcroft-Gault) 100.7 Glucose Level 433mg/dL (70-99) Calcium Level 8.2mg/dL (8.5-10.1) Test 05/08/16 16:19 Glucose (Fingerstick) 186mg/dL (70-99) Medications Active Scripts Medications Dose Route/Sig Days Date Category Potassium Chloride 20 Meq Tablet.er 40 Meq PO DAILY 7 02/22/16 Reported Amox Tr-K Clv 500-125 Mg Tab (Amoxicillin/Potassium Clav) 1 Each Tablet 1 Tab PO BID 02/11/16 Reported Zinc 50 Mg Tablet 220 Mg PO DAILY 01/31/16 Reported Ascorbic Acid 500 Mg Tablet 500 Mg PO DAILY 01/31/16 Reported Aspirin Ec (Aspirin) 81 Mg Tablet.dr 1 Tab PO DAILY 01/31/16 Reported Levemir (Insulin Detemir) 100 Unit/1 Ml Vial 8 Unit SQ HS 01/31/16 Reported Novolog Flexpen (Insulin Aspart) 100 Unit/1 Ml Insuln.pen 5 Unit SQ TIDAC 10/25/15 Reported Lisinopril 5 Mg Tablet 1 Tab PO DAILY 01/22/15 Rx Novolog Flexpen (Insulin Aspart) 100 Unit/1 Ml Insuln.pen 0 Units SQ QIDACHS 1/17/17 Rx Thera-M Tablet (Multivits,Ca,Minerals/Iron/Fa) 1 Each Tablet 1 Tab PO DAILY 04/11/16 Rx Levemir Flextouch (Insulin Detemir) 100 Unit/1 Ml Insuln.pen 10 Units SQ DAILY 04/11/16 Rx Comments Interval improvement in the appearance of the chest Impression . 1. Acute encephalopathy secondary to diabetic ketoacidosis. resolved 2. Right lower lobe pneumonia. ct chest with large consolidation RLL/ cxr 05/05 improving 3. Severe metabolic acidosis secondary to diabetic ketoacidosis. 4. No significant history of tobacco use. 5. Mild renal insufficiency, improving with IV fluids. 6. Acute hypoxic respiratory failure secondary to pneumonia. 7. Hypotension, sepsis, resolved Plan . RESP STATUS IS COMPENSATED 1. 02 titration, keeping sats 92-94%. 2. antibiotics per Infectious Disease. 3. CT chest reviewed 4. Management of DKA/ DM per PCP. 5.. repeat cxr with improving infiltrates RLL 6. will sign off but available for any help EDY GANT MD May 08, 2016 20:18
[2016-05-08 23:00] VITALS: BP 139/58
[2016-05-09 03:00] VITALS: BP 180/62
[2016-05-09] MEDS: HEPARIN PF for SUB-Q USE 5,000 UNIT/0.5 ML VIAL. SQ SCH (05:47)
[2016-05-09 06:27] LABS: CALCIUM 8.3 mg/dL (8.5-10.1); CREATININE 0.5 mg/dL (0.6-1.0); GFR 148.5; POTASSIUM 3.4 mmol/L (3.5-5.1)
[2016-05-09 06:58] LABS: BASO % 0 % (0-3); EOS % 1 % (0-3); HEMATOCRIT 21.6 % (36.0-47.0); LYMPH # 1.6 x10^3/uL (1.0-4.8); LYMPH % 13 % (24-48); MEAN CORPUSCULAR HEMOGLOBIN 29 pg (25-35); MEAN CORPUSCULAR HGB CONC 32 g/dL (31-37); MEAN CORPUSCULAR VOLUME 90 fL (79-100); MONO % 5 % (0-9); NEUT % 81 % (31-73); PLATELET COUNT 192 x10^3/uL (140-400); RED CELL DISTRIBUTION WIDTH 15.8 % (11.5-14.5); WHITE BLOOD COUNT 12.7 x10^3/uL (4.0-11.0)
[2016-05-09 07:15] LABS: HEMOGLOBIN 6.8 g/dL (12.0-15.5)
[2016-05-09 07:50] VITALS: BP 174/72
[2016-05-09] MEDS: IPRATRPIUM/ALBUTEROL 0.5/2.5MG 3 ML NEBU. NEB SCH ×2 (08:13→12:07)
[2016-05-09] MEDS: LISINOPRIL 5 MG TABLET. PO SCH (08:52)
[2016-05-09] MEDS: POTASSIUM CHLORIDE 20 MEQ TABLET.ER. PO SCH (08:52)
[2016-05-09] MEDS: ASCORBIC ACID 500 MG TABLET PO SCH (08:52)
[2016-05-09] MEDS: ASPIRIN ENTERIC COATED 81 MG TABLET.DR. PO SCH (08:52)
[2016-05-09] MEDS: MULTIVITAMIN with MINERAL TABLET. PO SCH (08:52)
[2016-05-09] MEDS: INSULIN ASPART 300 UNITS/3 ML INSULN.PEN SQ SCH ×4 (09:13→12:37)
[2016-05-09] MEDS: IV NORMAL SALINE 1000ML BAG 1,000 ML IV SCH ×2 (10:07)
[2016-05-09 11:00] VITALS: BP 181/71
--- NOTE | 2016-05-09 11:11 | PDOC ---
Infectious Disease Note Subjective Subjective Feeling fine ROS ROS GEN: Denies fevers, chills, sweats HEENT: Denies blurred vision, sore throat CV: Denies chest pain RESP: Denies shortness of air, cough GI: Denies n/v/d NEURO: Denies confusion, dizziness MSK: Denies weakness, joint pain/swelling Vital Sign Vital Signs Vital Signs Date Time Temp Pulse Resp B/P Pulse Ox O2 Delivery O2 Flow Rate FiO2 05/09/16 08:52 91 174/72 05/09/16 08:13 100 Room Air 05/09/16 07:50 97.7 18 97.7 Physical Exam PHYSICAL EXAM GENERAL: NAD, Alert HEENT: PERRL, OC/OP NECK: Supple, no JVD, no LN LUNGS: Clear HEART: S1S2, no gallop, no murmur ABD: Soft, NT, no organomegaly, no rebound EXT: No edema, no cyanosis 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, 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, no focal neurologic deficit SKIN: No rash IV: ok Labs Lab Laboratory Tests Test 05/08/16 11:35 05/08/16 16:19 05/08/16 21:12 05/09/16 05:32 Glucose (Fingerstick) 335mg/dL (70-99) 186mg/dL (70-99) 169mg/dL (70-99) White Blood Count 12.7x10^3/uL (4.0-11.0) Red Blood Count 2.40x10^6/uL (3.50-5.40) Hemoglobin 6.8g/dL (12.0-15.5) Hematocrit 21.6% (36.0-47.0) Mean Corpuscular Volume 90fL (79-100) Mean Corpuscular Hemoglobin 29pg (25-35) Mean Corpuscular Hemoglobin Concent 32g/dL (31-37) Red Cell Distribution Width 15.8% (11.5-14.5) Platelet Count 192x10^3/uL (140-400) Neutrophils (%) (Auto) 81% (31-73) Lymphocytes (%) (Auto) 13% (24-48) Monocytes (%) (Auto) 5% (0-9) Eosinophils (%) (Auto) 1% (0-3) Basophils (%) (Auto) 0% (0-3) Neutrophils # (Auto) 10.2x10^3uL (1.8-7.7) Lymphocytes # (Auto) 1.6x10^3/uL (1.0-4.8) Monocytes # (Auto) 0.7x10^3/uL (0.0-1.1) Eosinophils # (Auto) 0.1x10^3/uL (0.0-0.7) Basophils # (Auto) 0.0x10^3/uL (0.0-0.2) Sodium Level 146mmol/L (136-145) Potassium Level 3.4mmol/L (3.5-5.1) Chloride Level 112mmol/L (98-107) Carbon Dioxide Level 24mmol/L (21-32) Anion Gap 10 (6-14) Blood Urea Nitrogen 4mg/dL (7-20) Creatinine 0.5mg/dL (0.6-1.0) Estimated GFR (Cockcroft-Gault) 148.5 Glucose Level 110mg/dL (70-99) Calcium Level 8.3mg/dL (8.5-10.1) Test 05/09/16 07:58 Glucose (Fingerstick) 173mg/dL (70-99) Objective Assessment Fever improved Strep pneumonia sepsis - POA. 2/6 Resp failure - better Leukocytosis, some better Fecal impaction - improving DKA - POA Pneumonia right - No mass on CT. Influenza - neg. H/o Abd mass - followed by GI - CT w/o contrast 05/01 - no evidence of mass Foot wound - clean Sacral superficial wounds MRSA + screen Plan Plan of Care po levaquin d/c cv line new bc 03/29 coag neg staph, contaminant d/w DRAKE Dalton MD May 09, 2016 11:11
[2016-05-09] MEDS ORDERED: LEVO500T38 PO (12:10)
[2016-05-09 14:10] VITALS: BP 134/63
--- NOTE | 2016-05-11 19:09 | DS ---
DATE OF DISCHARGE: 05/09/2016 CHIEF COMPLAINT: DKA, sepsis. 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 She was admitted with DKA and sepsis once again. Blood sugars were brought under control with initially insulin drip, which was later changed to her home regimen. She was found with strep pneumo bacteremia for which the antibiotics ultimately were narrowed to Zyvox. The origin of her infection was deemed to be a right lower lobe pneumonia. The patient had complications of anasarca secondary to intravenous fluids. These were stopped and the patient was monitored with increased activity resulted in improvement. The patient was discharged on the 09 May. PHYSICAL EXAMINATION: VITAL SIGNS: Show a blood pressure of 171/83, heart rate of 113, respiratory rate at 20, and she is afebrile. GENERAL: This is a cachectic 70-year-old -[place] woman, alert and oriented, no acute distress. LUNGS: Clear. HEART: Regular rate and rhythm. ABDOMEN: Has positive bowel sounds, soft, nontender. EXTREMITIES: Show no edema. DISCHARGE DATE: 05/08/2016. DISCHARGE DISPOSITION: To home. DISCHARGE CONDITION: Improved. DISCHARGE DIAGNOSES: Pneumonia, Streptococcus pneumoniae sepsis, and diabetic ketoacidosis. DISCHARGE MEDICATIONS: Please refer to MAR. DISCHARGE INSTRUCTIONS: The patient will follow up with her PCP in 1 week. AUGUSTUS WANG MD DR: UR/nts JOB#: [id number] / [id number]
== END 2016-05-09 14:30 | disposition home health service (06) | DRG 871 ==
LOC: ER 19:03 → 1 WEST ICU 21:30 → 5 NORTH 05-03 17:00
PROVIDERS: ADMIT Internal Medicine; ATTEND Internal Medicine
PROC: 02H633Z Insertion of Infusion Device into Right Atrium, Percutaneous Approach (ICD-10-PCS; principal; 2016-05-01)
PROC: B2141ZZ Fluoroscopy of Right Heart using Low Osmolar Contrast (ICD-10-PCS; 2016-05-01)
PROC: B244ZZZ Ultrasonography of Right Heart (ICD-10-PCS; 2016-05-01)
PROC: 5A09357 Assistance with Respiratory Ventilation, Less than 24 Consecutive Hours, Continuous Positive Airway Pressure (ICD-10-PCS; 2016-05-02)
DX: A40.9 Streptococcal sepsis, unspecified (principal); G93.41 Metabolic encephalopathy; N17.0 Acute kidney failure with tubular necrosis; J15.4 Pneumonia due to other streptococci; J96.01 Acute respiratory failure with hypoxia; E10.10 Type 1 diabetes mellitus with ketoacidosis without coma; Z68.1 Body mass index [BMI] 19.9 or less, adult; B95.3 Streptococcus pneumoniae as the cause of diseases classified elsewhere; D63.8 Anemia in other chronic diseases classified elsewhere; E10.621 Type 1 diabetes mellitus with foot ulcer; E10.649 Type 1 diabetes mellitus with hypoglycemia without coma; E83.39 Other disorders of phosphorus metabolism; E83.42 Hypomagnesemia; F03.90 Unspecified dementia, unspecified severity, without behavioral disturbance, psychotic disturbance, mood disturbance, and anxiety; I10 Essential (primary) hypertension; K56.41 Fecal impaction; L97.519 Non-pressure chronic ulcer of other part of right foot with unspecified severity; R63.6 Underweight; Y95 Nosocomial condition; Z79.4 Long term (current) use of insulin; Z82.49 Family history of ischemic heart disease and other diseases of the circulatory system; Z86.14 Personal history of Methicillin resistant Staphylococcus aureus infection; Z91.19 Patient's noncompliance with other medical treatment and regimen; Z79.899 Other long term (current) drug therapy
CPT/HCPCS: 36415; 36556; 36600; 51702; 71010; 71020; 71260; 74177; 76937; 77001; 80048; 80053; 80076; 81001; 82274; 82805; 82947; 83036; 83690; 83735; 84100; 85007; 85027; 87040; 87086; 87205; 87641; 87804; 93005; 94640; 94660; 94760; 96361; 96365; C1892; J0360; J0696; J1815; J2020; J2405; J2543; J3370; J3475; J3480; J7030; J7042; J7050; J7060; J7620; P9041; Q9967; 97116; 97530; 99291-25

== ENCOUNTER 2016-07-12 02:06 | Inpatient (IN) | payer OTHER ==
[~2016-07-12] VITALS: Ht 157.5 cm; Wt 47.0 kg
[~2016-07-12 02:06] MED LIST changes: +LEVO500T38 PO
[2016-07-12] MEDS ORDERED: IV NORMAL SALINE 500ML BAG 500 ML IV ONE (03:00)
[2016-07-12 03:22] LABS: CALCIUM 9.3 mg/dL (8.5-10.1); CREATININE 0.8 mg/dL (0.6-1.0); GFR 86.3; POTASSIUM 3.9 mmol/L (3.5-5.1)
--- NOTE | 2016-07-12 04:20 | PHYS DOC ---
Past Medical History Past Medical History: Diabetes-Type I Additional Past Medical Histor: MRSA Past Surgical History: Other Additional Past Surgical Histo: Unknown/Note scar on abd. Alcohol Use: None Drug Use: None Adult General Chief Complaint Chief Complaint: HYPOGLYCEMIA HPI HPI Patient is a 70 year old female who presents with hypoglycemia. Patient accompanied by her daughter, who contributes to history. Patient reports she had taken her normal insulin (takes novolog 12 units + sliding scale adjustment before each meal, 10 units lantus before bed) and a dinner is normal. However later patient became diaphoretic and confused. Patient's daughter checked her fingerstick which was 33. EMS reports fingerstick of 28 on their arrival. Given glucagon and a peaunt butter sandwich en route. On arrival to ED patient alert and oriented, and says she is feeling well. Review of Systems Review of Systems Constitutional: Period of confusion, diaphoresis. Denies fever or chills Respiratory: Denies cough or shortness of breath Cardiovascular: Denies chest pain GI: Denies abdominal pain, nausea, vomiting, bloody stools or diarrhea : Denies dysuria or hematuria Musculoskeletal: Denies back pain or joint pain Integument: Denies rash or skin lesions Neurologic: Denies headache, focal weakness or sensory changes Current Medications Current Medications Current Medications Medications (Trade) Dose Ordered Sig/Amalia Start Time Stop Time Status Last Admin Dose Admin Sodium Chloride (Iv Sodium Chloride 0.9% 500ml Bag) 500 ml @ 500 mls/hr 1X ONCE 07/12/16 03:00 07/12/16 03:59 DC 07/12/16 03:09 500 MLS/HR Allergies Allergies Allergies Coded Allergies Type Severity Reaction Last Updated Verified I S O L A T I O N *CONTACT* Allergy Unknown 02/21/16 Yes No Known Medication Allergies Allergy Unknown 12/16/15 Yes Physical Exam Physical Exam Constitutional: Well developed, well nourished, no acute distress, non-toxic appearance HENT: Normocephalic, atraumatic, bilateral external ears normal Eyes: EOMI, conjunctiva normal, no discharge Neck: Normal range of motion, no stridor Cardiovascular: Heart rate normal, regular rhythm, no murmur Lungs & Thorax: Bilateral breath sounds clear to auscultation Abdomen: Bowel sounds normal, soft, non-distended, no TTP Skin: Warm, dry, no erythema, no rash Extremities: No obvious deformity, no edema Neurologic: Alert and oriented X 3, no gross deficits noted Psychologic: Affect normal, judgement normal, mood normal Current Patient Data Vital Signs Vital Signs Date Time Temp Pulse Resp B/P Pulse Ox O2 Delivery O2 Flow Rate FiO2 07/12/16 04:00 78 20 140/61 100 Room Air 07/12/16 02:07 98.7 98.7 Lab Values Laboratory Tests Test 07/12/16 02:15 07/12/16 03:05 07/12/16 04:08 Glucose (Fingerstick) 116mg/dL (70-99) H 72mg/dL (70-99) Sodium Level 143mmol/L (136-145) Potassium Level 3.9mmol/L (3.5-5.1) Chloride Level 104mmol/L (98-107) Carbon Dioxide Level 31mmol/L (21-32) Anion Gap 8 (6-14) Blood Urea Nitrogen 19mg/dL (7-20) Creatinine 0.8mg/dL (0.6-1.0) Estimated GFR (Cockcroft-Gault) 86.3 Glucose Level 99mg/dL (70-99) Calcium Level 9.3mg/dL (8.5-10.1) Laboratory Tests 07/12/16 03:05 EKG EKG [] Radiology/Procedures Radiology/Procedures [] Course & Med Decision Making Course & Med Decision Making Pertinent Labs and Imaging studies reviewed. (See chart for details) Patient is 70-year-old female who presents with a hypoglycemic episode. Patient whether patient accidentally took too much insulin at home. Blood glucose improved on arrival to ED, however then started decrease. D5 drip ordered. As she continues to drop, will need to admit to monitor. Dose of D50 given later for blood glucose that I dropped back down into the 50s. Discussed with patient and her daughter. Discussed with Dr. Reed, will admit under care for further evaluation and treatment. Dragon Disclaimer Dragon Disclaimer This electronic medical record was generated, in whole or in part, using a voice recognition dictation system. Departure Departure Impression: Primary Impression: Hypoglycemia Disposition: ADMITTED INPATIENT Admitting Physician: Michelle Reed Condition: STABLE Referrals: NO PCP (PCP) PANCHO GARRETT MD Jul 12, 2016 04:20
[2016-07-12] MEDS ORDERED: IV DEXTROSE 5 %-0.45 % NACL 1,000 ML IV ONE ×2 (04:30→07:00)
[2016-07-12] MEDS ORDERED: ONDANSETRON PF 4 MG/2 ML VIAL. IV PRN ×2 (04:30→13:04)
[2016-07-12] MEDS ORDERED: ACETAMINOPHEN 325 MG TABLET. PO PRN (04:30)
[2016-07-12] MEDS ORDERED: DEXTROSE 50% 25 GM / 50ML DISP.SYRIN. IV PRN ×2 (04:30→16:15)
[2016-07-12] MEDS ORDERED: DEXTROSE 50% 25 GM / 50ML DISP.SYRIN. IV ONE (07:15)
[2016-07-12 08:30] VITALS: BP 133/63
[2016-07-12 09:25] VITALS: BP 128/60
[2016-07-12 11:00] VITALS: BP 116/71
[2016-07-12] MEDS ORDERED: INSU100I17 SQ (11:27)
[2016-07-12] MEDS ORDERED: INSU100V13 SQ (11:27)
--- NOTE | 2016-07-12 13:28 | PDOC1 ---
History and Physical Date of Admission Date of Admission DATE: 07/12/16 TIME: 13:18 Identification/Chief Complaint Chief Complaint low BS Problems: Source Source: Caregiver, Chart review, Patient History of Present Illness History of Present Illness 70 y.o AA female known to us from past admits for DKA needing ICU and DKA protocol, but this time she gets admitted for hypoglycemia, COnfliciting insulin regimen, per mAR 5 units tID with meals, but per ER note gets 10 TID with meals and 12 units qhs. As per old records 8 units qhs. Dtr not helpful with the doses, Interestingly, recent admission over a week, needing intubation and accidentally developing a hemopneumothorax. Also feels very cold , looking at records was started on synthroid 25 - new med fpr pt but was never taking at home bec tehy did not had a script, EMS arrival at home, BS 30s, on rpt at ER 28, Was recently at [facility] x 2 weeks dcd few days ago and now back in hospital., ALso was prev seen by Dr. Prajapati of wound care, sacral wound grade 2 with exposed fat, no fevers though - had foot wound- the latter seems to be healed, Dextrose iVF running, BS still on low side, Eats a lot per dtr at bedside,DTr is DPOA, pt has dementia. Sees an endoc at when she gets admitted there, Past Medical History Cardiovascular: No pertinent hx, HTN Pulmonary: No pertinent hx Hepatobiliary: No pertinent hx Psych: No pertinent hx Rheumatologic: No pertinent hx Infectious disease: No pertinent hx Renal/: No pertinent hx Endocrine: Diabetes Past Surgical History Past Surgical History: Hysterectomy Family History Family History: Hypertension, Family History Unknown Social History Smoke: No ALCOHOL: none Drugs: None Current Problem List Problem List Problems Medical Problems: (1) Hypoglycemia Status: Acute Problems: Current Medications Current Medications Current Medications Sodium Chloride 500 ml @ 500 mls/hr 1X ONCE IV Last administered on 03:09; Start 07/12/16 at 03:00; Stop 07/12/16 at 03:59; Status DC Dextrose/Sodium Chloride (Iv D5% - 1/2 NS) 1,000 ml @ 100 mls/hr 1X ONCE IV Last administered on 07/12/16 04:22; Start 07/12/16 at 04:30; Stop 07/12/16 at 14:29 Ondansetron HCl (Zofran) 4 mg PRN Q8HRS PRN IV NAUSEA/VOMITING; Start 07/12/16 at 04:30; Stop 07/13/16 at 04:29 Acetaminophen (Tylenol) 650 mg PRN Q4HRS PRN PO FEVER; Start 07/12/16 at 04:30 ; Stop 07/13/16 at 04:29 Dextrose (Dextrose 50%-Water Syringe) 12.5 gm PRN Q15MIN PRN IV SEE COMMENTS; Start 07/12/16 at 04:30 Dextrose 25 gm 25 gm 1X ONCE IV Last administered on 07/12/16t 07:06; Start at 07:15; Stop 07/12/16 at 07:16; Status DC Dextrose/Sodium Chloride (Iv D5% - 1/2 NS) 1,000 ml @ 125 mls/hr 1X ONCE IV ; Start 07/12/16 at 07:00; Stop 07/12/16 at 14:59 Ascorbic Acid (Vitamin C) 500 mg DAILY PO ; Start 07/12/16 at 14:00 Aspirin (Ecotrin) 81 mg DAILY PO ; Start 07/12/16 at 14:00 Lisinopril (Prinivil) 5 mg DAILY PO ; Start 07/12/16 at 14:00 Multivitamins (Thera M Plus) 1 tab DAILY PO ; Start 07/12/16 at 14:00 Potassium Chloride (Klor-Con) 40 meq DAILYWBKFT PO ; Start 07/12/16 at 14:00 Non-Formulary Medication 220 mg DAILY PO ; Start 07/13/16 at 09:00; Status UNV Active Scripts Active Levaquin (Levofloxacin) 500 Mg Tablet 1 Tab PO DAILY Novolog Flexpen (Insulin Aspart) 100 Unit/1 Ml Insuln.pen 0 Units SQ QIDACHS Thera-M Tablet (Multivits,Ca,Minerals/Iron/Fa) 1 Each Tablet 1 Tab PO DAILY Levemir Flextouch (Insulin Detemir) 100 Unit/1 Ml Insuln.pen 10 Units SQ DAILY Lisinopril 5 Mg Tablet 1 Tab PO DAILY Reported Levemir (Insulin Detemir) 100 Unit/1 Ml Vial 10 Unit SQ Novolog Flexpen (Insulin Aspart) 100 Unit/1 Ml Insuln.pen 10 Unit SQ Potassium Chloride 20 Meq Tablet.er 40 Meq PO DAILY 7 Days Zinc 50 Mg Tablet 220 Mg PO DAILY Ascorbic Acid 500 Mg Tablet 500 Mg PO DAILY Aspirin Ec (Aspirin) 81 Mg Tablet.dr 1 Tab PO DAILY Levemir (Insulin Detemir) 100 Unit/1 Ml Vial 8 Unit SQ HS Novolog Flexpen (Insulin Aspart) 100 Unit/1 Ml Insuln.pen 5 Unit SQ TIDAC Allergies Allergies: Coded Allergies: I S O L A T I O N *CONTACT* (Verified Allergy, Unknown, 02/21/16) mrsa No Known Medication Allergies (Verified Allergy, Unknown, 12/16/15) ROS General: YES: Fatigue, Malaise, Other (weight loss) PSYCHOLOGICAL ROS: No: Anxiety, Behavioral Disorder, Concentration difficultie , Decreased libido, Depression, Disorientation, Hallucinations, Hostility, Irritablity, Memory difficulties, Mood Swings, Obsessive thoughts, Other, Physical abuse, Sexual abuse, Sleep disturbances, Suicidal ideation Eyes: No Blurry vision, No Decreased vision, No Double vision, No Dry eyes, No Excessive tearing, No Eye Pain, No Itchy Eyes, No Loss of vision, No Other, No Photophobia, No Scotomata, No Uses contacts, No Uses glasses HEENT: No: Epistaxis, Heacaches, Hearing change, Nasal congestion, Nasal discharge, Oral lesions, Other, Sinus pain, Sneezing, Snoring, Sore Throat, Tinnitus, Vertigo, Visual Changes, Vocal changes ALLERGY AND IMMUNOLOGY: No: Hives, Insect Bite Sensitivity, Itchy/Watery Eyes, Nasal Congestion, Other, Post Nasal Drip, Seasonal Allergies Hematological and Lymphatic: No: Bleeding Problems, Blood Clots, Blood Transfusions, Brusing, Night Sweats, Other, Pallor, Swollen Lymph Nodes ENDOCRINE: YES: Other (confusion, low BS) Respiratory: No: Cough, Hemoptysis, Orthopnea, Other, Pleuritic Pain, SOB with excertion, Shortness of breath, Sputum Changes, Stridor, Tachypnea, Wheezing Cardiovascular: No Chest Pain, No Edema, No Lt Headedness, No Orthopnea, No Other, No Palpitations, No Paroxysmal Noc. Dyspnea Gastrointestinal: No Abdominal Pain, No Constipation, No Diarrhea, No Hematochezia, No Melena, No Nausea, No Other, No Vomiting Genitourinary: No , No , No , No , No , No , No , No Discharge, No Dysuria, No Flank Pain, No Frequency, No Hematuria, No Incontinence, No Other, No Pain, No Retention, No Urgency Musculoskeletal: No Gait Disturbance, No Joint Pain, No Joint Stiffness, No Joint Swelling, No Muscle Pain, No Muscular Weakness, No Other, No Pain In:, No Swelling In: Neurological: No Behavorial Changes, No Bowel/Bladder ControlChng, No Confusion , No Dizziness, No Gait Disturbance, No Headaches, No Impaired Coord/balance, No Memory Loss, No Numbness/Tingling, No Other, No Seizures, No Speech Problems , No Tremors, No Visual Changes, No Weakness Skin: Yes Other (sacral wound) Physical Exam General: Alert, Oriented X3, Cooperative, No acute distress HEENT: Atraumatic, PERRLA, EOMI Lungs: Clear to auscultation, Normal air movement Heart: S1S2, no gallops, no murmurs Cardiovascular: S1, S2 Breasts: Normal, Rt breast nml w/o mass, Lt breast nml w/o mass, Nipples normal Abdomen: Normal bowel sounds, Soft, No tenderness, No hepatosplenomegaly, No masses Rectal Exam: not examined PELVIC: Nml ext genitalia Extremities: No clubbing, No cyanosis, No edema, Normal pulses, No tenderness/ swelling Skin: Other (grade 2 sacral wound) Neuro: Normal gait, Normal speech, Strength at 5/5 X4 ext, Normal tone, Sensation intact, Cranial nerves 3-12 NL, Reflexes 2+ Vitals Vitals Vital Signs Date Time Temp Pulse Resp B/P Pulse Ox O2 Delivery O2 Flow Rate FiO2 07/12/16 11:00 97.4 78 22 116/71 98 Room Air 97.4 Labs Labs Laboratory Tests Test 07/12/16 02:15 07/12/16 03:05 07/12/16 04:08 07/12/16 05:36 Glucose (Fingerstick) 116mg/dL (70-99) 72mg/dL (70-99) 76mg/dL (70-99) Sodium Level 143mmol/L (136-145) Potassium Level 3.9mmol/L (3.5-5.1) Chloride Level 104mmol/L (98-107) Carbon Dioxide Level 31mmol/L (21-32) Anion Gap 8 (6-14) Blood Urea Nitrogen 19mg/dL (7-20) Creatinine 0.8mg/dL (0.6-1.0) Estimated GFR (Cockcroft-Gault) 86.3 Glucose Level 99mg/dL (70-99) Calcium Level 9.3mg/dL (8.5-10.1) Test 07/12/16 06:52 07/12/16 07:28 07/12/16 08:22 07/12/16 09:20 Glucose (Fingerstick) 53mg/dL (70-99) 150mg/dL (70-99) 47mg/dL (70-99) 133mg/dL (70-99) Laboratory Tests Test 07/12/16 02:15 07/12/16 03:05 07/12/16 04:08 07/12/16 05:36 Glucose (Fingerstick) 116mg/dL (70-99) 72mg/dL (70-99) 76mg/dL (70-99) Sodium Level 143mmol/L (136-145) Potassium Level 3.9mmol/L (3.5-5.1) Chloride Level 104mmol/L (98-107) Carbon Dioxide Level 31mmol/L (21-32) Anion Gap 8 (6-14) Blood Urea Nitrogen 19mg/dL (7-20) Creatinine 0.8mg/dL (0.6-1.0) Estimated GFR (Cockcroft-Gault) 86.3 Glucose Level 99mg/dL (70-99) Calcium Level 9.3mg/dL (8.5-10.1) Test 07/12/16 06:52 07/12/16 07:28 07/12/16 08:22 07/12/16 09:20 Glucose (Fingerstick) 53mg/dL (70-99) 150mg/dL (70-99) 47mg/dL (70-99) 133mg/dL (70-99) VTE Prophylaxis Ordered VTE Prophylaxis Devices: Yes VTE Pharmacological Prophylaxi: Yes Assessment/Plan Assessment/Plan 1. 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 Recent hsopitalization [facility], IPPV, and accidental hemopneumothorax? 3. Hypothyroidism - new dx? - started on synthroid 25 at 4. Weight loss 5. Dementia 6. Sacral wound grade 2 7. AOCD 8. 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 PLAN: 2MN admit, COnt dextrose for now (BS still low) Records from Recheck TSH and [id number] - I have resumed synthroid for now WOund care for sacral wound PT/OT SW- dc planning, might need more rehab?? [facility] meds NUtirtion consult ALEX Gardner RN, MD Jul 12, 2016 13:28
[2016-07-12] MEDS: ZINC SULFATE 220 MG CAPSULE. PO SCH (13:39)
[2016-07-12] MEDS: MULTIVITAMIN with MINERAL TABLET. PO SCH (13:39)
[2016-07-12] MEDS: ASPIRIN ENTERIC COATED 81 MG TABLET.DR. PO SCH (13:39)
[2016-07-12] MEDS: ASCORBIC ACID 500 MG TABLET PO SCH (13:40)
[2016-07-12] MEDS: POTASSIUM CHLORIDE 20 MEQ TABLET.ER. PO SCH (13:40)
[2016-07-12] MEDS: LEVOTHYROXINE 25 MCG TABLET. PO SCH (13:40)
[2016-07-12] MEDS: LISINOPRIL 5 MG TABLET. PO SCH (13:40)
[2016-07-12 15:00] VITALS: BP 138/66
[2016-07-12] MEDS: INSULIN ASPART 300 UNITS/3 ML INSULN.PEN SQ SCH (17:01)
[2016-07-12 19:00] VITALS: BP 103/56
[2016-07-12] MEDS ORDERED: INSULIN ASPART 300 UNITS/3 ML INSULN.PEN SQ ONE (22:15)
[2016-07-12] MEDS: INSULIN DETEMIR 300 UNITS/3 ML INSULN.PEN. SQ SCH (23:19)
[2016-07-13] MEDS: LEVOTHYROXINE 25 MCG TABLET. PO SCH (06:19)
[2016-07-13 07:00] VITALS: BP 105/55
--- NOTE | 2016-07-13 07:11 | ACF ---
Admit Criteria Forms Admit Criteria Forms Admit Criteria Forms DIABETES, HYPOGLYCEMIA Clinical Indications for Admission to Inpatient Care (Place 'X' for any and all applicable criteria): Admission is indicated for ALL of the following (1)(2)(3)(4)(5): [X]I. Suspected or documented hypoglycemia (plasma glucose less than 50 mg/dL (2.78 mmol/L)) with severe clinical manifestations or issues as indicated by ANY ONE of the following: [X]a) Altered mental status (eg, coma, confusion) [ ]b) Seizure [ ]c) Ataxia [ ]d) Dysphasia [ ]e) Focal neurologic deficit(6) [ ]f) Severe weakness or fatigue [ ]g) Significant clinical signs or symptoms that do not resolve with treatment [ ]h) Hypoglycemia induced by ANY ONE of the following(7)(8)(9): [ ]i) Sulfonylurea(10) [ ]ii) Long-acting insulin (eg, half-life more than 6 hours ) (11) [ ]II. Management at other levels of care (See General Criteria: Observation Care) is not feasible because of ANY ONE of the following: [ ]a) Condition was not adequately corrected with treatment at other levels of care. [ ]b) Treatment at other levels of care is not appropriate because of condition severity (eg, coma). Extended stay beyond goal length of stay may be needed for(3)(12)(19): [ ]a) Long acting sulfonylurea-inducing hypoglycemia (10) [ ]b) Presentation in coma [ ]c) Identified etiology of hypoglycemia requires ongoing care (eg, infection ) [ ]d) Neurologic deficit [ ]e) Active serious comorbidities (eg, renal failure, heart failure) The original [employer] content created by [employer] has been revised. The portions of the content which have been revised are identified through the use of italic text or in bold, and [employer] has neither reviewed nor approved the modified material.All other unmodified content is copyright [employer]. Please see references footnoted in the original [employer] edition 2016 HARDIK NICHOLAS Jul 13, 2016 07:11
[2016-07-13] MEDS: ASCORBIC ACID 500 MG TABLET PO SCH (08:40)
[2016-07-13] MEDS: INSULIN ASPART 300 UNITS/3 ML INSULN.PEN SQ SCH ×3 (08:40→17:00)
[2016-07-13] MEDS: ZINC SULFATE 220 MG CAPSULE. PO SCH (08:41)
[2016-07-13] MEDS: POTASSIUM CHLORIDE 20 MEQ TABLET.ER. PO SCH (08:41)
[2016-07-13] MEDS: MULTIVITAMIN with MINERAL TABLET. PO SCH (08:43)
[2016-07-13] MEDS: ASPIRIN ENTERIC COATED 81 MG TABLET.DR. PO SCH (08:43)
[2016-07-13] MEDS: LISINOPRIL 5 MG TABLET. PO SCH (08:45)
[2016-07-13 10:58] VITALS: BP 129/58
[2016-07-13] MEDS ORDERED: DEXTROSE 50% 25 GM / 50ML DISP.SYRIN. IV PRN (12:30)
--- NOTE | 2016-07-13 14:55 | PDOC ---
PROGRESS NOTES Chief Complaint Chief Complaint 1. 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 Recent hsopitalization [facility], IPPV, and accidental hemopneumothorax? 3. Hypothyroidism - new dx? - started on synthroid 25 at 4. Weight loss 5. Dementia 6. Sacral wound grade 2 7. AOCD 8. 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 History of Present Illness History of Present Illness wildly variance in blood sugar family requests to restart metformin, Q2 blood sugar, sliding scale 2MN admit, Records from Recheck TSH and [id number] PT/OT SW- dc planning, might need more rehab Vitals Vitals Vital Signs Date Time Temp Pulse Resp B/P Pulse Ox O2 Delivery O2 Flow Rate FiO2 07/13/16 10:58 98.2 79 16 129/58 99 Room Air 98.2 Physical Exam General: Alert, Oriented X3, Cooperative, No acute distress Lungs: Clear, Other Abdomen: Normal bowel sounds, Soft, No tenderness, No hepatosplenomegaly, No masses Extremities: No clubbing, No cyanosis, No edema, Normal pulses, No tenderness/ swelling Skin: Other (grade 2 sacral wound) Labs LABS Laboratory Tests Test 07/12/16 15:08 07/12/16 16:34 07/12/16 20:19 07/13/16 05:09 Glucose (Fingerstick) 399mg/dL (70-99) 398mg/dL (70-99) 489mg/dL (70-99) 14mg/dL (70-99) Test 07/13/16 05:27 07/13/16 06:28 07/13/16 07:21 07/13/16 11:16 Glucose (Fingerstick) 140mg/dL (70-99) 83mg/dL (70-99) 98mg/dL (70-99) 347mg/dL (70-99) Test 07/13/16 14:40 Glucose (Fingerstick) 470mg/dL (70-99) Review of Systems Review of Systems no n.vd.' Assessment and Plan Assessmemt and Plan Problems Medical Problems: (1) Hypoglycemia Status: Acute Problems: Comment Review of Relevant I have reviewed the following items varun (where applicable) has been applied. Labs Laboratory Tests Test 07/12/16 02:15 07/12/16 03:05 07/12/16 04:08 07/12/16 05:36 Glucose (Fingerstick) 116mg/dL (70-99) 72mg/dL (70-99) 76mg/dL (70-99) Sodium Level 143mmol/L (136-145) Potassium Level 3.9mmol/L (3.5-5.1) Chloride Level 104mmol/L (98-107) Carbon Dioxide Level 31mmol/L (21-32) Anion Gap 8 (6-14) Blood Urea Nitrogen 19mg/dL (7-20) Creatinine 0.8mg/dL (0.6-1.0) Estimated GFR (Cockcroft-Gault) 86.3 Glucose Level 99mg/dL (70-99) Hemoglobin A1c 8.1% (4.8-5.6) Calcium Level 9.3mg/dL (8.5-10.1) Thyroid Stimulating Hormone (TSH) 4.728uIU/mL (0.358-3.74) Test 07/12/16 06:52 07/12/16 07:28 07/12/16 08:22 07/12/16 09:20 Glucose (Fingerstick) 53mg/dL (70-99) 150mg/dL (70-99) 47mg/dL (70-99) 133mg/dL (70-99) Test 07/12/16 11:06 07/12/16 15:08 07/12/16 16:34 07/12/16 20:19 Glucose (Fingerstick) 131mg/dL (70-99) 399mg/dL (70-99) 398mg/dL (70-99) 489mg/dL (70-99) Test 07/13/16 05:09 07/13/16 05:27 07/13/16 06:28 07/13/16 07:21 Glucose (Fingerstick) 14mg/dL (70-99) 140mg/dL (70-99) 83mg/dL (70-99) 98mg/dL (70-99) Test 07/13/16 11:16 07/13/16 14:40 Glucose (Fingerstick) 347mg/dL (70-99) 470mg/dL (70-99) Laboratory Tests Test 07/12/16 15:08 07/12/16 16:34 07/12/16 20:19 07/13/16 05:09 Glucose (Fingerstick) 399mg/dL (70-99) 398mg/dL (70-99) 489mg/dL (70-99) 14mg/dL (70-99) Test 07/13/16 05:27 07/13/16 06:28 07/13/16 07:21 07/13/16 11:16 Glucose (Fingerstick) 140mg/dL (70-99) 83mg/dL (70-99) 98mg/dL (70-99) 347mg/dL (70-99) Test 07/13/16 14:40 Glucose (Fingerstick) 470mg/dL (70-99) Medications Current Medications Sodium Chloride 500 ml @ 500 mls/hr 1X ONCE IV Last administered on 03:09; Start 07/12/16 at 03:00; Stop 07/12/16 at 03:59; Status DC Dextrose/Sodium Chloride (Iv D5% - 1/2 NS) 1,000 ml @ 100 mls/hr 1X ONCE IV Last administered on 07/12/16 04:22; Start 07/12/16 at 04:30; Stop 07/12/16 at 14:29; Status DC Ondansetron HCl (Zofran) 4 mg PRN Q8HRS PRN IV NAUSEA/VOMITING; Start 07/12/16 at 04:30; Stop 07/12/16 at 13:17; Status DC Acetaminophen (Tylenol) 650 mg PRN Q4HRS PRN PO FEVER; Start 07/12/16 at 04:30 ; Stop 07/13/16 at 04:29; Status DC Dextrose (Dextrose 50%-Water Syringe) 12.5 gm PRN Q15MIN PRN IV SEE COMMENTS; Start 07/12/16 at 04:30; Status Cancel Dextrose 25 gm 25 gm 1X ONCE IV Last administered on 07/12/16 07:06; Start at 07:15; Stop 07/12/16 at 07:16; Status DC Dextrose/Sodium Chloride (Iv D5% - 1/2 NS) 1,000 ml @ 125 mls/hr 1X ONCE IV ; Start 07/12/16 at 07:00; Stop 07/12/16 at 14:59; Status DC Ascorbic Acid (Vitamin C) 500 mg DAILY PO Last administered on 07/13/16 08:40 ; Start 07/12/16 at 14:00 Aspirin (Ecotrin) 81 mg DAILY PO Last administered on 07/13/16 08:43; Start at 14:00 Lisinopril (Prinivil) 5 mg DAILY PO Last administered on 07/13/16 08:45; Start 07/12/16 at 14:00 Multivitamins (Thera M Plus) 1 tab DAILY PO Last administered on 07/13/16 08: 43; Start 07/12/16 at 14:00 Potassium Chloride (Klor-Con) 40 meq DAILYWBKFT PO Last administered on 08:41; Start 07/12/16 at 14:00 Zinc Sulfate (Orazinc) 220 mg DAILY PO Last administered on 07/13/16 08:41; Start 07/12/16 at 14:00 Ondansetron HCl (Zofran) 4 mg PRN Q6HRS PRN IV NAUSEA/VOMITING; Start 07/12/16 at 13:04 Levothyroxine Sodium (Synthroid) 25 mcg DAILY07 PO Last administered on 06:19; Start 07/12/16 at 14:00 Insulin Detemir (Levemir) 8 units QHS SQ Last administered on 07/12/16 23:19; Start 07/12/16 at 21:00 Insulin Aspart (Novolog) 5 units TIDWMEALS SQ Last administered on 07/13/16 12 :03; Start 07/12/16 at 17:00 Dextrose (Dextrose 50%-Water Syringe) 12.5 gm PRN Q15MIN PRN IV SEE COMMENTS Last administered on 07/13/16 05:15; Start 07/12/16 at 16:15 Insulin Aspart (Novolog) 15 units 1X ONCE SQ Last administered on 07/12/16 23 :20; Start 07/12/16 at 22:15; Stop 07/12/16 at 22:16; Status DC Dextrose (Dextrose 50%-Water Syringe) 12.5 gm PRN Q15MIN PRN IV SEE COMMENTS; Start 07/13/16 at 12:30; Status Cancel Metformin HCl (Glucophage) 500 mg BIDWMEALS PO ; Start 07/13/16 at 17:00 Active Scripts Active Levaquin (Levofloxacin) 500 Mg Tablet 1 Tab PO DAILY Novolog Flexpen (Insulin Aspart) 100 Unit/1 Ml Insuln.pen 0 Units SQ QIDACHS Thera-M Tablet (Multivits,Ca,Minerals/Iron/Fa) 1 Each Tablet 1 Tab PO DAILY Levemir Flextouch (Insulin Detemir) 100 Unit/1 Ml Insuln.pen 10 Units SQ DAILY Lisinopril 5 Mg Tablet 1 Tab PO DAILY Reported Levemir (Insulin Detemir) 100 Unit/1 Ml Vial 10 Unit SQ Novolog Flexpen (Insulin Aspart) 100 Unit/1 Ml Insuln.pen 10 Unit SQ Potassium Chloride 20 Meq Tablet.er 40 Meq PO DAILY 7 Days Zinc 50 Mg Tablet 220 Mg PO DAILY Ascorbic Acid 500 Mg Tablet 500 Mg PO DAILY Aspirin Ec (Aspirin) 81 Mg Tablet.dr 1 Tab PO DAILY Levemir (Insulin Detemir) 100 Unit/1 Ml Vial 8 Unit SQ HS Novolog Flexpen (Insulin Aspart) 100 Unit/1 Ml Insuln.pen 5 Unit SQ TIDAC Vitals/I & O Vital Sign - Last 24 Hours 07/12/16 07/12/16 07/12/16 07/13/16 15:00 17:16 19:00 07:00 Temp 98.1 98.6 98.1 98.1 98.6 98.1 Pulse 106 84 61 Resp 16 16 B/P 138/66 103/56 105/55 Pulse Ox 99 96 99 O2 Delivery Room Air Room Air Room Air Room Air 07/13/16 07/13/16 07/13/16 07:52 08:45 10:58 Temp 98.2 98.2 Pulse 61 79 Resp 16 B/P 105/55 129/58 Pulse Ox 99 O2 Delivery Room Air Room Air Intake and Output 07/12/16 07/12/16 07/13/16 15:00 23:00 07:00 Intake Total 660 ml 760 ml 600 ml Output Total 750 ml Balance 660 ml 10 ml 600 ml NIRAV DIAZ MD Jul 13, 2016 14:55
[2016-07-13 15:00] VITALS: BP 120/58
[2016-07-13] MEDS ORDERED: INSULIN ASPART 300 UNITS/3 ML INSULN.PEN SQ ONE (15:00)
[2016-07-13] MEDS ORDERED: INSULIN ASPART 300 UNITS/3 ML INSULN.PEN SQ SCH (16:30)
[2016-07-13] MEDS: METFORMIN 500 MG TABLET. PO SCH (17:40)
[2016-07-13 19:00] VITALS: BP 137/61
[2016-07-13] MEDS: INSULIN DETEMIR 300 UNITS/3 ML INSULN.PEN. SQ SCH (21:00)
[2016-07-14] MEDS: LEVOTHYROXINE 25 MCG TABLET. PO SCH (06:34)
[2016-07-14 07:00] VITALS: BP 129/60
[2016-07-14] MEDS: ASCORBIC ACID 500 MG TABLET PO SCH (08:06)
[2016-07-14] MEDS: POTASSIUM CHLORIDE 20 MEQ TABLET.ER. PO SCH (08:06)
[2016-07-14] MEDS: METFORMIN 500 MG TABLET. PO SCH ×2 (08:06→17:17)
[2016-07-14] MEDS: ASPIRIN ENTERIC COATED 81 MG TABLET.DR. PO SCH (08:06)
[2016-07-14] MEDS: MULTIVITAMIN with MINERAL TABLET. PO SCH (08:06)
[2016-07-14] MEDS: ZINC SULFATE 220 MG CAPSULE. PO SCH (08:07)
[2016-07-14] MEDS: LISINOPRIL 5 MG TABLET. PO SCH (08:09)
[2016-07-14] MEDS: INSULIN ASPART 300 UNITS/3 ML INSULN.PEN SQ SCH ×3 (08:16→17:21)
[2016-07-14] MEDS ORDERED: INSULIN ASPART 300 UNITS/3 ML INSULN.PEN SQ ONE (10:00)
[2016-07-14 10:39] LABS: HEMATOCRIT 27.6 % (36.0-47.0); HEMOGLOBIN 8.9 g/dL (12.0-15.5); RED BLOOD COUNT 3.07 x10^6/uL (3.50-5.40); WHITE BLOOD COUNT 5.2 x10^3/uL (4.0-11.0)
[2016-07-14 11:03] LABS: ALBUMIN/GLOBULIN RATIO 0.8 (1.0-1.7); CALCIUM 8.9 mg/dL (8.5-10.1); CREATININE 1.1 mg/dL (0.6-1.0); GFR 59.8; TOTAL BILIRUBIN 0.3 mg/dL (0.2-1.0); TOTAL PROTEIN 6.9 g/dL (6.4-8.2)
[2016-07-14 11:06] LABS: POTASSIUM 7.2 mmol/L (3.5-5.1)
[2016-07-14 11:12] VITALS: BP 110/48
[2016-07-14] MEDS: IV NORMAL SALINE 1000ML BAG 1,000 ML IV SCH ×2 (11:45→20:44)
[2016-07-14 12:10] LABS: BILIRUBIN,URINE NEGATIVE (NEG); GLUCOSE,URINE >=1000 mg/dL (NEG); NITRITE,URINE NEGATIVE (NEG); PH,URINE 5.5; PROTEIN,URINE NEGATIVE (NEG-TRACE); UROBILINOGEN,URINE 0.2 mg/dL (0.2 mg/dL)
[2016-07-14 12:29] LABS: BACTERIA,URINE 0 /HPF (0-FEW); RBC,URINE 0 /HPF (0-2); SQUAMOUS EPITHELIAL CELL,UR FEW /LPF; WBC,URINE 0 /HPF (0-4)
--- NOTE | 2016-07-14 12:33 | PDOC ---
PROGRESS NOTES Chief Complaint Chief Complaint confusion, metabolic encephalopathy, was POA<, not much improved 1. Brittle DM, prior admits for DKA now HYPOGLYCEMIC and was given dextrose gtt, now high 2. Recently [facility], IPPV, 3. Hypothyroidism - new dx? - started on synthroid 25 at 4. Weight loss 5. Dementia 6. Sacral wound grade 2 7. AOCD 8. 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 History of Present Illness History of Present Illness wildly variance in blood sugar family requests to restart metformin, Q2 blood sugar, sliding scale insulin 2MN admit, PT/OT SW- dc planning, might need more rehab Vitals Vitals Vital Signs Date Time Temp Pulse Resp B/P Pulse Ox O2 Delivery O2 Flow Rate FiO2 07/14/16 11:12 97.5 79 18 110/48 99 Room Air 97.5 Physical Exam General: Alert, Oriented X3, Cooperative, No acute distress Lungs: Clear, Other Abdomen: Normal bowel sounds, Soft, No tenderness, No hepatosplenomegaly, No masses Extremities: No clubbing, No cyanosis, No edema, Normal pulses, No tenderness/ swelling Skin: Other (grade 2 sacral wound) Labs LABS Laboratory Tests Test 07/13/16 14:40 07/13/16 16:33 07/13/16 20:33 07/14/16 07:22 Glucose (Fingerstick) 470mg/dL (70-99) 386mg/dL (70-99) 164mg/dL (70-99) 454mg/dL (70-99) Test 07/14/16 09:50 07/14/16 11:14 07/14/16 11:30 White Blood Count 5.2x10^3/uL (4.0-11.0) Red Blood Count 3.07x10^6/uL (3.50-5.40) Hemoglobin 8.9g/dL (12.0-15.5) Hematocrit 27.6% (36.0-47.0) Mean Corpuscular Volume 90fL (79-100) Mean Corpuscular Hemoglobin 29pg (25-35) Mean Corpuscular Hemoglobin Concent 32g/dL (31-37) Red Cell Distribution Width 17.0% (11.5-14.5) Platelet Count 572x10^3/uL (140-400) Sodium Level 129mmol/L (136-145) Potassium Level 7.2mmol/L (3.5-5.1) Chloride Level 97mmol/L (98-107) Carbon Dioxide Level 25mmol/L (21-32) Anion Gap 7 (6-14) Blood Urea Nitrogen 33mg/dL (7-20) Creatinine 1.1mg/dL (0.6-1.0) Estimated GFR (Cockcroft-Gault) 59.8 BUN/Creatinine Ratio 30 (6-20) Glucose Level 735mg/dL (70-99) Calcium Level 8.9mg/dL (8.5-10.1) Total Bilirubin 0.3mg/dL (0.2-1.0) Aspartate Amino Transf (AST/SGOT) 46U/L (15-37) Alanine Aminotransferase (ALT/SGPT) 58U/L (14-59) Alkaline Phosphatase 166U/L (46-116) Total Protein 6.9g/dL (6.4-8.2) Albumin 3.0g/dL (3.4-5.0) Albumin/Globulin Ratio 0.8 (1.0-1.7) Glucose (Fingerstick) 494mg/dL (70-99) Urine Collection Type Unknown Urine Color Yellow Urine Clarity Clear Urine pH 5.5 Urine Specific [place] 1.025 Urine Protein Negativemg/dL (NEG-TRACE) Urine Glucose (UA) >=1000mg/dL (NEG) Urine Ketones (Stick) Tracemg/dL (NEG) Urine Blood Negative (NEG) Urine Nitrite Negative (NEG) Urine Bilirubin Negative (NEG) Urine Urobilinogen Dipstick 0.2mg/dL (0.2 mg/dL) Urine Leukocyte Esterase Negative (NEG) Urine RBC 0/HPF (0-2) Urine WBC 0/HPF (0-4) Urine Squamous Epithelial Cells Few/LPF Urine Bacteria 0/HPF (0-FEW) Review of Systems Review of Systems she feels better eating much better additional doses insulin, will DC when we get some stability Assessment and Plan Assessmemt and Plan Problems Medical Problems: (1) Hypoglycemia Status: Acute Problems: Comment Review of Relevant I have reviewed the following items varun (where applicable) has been applied. Labs Laboratory Tests Test 07/12/16 15:08 07/12/16 16:34 07/12/16 20:19 07/13/16 05:09 Glucose (Fingerstick) 399mg/dL (70-99) 398mg/dL (70-99) 489mg/dL (70-99) 14mg/dL (70-99) Test 07/13/16 05:27 07/13/16 06:28 07/13/16 07:21 07/13/16 11:16 Glucose (Fingerstick) 140mg/dL (70-99) 83mg/dL (70-99) 98mg/dL (70-99) 347mg/dL (70-99) Test 07/13/16 14:40 07/13/16 16:33 07/13/16 20:33 07/14/16 07:22 Glucose (Fingerstick) 470mg/dL (70-99) 386mg/dL (70-99) 164mg/dL (70-99) 454mg/dL (70-99) Test 07/14/16 09:50 07/14/16 11:14 07/14/16 11:30 White Blood Count 5.2x10^3/uL (4.0-11.0) Red Blood Count 3.07x10^6/uL (3.50-5.40) Hemoglobin 8.9g/dL (12.0-15.5) Hematocrit 27.6% (36.0-47.0) Mean Corpuscular Volume 90fL (79-100) Mean Corpuscular Hemoglobin 29pg (25-35) Mean Corpuscular Hemoglobin Concent 32g/dL (31-37) Red Cell Distribution Width 17.0% (11.5-14.5) Platelet Count 572x10^3/uL (140-400) Sodium Level 129mmol/L (136-145) Potassium Level 7.2mmol/L (3.5-5.1) Chloride Level 97mmol/L (98-107) Carbon Dioxide Level 25mmol/L (21-32) Anion Gap 7 (6-14) Blood Urea Nitrogen 33mg/dL (7-20) Creatinine 1.1mg/dL (0.6-1.0) Estimated GFR (Cockcroft-Gault) 59.8 BUN/Creatinine Ratio 30 (6-20) Glucose Level 735mg/dL (70-99) Calcium Level 8.9mg/dL (8.5-10.1) Total Bilirubin 0.3mg/dL (0.2-1.0) Aspartate Amino Transf (AST/SGOT) 46U/L (15-37) Alanine Aminotransferase (ALT/SGPT) 58U/L (14-59) Alkaline Phosphatase 166U/L (46-116) Total Protein 6.9g/dL (6.4-8.2) Albumin 3.0g/dL (3.4-5.0) Albumin/Globulin Ratio 0.8 (1.0-1.7) Glucose (Fingerstick) 494mg/dL (70-99) Urine Collection Type Unknown Urine Color Yellow Urine Clarity Clear Urine pH 5.5 Urine Specific [place] 1.025 Urine Protein Negativemg/dL (NEG-TRACE) Urine Glucose (UA) >=1000mg/dL (NEG) Urine Ketones (Stick) Tracemg/dL (NEG) Urine Blood Negative (NEG) Urine Nitrite Negative (NEG) Urine Bilirubin Negative (NEG) Urine Urobilinogen Dipstick 0.2mg/dL (0.2 mg/dL) Urine Leukocyte Esterase Negative (NEG) Urine RBC 0/HPF (0-2) Urine WBC 0/HPF (0-4) Urine Squamous Epithelial Cells Few/LPF Urine Bacteria 0/HPF (0-FEW) Laboratory Tests Test 07/13/16 14:40 07/13/16 16:33 07/13/16 20:33 07/14/16 07:22 Glucose (Fingerstick) 470mg/dL (70-99) 386mg/dL (70-99) 164mg/dL (70-99) 454mg/dL (70-99) Test 07/14/16 09:50 07/14/16 11:14 07/14/16 11:30 White Blood Count 5.2x10^3/uL (4.0-11.0) Red Blood Count 3.07x10^6/uL (3.50-5.40) Hemoglobin 8.9g/dL (12.0-15.5) Hematocrit 27.6% (36.0-47.0) Mean Corpuscular Volume 90fL (79-100) Mean Corpuscular Hemoglobin 29pg (25-35) Mean Corpuscular Hemoglobin Concent 32g/dL (31-37) Red Cell Distribution Width 17.0% (11.5-14.5) Platelet Count 572x10^3/uL (140-400) Sodium Level 129mmol/L (136-145) Potassium Level 7.2mmol/L (3.5-5.1) Chloride Level 97mmol/L (98-107) Carbon Dioxide Level 25mmol/L (21-32) Anion Gap 7 (6-14) Blood Urea Nitrogen 33mg/dL (7-20) Creatinine 1.1mg/dL (0.6-1.0) Estimated GFR (Cockcroft-Gault) 59.8 BUN/Creatinine Ratio 30 (6-20) Glucose Level 735mg/dL (70-99) Calcium Level 8.9mg/dL (8.5-10.1) Total Bilirubin 0.3mg/dL (0.2-1.0) Aspartate Amino Transf (AST/SGOT) 46U/L (15-37) Alanine Aminotransferase (ALT/SGPT) 58U/L (14-59) Alkaline Phosphatase 166U/L (46-116) Total Protein 6.9g/dL (6.4-8.2) Albumin 3.0g/dL (3.4-5.0) Albumin/Globulin Ratio 0.8 (1.0-1.7) Glucose (Fingerstick) 494mg/dL (70-99) Urine Collection Type Unknown Urine Color Yellow Urine Clarity Clear Urine pH 5.5 Urine Specific [place] 1.025 Urine Protein Negativemg/dL (NEG-TRACE) Urine Glucose (UA) >=1000mg/dL (NEG) Urine Ketones (Stick) Tracemg/dL (NEG) Urine Blood Negative (NEG) Urine Nitrite Negative (NEG) Urine Bilirubin Negative (NEG) Urine Urobilinogen Dipstick 0.2mg/dL (0.2 mg/dL) Urine Leukocyte Esterase Negative (NEG) Urine RBC 0/HPF (0-2) Urine WBC 0/HPF (0-4) Urine Squamous Epithelial Cells Few/LPF Urine Bacteria 0/HPF (0-FEW) Medications Current Medications Sodium Chloride 500 ml @ 500 mls/hr 1X ONCE IV Last administered on t 03:09; Start 07/12/16 at 03:00; Stop 07/12/16 at 03:59; Status DC Dextrose/Sodium Chloride (Iv D5% - 1/2 NS) 1,000 ml @ 100 mls/hr 1X ONCE IV Last administered on 07/12/16 04:22; Start 07/12/16 at 04:30; Stop 07/12/16 at 14:29; Status DC Ondansetron HCl (Zofran) 4 mg PRN Q8HRS PRN IV NAUSEA/VOMITING; Start 07/12/16 at 04:30; Stop 07/12/16 at 13:17; Status DC Acetaminophen (Tylenol) 650 mg PRN Q4HRS PRN PO FEVER; Start 07/12/16 at 04:30 ; Stop 07/13/16 at 04:29; Status DC Dextrose (Dextrose 50%-Water Syringe) 12.5 gm PRN Q15MIN PRN IV SEE COMMENTS; Start 07/12/16 at 04:30; Status Cancel Dextrose 25 gm 25 gm 1X ONCE IV Last administered on 07/12/16 07:06; Start at 07:15; Stop 07/12/16 at 07:16; Status DC Dextrose/Sodium Chloride (Iv D5% - 1/2 NS) 1,000 ml @ 125 mls/hr 1X ONCE IV ; Start 07/12/16 at 07:00; Stop 07/12/16 at 14:59; Status DC Ascorbic Acid (Vitamin C) 500 mg DAILY PO Last administered on 07/14/16 08:06 ; Start 07/12/16 at 14:00 Aspirin (Ecotrin) 81 mg DAILY PO Last administered on 07/14/16 08:06; Start at 14:00 Lisinopril (Prinivil) 5 mg DAILY PO Last administered on 07/14/16 08:09; Start 07/12/16 at 14:00 Multivitamins (Thera M Plus) 1 tab DAILY PO Last administered on 07/14/16 08: 06; Start 07/12/16 at 14:00 Potassium Chloride (Klor-Con) 40 meq DAILYWBKFT PO Last administered on 08:06; Start 07/12/16 at 14:00 Zinc Sulfate (Orazinc) 220 mg DAILY PO Last administered on 07/14/16 08:07; Start 07/12/16 at 14:00 Ondansetron HCl (Zofran) 4 mg PRN Q6HRS PRN IV NAUSEA/VOMITING; Start 07/12/16 at 13:04 Levothyroxine Sodium (Synthroid) 25 mcg DAILY07 PO Last administered on 06:34; Start 07/12/16 at 14:00 Insulin Detemir (Levemir) 8 units QHS SQ Last administered on 07/12/16 23:19; Start 07/12/16 at 21:00 Insulin Aspart (Novolog) 5 units TIDWMEALS SQ Last administered on 07/14/16 11 :40; Start 07/12/16 at 17:00 Dextrose (Dextrose 50%-Water Syringe) 12.5 gm PRN Q15MIN PRN IV SEE COMMENTS Last administered on 07/13/16 05:15; Start 07/12/16 at 16:15 Insulin Aspart (Novolog) 15 units 1X ONCE SQ Last administered on 07/12/16 23 :20; Start 07/12/16 at 22:15; Stop 07/12/16 at 22:16; Status DC Dextrose (Dextrose 50%-Water Syringe) 12.5 gm PRN Q15MIN PRN IV SEE COMMENTS; Start 07/13/16 at 12:30; Status Cancel Metformin HCl (Glucophage) 500 mg BIDWMEALS PO Last administered on 07/14/16 08:06; Start 07/13/16 at 17:00 Insulin Aspart (Novolog) 5 units TIDAC SQ ; Start 07/13/16 at 16:30; Status UNV Insulin Aspart (Novolog) 12 units 1X ONCE SQ Last administered on 07/13/16 14 :59; Start 07/13/16 at 15:00; Stop 07/13/16 at 15:01; Status DC Insulin Aspart 18 units 18 units 1X ONCE SQ Last administered on 07/14/16 10: 00; Start 07/14/16 at 10:00; Stop 07/14/16 at 10:01; Status DC Sodium Chloride (Iv Sodium Chloride 0.9% 1000ml Bag) 1,000 ml @ 100 mls/hr Q10H IV ; Start 07/14/16 at 11:45 Active Scripts Active Levaquin (Levofloxacin) 500 Mg Tablet 1 Tab PO DAILY Novolog Flexpen (Insulin Aspart) 100 Unit/1 Ml Insuln.pen 0 Units SQ QIDACHS Thera-M Tablet (Multivits,Ca,Minerals/Iron/Fa) 1 Each Tablet 1 Tab PO DAILY Levemir Flextouch (Insulin Detemir) 100 Unit/1 Ml Insuln.pen 10 Units SQ DAILY Lisinopril 5 Mg Tablet 1 Tab PO DAILY Reported Levemir (Insulin Detemir) 100 Unit/1 Ml Vial 10 Unit SQ Novolog Flexpen (Insulin Aspart) 100 Unit/1 Ml Insuln.pen 10 Unit SQ Potassium Chloride 20 Meq Tablet.er 40 Meq PO DAILY 7 Days Zinc 50 Mg Tablet 220 Mg PO DAILY Ascorbic Acid 500 Mg Tablet 500 Mg PO DAILY Aspirin Ec (Aspirin) 81 Mg Tablet.dr 1 Tab PO DAILY Levemir (Insulin Detemir) 100 Unit/1 Ml Vial 8 Unit SQ HS Novolog Flexpen (Insulin Aspart) 100 Unit/1 Ml Insuln.pen 5 Unit SQ TIDAC Vitals/I & O Vital Sign - Last 24 Hours 07/13/16 07/13/16 07/14/16 07/14/16 15:00 19:00 07:00 08:09 Temp 98.4 98.8 97.9 98.4 98.8 97.9 Pulse 80 111 79 79 Resp 16 20 18 B/P 120/58 137/61 129/60 129/60 Pulse Ox 99 98 100 O2 Delivery Room Air Room Air Room Air 07/14/16 11:12 Temp 97.5 97.5 Pulse 79 Resp 18 B/P 110/48 Pulse Ox 99 O2 Delivery Room Air Intake and Output 07/13/16 07/13/16 07/14/16 15:00 23:00 07:00 Intake Total 720 ml 1200 ml 100 ml Output Total 1 ml Balance 720 ml 1199 ml 100 ml NIRAV DIAZ MD Jul 14, 2016 12:33
[2016-07-14 14:31] VITALS: BP 116/42
[2016-07-14 19:59] VITALS: BP 93/44
[2016-07-14] MEDS: INSULIN DETEMIR 300 UNITS/3 ML INSULN.PEN. SQ SCH (21:29)
[2016-07-14 23:59] VITALS: BP 99/44
[2016-07-15 03:46] VITALS: BP 124/52
[2016-07-15] MEDS: IV NORMAL SALINE 1000ML BAG 1,000 ML IV SCH (05:07)
[2016-07-15] MEDS ORDERED: INSULIN ASPART 300 UNITS/3 ML INSULN.PEN SQ ONE (05:15)
[2016-07-15] MEDS: LEVOTHYROXINE 25 MCG TABLET. PO SCH (06:30)
[2016-07-15 07:00] VITALS: BP 92/54
[2016-07-15] MEDS: POTASSIUM CHLORIDE 20 MEQ TABLET.ER. PO SCH (08:00)
[2016-07-15] MEDS: MULTIVITAMIN with MINERAL TABLET. PO SCH (08:09)
[2016-07-15] MEDS: METFORMIN 500 MG TABLET. PO SCH (08:09)
[2016-07-15] MEDS: ZINC SULFATE 220 MG CAPSULE. PO SCH (08:10)
[2016-07-15] MEDS: ASCORBIC ACID 500 MG TABLET PO SCH (08:10)
[2016-07-15] MEDS: ASPIRIN ENTERIC COATED 81 MG TABLET.DR. PO SCH (08:10)
[2016-07-15] MEDS: INSULIN ASPART 300 UNITS/3 ML INSULN.PEN SQ SCH (08:19)
[2016-07-15 09:00] VITALS: BP 92/54
[2016-07-15] MEDS: LISINOPRIL 5 MG TABLET. PO SCH (09:00)
--- NOTE | 2016-07-15 10:24 | PDOC3 ---
Discharge Summary Visit Information Date of Admission: Jul 12, 2016 Date of Discharge: Jul 15, 2016 Admitting Diagnosis: encephalopathy Final Diagnosis confusion, metabolic encephalopathy, was POA 1. Brittle DM, prior admits for DKA now HYPOGLYCEMIC and was given dextrose gtt, now high 2. Hypothyroidism - started on synthroid 25 at 3. Weight loss 4. mild to mod malnutrition 5. Dementia, early 6. Sacral wound grade 2 7. AOCD Problems (1) Hypoglycemia Status: Acute Brief Hospital Course Allergies Allergies Coded Allergies Type Severity Reaction Last Updated Verified I S O L A T I O N *CONTACT* Allergy Unknown 02/21/16 Yes No Known Medication Allergies Allergy Unknown 12/16/15 Yes Vital Signs Vital Signs Date Time Temp Pulse Resp B/P Pulse Ox O2 Delivery O2 Flow Rate FiO2 07/15/16 09:00 89 92/54 07/15/16 08:00 Room Air 07/15/16 07:00 97.6 16 100 97.6 Lab Results Laboratory Tests Test 07/13/16 11:16 07/13/16 14:40 07/13/16 16:33 07/13/16 20:33 Glucose (Fingerstick) 347mg/dL (70-99) 470mg/dL (70-99) 386mg/dL (70-99) 164mg/dL (70-99) Test 07/14/16 07:22 07/14/16 09:50 07/14/16 11:14 07/14/16 11:30 Glucose (Fingerstick) 454mg/dL (70-99) 494mg/dL (70-99) White Blood Count 5.2x10^3/uL (4.0-11.0) Red Blood Count 3.07x10^6/uL (3.50-5.40) Hemoglobin 8.9g/dL (12.0-15.5) Hematocrit 27.6% (36.0-47.0) Mean Corpuscular Volume 90fL (79-100) Mean Corpuscular Hemoglobin 29pg (25-35) Mean Corpuscular Hemoglobin Concent 32g/dL (31-37) Red Cell Distribution Width 17.0% (11.5-14.5) Platelet Count 572x10^3/uL (140-400) Sodium Level 129mmol/L (136-145) Potassium Level 7.2mmol/L (3.5-5.1) Chloride Level 97mmol/L (98-107) Carbon Dioxide Level 25mmol/L (21-32) Anion Gap 7 (6-14) Blood Urea Nitrogen 33mg/dL (7-20) Creatinine 1.1mg/dL (0.6-1.0) Estimated GFR (Cockcroft-Gault) 59.8 BUN/Creatinine Ratio 30 (6-20) Glucose Level 735mg/dL (70-99) Calcium Level 8.9mg/dL (8.5-10.1) Total Bilirubin 0.3mg/dL (0.2-1.0) Aspartate Amino Transf (AST/SGOT) 46U/L (15-37) Alanine Aminotransferase (ALT/SGPT) 58U/L (14-59) Alkaline Phosphatase 166U/L (46-116) Total Protein 6.9g/dL (6.4-8.2) Albumin 3.0g/dL (3.4-5.0) Albumin/Globulin Ratio 0.8 (1.0-1.7) Urine Collection Type Unknown Urine Color Yellow Urine Clarity Clear Urine pH 5.5 Urine Specific [place] 1.025 Urine Protein Negativemg/dL (NEG-TRACE) Urine Glucose (UA) >=1000mg/dL (NEG) Urine Ketones (Stick) Tracemg/dL (NEG) Urine Blood Negative (NEG) Urine Nitrite Negative (NEG) Urine Bilirubin Negative (NEG) Urine Urobilinogen Dipstick 0.2mg/dL (0.2 mg/dL) Urine Leukocyte Esterase Negative (NEG) Urine RBC 0/HPF (0-2) Urine WBC 0/HPF (0-4) Urine Squamous Epithelial Cells Few/LPF Urine Bacteria 0/HPF (0-FEW) Test 07/14/16 13:56 07/14/16 15:43 07/14/16 16:53 07/14/16 20:50 Glucose (Fingerstick) 155mg/dL (70-99) 76mg/dL (70-99) 145mg/dL (70-99) 266mg/dL (70-99) Test 07/15/16 00:25 07/15/16 03:43 07/15/16 06:36 07/15/16 08:08 Glucose (Fingerstick) 411mg/dL (70-99) 526mg/dL (70-99) 327mg/dL (70-99) 353mg/dL (70-99) Test 07/15/16 08:55 Potassium Level 5.2mmol/L (3.5-5.1) Laboratory Tests Test 07/14/16 11:14 07/14/16 11:30 07/14/16 13:56 07/14/16 15:43 Glucose (Fingerstick) 494mg/dL (70-99) 155mg/dL (70-99) 76mg/dL (70-99) Urine Collection Type Unknown Urine Color Yellow Urine Clarity Clear Urine pH 5.5 Urine Specific [place] 1.025 Urine Protein Negativemg/dL (NEG-TRACE) Urine Glucose (UA) >=1000mg/dL (NEG) Urine Ketones (Stick) Tracemg/dL (NEG) Urine Blood Negative (NEG) Urine Nitrite Negative (NEG) Urine Bilirubin Negative (NEG) Urine Urobilinogen Dipstick 0.2mg/dL (0.2 mg/dL) Urine Leukocyte Esterase Negative (NEG) Urine RBC 0/HPF (0-2) Urine WBC 0/HPF (0-4) Urine Squamous Epithelial Cells Few/LPF Urine Bacteria 0/HPF (0-FEW) Test 07/14/16 16:53 07/14/16 20:50 07/15/16 00:25 07/15/16 03:43 Glucose (Fingerstick) 145mg/dL (70-99) 266mg/dL (70-99) 411mg/dL (70-99) 526mg/dL (70-99) Test 07/15/16 06:36 07/15/16 08:08 07/15/16 08:55 Glucose (Fingerstick) 327mg/dL (70-99) 353mg/dL (70-99) Potassium Level 5.2mmol/L (3.5-5.1) Brief Hospital Course Ms. De Leon is a 70 old admit confused, lethargic, weak. Blood sugar dropped to 35, insulin changed then blood sugar to almost 600, very labile control wildly variance in blood sugar family requested to restart metformin, 500 daily at DC Q2 blood sugar if needed at home and sliding scale insulin PT eval, home health for blood sugar and med check Discharge Information Condition at Discharge: Improved Follow Up: Weeks Disposition/Orders: D/C to Home w/ HH Scheduled Ascorbic Acid (Ascorbic Acid) 500 MG PO DAILY (Reported) Aspirin (Aspirin Ec) 1 TAB PO DAILY (Reported) Insulin Aspart (Novolog Flexpen) 5 UNIT SQ TIDAC (Reported) Insulin Aspart (Novolog Flexpen) 0 UNITS SQ QIDACHS Insulin Detemir (Levemir) 8 UNIT SQ HS (Reported) Insulin Detemir (Levemir Flextouch) 10 UNITS SQ DAILY Levofloxacin (Levaquin) 1 TAB PO DAILY Lisinopril (Lisinopril) 1 TAB PO DAILY Multivits,Ca,Minerals/Iron/Fa (Thera-M Tablet) 1 TAB PO DAILY Potassium Chloride (Potassium Chloride) 40 MEQ PO DAILY (Reported) Zinc (Zinc) 220 MG PO DAILY (Reported) Miscellaneous Medications Insulin Aspart (Novolog Flexpen) 10 UNIT SQ (Reported) Insulin Detemir (Levemir) 10 UNIT SQ (Reported) Patient Instructions Patient Instructions time >30 min NIRAV DIAZ MD Jul 15, 2016 10:24
[2016-07-15] MEDS ORDERED: METF500T4 PO (10:34)
[2016-07-15] MEDS ORDERED: LEVO25TA4 PO (10:34)
[2016-07-15] MEDS ORDERED: INSU100V13 SQ (10:35)
== END 2016-07-15 12:08 | disposition home health service (06) | DRG 637 ==
LOC: ER 02:06 → ED HOLD 04:18 → 5 SOUTH 08:01
PROVIDERS: ADMIT Internal Medicine; ATTEND Internal Medicine
DX: E10.649 Type 1 diabetes mellitus with hypoglycemia without coma (principal); E43 Unspecified severe protein-calorie malnutrition; G93.41 Metabolic encephalopathy; Z68.1 Body mass index [BMI] 19.9 or less, adult; E10.8 Type 1 diabetes mellitus with unspecified complications; E03.9 Hypothyroidism, unspecified; F03.90 Unspecified dementia, unspecified severity, without behavioral disturbance, psychotic disturbance, mood disturbance, and anxiety; R41.0 Disorientation, unspecified; S31.000A Unspecified open wound of lower back and pelvis without penetration into retroperitoneum, initial encounter; X58.XXXA Exposure to other specified factors, initial encounter; D63.8 Anemia in other chronic diseases classified elsewhere; Z90.710 Acquired absence of both cervix and uterus; Z82.49 Family history of ischemic heart disease and other diseases of the circulatory system; Y93.89 Activity, other specified; Y92.89 Other specified places as the place of occurrence of the external cause; Y99.8 Other external cause status
CPT/HCPCS: 36415; 80048; 80053; 81001; 82947; 83036; 84132; 84443; 85027; 87045; 96360; 96361; J1815; J7040; J7042; 99285-25

== ENCOUNTER 2017-03-30 14:20 | Inpatient (IN) | payer OTHER ==
[2017-03-30] MEDS ORDERED: IV NORMAL SALINE 1000ML BAG 1,000 ML IV ×2 (14:45)
[2017-03-30 15:33] LABS: BILIRUBIN,URINE NEGATIVE (NEG); CLARITY,URINE CLEAR; COLOR,URINE YELLOW; GLUCOSE,URINE >=1000 mg/dL (NEG); NITRITE,URINE NEGATIVE (NEG); PH,URINE 5.5; PROTEIN,URINE NEGATIVE (NEG-TRACE); UROBILINOGEN,URINE 0.2 mg/dL (0.2 mg/dL)
[2017-03-30 15:51] LABS: ADD MAN DIFF? NO
[2017-03-30 15:58] LABS: BACTERIA,URINE 0 /HPF (0-FEW); RBC,URINE 0 /HPF (0-2); SQUAMOUS EPITHELIAL CELL,UR OCC /LPF; WBC,URINE OCC /HPF (0-4)
[2017-03-30 16:13] LABS: BASO % 1 % (0-3); EOS % 1 % (0-3); LYMPH # 1.5 x10^3/uL (1.0-4.8); LYMPH % 25 % (24-48); MEAN CORPUSCULAR HEMOGLOBIN 27 pg (25-35); MEAN CORPUSCULAR HGB CONC 32 g/dL (31-37); MEAN CORPUSCULAR VOLUME 85 fL (79-100); MONO # 0.4 x10^3/uL (0.0-1.1); MONO % 7 % (0-9); NEUT % 67 % (31-73); PLATELET COUNT 403 x10^3/uL (140-400); RED BLOOD COUNT 4.46 x10^6/uL (3.50-5.40); RED CELL DISTRIBUTION WIDTH 14.8 % (11.5-14.5)
[2017-03-30 17:00] LABS: ALBUMIN 4.1 g/dL (3.4-5.0); ALBUMIN/GLOBULIN RATIO 0.9 (1.0-1.7); ALK PHOS 201 U/L (46-116); ALT (SGPT) 63 U/L (14-59); ANION GAP 13 (6-14); AST (SGOT) 32 U/L (15-37); BLOOD UREA NITROGEN 38 mg/dL (7-20); BUN/CREATININE RATIO 35 (6-20); CALCIUM 9.7 mg/dL (8.5-10.1); CARBON DIOXIDE 22 mmol/L (21-32); CHLORIDE 100 mmol/L (98-107); CREATININE 1.1 mg/dL (0.6-1.0); GFR 59.6; SODIUM 135 mmol/L (136-145); TOTAL BILIRUBIN 0.2 mg/dL (0.2-1.0); TOTAL PROTEIN 8.6 g/dL (6.4-8.2)
[2017-03-30 17:02] LABS: GLUCOSE 567 mg/dL (70-99); POTASSIUM 6.4 mmol/L (3.5-5.1)
[2017-03-30] MEDS ORDERED: fentaNYL PF VIAL 100 MCG/2 ML VIAL IV (18:15)
[2017-03-30] MEDS ORDERED: ONDANSETRON PF 4 MG/2 ML VIAL. IV (18:15)
[2017-03-30] MEDS: INSULIN ASPART 300 UNITS/3 ML INSULN.PEN SQ (21:12)
[2017-03-30 23:46] LABS: ANION GAP 12 (6-14); BLOOD UREA NITROGEN 34 mg/dL (7-20); CALCIUM 9.7 mg/dL (8.5-10.1); CARBON DIOXIDE 24 mmol/L (21-32); CHLORIDE 104 mmol/L (98-107); CREATININE 1.1 mg/dL (0.6-1.0); GFR 59.6; GLUCOSE 380 mg/dL (70-99); MAGNESIUM 2.3 mg/dL (1.8-2.4); POTASSIUM 4.1 mmol/L (3.5-5.1); SODIUM 140 mmol/L (136-145)
[2017-03-31 02:46] LABS: POC GLUCOSE 552 mg/dL (70-99)
[2017-03-31 02:46] LABS: POC GLUCOSE 336 mg/dL (70-99)
[2017-03-31 03:22] LABS: POC GLUCOSE 121 mg/dL (70-99)
[2017-03-31] MEDS: IV NORMAL SALINE 1000ML BAG 1,000 ML IV ×3 (03:52→14:06)
[2017-03-31 05:46] LABS: ADD MAN DIFF? NO
[2017-03-31 06:22] LABS: BASO % 1 % (0-3); EOS % 1 % (0-3); HEMATOCRIT 33.3 % (36.0-47.0); HEMOGLOBIN 10.9 g/dL (12.0-15.5); LYMPH # 1.5 x10^3/uL (1.0-4.8); LYMPH % 33 % (24-48); MEAN CORPUSCULAR HEMOGLOBIN 27 pg (25-35); MEAN CORPUSCULAR HGB CONC 33 g/dL (31-37); MEAN CORPUSCULAR VOLUME 84 fL (79-100); MONO # 0.3 x10^3/uL (0.0-1.1); MONO % 7 % (0-9); NEUT # 2.7 x10^3uL (1.8-7.7); NEUT % 59 % (31-73); PLATELET COUNT 410 x10^3/uL (140-400); RED BLOOD COUNT 3.98 x10^6/uL (3.50-5.40); RED CELL DISTRIBUTION WIDTH 14.4 % (11.5-14.5); WHITE BLOOD COUNT 4.6 x10^3/uL (4.0-11.0)
[2017-03-31] MEDS: LEVOTHYROXINE 25 MCG TABLET. PO (06:25)
[2017-03-31 06:45] LABS: ANION GAP 14 (6-14); BLOOD UREA NITROGEN 33 mg/dL (7-20); CARBON DIOXIDE 22 mmol/L (21-32); CHLORIDE 103 mmol/L (98-107); CREATININE 1.1 mg/dL (0.6-1.0); GFR 59.6; GLUCOSE 344 mg/dL (70-99); SODIUM 139 mmol/L (136-145)
[2017-03-31 07:59] LABS: POC GLUCOSE 249 mg/dL (70-99)
[2017-03-31] MEDS: ASPIRIN ENTERIC COATED 81 MG TABLET.DR. PO (08:41)
[2017-03-31] MEDS: ASCORBIC ACID 500 MG TABLET PO (08:41)
[2017-03-31] MEDS: MULTIVITAMIN with MINERAL TABLET. PO (08:41)
[2017-03-31] MEDS: LISINOPRIL 5 MG TABLET. PO (08:42)
[2017-03-31] MEDS: ZINC SULFATE 220 MG CAPSULE. PO (08:42)
[2017-03-31] MEDS: POTASSIUM CHLORIDE 20 MEQ TABLET.ER. PO (08:42)
[2017-03-31] MEDS: INSULIN ASPART 300 UNITS/3 ML INSULN.PEN SQ ×6 (08:50→17:35)
[2017-03-31] MEDS: INSULIN DETEMIR 300 UNITS/3 ML INSULN.PEN. SQ (08:51)
[2017-03-31 11:20] LABS: POC GLUCOSE 404 mg/dL (70-99)
[2017-03-31] MEDS ORDERED: DEXTROSE 50% 25 GM / 50ML DISP.SYRIN. IV (11:30)
[2017-03-31 12:17] LABS: POC GLUCOSE 328 mg/dL (70-99)
[2017-03-31 16:38] LABS: POC GLUCOSE 128 mg/dL (70-99)
[2017-03-31 19:15] LABS: MRSA BY PCR Negative (Negative)
[2017-03-31 20:33] LABS: POC GLUCOSE 123 mg/dL (70-99)
[2017-04-01 05:26] LABS: ADD MAN DIFF? NO
[2017-04-01 05:38] LABS: BASO # 0.1 x10^3/uL (0.0-0.2); BASO % 1 % (0-3); EOS # 0.1 x10^3/uL (0.0-0.7); EOS % 1 % (0-3); HEMATOCRIT 35.6 % (36.0-47.0); HEMOGLOBIN 11.5 g/dL (12.0-15.5); LYMPH # 2.1 x10^3/uL (1.0-4.8); LYMPH % 36 % (24-48); MEAN CORPUSCULAR HEMOGLOBIN 27 pg (25-35); MEAN CORPUSCULAR HGB CONC 32 g/dL (31-37); MEAN CORPUSCULAR VOLUME 84 fL (79-100); MONO # 0.3 x10^3/uL (0.0-1.1); MONO % 6 % (0-9); NEUT # 3.2 x10^3uL (1.8-7.7); NEUT % 56 % (31-73); PLATELET COUNT 406 x10^3/uL (140-400); RED BLOOD COUNT 4.24 x10^6/uL (3.50-5.40); RED CELL DISTRIBUTION WIDTH 14.4 % (11.5-14.5); WHITE BLOOD COUNT 5.7 x10^3/uL (4.0-11.0)
[2017-04-01] MEDS: LEVOTHYROXINE 25 MCG TABLET. PO (05:40)
[2017-04-01 06:35] LABS: ALBUMIN 3.3 g/dL (3.4-5.0); ALBUMIN/GLOBULIN RATIO 0.8 (1.0-1.7); ALK PHOS 171 U/L (46-116); ALT (SGPT) 46 U/L (14-59); ANION GAP 10 (6-14); AST (SGOT) 21 U/L (15-37); BLOOD UREA NITROGEN 41 mg/dL (7-20); BUN/CREATININE RATIO 46 (6-20); CALCIUM 8.9 mg/dL (8.5-10.1); CARBON DIOXIDE 25 mmol/L (21-32); CHLORIDE 105 mmol/L (98-107); CREATININE 0.9 mg/dL (0.6-1.0); GFR 75.1; GLUCOSE 142 mg/dL (70-99); POTASSIUM 4.5 mmol/L (3.5-5.1); SODIUM 140 mmol/L (136-145); TOTAL BILIRUBIN 0.2 mg/dL (0.2-1.0); TOTAL PROTEIN 7.5 g/dL (6.4-8.2)
[2017-04-01 07:44] LABS: POC GLUCOSE 203 mg/dL (70-99)
[2017-04-01] MEDS: MULTIVITAMIN with MINERAL TABLET. PO (08:11)
[2017-04-01] MEDS: ZINC SULFATE 220 MG CAPSULE. PO (08:11)
[2017-04-01] MEDS: POTASSIUM CHLORIDE 20 MEQ TABLET.ER. PO (08:11)
[2017-04-01] MEDS: ASCORBIC ACID 500 MG TABLET PO (08:11)
[2017-04-01] MEDS: ASPIRIN ENTERIC COATED 81 MG TABLET.DR. PO (08:11)
[2017-04-01] MEDS: LISINOPRIL 5 MG TABLET. PO (08:12)
[2017-04-01] MEDS: INSULIN ASPART 300 UNITS/3 ML INSULN.PEN SQ ×4 (08:26→12:12)
[2017-04-01] MEDS: INSULIN DETEMIR 300 UNITS/3 ML INSULN.PEN. SQ (08:27)
[2017-04-01 11:58] LABS: POC GLUCOSE 326 mg/dL (70-99)
[2017-04-01 15:10] LABS: HEMOGLOBIN A1C 8.4 % (4.8-5.6)
[2017-04-01] MEDS ORDERED: INSULIN ASPART 300 UNITS/3 ML INSULN.PEN SQ (16:30)
== END 2017-04-01 14:51 | disposition home or self-care (01) | DRG 637 ==
LOC: ER 14:20 → 5 NORTH 18:01
DX: E10.65 Type 1 diabetes mellitus with hyperglycemia (principal); N17.0 Acute kidney failure with tubular necrosis; E87.0 Hyperosmolality and hypernatremia; E87.5 Hyperkalemia; Z86.14 Personal history of Methicillin resistant Staphylococcus aureus infection; Z90.710 Acquired absence of both cervix and uterus
CPT/HCPCS: 36415; 80048; 80053; 81001; 82962; 83036; 83735; 85025; 87641; 93005; 99285; 99285-25; J1815; J7030

== ENCOUNTER 2017-12-06 15:19 | Emergency (ER) | payer OTHER ==
[~2017-12-06] VITALS: Ht 162.6 cm; Wt 49.9 kg
[~2017-12-06 15:19] MED LIST changes: +ASPI-612 PO; -ASPI81TA9 PO; +CLIN300C8 PO; -CLIN300C86 PO; +ERGO500027 PO; +FERR-36 PO; +GLYB-100 PO; +LEVO25TA4 PO; -LEVO500T38 PO; +LEVO500T59 PO; +METF500T16 PO; +MIRT15TA PO
--- NOTE | 2017-12-06 15:48 | PHYS DOC ---
Past Medical History Past Medical History: Diabetes-Type I Additional Past Medical Histor: MRSA Past Surgical History: Other Additional Past Surgical Histo: Unknown/Note scar on abd. Alcohol Use: None Drug Use: None Adult General Chief Complaint Chief Complaint: TOE PROBLEM HPI HPI Patient is a 72 year old female who presents with right big toe infection in states at home today she saw 2 magnets spinal out of it. Patient does have a history of diabetes mellitus and denies any other medical history or surgeries. Review of Systems Review of Systems Constitutional: Denies fever or chills [] Eyes: Denies change in visual acuity, redness, or eye pain [] HENT: Denies nasal congestion or sore throat [] Respiratory: Denies cough or shortness of breath [] Cardiovascular: No additional information not addressed in HPI [] GI: Denies abdominal pain, nausea, vomiting, bloody stools or diarrhea [] : Denies dysuria or hematuria [] Musculoskeletal: Denies back pain or joint pain [] Integument: Denies rash or skin lesions. Right great toe with nail lifted up off of the nail bed but connected at the cuticle. [] Neurologic: Denies headache, focal weakness or sensory changes [] Endocrine: Denies polyuria or polydipsia [] All other systems were reviewed and found to be within normal limits, except as documented in this note. Current Medications Current Medications Current Medications Medications (Trade) Dose Ordered Sig/Amalia Start Time Stop Time Status Last Admin Dose Admin Piperacillin Sod/ Tazobactam Sod (Zosyn Per Pharmacy) 1 each PRN DAILY PRN 12/06/17 16:00 UNV Piperacillin Sod/ Tazobactam Sod 3.375 gm/Sodium Chloride 50 ml @ 100 mls/hr 1X ONCE 12/06/17 16:15 12/06/17 16:44 DC 12/06/17 16:17 100 MLS/HR Allergies Allergies Allergies Coded Allergies Type Severity Reaction Last Updated Verified No Known Medication Allergies Allergy Unknown 12/16/15 Yes Physical Exam Physical Exam Constitutional: Well developed, well nourished, no acute distress, non-toxic appearance. [] HENT: Normocephalic, atraumatic, bilateral external ears normal, oropharynx moist, no oral exudates, nose normal. [] Eyes: PERRLA, EOMI, conjunctiva normal, no discharge. [] Neck: Normal range of motion, no tenderness, supple, no stridor. [] Cardiovascular:Heart rate regular rhythm, no murmur [] Lungs & Thorax: Bilateral breath sounds clear to auscultation [] Abdomen: Bowel sounds normal, soft, no tenderness, no masses, no pulsatile masses. [] Skin: Warm, dry, no erythema, no rash. Right great toe with nail lifted up off the nail bed but connected at cuticle. Redness and a wound with purulent drainage under the right great toe is seen. Back: No tenderness, no CVA tenderness. [] Extremities: No tenderness, no cyanosis, no clubbing, ROM intact, no edema. [] Neurologic: Alert and oriented X 3, normal motor function, normal sensory function, no focal deficits noted. [] Psychologic: Affect normal, judgement normal, mood normal. [] Current Patient Data Vital Signs Vital Signs Date Time Temp Pulse Resp B/P (MAP) Pulse Ox O2 Delivery O2 Flow Rate FiO2 12/06/17 16:15 70 16 120/56 (77) 100 Room Air 12/06/17 15:21 97.8 97.8 Lab Values Laboratory Tests Test 12/06/17 15:42 12/06/17 15:55 Glucose (Fingerstick) 168 mg/dL (70-99) H White Blood Count 6.1 x10^3/uL (4.0-11.0) Red Blood Count 3.53 x10^6/uL (3.50-5.40) Hemoglobin 10.5 g/dL (12.0-15.5) L Hematocrit 30.5 % (36.0-47.0) L Mean Corpuscular Volume 86 fL (79-100) Mean Corpuscular Hemoglobin 30 pg (25-35) Mean Corpuscular Hemoglobin Concent 34 g/dL (31-37) Red Cell Distribution Width 15.0 % (11.5-14.5) H Platelet Count 371 x10^3/uL (140-400) Neutrophils (%) (Auto) 66 % (31-73) Lymphocytes (%) (Auto) 23 % (24-48) L Monocytes (%) (Auto) 9 % (0-9) Eosinophils (%) (Auto) 0 % (0-3) Basophils (%) (Auto) 1 % (0-3) Neutrophils # (Auto) 4.0 x10^3uL (1.8-7.7) Lymphocytes # (Auto) 1.4 x10^3/uL (1.0-4.8) Monocytes # (Auto) 0.6 x10^3/uL (0.0-1.1) Eosinophils # (Auto) 0.0 x10^3/uL (0.0-0.7) Basophils # (Auto) 0.1 x10^3/uL (0.0-0.2) Sodium Level 141 mmol/L (136-145) Potassium Level 3.5 mmol/L (3.5-5.1) Chloride Level 104 mmol/L (98-107) Carbon Dioxide Level 24 mmol/L (21-32) Anion Gap 13 (6-14) Blood Urea Nitrogen 17 mg/dL (7-20) Creatinine 1.2 mg/dL (0.6-1.0) H Estimated GFR (Cockcroft-Gault) 53.7 Glucose Level 174 mg/dL (70-99) H Calcium Level 9.4 mg/dL (8.5-10.1) Laboratory Tests 12/06/17 15:55 Laboratory Tests 12/06/17 15:55 EKG EKG [] Radiology/Procedures Radiology/Procedures Right foot Impressions: [facility] [address] [place] [address] IMAGING REPORT Signed PATIENT: DALTON MCLEAN ACCOUNT: [id number] : 1945 LOCATION: ER AGE: 72 SEX: F EXAM STATUS: REG ER ORD. PHYSICIAN: SEAN MACHADO APRN REASON: Great right Toe infection/ HX Diabetes PROCEDURE: FOOT RIGHT 3V Indication:injury. Great toe infection. History of diabetes. TECHNIQUE: 3 views of the right foot COMPARISON:None FINDINGS: No acute fracture or dislocation. No periosteal reaction or cortical erosion to suggest radiographic signs of osteoarthritis. Moderate midfoot arthritis. No soft tissue emphysema. Vascular calcifications suggesting peripheral arterial disease. IMPRESSION: As above. Electronically signed by: Kaden Polo DO (12/06/2017 5:11 PM) [facility] DICTATED and SIGNED BY: KADEN POLO DO DATE: 12/06/17 1709 Course & Med Decision Making Course & Med Decision Making Patient is a 72 year old female who presents with right big toe infection in states at home today she saw 2 magnets spinal out of it. Patient does have a history of diabetes mellitus and denies any other medical history or surgeries. Patient has no known drug allergies. Patient states that she has no numbness or tingling and has not been running a fever. Patient is afebrile. Skin is pink, warm, and dry. Patient denies nausea, vomiting, shortness of air, chest pain, diarrhea, any recent illness. Patient states that she has feeling in both of her feet and has no peripheral neuropathy and is not sure why she didn't note that there were magnets in her toe. Right great toe does not look swollen, purple, or blue. Upon examination the right great toe nail is up off the nail bed but is still attached to the cuticle. The toe does have a open area on the nail bed that has purulent drainage. The toe does have some foul odor. Patient' s toenails bilaterally are very long and are dirty has not been cut in a while. The side of the right great toe and the side of the second toe has a all superficial. The second right toe has no signs of infection. Pulses bilaterally are felt and there is no edema in any extremity. Patient is neurologically intact. She states she was at home with her daughter and her 4 grandsons. Patient denies symptoms of urinary frequency or says of thirst. Patient denies any pain. Xray of right foot shows no acute findings. Patient to be discharged home with Keflex and Bactrim antibiotics. Patient did receive a dose of Zosyn IV in the ED today. Patient to follow up with her primary care as soon as possible. [] Dragon Disclaimer Dragon Disclaimer This electronic medical record was generated, in whole or in part, using a voice recognition dictation system. Departure Departure Impression: Primary Impression: Toe infection Disposition: 01 HOME, SELF-CARE Condition: STABLE Referrals: UNKNOWN PCP NAME (PCP) Patient Instructions: Diabetes and Foot Care Additional Instructions: Follow up with your primary care. Scripts Sulfamethoxazole/Trimethoprim (BACTRIM DS TABLET) 1 Each Tablet 1 TAB PO BID for 10 Days, #20 TAB Prov: SEAN MACHADO LENS GRINDING MACHINE OPERATOR 12/06/17 Cephalexin (KEFLEX) 500 Mg Capsule 500 MG PO QID for 10 Days, #40 CAP Prov: SEAN MACHADO APRN 12/06/17 SEAN MACHADO APRN Dec 06, 2017 15:48
[2017-12-06] MEDS ORDERED: PIP/TAZO PER PHARMACY MC PRN (16:00)
[2017-12-06 16:10] LABS: BASO # 0.1 x10^3/uL (0.0-0.2); BASO % 1 % (0-3); EOS % 0 % (0-3); HEMATOCRIT 30.5 % (36.0-47.0); HEMOGLOBIN 10.5 g/dL (12.0-15.5); LYMPH # 1.4 x10^3/uL (1.0-4.8); LYMPH % 23 % (24-48); MEAN CORPUSCULAR HEMOGLOBIN 30 pg (25-35); MEAN CORPUSCULAR HGB CONC 34 g/dL (31-37); MEAN CORPUSCULAR VOLUME 86 fL (79-100); MONO # 0.6 x10^3/uL (0.0-1.1); MONO % 9 % (0-9); NEUT % 66 % (31-73); PLATELET COUNT 371 x10^3/uL (140-400); RED BLOOD COUNT 3.53 x10^6/uL (3.50-5.40); WHITE BLOOD COUNT 6.1 x10^3/uL (4.0-11.0)
[2017-12-06] MEDS ORDERED: PIPERACILLIN/TAZOBACTAM 3.375 GM in IV NORMAL SALINE 50ML 50 ML IV ONE (16:15)
[2017-12-06 16:22] LABS: CALCIUM 9.4 mg/dL (8.5-10.1); CREATININE 1.2 mg/dL (0.6-1.0); GFR 53.7; POTASSIUM 3.5 mmol/L (3.5-5.1)
--- NOTE | 2017-12-06 17:15 | RAD ---
Indication:injury. Great toe infection. History of diabetes. TECHNIQUE: 3 views of the right foot COMPARISON:None FINDINGS: No acute fracture or dislocation. No periosteal reaction or cortical erosion to suggest radiographic signs of osteoarthritis. Moderate midfoot arthritis. No soft tissue emphysema. Vascular calcifications suggesting peripheral arterial disease. IMPRESSION: As above. Electronically signed by: Kaden Perdue DO (12/06/2017 5:11 PM) [employer]
[2017-12-06] MEDS ORDERED: CEPH-264 PO (17:43)
[2017-12-06] MEDS ORDERED: SULF1TAB24 PO (17:43)
[2017-12-06 17:45] VITALS: BP 99/49
== END 2017-12-06 18:35 | disposition home or self-care (01) ==
LOC: ER 15:19
DX: L08.89 Other specified local infections of the skin and subcutaneous tissue (principal); E10.9 Type 1 diabetes mellitus without complications; Z86.14 Personal history of Methicillin resistant Staphylococcus aureus infection
CPT/HCPCS: 36415; 73630; 80048; 82962; 85025; 96365; 99285; J2543

== ENCOUNTER 2018-02-03 14:21 | Inpatient (IN) | payer OTHER ==
[~2018-02-03] VITALS: Ht 170.2 cm; Wt 51.3 kg
[2018-02-03] VITALS (8 sets, daily range): BP systolic 105–119; BP diastolic 39–70
[~2018-02-03 14:21] MED LIST changes: +CEPH-264 PO; +SULF1TAB24 PO
--- NOTE | 2018-02-03 15:21 | PHYS DOC ---
Past Medical History Past Medical History: Diabetes-Type I Additional Past Medical Histor: MRSA Past Surgical History: Other Additional Past Surgical Histo: Unknown/Note scar on abd. Alcohol Use: None Drug Use: None Adult General Chief Complaint Chief Complaint: BLOOD SUGAR PROBLEM HPI HPI 72-year-old female presents to ER for elevated blood sugar. Per RN pt's granddaughter checked pt's blood sugar at home and glucometer read high. On arrival patient's blood sugar was checked by ER staff and again reading on glucometer was high. Patient is A&Ox3 denying any pain. Pt reports she has been fatigued and sleeping all day. Pt denies N/V/D. She denies CP/SOA. She denies urinary sxs. Review of Systems Review of Systems Constitutional: Denies fever or chills. Reports fatigue/sleeping all day Eyes: Denies change in visual acuity, redness, or eye pain [] HENT: Denies nasal congestion or sore throat [] Respiratory: Denies cough or shortness of breath [] Cardiovascular: Denies CP/palpitations GI: Denies abdominal pain, nausea, vomiting, bloody stools or diarrhea [] : Denies dysuria or hematuria [] Musculoskeletal: Denies back pain or joint pain [] Integument: Denies rash, swelling or skin lesions [] Neurologic: Denies headache, focal weakness or sensory changes. Reports lightheadedness Endocrine: Denies polyuria or polydipsia [] All other systems were reviewed and found to be within normal limits, except as documented in this note. Current Medications Current Medications Current Medications Medications (Trade) Dose Ordered Sig/Amalia Start Time Stop Time Status Last Admin Dose Admin Acetaminophen (Tylenol) 650 mg PRN Q6HRS PRN 02/03/18 16:30 Docusate Sodium (Colace) 100 mg PRN DAILY PRN 02/03/18 16:30 Morphine Sulfate (Morphine Sulfate) 2 mg PRN Q2HR PRN 02/03/18 16:30 Ondansetron HCl (Zofran) 4 mg PRN Q6HRS PRN 02/03/18 16:30 Sodium Chloride 1,000 ml @ 1,000 mls/hr 1X ONCE 02/03/18 15:30 02/03/18 16:29 DC 02/03/18 15:35 1,000 MLS/HR Tramadol HCl (Ultram) 50 mg PRN Q6HRS PRN 02/03/18 16:30 Allergies Allergies Allergies Coded Allergies Type Severity Reaction Last Updated Verified No Known Medication Allergies Allergy Unknown 12/16/15 Yes Physical Exam Physical Exam Constitutional: Well developed, well nourished, no acute distress, non-toxic appearance. Fatigued appearance HENT: Normocephalic, atraumatic, bilateral ears normal, mucous membranes pink/ dry , no oral exudates, nose normal. [] Eyes: 2mm PERRLA, no nystagmus, conjunctiva normal, no discharge. [] Neck: Normal range of motion, no tenderness, supple, no stridor. [] Cardiovascular:Heart rate regular rhythm, no murmur [] Lungs & Thorax: Bilateral breath sounds clear to auscultation. Resp. equal/ nonlabored Abdomen: Bowel sounds normal, soft, no tenderness, no masses, no pulsatile masses. [] Skin: Warm, dry, no erythema, no rash. [] Back: No tenderness, no CVA tenderness. [] Extremities: No tenderness, no cyanosis, no clubbing, ROM intact, no edema. [] Neurologic: Alert and oriented X 3, normal motor function, normal sensory function, no focal deficits noted. [] Psychologic: Affect normal, judgement normal, mood normal. [] Current Patient Data Vital Signs Vital Signs Date Time Temp Pulse Resp B/P (MAP) Pulse Ox O2 Delivery O2 Flow Rate FiO2 02/03/18 16:45 80 22 131/65 (87) 96 Room Air 02/03/18 14:30 98.8 98.8 Lab Values Laboratory Tests Test 02/03/18 14:30 02/03/18 16:19 Urine Color Yellow Urine Clarity Clear Urine pH 5.0 Urine Specific [place] 1.025 Urine Protein Negative mg/dL (NEG-TRACE) Urine Glucose (UA) >=1000 mg/dL (NEG) Urine Ketones (Stick) >=80 mg/dL (NEG) Urine Blood Trace (NEG) Urine Nitrite Negative (NEG) Urine Bilirubin Negative (NEG) Urine Urobilinogen Dipstick 0.2 mg/dL (0.2 mg/dL) Urine Leukocyte Esterase Negative (NEG) Urine RBC 0 /HPF (0-2) Urine WBC 1-4 /HPF (0-4) Urine Squamous Epithelial Cells Few /LPF Urine Bacteria 0 /HPF (0-FEW) Urine Mucus Slight /LPF White Blood Count 12.7 x10^3/uL (4.0-11.0) H Red Blood Count 4.39 x10^6/uL (3.50-5.40) Hemoglobin 12.6 g/dL (12.0-15.5) Hematocrit 40.4 % (36.0-47.0) Mean Corpuscular Volume 92 fL (79-100) Mean Corpuscular Hemoglobin 29 pg (25-35) Mean Corpuscular Hemoglobin Concent 31 g/dL (31-37) Red Cell Distribution Width 15.5 % (11.5-14.5) H Platelet Count 388 x10^3/uL (140-400) Neutrophils (%) (Auto) 85 % (31-73) H Lymphocytes (%) (Auto) 9 % (24-48) L Monocytes (%) (Auto) 5 % (0-9) Eosinophils (%) (Auto) 0 % (0-3) Basophils (%) (Auto) 0 % (0-3) Neutrophils # (Auto) 10.8 x10^3uL (1.8-7.7) H Lymphocytes # (Auto) 1.2 x10^3/uL (1.0-4.8) Monocytes # (Auto) 0.7 x10^3/uL (0.0-1.1) Eosinophils # (Auto) 0.0 x10^3/uL (0.0-0.7) Basophils # (Auto) 0.1 x10^3/uL (0.0-0.2) Segmented Neutrophils % 83 % (35-66) H Band Neutrophils % 3 % (0-9) Lymphocytes % 9 % (24-48) L Monocytes % 5 % (0-10) Platelet Estimate Adequate (ADEQUATE) Sodium Level 132 mmol/L (136-145) L Potassium Level 5.2 mmol/L (3.5-5.1) H Chloride Level 97 mmol/L (98-107) L Carbon Dioxide Level 8 mmol/L (21-32) *L Anion Gap 27 (6-14) H Blood Urea Nitrogen 32 mg/dL (7-20) H Creatinine 1.6 mg/dL (0.6-1.0) H Estimated GFR (Cockcroft-Gault) 38.6 BUN/Creatinine Ratio 20 (6-20) Glucose Level 551 mg/dL (70-99) *H Calcium Level 9.2 mg/dL (8.5-10.1) Magnesium Level 2.4 mg/dL (1.8-2.4) Total Bilirubin 0.3 mg/dL (0.2-1.0) Aspartate Amino Transferase (AST) 24 U/L (15-37) Alanine Aminotransferase (ALT) 47 U/L (14-59) Alkaline Phosphatase 170 U/L (46-116) H Troponin I Quantitative < 0.017 ng/mL (0.000-0.055) Total Protein 7.7 g/dL (6.4-8.2) Albumin 3.8 g/dL (3.4-5.0) Albumin/Globulin Ratio 1.0 (1.0-1.7) Laboratory Tests 02/03/18 16:19 Laboratory Tests 02/03/18 16:19 EKG EKG EKG obtained 02/03/18 at [address] Muñoz Sinus Rhythm Rate 79 No STEMI Radiology/Procedures Radiology/Procedures [] Course & Med Decision Making Course & Med Decision Making Pertinent Labs and Imaging studies reviewed. (See chart for details) Pt was evaluated in ER for hyperglycemia- blood glucose was 551 with CO2 8/ anion gap 27- UA with >80 ketones. ABGs confirmed DKA. EKG with no acute ST elevation/STEMI and troponin <0.017. Pt was given IV flds, Regular insulin 10units IV and started on insulin gtt while in ER. Pt remained stable while in ER with no change in MS- on re-eval to discuss her test results and admission plan she continued to feel fatigued denying any pain/nausea. She was nontoxic in appearance and in no visible distress. She was agreeable with admit plan. Spoke with Dr. Conde, hospitalist in the ER regarding pt's case, test results, and admission plan. Will admit to their services for further care to ICU. Pt's case and plan of care was discussed with Dr. Muñoz. 1805: Prior to going to ICU bed recheck accu check was 398 following flds/IV insulin. Dragon Disclaimer Dragon Disclaimer This electronic medical record was generated, in whole or in part, using a voice recognition dictation system. Departure Departure Impression: Primary Impression: DKA (diabetic ketoacidoses) Disposition: 09 ADMITTED INPATIENT Admitting Physician: Xie. Lovett Condition: GUARDED Referrals: UNKNOWN PCP NAME (PCP) AMANDA CASTELLANOS APRN Feb 03, 2018 15:21
[2018-02-03 15:27] LABS: BILIRUBIN,URINE NEGATIVE (NEG); CLARITY,URINE CLEAR; COLOR,URINE YELLOW; NITRITE,URINE NEGATIVE (NEG); PROTEIN,URINE NEGATIVE (NEG-TRACE); UROBILINOGEN,URINE 0.2 mg/dL (0.2 mg/dL)
[2018-02-03] MEDS ORDERED: IV NORMAL SALINE 1000ML BAG 1,000 ML IV ONE (15:30)
[2018-02-03 15:34] LABS: BACTERIA,URINE 0 /HPF (0-FEW); RBC,URINE 0 /HPF (0-2); SQUAMOUS EPITHELIAL CELL,UR FEW /LPF
[2018-02-03 16:29] LABS: BASO # 0.1 x10^3/uL (0.0-0.2); BASO % 0 % (0-3); EOS % 0 % (0-3); HEMATOCRIT 40.4 % (36.0-47.0); HEMOGLOBIN 12.6 g/dL (12.0-15.5); LYMPH # 1.2 x10^3/uL (1.0-4.8); LYMPH % 9 % (24-48); MEAN CORPUSCULAR HEMOGLOBIN 29 pg (25-35); MEAN CORPUSCULAR HGB CONC 31 g/dL (31-37); MEAN CORPUSCULAR VOLUME 92 fL (79-100); MONO # 0.7 x10^3/uL (0.0-1.1); MONO % 5 % (0-9); NEUT # 10.8 x10^3uL (1.8-7.7); NEUT % 85 % (31-73); PLATELET COUNT 388 x10^3/uL (140-400); RED BLOOD COUNT 4.39 x10^6/uL (3.50-5.40); RED CELL DISTRIBUTION WIDTH 15.5 % (11.5-14.5); WHITE BLOOD COUNT 12.7 x10^3/uL (4.0-11.0)
[2018-02-03] MEDS ORDERED: MORPHINE SULFATE 2 MG/ML VIAL. IV PRN ×2 (16:30→17:45)
[2018-02-03] MEDS ORDERED: DOCUSATE SODIUM 100 MG CAPSULE. PO PRN ×2 (16:30→17:45)
[2018-02-03] MEDS ORDERED: traMADol 50 MG TABLET PO PRN ×2 (16:30→17:45)
[2018-02-03] MEDS ORDERED: ONDANSETRON PF 4 MG/2 ML VIAL. IV PRN ×2 (16:30→17:45)
[2018-02-03] MEDS ORDERED: ACETAMINOPHEN 325 MG TABLET. PO PRN ×2 (16:30→17:45)
[2018-02-03 16:46] LABS: ALBUMIN 3.8 g/dL (3.4-5.0); CALCIUM 9.2 mg/dL (8.5-10.1); CREATININE 1.6 mg/dL (0.6-1.0); GFR 38.6; MAGNESIUM 2.4 mg/dL (1.8-2.4); POTASSIUM 5.2 mmol/L (3.5-5.1); TOTAL BILIRUBIN 0.3 mg/dL (0.2-1.0); TOTAL PROTEIN 7.7 g/dL (6.4-8.2)
[2018-02-03 16:52] LABS: BASE EXCESS COOX -16 mmol/L (-3-3); HCO3 COOX 9 mmol/L (21-28); METHEMOGLOBIN 0.2 % (0.0-1.9); PCO2 COOX 21 mmHg (35-46); PO2 COOX 103 mmHg (65-108); SAT O2 COOX 97 % (92-99)
[2018-02-03] MEDS ORDERED: INSULIN,REGULAR 150 UNIT DRIP 150 ML IV ONE (17:00)
[2018-02-03] MEDS ORDERED: INSULIN REGULAR 100 UNIT/ML 3ML VIAL. IV ONE (17:00)
[2018-02-03 17:01] LABS: % BANDS 3 % (0-9); % LYMPHS 9 % (24-48); % MONOS 5 % (0-10); % SEGS 83 % (35-66)
[2018-02-03 17:02] LABS: PLT ESTIMATE ADEQUATE (ADEQUATE)
--- NOTE | 2018-02-03 17:39 | EKG ---
[facility] [address] [place] [address] Test Date: 2018-02-03 Test Time: 15:37:26 Pat Name: DALTON MCLEAN Department: Room: Gender: Female Control Director: : 1945 Requested By: AMANDA CASTELLANOS Order Number: [id number] Reading MD: Barry Sierra MD Measurements Intervals [place] Rate: 79 P: 71 [place]: 150 QRS: 28 QRSD: 78 T: 59 QT: 380 QTc: 442 Interpretive Statements SINUS RHYTHM NON-SPECIFIC ST/T CHANGES Electronically Signed On 02-05-2018 10:24:01 CATTLE KILLER by Barry Sierra MD
--- NOTE | 2018-02-03 17:53 | PDOC1 ---
History and Physical Date of Admission Date of Admission 02/03/18 Identification/Chief Complaint Chief Complaint high glucose Source Source: Chart review, Patient History of Present Illness History of Present Illness 72yo F, with h/o dm on insulin, po meds, came to ER for hyperglycemia. pt came to hosp often, last time was 11/2017 for DKA. shE Looks demented, not know the hosp, days or president, or her meds. She is a very poor historian. She said her grand daughter helped her for meds usually ,said got insulin before each meal, which is defferent compared to [place] summary. she said glucose was high today, but cannot tell me how much Denies N/V, abd pain. Glucose 500 in ER, bicarb 8, gap 27. ABG pending. Past Medical History Cardiovascular: No pertinent hx, HTN Pulmonary: No pertinent hx Hepatobiliary: No pertinent hx Psych: No pertinent hx Rheumatologic: No pertinent hx Infectious disease: No pertinent hx Renal/: No pertinent hx Endocrine: Diabetes Past Surgical History Past Surgical History: Hysterectomy Family History Family History: Hypertension Social History Smoke: No ALCOHOL: none Drugs: None Current Problem List Problem List Problems Medical Problems: (1) DKA (diabetic ketoacidoses) Status: Acute Current Medications Current Medications Current Medications Medications (Trade) Dose Ordered Sig/Amalia Start Time Stop Time Status Last Admin Dose Admin Acetaminophen (Tylenol) 650 mg PRN Q6HRS PRN 02/03/18 16:30 Docusate Sodium (Colace) 100 mg PRN DAILY PRN 02/03/18 16:30 Heparin Sodium (Porcine) (Heparin Sodium) 5,000 unit Q8HRS 02/03/18 22:00 Insulin Human Regular 150 ml @ 0 mls/hr 1X ONCE 02/03/18 17:00 02/03/18 17:11 DC Insulin Human Regular (HumuLIN R VIAL) 10 unit 1X ONCE 02/03/18 17:00 02/03/18 17:11 DC 02/03/18 17:18 10 UNIT Morphine Sulfate (Morphine Sulfate) 2 mg PRN Q2HR PRN 02/03/18 16:30 Ondansetron HCl (Zofran) 4 mg PRN Q6HRS PRN 02/03/18 16:30 Sodium Chloride 1,000 ml @ 1,000 mls/hr 1X ONCE 02/03/18 15:30 02/03/18 16:29 DC 02/03/18 15:35 1,000 MLS/HR Tramadol HCl (Ultram) 50 mg PRN Q6HRS PRN 02/03/18 16:30 Allergies Allergies Allergies Coded Allergies Type Severity Reaction Last Updated Verified No Known Medication Allergies Allergy Unknown 12/16/15 Yes ROS Review of System CONSTITUTIONAL: No fever or chills EYES: No recent changes SKIN: No rash or itching CARDIOVASCULAR: No chest pain, syncope, palpitations, or edema RESPIRATORY: No SOB or cough GASTROINTESTINAL: No nausea, vomiting or abdominal pain NEUROLOGICAL: No headaches or weakness ENDOCRINE: No cold or heat intolerance GENITOURINARY: No urgency or frequency of urination MUSCULOSKELETAL: No back pain or joint pain LYMPHATICS: No enlarged lymph nodes PSYCHIATRIC: No anxiety or depression Physical Exam Physical Exam GEN.: No apparent distress. Alert and oriented 1 to person, knows in hosp but said ku, not know days, now know her meds HEENT: Head is normocephalic, atraumatic NECK: Supple. LUNGS: Clear to auscultation. HEART: RRR, S1, S2 present. Peripheral pulses intact ABDOMEN: Soft, nontender. Positive bowel sounds. EXTREMITIES: Without any cyanosis. NEUROLOGIC: Normal speech, normal tone PSYCHIATRIC: Normal affect, normal mood. SKIN: No ulcerations Vitals Vitals Vital Signs Date Time Temp Pulse Resp B/P (MAP) Pulse Ox O2 Delivery O2 Flow Rate FiO2 02/03/18 17:20 79 20 124/60 (81) 98 Room Air 02/03/18 14:30 98.8 98.8 Labs Labs Laboratory Tests Test 02/03/18 14:30 02/03/18 16:19 Urine Color Yellow Urine Clarity Clear Urine pH 5.0 Urine Specific [place] 1.025 Urine Protein Negative mg/dL (NEG-TRACE) Urine Glucose (UA) >=1000 mg/dL (NEG) Urine Ketones (Stick) >=80 mg/dL (NEG) Urine Blood Trace (NEG) Urine Nitrite Negative (NEG) Urine Bilirubin Negative (NEG) Urine Urobilinogen Dipstick 0.2 mg/dL (0.2 mg/dL) Urine Leukocyte Esterase Negative (NEG) Urine RBC 0 /HPF (0-2) Urine WBC 1-4 /HPF (0-4) Urine Squamous Epithelial Cells Few /LPF Urine Bacteria 0 /HPF (0-FEW) Urine Mucus Slight /LPF White Blood Count 12.7 x10^3/uL (4.0-11.0) Red Blood Count 4.39 x10^6/uL (3.50-5.40) Hemoglobin 12.6 g/dL (12.0-15.5) Hematocrit 40.4 % (36.0-47.0) Mean Corpuscular Volume 92 fL (79-100) Mean Corpuscular Hemoglobin 29 pg (25-35) Mean Corpuscular Hemoglobin Concent 31 g/dL (31-37) Red Cell Distribution Width 15.5 % (11.5-14.5) Platelet Count 388 x10^3/uL (140-400) Neutrophils (%) (Auto) 85 % (31-73) Lymphocytes (%) (Auto) 9 % (24-48) Monocytes (%) (Auto) 5 % (0-9) Eosinophils (%) (Auto) 0 % (0-3) Basophils (%) (Auto) 0 % (0-3) Neutrophils # (Auto) 10.8 x10^3uL (1.8-7.7) Lymphocytes # (Auto) 1.2 x10^3/uL (1.0-4.8) Monocytes # (Auto) 0.7 x10^3/uL (0.0-1.1) Eosinophils # (Auto) 0.0 x10^3/uL (0.0-0.7) Basophils # (Auto) 0.1 x10^3/uL (0.0-0.2) Segmented Neutrophils % 83 % (35-66) Band Neutrophils % 3 % (0-9) Lymphocytes % 9 % (24-48) Monocytes % 5 % (0-10) Platelet Estimate Adequate (ADEQUATE) Sodium Level 132 mmol/L (136-145) Potassium Level 5.2 mmol/L (3.5-5.1) Chloride Level 97 mmol/L (98-107) Carbon Dioxide Level 8 mmol/L (21-32) Anion Gap 27 (6-14) Blood Urea Nitrogen 32 mg/dL (7-20) Creatinine 1.6 mg/dL (0.6-1.0) Estimated GFR (Cockcroft-Gault) 38.6 BUN/Creatinine Ratio 20 (6-20) Glucose Level 551 mg/dL (70-99) Calcium Level 9.2 mg/dL (8.5-10.1) Magnesium Level 2.4 mg/dL (1.8-2.4) Total Bilirubin 0.3 mg/dL (0.2-1.0) Aspartate Amino Transf (AST/SGOT) 24 U/L (15-37) Alanine Aminotransferase (ALT/SGPT) 47 U/L (14-59) Alkaline Phosphatase 170 U/L (46-116) Troponin I Quantitative < 0.017 ng/mL (0.000-0.055) Total Protein 7.7 g/dL (6.4-8.2) Albumin 3.8 g/dL (3.4-5.0) Albumin/Globulin Ratio 1.0 (1.0-1.7) Laboratory Tests Test 02/03/18 14:30 02/03/18 16:19 Urine Color Yellow Urine Clarity Clear Urine pH 5.0 Urine Specific [place] 1.025 Urine Protein Negative mg/dL (NEG-TRACE) Urine Glucose (UA) >=1000 mg/dL (NEG) Urine Ketones (Stick) >=80 mg/dL (NEG) Urine Blood Trace (NEG) Urine Nitrite Negative (NEG) Urine Bilirubin Negative (NEG) Urine Urobilinogen Dipstick 0.2 mg/dL (0.2 mg/dL) Urine Leukocyte Esterase Negative (NEG) Urine RBC 0 /HPF (0-2) Urine WBC 1-4 /HPF (0-4) Urine Squamous Epithelial Cells Few /LPF Urine Bacteria 0 /HPF (0-FEW) Urine Mucus Slight /LPF White Blood Count 12.7 x10^3/uL (4.0-11.0) Red Blood Count 4.39 x10^6/uL (3.50-5.40) Hemoglobin 12.6 g/dL (12.0-15.5) Hematocrit 40.4 % (36.0-47.0) Mean Corpuscular Volume 92 fL (79-100) Mean Corpuscular Hemoglobin 29 pg (25-35) Mean Corpuscular Hemoglobin Concent 31 g/dL (31-37) Red Cell Distribution Width 15.5 % (11.5-14.5) Platelet Count 388 x10^3/uL (140-400) Neutrophils (%) (Auto) 85 % (31-73) Lymphocytes (%) (Auto) 9 % (24-48) Monocytes (%) (Auto) 5 % (0-9) Eosinophils (%) (Auto) 0 % (0-3) Basophils (%) (Auto) 0 % (0-3) Neutrophils # (Auto) 10.8 x10^3uL (1.8-7.7) Lymphocytes # (Auto) 1.2 x10^3/uL (1.0-4.8) Monocytes # (Auto) 0.7 x10^3/uL (0.0-1.1) Eosinophils # (Auto) 0.0 x10^3/uL (0.0-0.7) Basophils # (Auto) 0.1 x10^3/uL (0.0-0.2) Segmented Neutrophils % 83 % (35-66) Band Neutrophils % 3 % (0-9) Lymphocytes % 9 % (24-48) Monocytes % 5 % (0-10) Platelet Estimate Adequate (ADEQUATE) Sodium Level 132 mmol/L (136-145) Potassium Level 5.2 mmol/L (3.5-5.1) Chloride Level 97 mmol/L (98-107) Carbon Dioxide Level 8 mmol/L (21-32) Anion Gap 27 (6-14) Blood Urea Nitrogen 32 mg/dL (7-20) Creatinine 1.6 mg/dL (0.6-1.0) Estimated GFR (Cockcroft-Gault) 38.6 BUN/Creatinine Ratio 20 (6-20) Glucose Level 551 mg/dL (70-99) Calcium Level 9.2 mg/dL (8.5-10.1) Magnesium Level 2.4 mg/dL (1.8-2.4) Total Bilirubin 0.3 mg/dL (0.2-1.0) Aspartate Amino Transf (AST/SGOT) 24 U/L (15-37) Alanine Aminotransferase (ALT/SGPT) 47 U/L (14-59) Alkaline Phosphatase 170 U/L (46-116) Troponin I Quantitative < 0.017 ng/mL (0.000-0.055) Total Protein 7.7 g/dL (6.4-8.2) Albumin 3.8 g/dL (3.4-5.0) Albumin/Globulin Ratio 1.0 (1.0-1.7) VTE Prophylaxis Ordered VTE Prophylaxis Devices: Yes VTE Pharmacological Prophylaxi: Yes Assessment/Plan Assessment/Plan recurrent DKA uncompliance FRANK, vasomotor hyperkalemia metabolic acidosis plan: need verify home meds ICU care for insulin drip NPO for now labs as per protocol dvt, gi ppx ABG pending GARRETT BURGOS MD Feb 03, 2018 17:53
[2018-02-03] MEDS: IV 1/2 NORMAL SALINE 1,000 ML IV SCH (20:59)
[2018-02-03] MEDS ORDERED: INSULIN REGULAR VIAL 150 UNIT in 0.9 % SODIUM CHLORIDE 150ML 150 ML IV PRN (21:00)
[2018-02-03] MEDS ORDERED: SODIUM PHOSPHATE 10 MMOL in IV DEXTROSE 5% 250 ML IV PRN (21:00)
[2018-02-03] MEDS ORDERED: SODIUM PHOSPHATE 20 MMOL in IV DEXTROSE 5% 250 ML IV PRN (21:00)
[2018-02-03] MEDS: IV DEXTROSE 5% - 0.9 % NACL 1,000 ML IV SCH (21:00)
[2018-02-03] MEDS ORDERED: SODIUM PHOSPHATE 40 MMOL in IV NORMAL SALINE 500ML BAG 500 ML IV PRN (21:00)
[2018-02-03] MEDS ORDERED: HEPARIN for SUB-Q USE 5,000 UNIT/ML VIAL. SQ SCH (22:00)
[2018-02-03] MEDS: FAMOTIDINE 20 MG/2 ML VIAL IVP SCH (22:20)
[2018-02-03] MEDS: MIRTAZAPINE 7.5 MG TABLET. PO SCH (22:20)
[2018-02-03] MEDS: HEPARIN for SUB-Q USE 5,000 UNIT/ML VIAL. SQ SCH (22:22)
[2018-02-03 23:55] LABS: CALCIUM 8.3 mg/dL (8.5-10.1); GFR 66.3; MAGNESIUM 1.8 mg/dL (1.8-2.4); PHOSPHORUS 2.2 mg/dL (2.6-4.7); POTASSIUM 3.5 mmol/L (3.5-5.1)
[2018-02-04] VITALS (17 sets, daily range): BP systolic 90–137; BP diastolic 40–68
[2018-02-04] MEDS: IV DEXTROSE 5% - 0.9 % NACL 1,000 ML IV SCH ×4 (00:05→09:04)
[2018-02-04] MEDS ORDERED: POTASSIUM CHLORIDE 20 MEQ TABLET.ER. PO PRN (00:30)
[2018-02-04] MEDS: IV 1/2 NORMAL SALINE 1,000 ML IV SCH ×2 (00:59→04:59)
[2018-02-04] MEDS ORDERED: SODIUM PHOSPHATE 20 MMOL in IV DEXTROSE 5% 250 ML IV ONE (01:00)
[2018-02-04] MEDS: LEVOTHYROXINE 25 MCG TABLET. PO SCH (05:43)
[2018-02-04] MEDS: HEPARIN for SUB-Q USE 5,000 UNIT/ML VIAL. SQ SCH ×3 (05:43→20:52)
[2018-02-04 08:21] LABS: BASO % 1 % (0-3); EOS % 0 % (0-3); HEMATOCRIT 35.9 % (36.0-47.0); HEMOGLOBIN 11.9 g/dL (12.0-15.5); LYMPH # 1.9 x10^3/uL (1.0-4.8); LYMPH % 26 % (24-48); MEAN CORPUSCULAR HEMOGLOBIN 29 pg (25-35); MEAN CORPUSCULAR HGB CONC 33 g/dL (31-37); MEAN CORPUSCULAR VOLUME 87 fL (79-100); MONO # 0.4 x10^3/uL (0.0-1.1); MONO % 6 % (0-9); NEUT # 4.9 x10^3uL (1.8-7.7); NEUT % 67 % (31-73); PLATELET COUNT 353 x10^3/uL (140-400); RED BLOOD COUNT 4.12 x10^6/uL (3.50-5.40); RED CELL DISTRIBUTION WIDTH 14.6 % (11.5-14.5); WHITE BLOOD COUNT 7.3 x10^3/uL (4.0-11.0)
[2018-02-04 08:38] LABS: CALCIUM 8.5 mg/dL (8.5-10.1); GFR 66.3; PHOSPHORUS 4.1 mg/dL (2.6-4.7); POTASSIUM 4.2 mmol/L (3.5-5.1)
[2018-02-04] MEDS: FERROUS SULFATE 325 MG TABLET. PO SCH (08:48)
[2018-02-04] MEDS: ASPIRIN ENTERIC COATED 81 MG TABLET.DR. PO SCH (08:49)
[2018-02-04] MEDS: MAGNESIUM SULFATE 4GM 100 ML IV SCH (09:03)
--- NOTE | 2018-02-04 10:43 | PDOC ---
PROGRESS NOTES History of Present Illness History of Present Illness Assessment/Plan Assessment/Plan recurrent DKA uncompliance FRANK, vasomotor hyperkalemia metabolic acidosis plan: need verify home meds ICU care for insulin drip NPO for now labs as per protocol dvt, gi ppx ABG pending Vitals Vitals Vital Signs Date Time Temp Pulse Resp B/P (MAP) Pulse Ox O2 Delivery O2 Flow Rate FiO2 02/04/18 10:00 66 20 104/50 (68) 100 Room Air 02/04/18 09:00 98.3 98.3 Physical Exam Physical Exam Physical Exam Physical Exam not oriented to correct month Cardiovascular:Heart rate regular rhythm, no murmur [] Lungs & Thorax: Bilateral breath sounds clear to auscultation. Resp. equal/ nonlabored Abdomen: Bowel sounds normal, soft, no tenderness, no masses, no pulsatile masses. [] Skin: Warm, dry, no erythema, no rash. [] Back: No tenderness, no CVA tenderness. [] Extremities: No tenderness, no cyanosis, no clubbing, ROM intact, no edema. [] Neurologic: Alert and oriented X 3, normal motor function, normal sensory function, no focal deficits noted. [] No apparent distress. Head is normocephalic, atraumatic NECk Supple. Lungs Clear to auscultation. cv RRR, S1, S2 present. Peripheral pulses intact ABDOMEN: Soft, nontender. Positive bowel sounds. EXTREMITIES: no cyanosis. NEUROLOGIC: Normal speech, normal tone PSYCHIATRIC: Normal affect, normal mood. SKIN: No ulcerations General: Alert, Cooperative Lungs: Clear, Other Abdomen: Normal bowel sounds, Soft Extremities: No cyanosis Labs LABS 34 min cc time Laboratory Tests Test 02/03/18 14:30 02/03/18 16:06 02/03/18 16:19 02/03/18 18:05 Urine Color Yellow Urine Clarity Clear Urine pH 5.0 Urine Specific [place] 1.025 Urine Protein Negative mg/dL (NEG-TRACE) Urine Glucose (UA) >=1000 mg/dL (NEG) Urine Ketones (Stick) >=80 mg/dL (NEG) Urine Blood Trace (NEG) Urine Nitrite Negative (NEG) Urine Bilirubin Negative (NEG) Urine Urobilinogen Dipstick 0.2 mg/dL (0.2 mg/dL) Urine Leukocyte Esterase Negative (NEG) Urine RBC 0 /HPF (0-2) Urine WBC 1-4 /HPF (0-4) Urine Squamous Epithelial Cells Few /LPF Urine Bacteria 0 /HPF (0-FEW) Urine Mucus Slight /LPF O2 Saturation 97 % (92-99) Arterial Blood pH 7.27 (7.35-7.45) Arterial Blood pCO2 at Patient Temp 21 mmHg (35-46) Arterial Blood pO2 at Patient Temp 103 mmHg (65-108) Arterial Blood HCO3 9 mmol/L (21-28) Arterial Blood Base Excess -16 mmol/L (-3-3) Oxyhemoglobin 96.0 % Methemoglobin 0.2 % (0.0-1.9) Carbon Monoxide, Quantitative 0.3 % (0.0-1.9) FiO2 21 White Blood Count 12.7 x10^3/uL (4.0-11.0) Red Blood Count 4.39 x10^6/uL (3.50-5.40) Hemoglobin 12.6 g/dL (12.0-15.5) Hematocrit 40.4 % (36.0-47.0) Mean Corpuscular Volume 92 fL (79-100) Mean Corpuscular Hemoglobin 29 pg (25-35) Mean Corpuscular Hemoglobin Concent 31 g/dL (31-37) Red Cell Distribution Width 15.5 % (11.5-14.5) Platelet Count 388 x10^3/uL (140-400) Neutrophils (%) (Auto) 85 % (31-73) Lymphocytes (%) (Auto) 9 % (24-48) Monocytes (%) (Auto) 5 % (0-9) Eosinophils (%) (Auto) 0 % (0-3) Basophils (%) (Auto) 0 % (0-3) Neutrophils # (Auto) 10.8 x10^3uL (1.8-7.7) Lymphocytes # (Auto) 1.2 x10^3/uL (1.0-4.8) Monocytes # (Auto) 0.7 x10^3/uL (0.0-1.1) Eosinophils # (Auto) 0.0 x10^3/uL (0.0-0.7) Basophils # (Auto) 0.1 x10^3/uL (0.0-0.2) Segmented Neutrophils % 83 % (35-66) Band Neutrophils % 3 % (0-9) Lymphocytes % 9 % (24-48) Monocytes % 5 % (0-10) Platelet Estimate Adequate (ADEQUATE) Sodium Level 132 mmol/L (136-145) Potassium Level 5.2 mmol/L (3.5-5.1) Chloride Level 97 mmol/L (98-107) Carbon Dioxide Level 8 mmol/L (21-32) Anion Gap 27 (6-14) Blood Urea Nitrogen 32 mg/dL (7-20) Creatinine 1.6 mg/dL (0.6-1.0) Estimated GFR (Cockcroft-Gault) 38.6 BUN/Creatinine Ratio 20 (6-20) Glucose Level 551 mg/dL (70-99) Calcium Level 9.2 mg/dL (8.5-10.1) Magnesium Level 2.4 mg/dL (1.8-2.4) Total Bilirubin 0.3 mg/dL (0.2-1.0) Aspartate Amino Transf (AST/SGOT) 24 U/L (15-37) Alanine Aminotransferase (ALT/SGPT) 47 U/L (14-59) Alkaline Phosphatase 170 U/L (46-116) Troponin I Quantitative < 0.017 ng/mL (0.000-0.055) Total Protein 7.7 g/dL (6.4-8.2) Albumin 3.8 g/dL (3.4-5.0) Albumin/Globulin Ratio 1.0 (1.0-1.7) Glucose (Fingerstick) 398 mg/dL (70-99) Test 02/03/18 19:07 02/03/18 19:46 02/03/18 20:46 02/03/18 21:51 Glucose (Fingerstick) 244 mg/dL (70-99) 232 mg/dL (70-99) 196 mg/dL (70-99) 165 mg/dL (70-99) Test 02/03/18 22:55 02/03/18 23:30 02/04/18 00:01 02/04/18 01:08 Glucose (Fingerstick) 145 mg/dL (70-99) 172 mg/dL (70-99) 118 mg/dL (70-99) Sodium Level 139 mmol/L (136-145) Potassium Level 3.5 mmol/L (3.5-5.1) Chloride Level 106 mmol/L (98-107) Carbon Dioxide Level 22 mmol/L (21-32) Anion Gap 11 (6-14) Blood Urea Nitrogen 20 mg/dL (7-20) Creatinine 1.0 mg/dL (0.6-1.0) Estimated GFR (Cockcroft-Gault) 66.3 Glucose Level 151 mg/dL (70-99) Calcium Level 8.3 mg/dL (8.5-10.1) Phosphorus Level 2.2 mg/dL (2.6-4.7) Magnesium Level 1.8 mg/dL (1.8-2.4) Test 02/04/18 02:17 02/04/18 03:21 02/04/18 04:28 02/04/18 05:30 Glucose (Fingerstick) 103 mg/dL (70-99) 113 mg/dL (70-99) 109 mg/dL (70-99) 118 mg/dL (70-99) Test 02/04/18 06:32 02/04/18 07:39 02/04/18 07:40 02/04/18 09:14 Glucose (Fingerstick) 144 mg/dL (70-99) 109 mg/dL (70-99) 131 mg/dL (70-99) White Blood Count 7.3 x10^3/uL (4.0-11.0) Red Blood Count 4.12 x10^6/uL (3.50-5.40) Hemoglobin 11.9 g/dL (12.0-15.5) Hematocrit 35.9 % (36.0-47.0) Mean Corpuscular Volume 87 fL (79-100) Mean Corpuscular Hemoglobin 29 pg (25-35) Mean Corpuscular Hemoglobin Concent 33 g/dL (31-37) Red Cell Distribution Width 14.6 % (11.5-14.5) Platelet Count 353 x10^3/uL (140-400) Neutrophils (%) (Auto) 67 % (31-73) Lymphocytes (%) (Auto) 26 % (24-48) Monocytes (%) (Auto) 6 % (0-9) Eosinophils (%) (Auto) 0 % (0-3) Basophils (%) (Auto) 1 % (0-3) Neutrophils # (Auto) 4.9 x10^3uL (1.8-7.7) Lymphocytes # (Auto) 1.9 x10^3/uL (1.0-4.8) Monocytes # (Auto) 0.4 x10^3/uL (0.0-1.1) Eosinophils # (Auto) 0.0 x10^3/uL (0.0-0.7) Basophils # (Auto) 0.0 x10^3/uL (0.0-0.2) Sodium Level 140 mmol/L (136-145) Potassium Level 4.2 mmol/L (3.5-5.1) Chloride Level 109 mmol/L (98-107) Carbon Dioxide Level 14 mmol/L (21-32) Anion Gap 17 (6-14) Blood Urea Nitrogen 15 mg/dL (7-20) Creatinine 1.0 mg/dL (0.6-1.0) Estimated GFR (Cockcroft-Gault) 66.3 Glucose Level 129 mg/dL (70-99) Calcium Level 8.5 mg/dL (8.5-10.1) Phosphorus Level 4.1 mg/dL (2.6-4.7) Assessment and Plan Assessmemt and Plan Problems Medical Problems: (1) DKA (diabetic ketoacidoses) Status: Acute Comment Review of Relevant I have reviewed the following items varun (where applicable) has been applied. Labs Laboratory Tests Test 02/03/18 14:30 02/03/18 16:06 02/03/18 16:19 02/03/18 18:05 Urine Color Yellow Urine Clarity Clear Urine pH 5.0 Urine Specific [place] 1.025 Urine Protein Negative mg/dL (NEG-TRACE) Urine Glucose (UA) >=1000 mg/dL (NEG) Urine Ketones (Stick) >=80 mg/dL (NEG) Urine Blood Trace (NEG) Urine Nitrite Negative (NEG) Urine Bilirubin Negative (NEG) Urine Urobilinogen Dipstick 0.2 mg/dL (0.2 mg/dL) Urine Leukocyte Esterase Negative (NEG) Urine RBC 0 /HPF (0-2) Urine WBC 1-4 /HPF (0-4) Urine Squamous Epithelial Cells Few /LPF Urine Bacteria 0 /HPF (0-FEW) Urine Mucus Slight /LPF O2 Saturation 97 % (92-99) Arterial Blood pH 7.27 (7.35-7.45) Arterial Blood pCO2 at Patient Temp 21 mmHg (35-46) Arterial Blood pO2 at Patient Temp 103 mmHg (65-108) Arterial Blood HCO3 9 mmol/L (21-28) Arterial Blood Base Excess -16 mmol/L (-3-3) Oxyhemoglobin 96.0 % Methemoglobin 0.2 % (0.0-1.9) Carbon Monoxide, Quantitative 0.3 % (0.0-1.9) FiO2 21 White Blood Count 12.7 x10^3/uL (4.0-11.0) Red Blood Count 4.39 x10^6/uL (3.50-5.40) Hemoglobin 12.6 g/dL (12.0-15.5) Hematocrit 40.4 % (36.0-47.0) Mean Corpuscular Volume 92 fL (79-100) Mean Corpuscular Hemoglobin 29 pg (25-35) Mean Corpuscular Hemoglobin Concent 31 g/dL (31-37) Red Cell Distribution Width 15.5 % (11.5-14.5) Platelet Count 388 x10^3/uL (140-400) Neutrophils (%) (Auto) 85 % (31-73) Lymphocytes (%) (Auto) 9 % (24-48) Monocytes (%) (Auto) 5 % (0-9) Eosinophils (%) (Auto) 0 % (0-3) Basophils (%) (Auto) 0 % (0-3) Neutrophils # (Auto) 10.8 x10^3uL (1.8-7.7) Lymphocytes # (Auto) 1.2 x10^3/uL (1.0-4.8) Monocytes # (Auto) 0.7 x10^3/uL (0.0-1.1) Eosinophils # (Auto) 0.0 x10^3/uL (0.0-0.7) Basophils # (Auto) 0.1 x10^3/uL (0.0-0.2) Segmented Neutrophils % 83 % (35-66) Band Neutrophils % 3 % (0-9) Lymphocytes % 9 % (24-48) Monocytes % 5 % (0-10) Platelet Estimate Adequate (ADEQUATE) Sodium Level 132 mmol/L (136-145) Potassium Level 5.2 mmol/L (3.5-5.1) Chloride Level 97 mmol/L (98-107) Carbon Dioxide Level 8 mmol/L (21-32) Anion Gap 27 (6-14) Blood Urea Nitrogen 32 mg/dL (7-20) Creatinine 1.6 mg/dL (0.6-1.0) Estimated GFR (Cockcroft-Gault) 38.6 BUN/Creatinine Ratio 20 (6-20) Glucose Level 551 mg/dL (70-99) Calcium Level 9.2 mg/dL (8.5-10.1) Magnesium Level 2.4 mg/dL (1.8-2.4) Total Bilirubin 0.3 mg/dL (0.2-1.0) Aspartate Amino Transf (AST/SGOT) 24 U/L (15-37) Alanine Aminotransferase (ALT/SGPT) 47 U/L (14-59) Alkaline Phosphatase 170 U/L (46-116) Troponin I Quantitative < 0.017 ng/mL (0.000-0.055) Total Protein 7.7 g/dL (6.4-8.2) Albumin 3.8 g/dL (3.4-5.0) Albumin/Globulin Ratio 1.0 (1.0-1.7) Glucose (Fingerstick) 398 mg/dL (70-99) Test 02/03/18 19:07 02/03/18 19:46 02/03/18 20:46 02/03/18 21:51 Glucose (Fingerstick) 244 mg/dL (70-99) 232 mg/dL (70-99) 196 mg/dL (70-99) 165 mg/dL (70-99) Test 02/03/18 22:55 02/03/18 23:30 02/04/18 00:01 02/04/18 01:08 Glucose (Fingerstick) 145 mg/dL (70-99) 172 mg/dL (70-99) 118 mg/dL (70-99) Sodium Level 139 mmol/L (136-145) Potassium Level 3.5 mmol/L (3.5-5.1) Chloride Level 106 mmol/L (98-107) Carbon Dioxide Level 22 mmol/L (21-32) Anion Gap 11 (6-14) Blood Urea Nitrogen 20 mg/dL (7-20) Creatinine 1.0 mg/dL (0.6-1.0) Estimated GFR (Cockcroft-Gault) 66.3 Glucose Level 151 mg/dL (70-99) Calcium Level 8.3 mg/dL (8.5-10.1) Phosphorus Level 2.2 mg/dL (2.6-4.7) Magnesium Level 1.8 mg/dL (1.8-2.4) Test 02/04/18 02:17 02/04/18 03:21 02/04/18 04:28 02/04/18 05:30 Glucose (Fingerstick) 103 mg/dL (70-99) 113 mg/dL (70-99) 109 mg/dL (70-99) 118 mg/dL (70-99) Test 02/04/18 06:32 02/04/18 07:39 02/04/18 07:40 02/04/18 09:14 Glucose (Fingerstick) 144 mg/dL (70-99) 109 mg/dL (70-99) 131 mg/dL (70-99) White Blood Count 7.3 x10^3/uL (4.0-11.0) Red Blood Count 4.12 x10^6/uL (3.50-5.40) Hemoglobin 11.9 g/dL (12.0-15.5) Hematocrit 35.9 % (36.0-47.0) Mean Corpuscular Volume 87 fL (79-100) Mean Corpuscular Hemoglobin 29 pg (25-35) Mean Corpuscular Hemoglobin Concent 33 g/dL (31-37) Red Cell Distribution Width 14.6 % (11.5-14.5) Platelet Count 353 x10^3/uL (140-400) Neutrophils (%) (Auto) 67 % (31-73) Lymphocytes (%) (Auto) 26 % (24-48) Monocytes (%) (Auto) 6 % (0-9) Eosinophils (%) (Auto) 0 % (0-3) Basophils (%) (Auto) 1 % (0-3) Neutrophils # (Auto) 4.9 x10^3uL (1.8-7.7) Lymphocytes # (Auto) 1.9 x10^3/uL (1.0-4.8) Monocytes # (Auto) 0.4 x10^3/uL (0.0-1.1) Eosinophils # (Auto) 0.0 x10^3/uL (0.0-0.7) Basophils # (Auto) 0.0 x10^3/uL (0.0-0.2) Sodium Level 140 mmol/L (136-145) Potassium Level 4.2 mmol/L (3.5-5.1) Chloride Level 109 mmol/L (98-107) Carbon Dioxide Level 14 mmol/L (21-32) Anion Gap 17 (6-14) Blood Urea Nitrogen 15 mg/dL (7-20) Creatinine 1.0 mg/dL (0.6-1.0) Estimated GFR (Cockcroft-Gault) 66.3 Glucose Level 129 mg/dL (70-99) Calcium Level 8.5 mg/dL (8.5-10.1) Phosphorus Level 4.1 mg/dL (2.6-4.7) Laboratory Tests Test 02/03/18 14:30 02/03/18 16:06 02/03/18 16:19 02/03/18 18:05 Urine Color Yellow Urine Clarity Clear Urine pH 5.0 Urine Specific [place] 1.025 Urine Protein Negative mg/dL (NEG-TRACE) Urine Glucose (UA) >=1000 mg/dL (NEG) Urine Ketones (Stick) >=80 mg/dL (NEG) Urine Blood Trace (NEG) Urine Nitrite Negative (NEG) Urine Bilirubin Negative (NEG) Urine Urobilinogen Dipstick 0.2 mg/dL (0.2 mg/dL) Urine Leukocyte Esterase Negative (NEG) Urine RBC 0 /HPF (0-2) Urine WBC 1-4 /HPF (0-4) Urine Squamous Epithelial Cells Few /LPF Urine Bacteria 0 /HPF (0-FEW) Urine Mucus Slight /LPF O2 Saturation 97 % (92-99) Arterial Blood pH 7.27 (7.35-7.45) Arterial Blood pCO2 at Patient Temp 21 mmHg (35-46) Arterial Blood pO2 at Patient Temp 103 mmHg (65-108) Arterial Blood HCO3 9 mmol/L (21-28) Arterial Blood Base Excess -16 mmol/L (-3-3) Oxyhemoglobin 96.0 % Methemoglobin 0.2 % (0.0-1.9) Carbon Monoxide, Quantitative 0.3 % (0.0-1.9) FiO2 21 White Blood Count 12.7 x10^3/uL (4.0-11.0) Red Blood Count 4.39 x10^6/uL (3.50-5.40) Hemoglobin 12.6 g/dL (12.0-15.5) Hematocrit 40.4 % (36.0-47.0) Mean Corpuscular Volume 92 fL (79-100) Mean Corpuscular Hemoglobin 29 pg (25-35) Mean Corpuscular Hemoglobin Concent 31 g/dL (31-37) Red Cell Distribution Width 15.5 % (11.5-14.5) Platelet Count 388 x10^3/uL (140-400) Neutrophils (%) (Auto) 85 % (31-73) Lymphocytes (%) (Auto) 9 % (24-48) Monocytes (%) (Auto) 5 % (0-9) Eosinophils (%) (Auto) 0 % (0-3) Basophils (%) (Auto) 0 % (0-3) Neutrophils # (Auto) 10.8 x10^3uL (1.8-7.7) Lymphocytes # (Auto) 1.2 x10^3/uL (1.0-4.8) Monocytes # (Auto) 0.7 x10^3/uL (0.0-1.1) Eosinophils # (Auto) 0.0 x10^3/uL (0.0-0.7) Basophils # (Auto) 0.1 x10^3/uL (0.0-0.2) Segmented Neutrophils % 83 % (35-66) Band Neutrophils % 3 % (0-9) Lymphocytes % 9 % (24-48) Monocytes % 5 % (0-10) Platelet Estimate Adequate (ADEQUATE) Sodium Level 132 mmol/L (136-145) Potassium Level 5.2 mmol/L (3.5-5.1) Chloride Level 97 mmol/L (98-107) Carbon Dioxide Level 8 mmol/L (21-32) Anion Gap 27 (6-14) Blood Urea Nitrogen 32 mg/dL (7-20) Creatinine 1.6 mg/dL (0.6-1.0) Estimated GFR (Cockcroft-Gault) 38.6 BUN/Creatinine Ratio 20 (6-20) Glucose Level 551 mg/dL (70-99) Calcium Level 9.2 mg/dL (8.5-10.1) Magnesium Level 2.4 mg/dL (1.8-2.4) Total Bilirubin 0.3 mg/dL (0.2-1.0) Aspartate Amino Transf (AST/SGOT) 24 U/L (15-37) Alanine Aminotransferase (ALT/SGPT) 47 U/L (14-59) Alkaline Phosphatase 170 U/L (46-116) Troponin I Quantitative < 0.017 ng/mL (0.000-0.055) Total Protein 7.7 g/dL (6.4-8.2) Albumin 3.8 g/dL (3.4-5.0) Albumin/Globulin Ratio 1.0 (1.0-1.7) Glucose (Fingerstick) 398 mg/dL (70-99) Test 02/03/18 19:07 02/03/18 19:46 02/03/18 20:46 02/03/18 21:51 Glucose (Fingerstick) 244 mg/dL (70-99) 232 mg/dL (70-99) 196 mg/dL (70-99) 165 mg/dL (70-99) Test 02/03/18 22:55 02/03/18 23:30 02/04/18 00:01 02/04/18 01:08 Glucose (Fingerstick) 145 mg/dL (70-99) 172 mg/dL (70-99) 118 mg/dL (70-99) Sodium Level 139 mmol/L (136-145) Potassium Level 3.5 mmol/L (3.5-5.1) Chloride Level 106 mmol/L (98-107) Carbon Dioxide Level 22 mmol/L (21-32) Anion Gap 11 (6-14) Blood Urea Nitrogen 20 mg/dL (7-20) Creatinine 1.0 mg/dL (0.6-1.0) Estimated GFR (Cockcroft-Gault) 66.3 Glucose Level 151 mg/dL (70-99) Calcium Level 8.3 mg/dL (8.5-10.1) Phosphorus Level 2.2 mg/dL (2.6-4.7) Magnesium Level 1.8 mg/dL (1.8-2.4) Test 02/04/18 02:17 02/04/18 03:21 02/04/18 04:28 02/04/18 05:30 Glucose (Fingerstick) 103 mg/dL (70-99) 113 mg/dL (70-99) 109 mg/dL (70-99) 118 mg/dL (70-99) Test 02/04/18 06:32 02/04/18 07:39 02/04/18 07:40 02/04/18 09:14 Glucose (Fingerstick) 144 mg/dL (70-99) 109 mg/dL (70-99) 131 mg/dL (70-99) White Blood Count 7.3 x10^3/uL (4.0-11.0) Red Blood Count 4.12 x10^6/uL (3.50-5.40) Hemoglobin 11.9 g/dL (12.0-15.5) Hematocrit 35.9 % (36.0-47.0) Mean Corpuscular Volume 87 fL (79-100) Mean Corpuscular Hemoglobin 29 pg (25-35) Mean Corpuscular Hemoglobin Concent 33 g/dL (31-37) Red Cell Distribution Width 14.6 % (11.5-14.5) Platelet Count 353 x10^3/uL (140-400) Neutrophils (%) (Auto) 67 % (31-73) Lymphocytes (%) (Auto) 26 % (24-48) Monocytes (%) (Auto) 6 % (0-9) Eosinophils (%) (Auto) 0 % (0-3) Basophils (%) (Auto) 1 % (0-3) Neutrophils # (Auto) 4.9 x10^3uL (1.8-7.7) Lymphocytes # (Auto) 1.9 x10^3/uL (1.0-4.8) Monocytes # (Auto) 0.4 x10^3/uL (0.0-1.1) Eosinophils # (Auto) 0.0 x10^3/uL (0.0-0.7) Basophils # (Auto) 0.0 x10^3/uL (0.0-0.2) Sodium Level 140 mmol/L (136-145) Potassium Level 4.2 mmol/L (3.5-5.1) Chloride Level 109 mmol/L (98-107) Carbon Dioxide Level 14 mmol/L (21-32) Anion Gap 17 (6-14) Blood Urea Nitrogen 15 mg/dL (7-20) Creatinine 1.0 mg/dL (0.6-1.0) Estimated GFR (Cockcroft-Gault) 66.3 Glucose Level 129 mg/dL (70-99) Calcium Level 8.5 mg/dL (8.5-10.1) Phosphorus Level 4.1 mg/dL (2.6-4.7) Medications Current Medications Sodium Chloride 1,000 ml @ 1,000 mls/hr 1X ONCE IV Last administered on 02/03at 15:35; Start 02/03/18 at 15:30; Stop 02/03/18 at 16:29; Status DC Acetaminophen (Tylenol) 650 mg PRN Q6HRS PRN PO FEVER; Start 02/03/18 at 16:30 Ondansetron HCl (Zofran) 4 mg PRN Q6HRS PRN IV NAUSEA/VOMITING; Start at 16:30 Morphine Sulfate (Morphine Sulfate) 2 mg PRN Q2HR PRN IV MODERATE TO SEVERE PAIN; Start 02/03/18 at 16:30 Tramadol HCl (Ultram) 50 mg PRN Q6HRS PRN PO MILD TO MODERATE PAIN; Start 02/10 at 16:30 Docusate Sodium (Colace) 100 mg PRN DAILY PRN PO CONSTIPATION; Start 02/03/18 at 16:30 Heparin Sodium (Porcine) (Heparin Sodium) 5,000 unit Q8HRS SQ Last administered on 02/04/18at 05:43; Start 02/03/18 at 22:00 Insulin Human Regular (HumuLIN R VIAL) 10 unit 1X ONCE IV Last administered on 02/03/18at 17:18; Start 02/03/18 at 17:00; Stop 02/03/18 at 17:11; Status DC Insulin Human Regular 150 ml @ 0 mls/hr 1X ONCE IV Last administered on at 18:11; Start 02/03/18 at 17:00; Stop 02/03/18 at 17:11; Status DC Aspirin (Ecotrin) 81 mg DAILY PO Last administered on 02/04/18at 08:49; Start 02/04/18 at 09:00 Ergocalciferol (Vitamin D2) 50,000 unit WEEKLY PO ; Start 02/10/18 at 09:00 Ferrous Sulfate (Feosol) 325 mg DAILY PO Last administered on 02/04/18at 08:48 ; Start 02/04/18 at 09:00 Levothyroxine Sodium (Synthroid) 25 mcg DAILY06 PO Last administered on at 05:43; Start 02/04/18 at 06:00 Mirtazapine (Remeron) 7.5 mg QHS PO Last administered on 02/03/18at 22:20; Start 02/03/18 at 21:00 Acetaminophen (Tylenol) 650 mg PRN Q6HRS PRN PO FEVER; Start 02/03/18 at 17:45 ; Status UNV Ondansetron HCl (Zofran) 4 mg PRN Q6HRS PRN IV NAUSEA/VOMITING; Start at 17:45; Status UNV Morphine Sulfate (Morphine Sulfate) 2 mg PRN Q2HR PRN IV MODERATE TO SEVERE PAIN; Start 02/03/18 at 17:45; Status UNV Tramadol HCl (Ultram) 50 mg PRN Q6HRS PRN PO MILD TO MODERATE PAIN; Start 02/10 at 17:45; Status UNV Docusate Sodium (Colace) 100 mg PRN DAILY PRN PO CONSTIPATION; Start 02/03/18 at 17:45; Status UNV Heparin Sodium (Porcine) (Heparin Sodium) 5,000 unit Q8HRS SQ ; Start 02/03/18 at 22:00; Status UNV Famotidine (Pepcid Vial) 20 mg QHS IVP Last administered on 02/03/18at 22:20; Start 02/03/18 at 21:00 Sodium Chloride 1,000 ml @ 250 mls/hr Q4H IV ; Start 02/03/18 at 20:59 Insulin Human Regular 150 unit/ Sodium Chloride 151.5 ml @ 0 mls/hr CONT PRN PRN IV PER PROTOCOL; Start 02/03/18 at 21:00 Sodium Phosphate 40 mmol/Sodium Chloride 513.3333 ml @ 83.3 mls/hr 1X PRN PRN IV SEE COMMENTS; Start 02/03/18 at 21:00 Sodium Phosphate 20 mmol/Dextrose 256.6667 ml @ 62.5 mls/hr 1X PRN PRN IV SEE COMMENTS; Start 02/03/18 at 21:00 Sodium Phosphate 10 mmol/Dextrose 253.3333 ml @ 62.5 mls/hr 1X PRN PRN IV SEE COMMENTS; Start 02/03/18 at 21:00 Influenza Virus Vaccine (Afluria Trivalent [id number] Syringe) 0.5 ml ONCE ONCE VAX IM ; Start 02/04/18 at 09:00; Stop 02/04/18 at 09:01; Status DC Dextrose/Sodium Chloride 1,000 ml @ 250 mls/hr Q4H IV Last administered on 03/12at 09:04; Start 02/03/18 at 23:00 Magnesium Sulfate/ Dextrose 100 ml @ 25 mls/hr DAILY IV Last administered on 02/04/18at 09:03; Start 02/04/18 at 09:00; Stop 02/07/18 at 08:59 Potassium Chloride (Klor-Con) 40 meq PRN Q1HR PRN PO K level is 3 to 3.9 mEq/L Last administered on 02/04/18at 01:38; Start 02/04/18 at 00:30 Sodium Phosphate 20 mmol/Dextrose 256.6667 ml @ 64.167 m... 1X ONCE IV Last administered on 02/04/18at 01:48; Start 02/04/18 at 01:00; Stop 02/04/18 at 04 :59; Status DC Active Scripts Active Bactrim Ds Tablet (Sulfamethoxazole/Trimethoprim) 1 Each Tablet 1 Tab PO BID 10 Days Keflex (Cephalexin) 500 Mg Capsule 500 Mg PO QID 10 Days Glyburide-Metformin 2.5-500 Mg (Glyburide/Metformin Hcl) 1 Each Tablet 1 Each PO DAILY 30 Days Levemir Flextouch (Insulin Detemir) 100 Unit/1 Ml Insuln.pen 10 Unit SQ QHS 30 Days Iron (Ferrous Sulfate) 325 Mg Tablet 325 Mg PO DAILY 30 Days Levothyroxine Sodium 25 Mcg Tablet 1 Tab PO DAILY 30 Days Reported Remeron (Mirtazapine) 15 Mg Tablet 0.5 Tab PO QHS Vitamin D2 (Ergocalciferol (Vitamin D2)) 50,000 Unit Capsule 1 Cap PO WEEKLY Aspirin Ec (Aspirin) 81 Mg Tablet.dr 1 Tab PO DAILY Vitals/I & O Vital Sign - Last 24 Hours 11/11/18 11/11/18 11/11/18 11/11/18 14:30 15:47 16:45 17:20 Temp 98.8 98.8 Pulse 88 79 80 79 Resp 18 20 22 20 B/P (MAP) 154/71 (98) 142/66 (91) 131/65 (87) 124/60 (81) Pulse Ox 93 96 96 98 O2 Delivery Room Air Room Air Room Air Room Air 02/03/18 02/03/18 02/03/18 02/03/18 18:12 19:45 20:00 20:15 Temp 98.2 98.2 Pulse 85 74 75 78 Resp 22 15 12 11 B/P (MAP) 127/60 (82) 116/46 (69) 106/39 (61) 105/41 (62) Pulse Ox 98 99 100 94 O2 Delivery Room Air Room Air Room Air Room Air 02/03/18 02/03/18 02/03/18 02/03/18 20:30 20:45 21:00 22:00 Pulse 78 78 80 80 Resp 12 12 12 13 B/P (MAP) 115/41 (65) 111/43 (65) 112/70 (84) 119/43 (68) Pulse Ox 100 100 100 100 O2 Delivery Room Air Room Air Room Air Room Air 02/03/18 02/04/18 02/04/18 02/04/18 23:00 00:00 01:00 02:00 Temp 97.0 97.0 Pulse 84 80 82 78 Resp 05 02 12 12 B/P (MAP) 118/42 (67) 95/40 (58) 90/59 (69) Pulse Ox 100 100 100 100 O2 Delivery Room Air Room Air Room Air Room Air 02/04/18 02/04/18 02/04/18 02/04/18 03:00 04:00 05:00 06:00 Temp 97.2 97.2 Pulse 69 77 77 68 Resp 12 17 16 12 B/P (MAP) 102/45 (64) 119/46 (70) 134/51 (78) 127/46 (73) Pulse Ox 100 100 100 100 O2 Delivery Room Air Room Air Room Air Room Air 02/04/18 02/04/18 02/04/18 02/04/18 07:00 08:00 09:00 10:00 Temp 98.3 98.3 Pulse 68 68 74 66 Resp 12 22 20 B/P (MAP) 121/51 (74) 137/55 (82) 125/51 (75) 104/50 (68) Pulse Ox 96 100 100 100 O2 Delivery Room Air Room Air Room Air Room Air Intake and Output 02/03/18 02/03/18 02/04/18 15:00 23:00 07:00 Intake Total 1000 ml 2488 ml Output Total 0 ml 0 ml Balance 1000 ml 2488 ml JOSE M BARRAZA MD Feb 04, 2018 10:43
[2018-02-04] MEDS ORDERED: DEXTROSE 50% 25 GM / 50ML DISP.SYRIN. IV PRN (12:15)
[2018-02-04] MEDS: INSULIN LISPRO 300 UNITS/3 ML INSULN.PEN. SQ SCH (17:28)
[2018-02-04] MEDS ORDERED: INSULIN LISPRO 300 UNITS/3 ML INSULN.PEN. SQ ONE (18:00)
[2018-02-04] MEDS: MIRTAZAPINE 7.5 MG TABLET. PO SCH (20:43)
[2018-02-04] MEDS: FAMOTIDINE 20 MG/2 ML VIAL IVP SCH (20:43)
[2018-02-04 23:13] LABS: HEMOGLOBIN A1C 9.8 % (4.8-5.6)
[2018-02-05 03:00] VITALS: BP 160/75
[2018-02-05] MEDS: LEVOTHYROXINE 25 MCG TABLET. PO SCH (05:07)
[2018-02-05] MEDS: HEPARIN for SUB-Q USE 5,000 UNIT/ML VIAL. SQ SCH ×2 (05:11→14:00)
[2018-02-05 05:46] LABS: BASO % 1 % (0-3); EOS % 0 % (0-3); HEMATOCRIT 31.3 % (36.0-47.0); HEMOGLOBIN 10.3 g/dL (12.0-15.5); LYMPH # 1.6 x10^3/uL (1.0-4.8); LYMPH % 27 % (24-48); MEAN CORPUSCULAR HEMOGLOBIN 29 pg (25-35); MEAN CORPUSCULAR HGB CONC 33 g/dL (31-37); MEAN CORPUSCULAR VOLUME 87 fL (79-100); MONO # 0.4 x10^3/uL (0.0-1.1); MONO % 7 % (0-9); NEUT # 3.9 x10^3uL (1.8-7.7); NEUT % 66 % (31-73); PLATELET COUNT 320 x10^3/uL (140-400); RED CELL DISTRIBUTION WIDTH 14.7 % (11.5-14.5)
[2018-02-05 06:04] LABS: ALBUMIN 2.9 g/dL (3.4-5.0); ALBUMIN/GLOBULIN RATIO 0.9 (1.0-1.7); CALCIUM 8.3 mg/dL (8.5-10.1); GFR 66.3; POTASSIUM 4.4 mmol/L (3.5-5.1); TOTAL BILIRUBIN 0.3 mg/dL (0.2-1.0); TOTAL PROTEIN 6.1 g/dL (6.4-8.2)
[2018-02-05 07:00] VITALS: BP 168/72
[2018-02-05] MEDS: ASPIRIN ENTERIC COATED 81 MG TABLET.DR. PO SCH (08:32)
[2018-02-05] MEDS: FERROUS SULFATE 325 MG TABLET. PO SCH (08:33)
[2018-02-05] MEDS: INSULIN LISPRO 300 UNITS/3 ML INSULN.PEN. SQ SCH ×2 (08:37→11:39)
[2018-02-05] MEDS: MAGNESIUM SULFATE 4GM 100 ML IV SCH (09:00)
[2018-02-05] MEDS ORDERED: glyBURIDE 1.25 MG TABLET PO SCH (11:30)
[2018-02-05 11:46] VITALS: BP 148/60
--- NOTE | 2018-02-05 11:50 | PDOC ---
PROGRESS NOTES Chief Complaint Chief Complaint High Glucose History of Present Illness History of Present Illness Pt was examined today and was able to converse, was alert and aware of her surroundings. Pt reports feeling better and would like to go home. Glucose is down to 320 now. 72yo F, with h/o dm1 on insulin, po meds, came to ER for hyperglycemia. pt came to hosp often, last time was 11/2017 for DKA. She looks demented, not know the hosp, days or president, or her meds. She is a very poor historian. She said her grand daughter helped her for meds usually ,said got insulin before each meal, which is defferent compared to dc summary. she said glucose was high today, but cannot tell me how much. Denies N/V, abd pain. Glucose 500 in ER, bicarb 8, gap 27. ABG pending. Vitals Vitals Vital Signs Date Time Temp Pulse Resp B/P (MAP) Pulse Ox O2 Delivery O2 Flow Rate FiO2 02/05/18 08:00 Room Air 02/05/18 07:00 97.8 81 20 168/72 (104) 100 97.8 Physical Exam Physical Exam Physical Exam Physical Exam not oriented to correct month Cardiovascular:Heart rate regular rhythm, no murmur [] Lungs & Thorax: Bilateral breath sounds clear to auscultation. Resp. equal/ nonlabored Abdomen: Bowel sounds normal, soft, no tenderness, no masses, no pulsatile masses. [] Skin: Warm, dry, no erythema, no rash. [] Back: No tenderness, no CVA tenderness. [] Extremities: No tenderness, no cyanosis, no clubbing, ROM intact, no edema. [] Neurologic: Alert and oriented X 3, normal motor function, normal sensory function, no focal deficits noted. [] No apparent distress. Head is normocephalic, atraumatic NECk Supple. Lungs Clear to auscultation. cv RRR, S1, S2 present. Peripheral pulses intact ABDOMEN: Soft, nontender. Positive bowel sounds. EXTREMITIES: no cyanosis. NEUROLOGIC: Normal speech, normal tone PSYCHIATRIC: Normal affect, normal mood. SKIN: No ulcerations General: Alert, Cooperative, No acute distress Heart: Regular rate, No murmurs Lungs: Clear, Other Abdomen: Normal bowel sounds, Soft Extremities: No clubbing, No cyanosis Skin: No rashes, No significant lesion Labs LABS Laboratory Tests Test 02/04/18 17:07 02/04/18 20:37 02/05/18 05:40 02/05/18 07:33 Glucose (Fingerstick) 412 mg/dL (70-99) 210 mg/dL (70-99) 375 mg/dL (70-99) White Blood Count 6.0 x10^3/uL (4.0-11.0) Red Blood Count 3.60 x10^6/uL (3.50-5.40) Hemoglobin 10.3 g/dL (12.0-15.5) Hematocrit 31.3 % (36.0-47.0) Mean Corpuscular Volume 87 fL (79-100) Mean Corpuscular Hemoglobin 29 pg (25-35) Mean Corpuscular Hemoglobin Concent 33 g/dL (31-37) Red Cell Distribution Width 14.7 % (11.5-14.5) Platelet Count 320 x10^3/uL (140-400) Neutrophils (%) (Auto) 66 % (31-73) Lymphocytes (%) (Auto) 27 % (24-48) Monocytes (%) (Auto) 7 % (0-9) Eosinophils (%) (Auto) 0 % (0-3) Basophils (%) (Auto) 1 % (0-3) Neutrophils # (Auto) 3.9 x10^3uL (1.8-7.7) Lymphocytes # (Auto) 1.6 x10^3/uL (1.0-4.8) Monocytes # (Auto) 0.4 x10^3/uL (0.0-1.1) Eosinophils # (Auto) 0.0 x10^3/uL (0.0-0.7) Basophils # (Auto) 0.0 x10^3/uL (0.0-0.2) Sodium Level 137 mmol/L (136-145) Potassium Level 4.4 mmol/L (3.5-5.1) Chloride Level 103 mmol/L (98-107) Carbon Dioxide Level 22 mmol/L (21-32) Anion Gap 12 (6-14) Blood Urea Nitrogen 12 mg/dL (7-20) Creatinine 1.0 mg/dL (0.6-1.0) Estimated GFR (Cockcroft-Gault) 66.3 BUN/Creatinine Ratio 12 (6-20) Glucose Level 378 mg/dL (70-99) Calcium Level 8.3 mg/dL (8.5-10.1) Magnesium Level 2.1 mg/dL (1.8-2.4) Total Bilirubin 0.3 mg/dL (0.2-1.0) Aspartate Amino Transf (AST/SGOT) 39 U/L (15-37) Alanine Aminotransferase (ALT/SGPT) 43 U/L (14-59) Alkaline Phosphatase 136 U/L (46-116) Total Protein 6.1 g/dL (6.4-8.2) Albumin 2.9 g/dL (3.4-5.0) Albumin/Globulin Ratio 0.9 (1.0-1.7) Test 02/05/18 10:36 Glucose (Fingerstick) 320 mg/dL (70-99) Review of Systems Review of Systems GENERAL: Denies fever and night sweats CV: Denies chest pain and palpitations SKIN: denies rashes and itching Assessment and Plan Assessmemt and Plan ASSESSMENT: High glucose DKA (diabetic ketoacidoses) - acute Recurrent DKA Noncompliance FRANK Metabolic acidosis PLAN: Ordered glyburide 5mg - glucose today was 320 Added 15 on top of her insulin Possible discharge today or tomorrow (02/05-) if pt is feeling good enough Recheck labs in am (if pt is not discharged today) Home Meds Diabetic care Consult PT/OT Comment Review of Relevant I have reviewed the following items varun (where applicable) has been applied. Labs Laboratory Tests Test 02/03/18 14:30 02/03/18 16:06 02/03/18 16:19 02/03/18 16:45 Urine Color Yellow Urine Clarity Clear Urine pH 5.0 Urine Specific Venus 1.025 Urine Protein Negative mg/dL (NEG-TRACE) Urine Glucose (UA) >=1000 mg/dL (NEG) Urine Ketones (Stick) >=80 mg/dL (NEG) Urine Blood Trace (NEG) Urine Nitrite Negative (NEG) Urine Bilirubin Negative (NEG) Urine Urobilinogen Dipstick 0.2 mg/dL (0.2 mg/dL) Urine Leukocyte Esterase Negative (NEG) Urine RBC 0 /HPF (0-2) Urine WBC 1-4 /HPF (0-4) Urine Squamous Epithelial Cells Few /LPF Urine Bacteria 0 /HPF (0-FEW) Urine Mucus Slight /LPF O2 Saturation 97 % (92-99) Arterial Blood pH 7.27 (7.35-7.45) Arterial Blood pCO2 at Patient Temp 21 mmHg (35-46) Arterial Blood pO2 at Patient Temp 103 mmHg (65-108) Arterial Blood HCO3 9 mmol/L (21-28) Arterial Blood Base Excess -16 mmol/L (-3-3) Oxyhemoglobin 96.0 % Methemoglobin 0.2 % (0.0-1.9) Carbon Monoxide, Quantitative 0.3 % (0.0-1.9) FiO2 21 White Blood Count 12.7 x10^3/uL (4.0-11.0) Red Blood Count 4.39 x10^6/uL (3.50-5.40) Hemoglobin 12.6 g/dL (12.0-15.5) Hematocrit 40.4 % (36.0-47.0) Mean Corpuscular Volume 92 fL (79-100) Mean Corpuscular Hemoglobin 29 pg (25-35) Mean Corpuscular Hemoglobin Concent 31 g/dL (31-37) Red Cell Distribution Width 15.5 % (11.5-14.5) Platelet Count 388 x10^3/uL (140-400) Neutrophils (%) (Auto) 85 % (31-73) Lymphocytes (%) (Auto) 9 % (24-48) Monocytes (%) (Auto) 5 % (0-9) Eosinophils (%) (Auto) 0 % (0-3) Basophils (%) (Auto) 0 % (0-3) Neutrophils # (Auto) 10.8 x10^3uL (1.8-7.7) Lymphocytes # (Auto) 1.2 x10^3/uL (1.0-4.8) Monocytes # (Auto) 0.7 x10^3/uL (0.0-1.1) Eosinophils # (Auto) 0.0 x10^3/uL (0.0-0.7) Basophils # (Auto) 0.1 x10^3/uL (0.0-0.2) Segmented Neutrophils % 83 % (35-66) Band Neutrophils % 3 % (0-9) Lymphocytes % 9 % (24-48) Monocytes % 5 % (0-10) Platelet Estimate Adequate (ADEQUATE) Sodium Level 132 mmol/L (136-145) Potassium Level 5.2 mmol/L (3.5-5.1) Chloride Level 97 mmol/L (98-107) Carbon Dioxide Level 8 mmol/L (21-32) Anion Gap 27 (6-14) Blood Urea Nitrogen 32 mg/dL (7-20) Creatinine 1.6 mg/dL (0.6-1.0) Estimated GFR (Cockcroft-Gault) 38.6 BUN/Creatinine Ratio 20 (6-20) Glucose Level 551 mg/dL (70-99) Calcium Level 9.2 mg/dL (8.5-10.1) Magnesium Level 2.4 mg/dL (1.8-2.4) Total Bilirubin 0.3 mg/dL (0.2-1.0) Aspartate Amino Transf (AST/SGOT) 24 U/L (15-37) Alanine Aminotransferase (ALT/SGPT) 47 U/L (14-59) Alkaline Phosphatase 170 U/L (46-116) Troponin I Quantitative < 0.017 ng/mL (0.000-0.055) Total Protein 7.7 g/dL (6.4-8.2) Albumin 3.8 g/dL (3.4-5.0) Albumin/Globulin Ratio 1.0 (1.0-1.7) Hemoglobin A1c 9.8 % (4.8-5.6) Test 02/03/18 18:05 02/03/18 19:07 02/03/18 19:46 02/03/18 20:46 Glucose (Fingerstick) 398 mg/dL (70-99) 244 mg/dL (70-99) 232 mg/dL (70-99) 196 mg/dL (70-99) Test 02/03/18 21:51 02/03/18 22:00 02/03/18 22:55 02/03/18 23:30 Glucose (Fingerstick) 165 mg/dL (70-99) 145 mg/dL (70-99) Nasal Screen MRSA (PCR) Negative (Negative) Sodium Level 139 mmol/L (136-145) Potassium Level 3.5 mmol/L (3.5-5.1) Chloride Level 106 mmol/L (98-107) Carbon Dioxide Level 22 mmol/L (21-32) Anion Gap 11 (6-14) Blood Urea Nitrogen 20 mg/dL (7-20) Creatinine 1.0 mg/dL (0.6-1.0) Estimated GFR (Cockcroft-Gault) 66.3 Glucose Level 151 mg/dL (70-99) Calcium Level 8.3 mg/dL (8.5-10.1) Phosphorus Level 2.2 mg/dL (2.6-4.7) Magnesium Level 1.8 mg/dL (1.8-2.4) Test 02/04/18 00:01 02/04/18 01:08 02/04/18 02:17 02/04/18 03:21 Glucose (Fingerstick) 172 mg/dL (70-99) 118 mg/dL (70-99) 103 mg/dL (70-99) 113 mg/dL (70-99) Test 02/04/18 04:28 02/04/18 05:30 02/04/18 06:32 02/04/18 07:39 Glucose (Fingerstick) 109 mg/dL (70-99) 118 mg/dL (70-99) 144 mg/dL (70-99) 109 mg/dL (70-99) Test 02/04/18 07:40 02/04/18 09:14 02/04/18 11:19 02/04/18 17:07 White Blood Count 7.3 x10^3/uL (4.0-11.0) Red Blood Count 4.12 x10^6/uL (3.50-5.40) Hemoglobin 11.9 g/dL (12.0-15.5) Hematocrit 35.9 % (36.0-47.0) Mean Corpuscular Volume 87 fL (79-100) Mean Corpuscular Hemoglobin 29 pg (25-35) Mean Corpuscular Hemoglobin Concent 33 g/dL (31-37) Red Cell Distribution Width 14.6 % (11.5-14.5) Platelet Count 353 x10^3/uL (140-400) Neutrophils (%) (Auto) 67 % (31-73) Lymphocytes (%) (Auto) 26 % (24-48) Monocytes (%) (Auto) 6 % (0-9) Eosinophils (%) (Auto) 0 % (0-3) Basophils (%) (Auto) 1 % (0-3) Neutrophils # (Auto) 4.9 x10^3uL (1.8-7.7) Lymphocytes # (Auto) 1.9 x10^3/uL (1.0-4.8) Monocytes # (Auto) 0.4 x10^3/uL (0.0-1.1) Eosinophils # (Auto) 0.0 x10^3/uL (0.0-0.7) Basophils # (Auto) 0.0 x10^3/uL (0.0-0.2) Sodium Level 140 mmol/L (136-145) Potassium Level 4.2 mmol/L (3.5-5.1) Chloride Level 109 mmol/L (98-107) Carbon Dioxide Level 14 mmol/L (21-32) Anion Gap 17 (6-14) Blood Urea Nitrogen 15 mg/dL (7-20) Creatinine 1.0 mg/dL (0.6-1.0) Estimated GFR (Cockcroft-Gault) 66.3 Glucose Level 129 mg/dL (70-99) Calcium Level 8.5 mg/dL (8.5-10.1) Phosphorus Level 4.1 mg/dL (2.6-4.7) Glucose (Fingerstick) 131 mg/dL (70-99) 140 mg/dL (70-99) 412 mg/dL (70-99) Test 02/04/18 20:37 02/05/18 05:40 02/05/18 07:33 02/05/18 10:36 Glucose (Fingerstick) 210 mg/dL (70-99) 375 mg/dL (70-99) 320 mg/dL (70-99) White Blood Count 6.0 x10^3/uL (4.0-11.0) Red Blood Count 3.60 x10^6/uL (3.50-5.40) Hemoglobin 10.3 g/dL (12.0-15.5) Hematocrit 31.3 % (36.0-47.0) Mean Corpuscular Volume 87 fL (79-100) Mean Corpuscular Hemoglobin 29 pg (25-35) Mean Corpuscular Hemoglobin Concent 33 g/dL (31-37) Red Cell Distribution Width 14.7 % (11.5-14.5) Platelet Count 320 x10^3/uL (140-400) Neutrophils (%) (Auto) 66 % (31-73) Lymphocytes (%) (Auto) 27 % (24-48) Monocytes (%) (Auto) 7 % (0-9) Eosinophils (%) (Auto) 0 % (0-3) Basophils (%) (Auto) 1 % (0-3) Neutrophils # (Auto) 3.9 x10^3uL (1.8-7.7) Lymphocytes # (Auto) 1.6 x10^3/uL (1.0-4.8) Monocytes # (Auto) 0.4 x10^3/uL (0.0-1.1) Eosinophils # (Auto) 0.0 x10^3/uL (0.0-0.7) Basophils # (Auto) 0.0 x10^3/uL (0.0-0.2) Sodium Level 137 mmol/L (136-145) Potassium Level 4.4 mmol/L (3.5-5.1) Chloride Level 103 mmol/L (98-107) Carbon Dioxide Level 22 mmol/L (21-32) Anion Gap 12 (6-14) Blood Urea Nitrogen 12 mg/dL (7-20) Creatinine 1.0 mg/dL (0.6-1.0) Estimated GFR (Cockcroft-Gault) 66.3 BUN/Creatinine Ratio 12 (6-20) Glucose Level 378 mg/dL (70-99) Calcium Level 8.3 mg/dL (8.5-10.1) Magnesium Level 2.1 mg/dL (1.8-2.4) Total Bilirubin 0.3 mg/dL (0.2-1.0) Aspartate Amino Transf (AST/SGOT) 39 U/L (15-37) Alanine Aminotransferase (ALT/SGPT) 43 U/L (14-59) Alkaline Phosphatase 136 U/L (46-116) Total Protein 6.1 g/dL (6.4-8.2) Albumin 2.9 g/dL (3.4-5.0) Albumin/Globulin Ratio 0.9 (1.0-1.7) Laboratory Tests Test 02/04/18 17:07 02/04/18 20:37 02/05/18 05:40 02/05/18 07:33 Glucose (Fingerstick) 412 mg/dL (70-99) 210 mg/dL (70-99) 375 mg/dL (70-99) White Blood Count 6.0 x10^3/uL (4.0-11.0) Red Blood Count 3.60 x10^6/uL (3.50-5.40) Hemoglobin 10.3 g/dL (12.0-15.5) Hematocrit 31.3 % (36.0-47.0) Mean Corpuscular Volume 87 fL (79-100) Mean Corpuscular Hemoglobin 29 pg (25-35) Mean Corpuscular Hemoglobin Concent 33 g/dL (31-37) Red Cell Distribution Width 14.7 % (11.5-14.5) Platelet Count 320 x10^3/uL (140-400) Neutrophils (%) (Auto) 66 % (31-73) Lymphocytes (%) (Auto) 27 % (24-48) Monocytes (%) (Auto) 7 % (0-9) Eosinophils (%) (Auto) 0 % (0-3) Basophils (%) (Auto) 1 % (0-3) Neutrophils # (Auto) 3.9 x10^3uL (1.8-7.7) Lymphocytes # (Auto) 1.6 x10^3/uL (1.0-4.8) Monocytes # (Auto) 0.4 x10^3/uL (0.0-1.1) Eosinophils # (Auto) 0.0 x10^3/uL (0.0-0.7) Basophils # (Auto) 0.0 x10^3/uL (0.0-0.2) Sodium Level 137 mmol/L (136-145) Potassium Level 4.4 mmol/L (3.5-5.1) Chloride Level 103 mmol/L (98-107) Carbon Dioxide Level 22 mmol/L (21-32) Anion Gap 12 (6-14) Blood Urea Nitrogen 12 mg/dL (7-20) Creatinine 1.0 mg/dL (0.6-1.0) Estimated GFR (Cockcroft-Gault) 66.3 BUN/Creatinine Ratio 12 (6-20) Glucose Level 378 mg/dL (70-99) Calcium Level 8.3 mg/dL (8.5-10.1) Magnesium Level 2.1 mg/dL (1.8-2.4) Total Bilirubin 0.3 mg/dL (0.2-1.0) Aspartate Amino Transf (AST/SGOT) 39 U/L (15-37) Alanine Aminotransferase (ALT/SGPT) 43 U/L (14-59) Alkaline Phosphatase 136 U/L (46-116) Total Protein 6.1 g/dL (6.4-8.2) Albumin 2.9 g/dL (3.4-5.0) Albumin/Globulin Ratio 0.9 (1.0-1.7) Test 02/05/18 10:36 Glucose (Fingerstick) 320 mg/dL (70-99) Medications Current Medications Sodium Chloride 1,000 ml @ 1,000 mls/hr 1X ONCE IV Last administered on 02/03at 15:35; Start 02/03/18 at 15:30; Stop 02/03/18 at 16:29; Status DC Acetaminophen (Tylenol) 650 mg PRN Q6HRS PRN PO FEVER; Start 02/03/18 at 16:30 Ondansetron HCl (Zofran) 4 mg PRN Q6HRS PRN IV NAUSEA/VOMITING; Start at 16:30 Morphine Sulfate (Morphine Sulfate) 2 mg PRN Q2HR PRN IV MODERATE TO SEVERE PAIN; Start 02/03/18 at 16:30 Tramadol HCl (Ultram) 50 mg PRN Q6HRS PRN PO MILD TO MODERATE PAIN; Start 02/10 at 16:30 Docusate Sodium (Colace) 100 mg PRN DAILY PRN PO CONSTIPATION; Start 02/03/18 at 16:30 Heparin Sodium (Porcine) (Heparin Sodium) 5,000 unit Q8HRS SQ Last administered on 02/05/18at 05:11; Start 02/03/18 at 22:00 Insulin Human Regular (HumuLIN R VIAL) 10 unit 1X ONCE IV Last administered on 02/03/18at 17:18; Start 02/03/18 at 17:00; Stop 02/03/18 at 17:11; Status DC Insulin Human Regular 150 ml @ 0 mls/hr 1X ONCE IV Last administered on at 18:11; Start 02/03/18 at 17:00; Stop 02/03/18 at 17:11; Status DC Aspirin (Ecotrin) 81 mg DAILY PO Last administered on 02/05/18at 08:32; Start 02/04/18 at 09:00 Ergocalciferol (Vitamin D2) 50,000 unit WEEKLY PO ; Start 02/10/18 at 09:00 Ferrous Sulfate (Feosol) 325 mg DAILY PO Last administered on 02/05/18at 08:33 ; Start 02/04/18 at 09:00 Levothyroxine Sodium (Synthroid) 25 mcg DAILY06 PO Last administered on at 05:07; Start 02/04/18 at 06:00 Mirtazapine (Remeron) 7.5 mg QHS PO Last administered on 02/04/18at 20:43; Start 02/03/18 at 21:00 Acetaminophen (Tylenol) 650 mg PRN Q6HRS PRN PO FEVER; Start 02/03/18 at 17:45 ; Status UNV Ondansetron HCl (Zofran) 4 mg PRN Q6HRS PRN IV NAUSEA/VOMITING; Start at 17:45; Status UNV Morphine Sulfate (Morphine Sulfate) 2 mg PRN Q2HR PRN IV MODERATE TO SEVERE PAIN; Start 02/03/18 at 17:45; Status UNV Tramadol HCl (Ultram) 50 mg PRN Q6HRS PRN PO MILD TO MODERATE PAIN; Start 02/10 at 17:45; Status UNV Docusate Sodium (Colace) 100 mg PRN DAILY PRN PO CONSTIPATION; Start 02/03/18 at 17:45; Status UNV Heparin Sodium (Porcine) (Heparin Sodium) 5,000 unit Q8HRS SQ ; Start 02/03/18 at 22:00; Status UNV Famotidine (Pepcid Vial) 20 mg QHS IVP Last administered on 02/04/18at 20:43; Start 02/03/18 at 21:00 Sodium Chloride 1,000 ml @ 250 mls/hr Q4H IV ; Start 02/03/18 at 20:59; Stop 02/04/18 at 12:02; Status DC Insulin Human Regular 150 unit/ Sodium Chloride 151.5 ml @ 0 mls/hr CONT PRN PRN IV PER PROTOCOL; Start 02/03/18 at 21:00; Stop 02/04/18 at 12:02; Status DC Sodium Phosphate 40 mmol/Sodium Chloride 513.3333 ml @ 83.3 mls/hr 1X PRN PRN IV SEE COMMENTS; Start 02/03/18 at 21:00; Stop 02/04/18 at 12:02; Status DC Sodium Phosphate 20 mmol/Dextrose 256.6667 ml @ 62.5 mls/hr 1X PRN PRN IV SEE COMMENTS; Start 02/03/18 at 21:00; Stop 02/04/18 at 12:02; Status DC Sodium Phosphate 10 mmol/Dextrose 253.3333 ml @ 62.5 mls/hr 1X PRN PRN IV SEE COMMENTS; Start 02/03/18 at 21:00; Stop 02/04/18 at 12:02; Status DC Influenza Virus Vaccine (Afluria Trivalent [id number] Syringe) 0.5 ml ONCE ONCE VAX IM Last administered on 02/04/18at 14:31; Start 02/04/18 at 09:00; Stop 02/04/18 at 09:01; Status DC Dextrose/Sodium Chloride 1,000 ml @ 250 mls/hr Q4H IV Last administered on 03/12at 09:04; Start 02/03/18 at 23:00; Stop 02/04/18 at 12:02; Status DC Magnesium Sulfate/ Dextrose 100 ml @ 25 mls/hr DAILY IV Last administered on 02/04/18at 09:03; Start 02/04/18 at 09:00; Stop 02/07/18 at 08:59 Potassium Chloride (Klor-Con) 40 meq PRN Q1HR PRN PO K level is 3 to 3.9 mEq/L Last administered on 02/04/18at 01:38; Start 02/04/18 at 00:30; Stop 02/04/18 at 12:02; Status DC Sodium Phosphate 20 mmol/Dextrose 256.6667 ml @ 64.167 m... 1X ONCE IV Last administered on 02/04/18at 01:48; Start 02/04/18 at 01:00; Stop 02/04/18 at 04 :59; Status DC Insulin Human Lispro (HumaLOG) 0-7 UNITS TIDWMEALS SQ Last administered on at 08:37; Start 02/04/18 at 17:00 Dextrose (Dextrose 50%-Water Syringe) 12.5 gm PRN Q15MIN PRN IV SEE COMMENTS; Start 02/04/18 at 12:15 Insulin Human Lispro (HumaLOG) 20 units 1X ONCE SQ Last administered on at 17:54; Start 02/04/18 at 18:00; Stop 02/04/18 at 18:01; Status DC Glyburide (Diabeta) 5 mg BIDWMEALS PO ; Start 02/05/18 at 11:30; Stop at 11:30; Status DC Glyburide (Diabeta) 5 mg BIDWMEALS PO ; Start 02/05/18 at 12:00 Active Scripts Active Bactrim Ds Tablet (Sulfamethoxazole/Trimethoprim) 1 Each Tablet 1 Tab PO BID 10 Days Keflex (Cephalexin) 500 Mg Capsule 500 Mg PO QID 10 Days Levemir Flextouch (Insulin Detemir) 100 Unit/1 Ml Insuln.pen 10 Unit SQ QHS 30 Days Iron (Ferrous Sulfate) 325 Mg Tablet 325 Mg PO DAILY 30 Days Levothyroxine Sodium 25 Mcg Tablet 1 Tab PO DAILY 30 Days Reported Remeron (Mirtazapine) 15 Mg Tablet 0.5 Tab PO QHS Vitamin D2 (Ergocalciferol (Vitamin D2)) 50,000 Unit Capsule 1 Cap PO WEEKLY Aspirin Ec (Aspirin) 81 Mg Tablet. 1 Tab PO DAILY Vitals/I & O Vital Sign - Last 24 Hours 02/04/18 02/04/18 02/04/18 02/04/18 12:00 13:00 14:00 16:57 Temp 98.5 98.3 98.5 98.3 Pulse 82 86 68 74 Resp 17 17 11 12 B/P (MAP) 117/68 (84) 121/53 (75) 108/53 (71) 132/56 (81) Pulse Ox 99 100 100 99 O2 Delivery Room Air Room Air Room Air Room Air 02/04/18 02/04/18 02/04/18 02/05/18 19:00 20:00 23:00 03:00 Temp 98.5 98.3 97.9 98.5 98.3 97.9 Pulse 75 69 76 Resp 18 B/P (MAP) 137/57 (83) 135/54 (81) 160/75 (103) Pulse Ox 96 94 100 O2 Delivery Room Air Room Air Room Air Room Air 02/05/18 02/05/18 07:00 08:00 Temp 97.8 97.8 Pulse 81 Resp 20 B/P (MAP) 168/72 (104) Pulse Ox 100 O2 Delivery Room Air Room Air Intake and Output 02/04/18 02/04/18 02/05/18 15:00 23:00 07:00 Intake Total 2061 ml 100 ml Output Total 250 ml 0 ml 0 ml Balance 1811 ml 100 ml 0 ml LISA MONTANEZ III DO Feb 05, 2018 11:50
[2018-02-05] MEDS ORDERED: glyBURIDE 5 MG TABLET PO SCH (12:00)
[2018-02-05 14:55] VITALS: BP 143/64
[2018-02-10] MEDS ORDERED: ERGOCALCIFEROL (VITAMIN D2) 50,000 UNIT CAPSULE. PO SCH (09:00)
== END 2018-02-05 16:40 | disposition home or self-care (01) | DRG 637 ==
LOC: ER 14:21 → 1 WEST ICU 16:55 → 5 SOUTH 02-04 18:30
PROVIDERS: ADMIT Internal Medicine; ATTEND Internal Medicine
DX: E10.10 Type 1 diabetes mellitus with ketoacidosis without coma (principal); N17.0 Acute kidney failure with tubular necrosis; F03.90 Unspecified dementia, unspecified severity, without behavioral disturbance, psychotic disturbance, mood disturbance, and anxiety; Z90.710 Acquired absence of both cervix and uterus; Z82.49 Family history of ischemic heart disease and other diseases of the circulatory system; E87.5 Hyperkalemia; Z91.19 Patient's noncompliance with other medical treatment and regimen; Z79.4 Long term (current) use of insulin
CPT/HCPCS: 36415; 36600; 80048; 80053; 81001; 82805; 82962; 83036; 83735; 84100; 84484; 85007; 85025; 87641; 90471; 90756; 93005; 96361; 96365; 96375; J1644; J1815; J3475; J3490; J7030; J7042; 97110; 97530; 97535; 99285-25; Q2035